=== PATIENT | female | born 1965 | race Caucasian/White ===

== ENCOUNTER → 2017-11-18 14:19 | Outpatient (CLI) | payer OTHER, SELFPAY ==
--- NOTE | 2017-11-18 14:39 | XR_ITS ---
XR chest 2V HISTORY: ITS.REASON: COUGH,PRIOR SMOKER,RECENT BRONCHITIS ORDERING PHYSICIAN: Abigail Zazueta DPM PATIENT AGE: 52 years COMPARISON: None FINDINGS: There is mild cardiomegaly without failure. There are scattered small calcified granulomas. There is mild biapical pleural thickening. No lobar consolidation or collapse. Bone plate is present over the lower cervical spine. There is mild dextrocurvature of the thoracic spine. IMPRESSION: Cardiomegaly with old granulomatous disease. No change with no acute finding
[2017-11-18 15:55] LABS: Basophils % 0.6 % (0.1-2.0); Eosinophils # 0.3 K/mm3 (0.0-0.4); Eosinophils % 3.9 % (0.1-12.0); Hematocrit 43.8 % (37.0-47.0); Hemoglobin 14.4 g/dL (12.2-16.2); Lymphocytes % 30.2 K/mm3 (10-50); Mean Corpuscular HGB Conc 32.9 g/dL (31.8-35.4); Mean Corpuscular Hemoglobin 29.8 pg (27.0-31.2); Mean Corpuscular Volume 90.7 fl (81-99); Mean Platelet Volume 7.6 fl (7.4-10.4); Monocytes # 0.4 K/mm3 (0.1-1.0); Monocytes % 5.3 % (1.7-9.3); Neutrophils % 59.9 % (37.0-80.0); Platelet Count 288 K/mm3 (142-424); Red Blood Count 4.83 M/mm3 (4.20-5.40); Red Cell Distribution Width 12.9 % (11.5-17.5); White Blood Count 6.7 K/mm3 (4.8-10.8)
[2017-11-18 16:35] LABS: Alanine Aminotransferase 35 U/L (12-78); Albumin Level 3.7 gm/dL (3.4-5.0); Albumin/Globulin Ratio 1.2 (1.1-1.8); Alkaline Phosphatase 97 U/L (46-116); Anion Gap 12.3 mEq/L (5-15); Aspartate Amino Transferase 26 U/L (15-37); Bilirubin,Total 0.4 mg/dL (0.2-1.0); Blood Urea Nitrogen 11 mg/dL (7-18); Calcium 9.3 mg/dL (8.5-10.1); Carbon Dioxide 31 mmol/L (21.0-32.0); Chloride 103 mmol/L (98-107); Creatinine,Serum 0.79 mg/dL (0.55-1.02); Estimated Glomerular Filt Rate 76 ml/min (>60); GFR (African American) 92 ML/MIN (>60); Glucose 96 mg/dL (74-106); Potassium 4.3 mmoL/L (3.5-5.1); Sodium 142 mmol/L (136-145); Total Protein,Serum 6.7 gm/dL (6.4-8.2)
[2017-11-21 12:57] LABS: Vitamin D 25 Hydroxy 25.6 ng/mL (30.0-100.0)
== END ==
PROVIDERS: PCP Family Medicine; Visit Provider Podiatrist
DX: Z01.818 Encounter for other preprocedural examination (principal); S82.832A Other fracture of upper and lower end of left fibula, initial encounter for closed fracture
CPT/HCPCS: 36415; 71046; 80053; 82652; 85025; 93005

== ENCOUNTER → 2017-12-07 13:53 | Outpatient (CLI) | payer OTHER, SELFPAY ==
[2017-12-07 14:00] VITALS: PULSE 73; PULSE 77
== END ==
PROVIDERS: PCP Family Medicine; Visit Provider Family Medicine
DX: R06.2 Wheezing (principal); R06.02 Shortness of breath
CPT/HCPCS: 94060; 94640

== ENCOUNTER → 2017-12-08 10:01 | Outpatient (CLI) | payer OTHER, SELFPAY ==
--- NOTE | 2017-12-08 10:02 | XR_ITS ---
XR ankle wt bearing LT min 3V HISTORY: Follow-up surgery ITS.REASON: post-op ORDERING PHYSICIAN: Abigail Zazueta DPM PATIENT AGE: 52 years Comparison: 11/23/2017 FINDINGS: There is a bone plate present along the distal fibula with good alignment. Fracture line is obscured by overlying splint. Ankle mortise does not appear widened. IMPRESSION: Good alignment status post ORIF distal fibula.
== END ==
PROVIDERS: PCP Family Medicine; Visit Provider Podiatrist
DX: Z98.890 Other specified postprocedural states (principal)
CPT/HCPCS: 73610

== ENCOUNTER → 2018-01-05 09:35 | Outpatient (CLI) | payer OTHER, SELFPAY ==
--- NOTE | 2018-01-05 09:37 | XR_ITS ---
XR ankle wt bearing LT min 3V Ordering Physician: Abigail Zazueta DPM Patient Age: 52 years: Female HISTORY: ITS.REASON: postoperative views TECHNIQUE: 3 view left ankle weightbearing COMPARISON :12/09/1979 left ankle series FINDINGS Lung bone plate is been secured to the lateral aspect of the distal fibula is secured by 6 screws 2 small screws distally towards the tip of the lateral malleolus. There is progressive healing at the fracture at the lateral malleolus. Good alignment. Stable position of fracture and fixation elements Medial malleolus and posterior malleolus intact ankle mortise and dome of talus intact. IMPRESSION: Progressive healing of the lateral malleolar fracture. ORIF with Stable position of fracture & fixation elements at the lateral malleolus
== END ==
PROVIDERS: PCP Family Medicine; Visit Provider Podiatrist
DX: Z98.890 Other specified postprocedural states (principal)
CPT/HCPCS: 73610

== ENCOUNTER → 2018-01-24 10:01 | Outpatient (CLI) | payer OTHER, SELFPAY ==
--- NOTE | 2018-01-24 10:02 | XR_ITS ---
XR ankle wt bearing LT min 3V HISTORY: Follow-up fracture/ORIF ITS.REASON: Post-op views ORDERING PHYSICIAN: Marin Weaver PATIENT AGE: 52 years Comparison: 01/05/2018 FINDINGS: Lateral bone plate once again noted at the distal fibula stabilizing a nondisplaced distal fibular fracture which is in good alignment. Fracture line is barely visible. IMPRESSION: Overall no change status post ORIF nondisplaced distal fibular fracture with good alignment
--- NOTE | 2018-01-24 15:24 | MM_ITS ---
MM Dig screening mamm BI w/CAD ORDERING PHYSICIAN : Marin Weaver PATIENT AGE: 52 years GENDER: Female COMPARISON: July 2012, & 08 November 2014 INDICATION: ITS.REASON: SCREENING no hormones. No new complaints. Family history. Paternal grandmother and paternal great aunt with breast cancer TECHNIQUE: Standard CC and MLO images were obtained. R2 CAD reviewed. FINDINGS: Moderate to slight increased density breast bilaterally. Areas of density breast slightly limit mammography but prior films are helpful and supportive overall stable mild asymmetry Overall similar, Stable mild asymmetry. Follow-up in one year bilateral RIGHT BREAST:Stable right breast. LEFT BREAST: No significant new findings Mild asymmetry of the left breast on MLO view is similar to 2015 IMPRESSION: No new areas of significant concern. . Moderate heterogeneous breast density Bilateral follow-up one year should be emphasized and encouraged BI-RADS Category: 2 Benign Finding(s) RECOMMENDED FOLLOW-UP: 1YR 1 YEAR FOLLOW-UP (A letter has been sent to the patient regarding results of the study.)
== END ==
PROVIDERS: PCP Family Medicine; Referring Provider Podiatrist; Visit Provider Obstetrics & Gynecology Gynecology
DX: Z12.31 Encounter for screening mammogram for malignant neoplasm of breast (principal); Z98.890 Other specified postprocedural states; S82.832A Other fracture of upper and lower end of left fibula, initial encounter for closed fracture
CPT/HCPCS: 73610; 77067

== ENCOUNTER 2018-02-07 08:30 | Outpatient (RCR) | payer OTHER, SELFPAY ==
--- NOTE | 2018-01-18 14:36 | HMH.PTOPEV ---
PT Outpatient Evaluation Rehab PT Outpatient Evaluation Start: 01/18/18 14:21 Freq: Status: Active Protocol: Document 01/18/18 14:23 DAVIDDIEUDONNE (Rec: 01/18/18 14:36 DAVIDSAULRAMÍREZ [id number]) Electronically Signed By Olivier Barney, PT 01/18/18 14:23 Outpatient Therapy Subjective History Subjective History Pt is a 52 year old female presenting to outpatient PT with reports of L ankle pain S /P ORIF for L lateral malleolus fracture on 11/18/17. Pt reports initial injury came as a result of fall while walking down stairs at home. Sx performed on 11/23/17 . Pt reports that she was initially NWB until 2 weeks ago. She ambulated into clinic today in tall CAM walker. Chief Complaint Pain Stiff Swelling Symptom Type Ache Symptoms Relieved By Rest/Positioning Ice Symptoms Aggravated By Standing Physical Activity Walking Prior Functional Limitations None Current Functional Limitations Housework Standing Squatting Recreation Activity Walking Stairs Balance Symptom Description Intermittent Level of pain today (0-10) 1 Pain scale - at its best (0-10) 0 Pain scale - at its worst (0-10) 5 Ankle/Foot Eval Gait Observation General Gait Pattern Observation Antalgic Gait Palpation Tenderness left Ankle/Foot Palpation Findings Tenderness Ankle/Foot Palpation Overall Comment achilles ATF TTP positive ROM right Ankle/Foot ROM Reason Not Measured Within Functional Limits Great Toe ROM Reason Not Measured Within Functional Limits left Ankle/Foot Dorsiflexion w/Knee Extended 3 Active Range Motion (degrees) Ankle/Foot Dorsiflexion w/Knee Extended 11 Passive Range (degrees) Ankle/Foot Plantar Flexion Active Range 60 of Motion (degrees) Ankle/Foot Eversion Active Range of 22 Motion (degrees) Ankle/Foot Eversion Passive Range of 25 Motion (degrees) Ankle/Foot Inversion Active Range of 28 Motion (degrees) Ankle/Foot Inversion Passive Range of 32 Motion (degrees)
== END 2018-02-07 08:35 | disposition home or self-care (01) ==
LOC: PT 08:30
PROVIDERS: Family Provider Emergency Medicine; PCP Family Medicine; Visit Provider Podiatrist
DX: Z98.890 Other specified postprocedural states (principal); S82.63XA Displaced fracture of lateral malleolus of unspecified fibula, initial encounter for closed fracture
CPT/HCPCS: 97010; 97014; 97016; 97035; 97110; 97112; 97116; 97140; 97163; G0283

== ENCOUNTER → 2018-02-08 12:26 | Outpatient (CLI) | payer OTHER, SELFPAY ==
--- NOTE | 2018-02-08 12:27 | XR_ITS ---
XR ankle wt bearing LT min 3V HISTORY: ITS.REASON: pain ORDERING PHYSICIAN: Abigail Zazueta DPM PATIENT AGE: 52 years Comparison: 01/24/2018 FINDINGS: No change status post ORIF fibular fracture with bone plate in place with good alignment. No evidence of orthopedic hardware malfunction. Faint lucency once again noted fracture site unchanged. Ankle mortise appears intact. IMPRESSION: No change status post ORIF nondisplaced fracture distal fibula
--- NOTE | 2018-02-08 16:42 | MR_ITS ---
MR ankle LT wo/w con CLINICAL INDICATION: Left ankle pain, recent surgery, medial and posterior pain ITS.REASON: pain in achilles tendon ORDERING PHYSICIAN: Abigail Zazueta DPM PATIENT AGE: 52 years Comparison: 11/18/2017, 11/23/2017, 05/19/2012 TECHNIQUE: Routine pre and post enhancement multiplanar multiecho sequences FINDINGS: The Achilles tendon is intact. No muscular tear evident of the posterior lower calf. Kager's fat pad is preserved. Artifact is present from the bone-plate of the distal fibula stabilizing the avulsion fracture of the lateral malleolus. Soft tissue edema is present along the anterior lateral aspect of the ankle. The anterior talofibular ligament is identified and has some slight increase in T2 signal. The anterior tibiofibular ligament is smaller than expected . The posterior tibiofibular ligament is intact. Posterior talofibular ligament also appears intact. Fibers of the deltoid ligament are somewhat sparse and could be due to partial tear. There is increased T2 signal involving the central and medial aspect of the talus consistent with bone contusion. The peroneal tendons, posterior tibialis, flexor hallucis longus, and flexor digitorum longus tendons appear intact. There is a small amount of fluid along the anterior aspect of the ankle joint. There is soft tissue swelling with enhancement of the soft tissues along the lateral aspect and anterior aspect of the ankle which may be related to patient's recent postoperative state. IMPRESSION: 1. No evidence of Achilles tendon tear. 2. Postoperative changes of the lateral malleolus with some soft tissue edema and mild enhancement laterally likely related to the recent postoperative state. 3. Bone bruise/contusion of the talus medially. 4. Slight increased T2 signal of the ATFL nonspecific with focal increased signal is sterilely which could be due to a sprain or partial tear. 5. Anterior tibiofibular ligament is smaller than expected and could be due to chronic or partial tear
--- NOTE | 2018-02-08 18:11 | HMH.ITSHM ---
Current Home Medications as stated by this patient Meenu Hernandez or open claims representative. []LEXAPRO
== END ==
PROVIDERS: PCP Family Medicine; Visit Provider Podiatrist
DX: S86.012A Strain of left Achilles tendon, initial encounter (principal); T14.8XXA Other injury of unspecified body region, initial encounter
CPT/HCPCS: 73223; 73610; A9576

== ENCOUNTER 2018-04-11 09:30 | Outpatient (RCR) | payer OTHER, SELFPAY ==
--- NOTE | 2018-03-14 13:45 | HMH.PTOPEV ---
PT Outpatient Evaluation Rehab PT Outpatient Evaluation Start: 03/14/18 13:30 Freq: Status: Active Protocol: Document 03/14/18 13:30 KRYSTALRAMÍREZ (Rec: 03/14/18 13:43 KRISTI [id number]) Electronically Signed By Olivier Barney, PT 03/14/18 13:30 Outpatient Therapy Subjective History Subjective History Pt is a 52 year old female presenting to outpatient PT with reports of L foot/ankle pain starting approximately 1. 5 months ago. Initial injury occurred 11/18/17 when she took a misstep out of her RV resulting in a distal fibular fracture. ORIF performed 11/23. She initially had 6 PT visits with no problems progressing to full weight bearing out of AD. She returned to work part time upon clearance from MD. she felt a pop while walking at work resulting in return of mild pain. Signs and symptoms consistent with achilles tendonitis and possible ATFL tear. Chief Complaint Pain Swelling Symptom Type Ache Symptoms Relieved By OTC Meds Symptoms Aggravated By Standing Physical Activity Walking Prior Functional Limitations None Current Functional Limitations Standing Recreation Activity Walking Stairs Balance Symptom Description Intermittent Level of pain today (0-10) 0 Pain scale - at its best (0-10) 0 Pain scale - at its worst (0-10) 2 Ankle/Foot Eval Gait Observation General Gait Pattern Observation Antalgic Gait Decrease Weight Bear (L) Palpation Tenderness left Ankle/Foot Palpation Findings Tenderness Ankle/Foot Palpation Overall Comment achilles ATF TTP positive ROM Ankle/Foot Dorsiflexion w/Knee Extended 12 Active Range Motion (degrees) Ankle/Foot Plantar Flexion Active Range 60 of Motion (degrees) Ankle/Foot Eversion Active Range of 20 Motion (degrees) Ankle/Foot Inversion Active Range of 30 Motion (degrees) Ankle/Foot ROM Limitations Soft Tissue Tightness
== END 2018-04-11 09:35 | disposition home or self-care (01) ==
LOC: PT 09:30
PROVIDERS: Visit Provider Podiatrist
DX: S93.492D Sprain of other ligament of left ankle, subsequent encounter (principal); S86.012D Strain of left Achilles tendon, subsequent encounter
CPT/HCPCS: 97010; 97014; 97016; 97033; 97035; 97110; 97112; 97140; 97163; G0283

== ENCOUNTER → 2019-05-29 07:08 | Outpatient (CLI) | payer OTHER, SELFPAY ==
[2019-05-29 08:23] LABS: Chloride 101 mmol/L (98-107); Sodium 138 mmol/L (136-145)
[2019-05-29 08:24] LABS: Potassium 4.2 mmoL/L (3.5-5.1)
[2019-05-29 08:26] LABS: Alanine Aminotransferase 46 U/L (12-78); Albumin/Globulin Ratio 1.6 (1.1-1.8); Alkaline Phosphatase 81 U/L (38-126); Anion Gap 12.2 mEq/L (5-15); Aspartate Amino Transferase 41 U/L (14-36); Bilirubin,Total 0.4 mg/dl (0.2-1.3); Blood Urea Nitrogen 14 mg/dl (7-17); Carbon Dioxide 29 mmol/L (22.0-30.0); Estimated Glomerular Filt Rate 87 ml/min (>60); GFR (African American) 105 ML/MIN (>60); Globulin 2.5 g/dL (1.3-3.2); Total Protein,Serum 6.5 g/dl (6.3-8.2); Uric Acid 6.5 mg/dl (2.5-6.2)
[2019-05-29 08:27] LABS: Calcium 9.8 mg/dl (8.4-10.2); Glucose 92 mg/dl (74-100)
[2019-05-29 08:29] LABS: Basophils # 0.1 K/mm3 (0-0.2); Basophils % 0.9 % (0.1-2.0); Eosinophils # 0.8 K/mm3 (0.0-0.4); Eosinophils % 14.1 % (0.1-12.0); Hematocrit 43.7 % (37.0-47.0); Hemoglobin 14.2 g/dL (12.2-16.2); Lymphocytes # 2.3 K/mm3 (0.7-4.5); Lymphocytes % 42.6 % (10-50); Mean Corpuscular HGB Conc 32.5 g/dL (31.8-35.4); Mean Corpuscular Hemoglobin 29.7 pg (27.0-31.2); Mean Corpuscular Volume 91.4 fl (81-99); Mean Platelet Volume 7.7 fl (7.4-10.4); Monocytes # 0.4 K/mm3 (0.1-1.0); Neutrophils % 35.4 % (37.0-80.0); Platelet Count 271 K/mm3 (142-424); Red Blood Count 4.79 M/mm3 (4.20-5.40); Red Cell Distribution Width 12.9 % (11.5-17.5); White Blood Count 5.5 K/mm3 (4.8-10.8)
[2019-05-29 08:33] LABS: C-Reactive Protein 1.9 mg/L (0-4)
[2019-05-29 08:57] LABS: Thyroid Stimulating Hormone 1.99 uIU/mL (0.465-4.68)
[2019-05-29 09:55] LABS: Erythrocyte Sedimentation Rate 15 mm/hr (0-30)
[2019-05-30 16:16] LABS: Vitamin B12 488 pg/mL (232-1245)
[2019-06-22 18:12] LABS: RA Latex Turbid. <10.0
[2019-06-22 18:13] LABS: Antinuclear Antibodies (ANA) NEGATIVE
== END ==
PROVIDERS: Visit Provider Nurse Practitioner Family
DX: M62.838 Other muscle spasm (principal); M25.50 Pain in unspecified joint; R60.9 Edema, unspecified; Z13.820 Encounter for screening for osteoporosis
CPT/HCPCS: 36415; 80053; 82607; 84443; 84550; 85025; 85651; 86038; 86140; 86431

== ENCOUNTER → 2019-07-27 09:58 | Outpatient (CLI) | payer OTHER, SELFPAY ==
--- NOTE | 2019-07-27 10:04 | MM_ITS ---
PROCEDURE: MM DIG SCREENING MAMM BI W/CAD DIGITAL BREAST TOMOSYNTHESIS INCLUDED Patient Age:53Y CLINICAL INDICATION: SCREENING-no hormones, no new complaints.. Family history. Paternal grandmother. 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 R2 CAD reviewed. Bilateral digital breast tomosynthesis included. FINDINGS: There are moderate residual scattered fibroglandular elements both breast but however there has been slowly progressive fatty change both breasts since studies dating back to 2006. No dominant nor developing suspicious mass evident. No suspicious calcifications Left breast: Stable with. No new areas of significant concern . Stable mild asymmetry. Right breast. No significant new areas of concern Bilateral follow-up 1 year recommended IMPRESSION: Stable bilateral mammogram. No new areas Of significant concern either breast Bilateral follow-up 1 year recommended BI-RAD Category: 2 Benign Finding(s) FOLLOW-UP: 1YR 1 Year Follow-up (A letter has been sent to the patient regarding results of the study.) Dictated by: Sam Viera MD 08/01/2019 12:49 Electronically signed by Sam Viera MD in [place] 08/01/2019 12:49
== END ==
PROVIDERS: PCP Family Medicine; Visit Provider Obstetrics & Gynecology Gynecology
DX: Z12.31 Encounter for screening mammogram for malignant neoplasm of breast (principal)
CPT/HCPCS: 77063; 77067

== ENCOUNTER 2019-09-09 16:44 | Observation (INO) | payer OTHER, SELFPAY ==
[2019-09-09] VITALS (9 sets, daily range): BP systolic 107–137; BP diastolic 45–81; PULSE 48–95; RESP 16–24; TEMP 36.6–36.8; O2SAT 94–100; BMI 24.0; BMI 32.2
--- NOTE | 2019-09-09 16:59 | HMH.EDGENADL ---
ED Disposition Clinical Impression: Tibia/fibula fracture Qualifiers: Encounter type: initial encounter Fracture type: closed Laterality: right Qualified Code(s): S82.201A - Unspecified fracture of shaft of right tibia, initial encounter for closed fracture Disposition: Admitted As Inpatient Condition on Discharge: Fair Time of Disposition: 19:20 - Critical Care Critical Care Time: No Attestation: On 09/09/19, the high probability of a clinically significant, sudden or life threatening deterioration of the following system(s) required my full and direct attention, intervention and personal management. The time I documented below is in addition to time spent performing reported procedures but includes the following listed in this critical care notation. Medical Decision Making - Dinesh Inquiry Pt receiving controlled substance: Yes Dinesh was queried for this patient: No (emergent reduction) Risks and benefits of using a controlled substance: were discussed with pt by me Vital Signs: 09/09/19 16:45 09/09/19 17:34 09/09/19 17:37 Temperature 98 F Temperature Source Oral Pulse Rate [Left Radial] 48 L 60 60 Respiratory Rate 18 18 Blood Pressure [Right Arm] 107/45 L 128/73 123/78 Blood Pressure Mean [Right Arm] 65 91 93 Blood Pressure Source [Right Arm] Automatic Cuff Blood Pressure Position [Right Arm] Sitting Supine 02 Sat by Pulse Oximetry 98 100 98 Oxygen Delivery Method Room Air Nasal Cannula Oxygen Flow Rate (LPM) 3 09/09/19 18:55 09/09/19 19:00 09/09/19 19:29 Temperature Temperature Source Pulse Rate [Left Radial] 59 L 62 59 L Respiratory Rate Blood Pressure [Right Arm] 131/81 133/77 126/68 Blood Pressure Mean [Right Arm] 97 95 87 Blood Pressure Source [Right Arm] Blood Pressure Position [Right Arm] Sitting Sitting Sitting 02 Sat by Pulse Oximetry 99 97 99 Oxygen Delivery Method Nasal Cannula Nasal Cannula Nasal Cannula Oxygen Flow Rate (LPM) 3 3 - Lab Data Lab Results 09/09/19 14:40: Sodium 137, Potassium 3.5, Chloride 105, Carbon Dioxide 25, Anion Gap 10.5, BUN 7, Creatinine 0.70, Estimated GFR 87, Est GFR ( Amer) 105, Glucose 137 H, Calcium 8.8, Total Bilirubin 0.5, AST 35, ALT 35, Alkaline Phosphatase 85, Total Protein 6.4, Albumin 3.9, Globulin 2.5, Albumin/Globulin Ratio 1.6 09/09/19 15:24: WBC 10.9 H, RBC 4.50, Hgb 14.1, Hct 40.6, MCV 90.1, MCH 31.4 H, MCHC 34.8, RDW 12.9, Plt Count 312, MPV 8.0, Neut % (Auto) 32.9 L, Lymph % (Auto) 49.2, [place] % (Auto) 5.3, Eos % (Auto) 9.4, Baso % (Auto) 0.9, Neut # (Auto) 3.6, Lymph # (Auto) 5.4 H, [place] # (Auto) 0.6, Eos # (Auto) 1.0 H, Baso # (Auto) 0.9 H Result diagrams: 09/09/19 15:24 09/09/19 14:40 Orders (Tests/Meds): ED MEDICATIONS Generic Name Dose Route Start Last Admin Trade Name Freq PRN Reason Stop Dose Admin Sodium Chloride 1,000 mls @ 999 mls/hr 09/09/19 19:15 09/09/19 17:00 Sod Chlor 0.9% 1000ml Bag IV 09/09/19 20:15 999 mls/hr .Q1H1M ROSALINDA Administration Sodium Chloride 1,000 mls @ 999 mls/hr 09/09/19 19:15 09/09/19 18:30 Sod Chlor 0.9% 1000ml Bag IV 09/09/19 20:15 999 mls/hr .Q1H1M ROSALINDA Administration Discontinued Medications Generic Name Dose Route Start Last Admin Trade Name Freq PRN Reason Stop Dose Admin Fentanyl Citrate 50 mcg 09/09/19 17:24 09/09/19 17:26 Fentanyl 100mcg/2ml Vial IV 09/09/19 17:25 50 mcg ONCE ONE Administration Fentanyl Citrate 50 mcg 09/09/19 18:33 09/09/19 18:34 Fentanyl 100mcg/2ml Vial IV 09/09/19 18:34 50 mcg ONCE ONE Administration Hydromorphone HCl 1 mg 09/09/19 17:22 09/09/19 16:45 Dilaudid 2mg/Ml Syringe IV 09/09/19 17:23 1 mg ONCE ONE Administration Hydromorphone HCl 1 mg 09/09/19 19:09 09/09/19 17:45 Dilaudid 2mg/Ml Syringe IV 09/09/19 19:10 1 mg ONCE ONE Administration Ketamine HCl 25 mg 09/09/19 19:08 09/09/19 18:46 Ketamine 500mg/10ml Vial IV 09/09/19 19:09 25 mg ONCE ONE Admini
[2019-09-09 17:36] LABS: Albumin Level 3.9 g/dl (3.5-5.0); Albumin/Globulin Ratio 1.6 (1.1-1.8); Alkaline Phosphatase 85 U/L (38-126); Anion Gap 10.5 mEq/L (5-15); Aspartate Amino Transferase 35 U/L (14-36); Bilirubin,Total 0.5 mg/dl (0.2-1.3); Blood Urea Nitrogen 7 mg/dl (7-17); Calcium 8.8 mg/dl (8.4-10.2); Carbon Dioxide 25 mmol/L (22.0-30.0); Chloride 105 mmol/L (98-107); Estimated Glomerular Filt Rate 87 ml/min (>60); GFR (African American) 105 ML/MIN (>60); Globulin 2.5 g/dL (1.3-3.2); Glucose 137 mg/dl (74-100); Potassium 3.5 mmoL/L (3.5-5.1); Sodium 137 mmol/L (136-145); Total Protein,Serum 6.4 g/dl (6.3-8.2)
--- NOTE | 2019-09-09 17:48 | XR_ITS ---
PROCEDURE: XR ANKLE RT MIN 3V CLINICAL INDICATION: INJURY Posttraumatic pain COMPARISON: ANKWBL3 XR ankle wt bearing LT min 3V from 12/08/2017 ANKWBL3 XR ankle wt bearing LT min 3V from 01/05/2018 ANKWBL3 XR ankle wt bearing LT min 3V from 01/24/2018 XR TIBIA FIBULA RT 2V from 09/09/2019 FINDINGS: There is a severely comminuted fracture involving the distal aspect of the tibia at the metaphyseal diaphyseal junction with mild lateral and dorsal angulation of the distal fracture fragments. There is a longitudinal an intra-articular component extending into the tibial plafond. The ankle mortise appears widened. Severely comminuted and mildly impacted fracture involves the distal fibula shaft with butterfly fragments medially and laterally with mild lateral angulation and dorsal displacement of the distal fracture fragment by approximately 1 cm. There is dorsal subluxation of the talus. A true lateral is not obtained. CT may provide further evaluation. There also appears to be a small avulsion injury at the tip of the lateral malleolus which could be old. There is a nondisplaced fracture involving the proximal neck of the fibula. The mid and proximal aspect of the tibia has an unremarkable appearance. IMPRESSION: The severely comminuted fracture of the distal tibia and fibula with intra-articular component of the tibial fracture and mild lateral and posterior displacement of the fibular fracture with widening of the ankle mortise with an associated nondisplaced fracture of the fibular neck. There is mild posterior subluxation of the talus Dictated by: Kendrick Mayfield MD 09/09/2019 18:42 Electronically signed by Kendrick Mayfield MD in [place] 09/09/2019 18:42
[2019-09-09 17:50] LABS: Basophils % 0.9 % (0.1-2.0); Eosinophils % 9.4 % (0.1-12.0); Hematocrit 40.6 % (37.0-47.0); Hemoglobin 14.1 g/dL (12.2-16.2); Lymphocytes # 5.4 K/mm3 (0.7-4.5); Lymphocytes % 49.2 % (10-50); Mean Corpuscular HGB Conc 34.8 g/dL (31.8-35.4); Mean Corpuscular Hemoglobin 31.4 pg (27.0-31.2); Mean Corpuscular Volume 90.1 fl (81-99); Monocytes # 0.6 K/mm3 (0.1-1.0); Monocytes % 5.3 % (1.7-9.3); Neutrophils # 3.6 K/mm3 (1.8-7.8); Neutrophils % 32.9 % (37.0-80.0); Platelet Count 312 K/mm3 (142-424); Red Cell Distribution Width 12.9 % (11.5-17.5); White Blood Count 10.9 K/mm3 (4.8-10.8)
[2019-09-09 17:51] LABS: Basophils # 0.9 K/mm3 (0-0.2)
[2019-09-09 18:04] LABS: Alanine Aminotransferase 35 U/L (12-78)
--- NOTE | 2019-09-09 18:06 | PC.NURSE ---
UPDATED ON PLAN OF CARE
--- NOTE | 2019-09-09 18:11 | PC.NURSE ---
PATIENT AND FAMILY WITH NO NEEDS AT THIS TIME
--- NOTE | 2019-09-09 18:50 | XR_ITS ---
PROCEDURE: XR ANKLE RT 2V CLINICAL INDICATION: POST REDUCTION COMPARISON: ANKWBL3 XR ankle wt bearing LT min 3V from 01/05/2018 ANKWBL3 XR ankle wt bearing LT min 3V from 01/24/2018 ANKWBL3 XR ankle wt bearing LT min 3V from 02/08/2018 CT LOWER LEG RT WO CON from 09/09/2019 XR ANKLE RT MIN 3V from 09/09/2019 FINDINGS: There is now posterior splint in place. There has been closed reduction of the severely comminuted distal tibial and fibular fracture with improvement in the posterior displacement, posterior angulation, and lateral angulation of the distal fracture fragments. There is an intra-articular component of the distal tibial fracture longitudinal in nature at the base of the medial malleolus IMPRESSION: Improved alignment and displacement in the severely comminuted distal tibial and fibular fracture Dictated by: Kendrick Mayfield MD 09/09/2019 20:45 Electronically signed by Kendrick Mayfield MD in [place] 09/09/2019 20:45
--- NOTE | 2019-09-09 18:55 | PC.NURSE ---
rt ankle reduced per dr anderson.
--- NOTE | 2019-09-09 19:00 | PC.NURSE ---
posterior splint applied per dr anderson
--- NOTE | 2019-09-09 19:22 | PC.NURSE ---
speaking with Dr. Rubio
--- NOTE | 2019-09-09 19:24 | CT_ITS ---
PROCEDURE: CT LOWER LEG RT WO CON CLINICAL HISTORY: right ankle pain Posttraumatic pain, pain and swelling with deformity COMPARISON: No exams were available for comparison TECHNIQUE: Axial images obtained with sagittal and coronal reformats. All CT scans at the facility use one or more dose reduction, viz: automated exposure control, ma/kV adjustment per patient size (including targeted exams where dose is matched to indication, i.e. head), or iterative reconstruction technique. FINDINGS: Nondisplaced comminuted fracture at the neck and head of the fibula with fracture extending into the tibiofibular joint space. Severely comminuted and impacted fracture of the distal shaft of the fibula. The fracture is 5 cm proximal to the tip of the fibula. There is mild impaction of the fracture fragments. There is shattered bony cortex both medially and laterally. There is mild lateral and anterior angulation of the distal fracture fragment without significant displacement. Comminuted distal tibial fracture at the diaphyseal metaphyseal junction extending into the epiphysis and the articular surface of the distal tibia. There is displaced lateral fragment of the distal tibia displaced laterally. Posterior distal tibial fracture also noted not significantly displaced. A fracture line extends into the medial malleolus. The talar dome is unremarkable. There is a small bony fragment anterior to the tip of the fibula and could be due to an avulsion fracture from either the talus or the distal fibula. An avulsion fracture fragment is present also at the distal and lateral aspect of the calcaneus lateral to the calcaneocuboid joint. Well-circumscribed calcific densities are present at the medial navicular region. There is diffuse soft tissue swelling at the ankle and lower leg. There is widening of the ankle mortise. There is lateral tilt of the talus. IMPRESSION: Severely comminuted fracture of the distal tibia and fibula as well as a nondisplaced comminuted fracture of the proximal fibula as detailed above. There is widening of the ankle mortise with intra-articular involvement of the distal tibial fracture also with suspected avulsion of the anterior and distal aspect of the calcaneus and tip of the fibula versus talus laterally. Dictated by: Kendrick Mayfield MD 09/10/2019 10:37 Electronically signed by Kendrick Mayfield MD in [place] 09/10/2019 10:37
--- NOTE | 2019-09-09 19:28 | PC.NURSE ---
pt awake alert skin warm and dry. rt foot with cap refill 3secs.
--- NOTE | 2019-09-09 21:12 | PC.NURSE ---
PT ARRIVED TO THE FLOOR VIA STRETCHER FROM ED 2 [id number]
[2019-09-10] VITALS (19 sets, daily range): BP systolic 90–131; BP diastolic 48–71; PULSE 50–85; RESP 16–20; TEMP 36.4–43; O2SAT 91–98; BMI 32.4
--- NOTE | 2019-09-10 01:32 | PC.NURSE ---
Gave pt Morphine 4 mg IV PRN at 2350, followup pt reported pain going down and tolerable. Ran out 10 minutes later c/o more pain than before the Morphine was given. Suddenly pt reports just at the bend of her ankle intense pain. Loosened the outer TONY bandage and pulled slightly on splint to see if pt was experiencing compartment syndrome and pt reported no difference in pain level, no better, no worse - rewrapped TONY bandage. Took blankets out from under leg and replaced with pillows. Again pt reported no difference in pain level. VS - 90/48, HR 50, 92% room air, 16 respirations, 99.8 temp. All comfort measures exhausted, pt reported she would try to tolerate pain, dimmed the lights, advised to alert staff as needed, pt and daughter agreed, monitoring continues.
--- NOTE | 2019-09-10 04:14 | PC.NURSE ---
After 0200 pt began to settle down with intermittent sleep. Pain medication just given again, pt reported she was able to get some rest and pain was manageable. This administration pt reported pain as a 4, blood pressure continues to run low but acceptable at 94/55, hr 73, temp 99, resp 16, 91 on room air. Med followup and monitoring continues.
[2019-09-10 06:41] LABS: Basophils % 0.5 % (0.1-2.0); Eosinophils % 0.3 % (0.1-12.0); Lymphocytes # 1.2 K/mm3 (0.7-4.5); Mean Corpuscular HGB Conc 33.6 g/dL (31.8-35.4); Mean Corpuscular Hemoglobin 30.9 pg (27.0-31.2); Mean Corpuscular Volume 91.9 fl (81-99); Mean Platelet Volume 8.1 fl (7.4-10.4); Monocytes # 0.5 K/mm3 (0.1-1.0); Monocytes % 6.5 % (1.7-9.3); Neutrophils # 5.5 K/mm3 (1.8-7.8); Neutrophils % 75.6 % (37.0-80.0); Platelet Count 220 K/mm3 (142-424); Red Blood Count 3.92 M/mm3 (4.20-5.40); Red Cell Distribution Width 12.9 % (11.5-17.5); White Blood Count 7.3 K/mm3 (4.8-10.8)
[2019-09-10 06:48] LABS: Hemoglobin 12.4 g/dL (12.2-16.2)
[2019-09-10 06:52] LABS: Chloride 108 mmol/L (98-107); Potassium 3.8 mmoL/L (3.5-5.1); Sodium 137 mmol/L (136-145)
[2019-09-10 06:55] LABS: Alanine Aminotransferase 27 U/L (12-78); Albumin Level 3.2 g/dl (3.5-5.0); Albumin/Globulin Ratio 1.5 (1.1-1.8); Alkaline Phosphatase 76 U/L (38-126); Anion Gap 6.8 mEq/L (5-15); Aspartate Amino Transferase 30 U/L (14-36); Bilirubin,Total 0.5 mg/dl (0.2-1.3); Blood Urea Nitrogen 5 mg/dl (7-17); Carbon Dioxide 26 mmol/L (22.0-30.0); Creatinine Clearance Estimated 132 mL/min (50-200); Estimated Glomerular Filt Rate 103 ml/min (>60); GFR (African American) 125 ML/MIN (>60); Globulin 2.2 g/dL (1.3-3.2); Glucose 123 mg/dl (74-100); Magnesium 1.7 mg/dl (1.6-2.3); Phosphorous 2.3 mg/dl (2.5-4.5); Total Protein,Serum 5.4 g/dl (6.3-8.2)
--- NOTE | 2019-09-10 07:44 | HMH.HP ---
*Admission Date: 09/09/19 *Chief complaint: Fall with right ankle pain *History of present illness: 54-year-old female with history of obstructive airway disease presented to the emergency department yesterday afternoon after a fall. Patient is not quite sure how she injured herself. She was on a trampoline watching her grandchildren and was climbing down on a ladder when her rung broke. This resulted in a right tib-fib fracture. She presented to the emergency department where the fracture/dislocation was reduced and she was placed in a posterior splint and admitted for orthopedic consultation [facility] History I have reviewed the patient's past medical history: Yes Medical History: Reports:: Chronic Obstructive Pulmonary Disease (COPD), Depression, Lung Disease Denies:: Cancer, Diabetes Mellitus Type 1, Diabetes Mellitus Type 2, Internal Pacemaker, MRSA, Seizures *Have you ever received a pneumonia vaccine?: No *Have you received a flu vaccine this season?: Yes Other Medical History: Reports: Other. Denies: Blood Transfusion Reaction Other Surgeries: Yes: No Previous Surgery, Colonoscopy, Other. No: Pacemaker Amputation: No Fractures: Yes - *Social History Educational Level: Completed High School Smoking Status: Former smoker Tobacco Type: cigarettes # Packs/Day (cigarettes): 1 #Yrs smoked (if former smoker): 30 Smoking End Date: 2009 Alcohol Intake: never Alcohol Intake Frequency:: other Substance Use Type: denies use *Occupational Status:: employed Housing: house Household Members: other *Travel in the last 8 weeks: None - Psychiatric History Pschychiatric History:: Reports:: Depression Family Hx:: Hypertension, Mental illness Review of Systems - Review of Systems Review of systems:: pertinent systems reviewed and negative unless documented below - *Neurologic Reports abnormal walking, Denies loss of vision Meds Home Medications Medication Instructions Recorded Confirmed Type Budesonide/Formoterol Fumarate 2 puffs IH BID 09/09/19 09/09/19 History [Symbicort 80-4.5 Mcg Inhaler] Allergies Allergy/AdvReac Type Severity Reaction Status Date / Time Sulfa (Sulfonamide Allergy Verified 11/09/18 16:12 Antibiotics) Exam Vital signs and Labs for Last 24 Hours: Temp Pulse Resp BP Pulse Ox 99 F 73 16 94/55 L 91 L 09/10/19 04:00 09/10/19 04:00 09/10/19 04:00 09/10/19 04:00 09/10/19 04:00 Laboratory Results - last 24 hr 09/09/19 14:40: Sodium 137, Potassium 3.5, Chloride 105, Carbon Dioxide 25, Anion Gap 10.5, BUN 7, Creatinine 0.70, Estimated GFR 87, Est GFR ( Amer) 105, Glucose 137 H, Calcium 8.8, Total Bilirubin 0.5, AST 35, ALT 35, Alkaline Phosphatase 85, Total Protein 6.4, Albumin 3.9, Globulin 2.5, Albumin/Globulin Ratio 1.6 09/09/19 15:24: WBC 10.9 H, RBC 4.50, Hgb 14.1, Hct 40.6, MCV 90.1, MCH 31.4 H, MCHC 34.8, RDW 12.9, Plt Count 312, MPV 8.0, Neut % (Auto) 32.9 L, Lymph % (Auto) 49.2, [place] % (Auto) 5.3, Eos % (Auto) 9.4, Baso % (Auto) 0.9, Neut # (Auto) 3.6, Lymph # (Auto) 5.4 H, [place] # (Auto) 0.6, Eos # (Auto) 1.0 H, Baso # (Auto) 0.9 H 09/10/19 05:55: WBC 7.3 D, RBC 3.92 L, Hgb 12.4 D, Hct 36.0 L, MCV 91.9, MCH 30.9, MCHC 33.6, RDW 12.9, Plt Count 220 D, MPV 8.1, Neut % (Auto) 75.6, Lymph % (Auto) 17.0, [place] % (Auto) 6.5, Eos % (Auto) 0.3, Baso % (Auto) 0.5, Neut # (Auto) 5.5, Lymph # (Auto) 1.2, [place] # (Auto) 0.5, Eos # (Auto) 0.0, Baso # (Auto) 0.0 09/10/19 05:55: Sodium 137, Potassium 3.8, Chloride 108 H, Carbon Dioxide 26, Anion Gap 6.8, BUN 5 L D, Creatinine 0.60, Estimated Creat Clear 132, Estimated GFR 103, Est GFR ( Amer) 125, Glucose 123 H, Calcium 8.0 L, Phosphorus 2.3 L, Magnesium 1.7, Total Bilirubin 0.5, AST 30, ALT 27, Alkaline Phosphatase 76, Total Protein 5.4 L, Albumin 3.2 L D, Globulin 2.2, Albumin/Globulin Ratio 1.5 I & O for Last 24 hours: Intake & Output 09/07/19 09/08/19 09/09/19 09/10/19 11:59 11:59 11:59 11:59 Intake Total 240
--- NOTE | 2019-09-10 07:48 | HMH.PHAVTE ---
[facility] Pharmacy VTE Monitoring - Patient Demographics Admission date: 09/09/19 Report Date: 09/10/19 Time: 07:48 Allergies/Adverse Reactions: Patient Allergies Sulfa (Sulfonamide Antibiotics) Allergy (Verified 11/09/18 16:12) Height: 1.57 m Weight: 79.946 kg Patient Problems: Current Active Problems Tibia/fibula fracture (Acute) - VTE Risk Labs: VTE Related Lab Results Hgb 12.4 g/dL (12.2-16.2) D 09/10/19 05:55 Hct 36.0 % (37.0-47.0) L 09/10/19 05:55 Plt Count 220 K/mm3 (142-424) D 09/10/19 05:55 BUN 5 mg/dl (7-17) L D 09/10/19 05:55 Creatinine 0.60 mg/dl (0.52-1.04) 09/10/19 05:55 Estimated Creat Clear 132 mL/min (50-200) 09/10/19 05:55 Was VTE Risk Assessment Performed: Yes VTE Score: 4 VTE Risk Level: Low Risk - Prophylaxis VTE Prophylaxis Ordered?: Yes Types of VTE Prophylaxis: TEDS Knee High Location of Applied Device: Left Leg - VTE Diagnosis Confirmed Treatment or plan recommended: Continue Current Treatment
--- NOTE | 2019-09-10 08:05 | HMH.PHAINT ---
MEDICATION RECONCILIATION COMPLETED ON PATIENT VIA EXTERNAL FILL HISTORY FROM PHARMACY AND PATIENT INTERVIEW. -WANDA BRAVO, FLORENCIAD
--- NOTE | 2019-09-10 08:31 | PC.NURSE ---
Dr. Rice at bedside for dressing change.
--- NOTE | 2019-09-10 08:34 | PC.NURSE ---
Dr. Zazueta also present in room at time of dressing change, surgery planned for today, unsure of exact time at this time.
--- NOTE | 2019-09-10 08:50 | HMH.ORTHOCON ---
*Admission Date: 09/09/19 *Reason for consult:: Right pilon ankle fracture *History of present illness: Mrs. Grant is a 54-year-old female who presents for surgical evaluation of a right pilon ankle fracture dislocation. Patient states of injury 09/09/2019. She was on the rung of a ladder, the rung broke and she twisted the ankle and side. She states she did not fall off the ladder per se but her ankle got twisted inside of it. It was dislocated. She presented to the ED directly after the injury and the ankle was nicely reduced and splinted. Patient was admitted overnight for pain control and surgical evaluation. She reports some pain this morning. The splint and use therapy is intact to the right lower extremity. Review of Systems - Review of Systems Review of systems:: pertinent systems reviewed and negative unless documented below - Constitutional Denies anorexia - Eyes Denies blind spots - ENT Denies abnormal hearing - *Cardiovascular Denies chest pain, Denies shortness of breath - *Respiratory Denies chest congestion, Denies shortness of breath - *Gastrointestinal Reports nausea - *Genitourinary Denies abnormal periods - *Musculoskeletal Reports deformity, Reports joint swelling - Integumentary/Breasts Reports unusual bruising (R ankle) - *Neurologic Reports abnormal walking, Denies loss of vision, Denies tingling/numbness/burning sensations - Psychiatric Denies abnormal sleep pattern - Endocrine Denies increased thirst - Allergic/Immunologic Denies GI upset with certain foods [facility] History I have reviewed the patient's past medical history: Yes Medical History: Reports:: Chronic Obstructive Pulmonary Disease (COPD), Depression, Lung Disease Denies:: Cancer, Diabetes Mellitus Type 1, Diabetes Mellitus Type 2, Internal Pacemaker, MRSA, Seizures *Have you ever received a pneumonia vaccine?: No *Have you received a flu vaccine this season?: Yes Other Medical History: Reports: Other. Denies: Blood Transfusion Reaction Other Surgeries: Yes: No Previous Surgery, Colonoscopy, Other. No: Pacemaker Amputation: No Fractures: Yes - *Social History Educational Level: Completed High School Smoking Status: Former smoker Tobacco Type: cigarettes # Packs/Day (cigarettes): 1 #Yrs smoked (if former smoker): 30 Smoking End Date: 2009 Alcohol Intake: never Alcohol Intake Frequency:: other Substance Use Type: denies use *Occupational Status:: employed Housing: house Household Members: other *Travel in the last 8 weeks: None - Psychiatric History Pschychiatric History:: Reports:: Depression Family Hx:: Hypertension, Mental illness Meds Home Medications Medication Instructions Recorded Confirmed Type Budesonide/Formoterol Fumarate 2 puffs IH BID 09/09/19 09/09/19 History [Symbicort 80-4.5 Mcg Inhaler] Allergies Allergy/AdvReac Type Severity Reaction Status Date / Time Sulfa (Sulfonamide Allergy Verified 11/09/18 16:12 Antibiotics) Exam Vital signs and Labs for Last 24 Hours: Temp Pulse Resp BP Pulse Ox 98.8 F 69 16 113/59 L 93 L 09/10/19 08:00 09/10/19 08:00 09/10/19 08:00 09/10/19 08:00 09/10/19 08:00 Laboratory Results - last 24 hr 09/09/19 14:40: Sodium 137, Potassium 3.5, Chloride 105, Carbon Dioxide 25, Anion Gap 10.5, BUN 7, Creatinine 0.70, Estimated GFR 87, Est GFR ( Amer) 105, Glucose 137 H, Calcium 8.8, Total Bilirubin 0.5, AST 35, ALT 35, Alkaline Phosphatase 85, Total Protein 6.4, Albumin 3.9, Globulin 2.5, Albumin/Globulin Ratio 1.6 09/09/19 15:24: WBC 10.9 H, RBC 4.50, Hgb 14.1, Hct 40.6, MCV 90.1, MCH 31.4 H, MCHC 34.8, RDW 12.9, Plt Count 312, MPV 8.0, Neut % (Auto) 32.9 L, Lymph % (Auto) 49.2, [place] % (Auto) 5.3, Eos % (Auto) 9.4, Baso % (Auto) 0.9, Neut # (Auto) 3.6, Lymph # (Auto) 5.4 H, [place] # (Auto) 0.6, Eos # (Auto) 1.0 H, Baso # (Auto) 0.9 H 09/10/19 05:55: WBC 7.3 D, RBC 3.92 L, Hgb 12.4 D, Hct 36.0 L, MCV 91.9, MCH 30.9, M
--- NOTE | 2019-09-10 08:59 | PC.NURSE ---
Pt harleen, visitor remains at bedside. Pt reports that pain has decreased to a 6 which is more tolerable for her. Pt updated of surgery scheduled for today around [id number], V/U.
--- NOTE | 2019-09-10 09:01 | XR_ITS ---
PROCEDURE: XR CHEST PORTABLE CLINICAL HISTORY: Surgery Shortness of breath, former smoker, early signs of COPD COMPARISON: CXR CHEST(2 VIEWS-NOT PORTABLE) from 07/27/2012 CXR2V XR chest 2V from 11/18/2017 FINDINGS: The cardiomediastinal silhouette and pulmonary vascularity are within normal limits. The lungs are clear without infiltrates, suspicious nodules, or pleural effusions. Bone plate is present over the lower cervical spine IMPRESSION: No acute findings. Dictated by: Kendrick Mayfield MD 09/10/2019 09:39 Electronically signed by Kendrick Mayfield MD in [place] 09/10/2019 09:39
[2019-09-10 10:40] LABS: Coronavirus 19 IgG Antibody Negative (Negative); Coronavirus 19 IgM Antibody Negative (Negative)
--- NOTE | 2019-09-10 10:41 | PC.NURSE ---
RT at bedside for EKG per MD order.
--- NOTE | 2019-09-10 10:45 | ECG_ITS ---
APPROVED REPORT Exam: Resting ECG HR:52 bpm ECG Measurements Heart Rate 52 AXES WA 134 P 58 QRSd 82 QRS 59 QT 442 T -8 QTc 411 <Conclusion> Sinus bradycardia Low voltage QRS ST & T wave abnormality, consider anterior ischemia Abnormal ECG Electronically signed by : Genaro Rubio, 09/12/2019 17:10:11
--- NOTE | 2019-09-10 11:09 | PC.NURSE ---
During rounds visit, pt reporting that pain in RLE is a 6 on a 0-10 scale and increasing. Pt unable to have anything for pain at this time per EMAR. Pt notified that preop RN called and reported they will be up to get her in approx. 15 min for surgery, pt v/u and denies any needs at this time.
--- NOTE | 2019-09-10 11:16 | PC.NURSE ---
Pt leaving department at 1115 via bed with preop RN x2 transporting for surgery.
--- NOTE | 2019-09-10 13:24 | PC.NURSE ---
Pt remains off floor at this time for surgery.
[2019-09-10 14:07] LABS: Microscopic,Cath URINE MICROSCOPIC (MICROSCOPIC)
[2019-09-10 14:33] LABS: Appearance,Urine/Cath CLEAR (Clear); Bilirubin,Cath Negative (Negative); Blood, Urine/Cath 1+ (Negative); Color,Urine/Cath YELLOW (Yellow); Glucose,Urine/Cath (UA) Negative (Negative); Ketones,Urine/Cath Negative (Negative); Leukocyte Esterase,Cath 1+ (Negative); Nitrate,Cath POSITIVE (Negative); Protein,Urine/Cath Negative (Negative); Specific Gravity, Urine/Cath 1.025 (1.005-1.030); Urobilinogen,Cath 0.2 EU/dl (0.2)
[2019-09-10 14:41] LABS: Bacteria,Urine/Cath 3+ /lpf; WBC,Urine/Cath 20-50 #/hpf (0-3)
--- NOTE | 2019-09-10 14:54 | P.PN_ITS ---
[facility] Anesthesia Checklist - Patient Identification Patient Identification: Arm Band - Structural Data Admitted From: Inpatient Planned Operative Procedure/s: ORIF right ankle Consent for Planned Operative Procedure(s) Verified: Yes Verified Documents: Surgical Consent, History and Physical - NPO Status Verified Time NPO: 00:00 - Additional verifications Anesthesia Reactions: Yes (PONV) Hx Blood Transfusions: Yes Blood Transfusion Reaction: No - Anesthesia Plan Anesthesia Risk discussed: Yes Anesthesia Plan: Verified ASA Class: II Anesthesia Type: General w/block [facility] History I have reviewed the patient's past medical history: Yes Medical History: Reports:: Chronic Obstructive Pulmonary Disease (COPD), Depression, Lung Disease Denies:: Cancer, Diabetes Mellitus Type 1, Diabetes Mellitus Type 2, Internal Pacemaker, MRSA, Seizures *Have you ever received a pneumonia vaccine?: No *Have you received a flu vaccine this season?: Yes Other Medical History: Reports: Other. Denies: Blood Transfusion Reaction Anesthesia experience/problems:: nac Other Surgeries: Yes: Colonoscopy, Other. No: Pacemaker Amputation: No Fractures: Yes - *Social History Educational Level: Completed High School Smoking Status: Former smoker Tobacco Type: cigarettes # Packs/Day (cigarettes): 1 #Yrs smoked (if former smoker): 30 Smoking End Date: 2009 Alcohol Intake: never Alcohol Intake Frequency:: other Substance Use Type: denies use *Occupational Status:: employed Housing: house Household Members: other *Travel in the last 8 weeks: None - Psychiatric History Pschychiatric History:: Reports:: Depression Family Hx:: Hypertension, Mental illness
--- NOTE | 2019-09-10 15:10 | PC.NURSE ---
Pt remains off floor for surgery.
--- NOTE | 2019-09-10 17:11 | PC.NURSE ---
Pt remains off floor for surgery.
--- NOTE | 2019-09-10 18:00 | SUR.OPER ---
1759-family updated at this time
--- NOTE | 2019-09-10 18:29 | SUR.OPER ---
1829-family updated at this time
--- NOTE | 2019-09-10 18:29 | PC.NURSE ---
Pt remains off floor for surgery.
--- NOTE | 2019-09-10 18:32 | XR_ITS ---
PROCEDURE: XR ANKLE RT 2V CLINICAL INDICATION: ORIF RT ANKLE IN OR COMPARISON: XR ANKLE RT MIN 3V from 09/10/2019 FINDINGS: Fluoro time: 2 minutes and 25 seconds Multiple images are submitted with the C-arm during ORIF of the comminuted distal tib fib fracture with final placement of a lateral bone plate at the fibula common anterior bone plate at the tibia with medial malleolar screw and lateral distal tibial screw with translucent fixators at the syndesmosis and cerclage wires of the fibula. Final images show good alignment. The anterior bone plate is not quite flush with the cortex of the tibia distally IMPRESSION: Good alignment status post ORIF comminuted right tib-fib fracture Dictated by: Kendrick Mayfield MD 09/11/2019 06:51 Electronically signed by Kendrick Mayfield MD in [place] 09/11/2019 06:51
--- NOTE | 2019-09-10 18:46 | XR_ITS ---
PROCEDURE: XR TIBIA FIBULA RT 2V CLINICAL INDICATION: s/p ORIF right ankle fx Follow-up fracture COMPARISON: XR TIBIA FIBULA RT 2V from 09/09/2019 XR FOOT RT 2V from 09/10/2019 XR ANKLE RT MIN 3V from 09/10/2019 FINDINGS: A splint is in place there has been interval ORIF of the comminuted distal fibula and tibia fracture. Lateral fibular bone plate with 2 cerclage wires, anterior tibial bone plate, medial malleolar screw, screw within the lateral aspect of the distal tibia, and lucent fixators of the syndesmosis. There is good alignment. The mortise does not appear widened. No ankle displacement. No acute finding of the foot with good alignment of the bony structures. Nondisplaced fracture involves the fibular neck and is unchanged IMPRESSION: Status post ORIF comminuted distal tib fib fracture with good alignment Dictated by: Kendrick Mayfield MD 09/11/2019 05:48 Electronically signed by Kendrick Mayfield MD in [place] 09/11/2019 05:48
--- NOTE | 2019-09-10 19:11 | PC.NURSE ---
report given to rhett
--- NOTE | 2019-09-10 19:21 | HMH.ANESI ---
[facility] Anesthesia Record Part I Intake, IV Amount: 2,500 Estimated blood loss (mL): 50 Urine output (mL): 1,100 Blood Pressure: 119/64 SaO2: 93 Pulse Rate: 84 Respiratory Rate: 16 Temperature: 98.4 F Patient is:: Drowsy, Stable Stable to PACU at:: 19:15
--- NOTE | 2019-09-10 19:32 | HMH.OPNOTE ---
Date of procedure: 09/10/19 Pre-op Diagnosis:: 1. Right pilon ankle fracture dislocation 2. Right syndesmosis tear 3. Right talus nondisplaced fracture 4. Right calcaneal avulsion fracture 5. Right ankle injury 6. Right deltoid and ATFL tears 7. Right ankle synovitis Post-op Diagnosis:: Same Procedure performed:: 1. Right pilon ankle fracture ORIF 2. Right ORIF syndesmosis 3. Right direct open repair deltoid ligament 4. Right direct open repair ATFL 5. Right ankle synovectomy 6. Right closed reduction talus fracture 7. Right application of injectable Augment (bone graft) 8. Right application of amniotic injectable (Viaflow) 9. Application of posterior U splint Surgeon:: Abigail Zazueta DPM Web Developer(s):: Dr. Ana Pate RESTAURANT SHIFT LEADER:: Rajinder Mon Anesthesia: GETA, regional (R popliteal, ankle block) Estimated blood loss (mL): 50 Clinical Note:: Ms. Alexandra is a 54-year-old female who presented to the ED yesterday after sustaining a fall when the rung of the ladder broke and she twisted her ankle and side. Right Pilon Ankle Fracture Dislocation: X-rays and CT scan right ankle evaluated by myself. 3 views of right ankle pre-and post reduction as well as right CT scan 09/09/2019 evaluated. Reports noted. The severely comminuted fracture of the distal tibia and fibula with intra-articular component of the tibial fracture and mild lateral and posterior displacement of the fibular fracture with widening of the ankle mortise with an associated nondisplaced fracture of the fibular neck. There is mild posterior subluxation of the talus. X-rays reviewed and discussed with the patient and her daughter. Conservative treatment discussed but not recommended. DOI: 09/09/19. We discussed surgery. All risks and benefits were discussed including but not limited to: damage to blood vessels and nerves, bleeding, infection, wound complications, delayed, mal or non-union of bone, post-traumatic arthritis, need for further surgery, need for removal of implant, prolonged swelling of the extremity, prolonged pain, CRPS/RSD, DVT, and anesthetic complications. No guarantees were given. All questions fully answered. The patient verbalized understanding and agreed to proceed with surgery. Consent was obtained. Lab reviewed. Medical clearance per Dr. Smith. Operative findings:: Right tibialis anterior and EHL tendon herniation through the deep fascia anteriorly. There was right comminuted pilon ankle fracture with comminuted displaced distal fibula fracture, anterior lateral malleolus, posterior malleolus, medial malleolus. There is intra-articular extension of the ankle fracture. Comminution and disruption of the tibial plafond. ATF and deltoid ligaments were torn. Syndesmosis disrupted. There was also tearing of the posterior tibial tendon sheath. The PT and peroneal tendons were intact with no tears noted. There was nondisplaced talus fracture noted laterally and medially. Talus fracture laterally extended into the subtalar joint. Avulsion fracture noted off of the calcaneus. Operative note:: On this date and time patient was deemed an appropriate surgical candidate. Pre-op regional popliteal nerve block performed by anesthesia. With informed consent signed, the patient was taken to the operating theater. The patient was positioned supine. General anesthesia was induced. Tourniquet was applied to the right thigh. The lower extremity was prepped and draped in normal sterile fashion. Right pilon ankle fracture ORIF, ORIF syndesmosis, application of injectable Augment (bone graft): Attention was directed to the right ankle where intraoperative fluoroscopy was utilized to emily out anatomic location. Attention was directed to the distal fibula where a posterior lateral incision was mapped out. Dissection carried down to the level of the bone. There was herniation and tearing of the deep fascial layer. Syndesmosis was visible and torn. Peroneal tendon tendons intact. There was
--- NOTE | 2019-09-10 19:51 | PC.NURSE ---
PT RETURNED TO FLOOR PER BED FROM OR DEPARTMENT @ 1950.
--- NOTE | 2019-09-10 20:10 | PC.NURSE ---
1922-radiology at bedside 1934-pt nauseated and vomiting small amount of thick, bile at this time. Medicated per MAR w/Phenergan 6.25mg IVPB. Cool washcloths applied, will continue to monitor. 1941-pt reports nausea is easing, detailed report called to Kori Matta RN 1944-Pt transported to 2nd floor room 207 via hospital bed with alfonzo rails up per STEVAN Alfonso and SOBIA Dia and left in care of STEVAN Martins with bed locked in lowest position, vss, pt stable
--- NOTE | 2019-09-10 20:41 | HMH.ANESII ---
[facility] Anesthesia Record Part II Discharge Time: 19:45 Destination: Medical Surgical Department PACU nurse assessment reviewed?: Yes Patient Condition:: Good Anesthesia Complications:: None Swallowing reflex intact?: Yes Cyanosis?: No Blood Pressure: 125/69 Pulse Rate: 79 Temperature: 98.9 F Mental Status: Alert & Oriented Pain level:: 0 Nausea and/or vomitting:: Nauseated, Vomiting Intake, IV Amount: 0
[2019-09-11] VITALS (7 sets, daily range): BP systolic 105–122; BP diastolic 44–71; PULSE 60–86; RESP 14–20; TEMP 36.6–37.1; O2SAT 93–97; BMI 32.8
--- NOTE | 2019-09-11 04:18 | PC.NURSE ---
A&O X4. PT RESTED WELL THIS SHIFT WITH EYES CLOSED. PT NOTED DROWSY POST ANESTHESIA T/O SHIFT. DENIES PAIN, STATES AT 0245 UPON LAST POST OP V/S CHECK THAT SHE STILL CANNOT FEEL HER LEGS OR WIGGLE HER TOES UPON COMMAND. BILATERAL BREATH SOUNDS NOTED CLEAR T/O UPON AUSCULTATION. PT C/O SORE THROAT POST SX. ATTEMPTED TO WEAN O2 DOWN TO 1LNC, O2 SATS DECREASED TO 91%. INCREASED O2 BACK TO 2LNC AT THIS TIME, O2 SATS INCREASED TO 94% AND REMAIN WNL. DENIES SOA. SITE NOTED C/D/I. URINE NOTED CLEAR AND BRIGHT YELLOW IN COLOR. ENCOURAGED PT TO DRINK PLENTY OF FLUIDS T/O SHIFT WHILE AWAKE. SCUDS TO LLE. RLE REMAINS ELEVATED ON TWO PILLOWS WITH POLAR PACK IN PLACE BEHIND KNEE. DAUGHTER REMAINS AT BEDSIDE. VSS. REMAINS SAFE. CALL LIGHT WITHIN REACH. WILL CONTINUE TO MONITOR.
--- NOTE | 2019-09-11 06:28 | PC.NURSE ---
turned o2 down to 1 lnc at this time. pt's sats noted at 98% on 2 lnc this am. will continue to monitor. goal to wean to ra this am.
[2019-09-11 06:52] LABS: Hematocrit 33.3 % (37.0-47.0); Hemoglobin 11.1 g/dL (12.2-16.2); Lymphocytes # 1.2 K/mm3 (0.7-4.5); Lymphocytes % 11.6 % (10-50); Mean Corpuscular HGB Conc 33.4 g/dL (31.8-35.4); Mean Corpuscular Hemoglobin 30.7 pg (27.0-31.2); Mean Corpuscular Volume 92.1 fl (81-99); Mean Platelet Volume 8.1 fl (7.4-10.4); Monocytes # 0.8 K/mm3 (0.1-1.0); Monocytes % 7.9 % (1.7-9.3); Neutrophils # 8.4 K/mm3 (1.8-7.8); Neutrophils % 80.4 % (37.0-80.0); Platelet Count 196 K/mm3 (142-424); Red Blood Count 3.61 M/mm3 (4.20-5.40); Red Cell Distribution Width 12.9 % (11.5-17.5); White Blood Count 10.4 K/mm3 (4.8-10.8)
[2019-09-11 06:56] LABS: Chloride 111 mmol/L (98-107); Sodium 141 mmol/L (136-145)
[2019-09-11 06:57] LABS: Potassium 3.7 mmoL/L (3.5-5.1)
[2019-09-11 06:59] LABS: Alanine Aminotransferase 22 U/L (12-78); Alkaline Phosphatase 66 U/L (38-126); Aspartate Amino Transferase 34 U/L (14-36); Bilirubin,Total 0.3 mg/dl (0.2-1.3); Blood Urea Nitrogen 7 mg/dl (7-17); Creatinine Clearance Estimated 134 mL/min (50-200); Estimated Glomerular Filt Rate 103 ml/min (>60); GFR (African American) 125 ML/MIN (>60)
[2019-09-11 07:00] LABS: Albumin Level 2.8 g/dl (3.5-5.0); Albumin/Globulin Ratio 1.2 (1.1-1.8); Anion Gap 5.7 mEq/L (5-15); Calcium 8.4 mg/dl (8.4-10.2); Carbon Dioxide 28 mmol/L (22.0-30.0); Globulin 2.3 g/dL (1.3-3.2); Glucose 136 mg/dl (74-100); Total Protein,Serum 5.1 g/dl (6.3-8.2)
--- NOTE | 2019-09-11 07:05 | PC.NURSE ---
pt tolerated 1 lnc well, o2 sats at 96%. weaned pt to ra at this time. o2 sats on ra noted at 94%. will continue to monitor.
--- NOTE | 2019-09-11 07:15 | HMH.ACPN2 ---
Internal Medicine - PN: Subj *Date: 09/11/19 *Time: 07:15 Interval history: Patient does complain of some vertigo postoperatively but otherwise the nerve block is still effective at this time and she has minimal pain. She will be nonweightbearing to the right lower extremity and is to undergo PT eval today prior to discharge Exam Vital signs and Labs for Last 24 Hours: Temp Pulse Resp BP Pulse Ox 98.8 F 60 18 105/63 L 93 L 09/11/19 04:00 09/11/19 04:00 09/11/19 04:00 09/11/19 04:00 09/11/19 04:00 Laboratory Results - last 24 hr 09/10/19 05:55: SARS-CoV-2 IgG Ab (Rapid) Negative, SARS-CoV-2 IgM Ab (Rapid) Negative 09/10/19 13:15: Urine Color Yellow, Urine Appearance Clear, Urine pH 6.0, Ur Specific [place] 1.025, Urine Protein Negative, Urine Glucose (UA) Negative, Urine Ketones Negative, Urine Blood 1+, Urine Nitrate Positive, Urine Bilirubin Negative, Urine Urobilinogen 0.2, Ur Leukocyte Esterase 1+ A, Urine RBC 5-10, Urine WBC 20-50 A, Ur Squamous Epith Cells 3-5, Urine Bacteria 3+ A 09/11/19 06:08: WBC 10.4 D, RBC 3.61 L, Hgb 11.1 L, Hct 33.3 L, MCV 92.1, MCH 30.7, MCHC 33.4, RDW 12.9, Plt Count 196, MPV 8.1, Neut % (Auto) 80.4 H, Lymph % (Auto) 11.6, [place] % (Auto) 7.9, Eos % (Auto) 0.0 L, Baso % (Auto) 0.0 L, Neut # (Auto) 8.4 H, Lymph # (Auto) 1.2, [place] # (Auto) 0.8, Eos # (Auto) 0.0, Baso # (Auto) 0.0 09/11/19 06:08: Sodium 141, Potassium 3.7, Chloride 111 H, Carbon Dioxide 28, Anion Gap 5.7, BUN 7 D, Creatinine 0.60, Estimated Creat Clear 134, Estimated GFR 103, Est GFR ( Amer) 125, Glucose 136 H, Calcium 8.4, Total Bilirubin 0.3, AST 34, ALT 22, Alkaline Phosphatase 66, Total Protein 5.1 L, Albumin 2.8 L D, Globulin 2.3, Albumin/Globulin Ratio 1.2 I & O for Last 24 hours: Intake & Output 09/08/19 09/09/19 09/10/19 09/11/19 11:59 11:59 11:59 11:59 Intake Total 240 / 240 2720 / 2720 Output Total 550 / 550 Balance 240 / 240 2170 / 2170 Weight 176 lb 4.012 oz 178 lb 9 oz Narrative: Patient is in no distress. Lungs are clear. Heart has a regular rate and rhythm. Abdomen is soft. Right lower leg is in a posterior splint Assessment and Plan (1) Tibia/fibula fracture Current visit: Yes Status: Acute Qualifiers: Encounter type: initial encounter Fracture type: closed Laterality: right Qualified Code(s): S82.201A - Unspecified fracture of shaft of right tibia, initial encounter for closed fracture; S82.401A - Unspecified fracture of shaft of right fibula, initial encounter for closed fracture Category: Medical Code(s): S82.209A - Unspecified fracture of shaft of unspecified tibia, initial encounter for closed fracture; S82.409A - Unspecified fracture of shaft of unspecified fibula, initial encounter for closed fracture (2) Fractured lateral malleolus Current visit: No Status: Acute Category: Medical Code(s): S82.63XA - Displaced fracture of lateral malleolus of unspecified fibula, initial encounter for closed fracture (3) Closed right pilon fracture Start date: 09/09/19 Current visit: Yes Status: Acute Category: Medical Code(s): S82.871A - Displaced pilon fracture of right tibia, initial encounter for closed fracture (4) Edema of right ankle Current visit: Yes Status: Acute Category: Medical Code(s): M25.471 - Effusion, right ankle (5) Traumatic ecchymosis of right ankle Current visit: Yes Status: Acute Category: Medical Code(s): S90.01XA - Contusion of right ankle, initial encounter (6) Avulsion fracture of right calcaneus Start date: 09/09/19 Current visit: Yes Status: Acute Qualifiers: Calcaneus location: tuberosity Category: Medical Code(s): S92.001A - Unspecified fracture of right calcaneus, initial encounter for closed fracture - Assessment and plan all Dx Assessment and Plan for all problems:: 1 PT eval today 2. Await orthopedic eval this morning 3. Discharge home today
--- NOTE | 2019-09-11 07:16 | HMH.DCSUM ---
General - General Admission date:: 09/09/19 Discharge date: 09/11/19 HPI HPI: 54-year-old female with history of obstructive airway disease presented to the emergency department yesterday afternoon after a fall. Patient is not quite sure how she injured herself. She was on a trampoline watching her grandchildren and was climbing down on a ladder when her rung broke. This resulted in a right tib-fib fracture. She presented to the emergency department where the fracture/dislocation was reduced and she was placed in a posterior splint and admitted for orthopedic consultation Hospital Course Hospital Course: Patient was admitted and consult was placed to Dr. Zazueta. Patient was taken to the OR on September 09 for the following procedures: Procedure performed:: 1. Right pilon ankle fracture ORIF 2. Right ORIF syndesmosis 3. Right direct open repair deltoid ligament 4. Right direct open repair ATFL 5. Right ankle synovectomy 6. Right closed reduction talus fracture 7. Right application of injectable Augment (bone graft) 8. Right application of amniotic injectable (Viaflow) 9. Application of posterior U splint Postoperatively the patient is going to be nonweightbearing to the right lower extremity. On September 10 after PT eval patient was discharged to home. Patient will follow-up with Dr. Zazueta per Dr. Zazueta's instructions. Objective Vital signs: Temp Pulse Resp BP Pulse Ox 98.8 F 60 18 105/63 L 93 L 09/11/19 04:00 09/11/19 04:00 09/11/19 04:00 09/11/19 04:00 09/11/19 04:00 Results Labs on day of discharge: Labs from last 24 hours 09/11/19 09/11/19 09/10/19 06:08 06:08 13:15 WBC 10.4 D RBC 3.61 L Hgb 11.1 L Hct 33.3 L MCV 92.1 MCH 30.7 MCHC 33.4 RDW 12.9 Plt Count 196 MPV 8.1 Neut % (Auto) 80.4 H Lymph % (Auto) 11.6 [place] % (Auto) 7.9 Eos % (Auto) 0.0 L Baso % (Auto) 0.0 L Neut # (Auto) 8.4 H Lymph # (Auto) 1.2 [place] # (Auto) 0.8 Eos # (Auto) 0.0 Baso # (Auto) 0.0 Sodium 141 Potassium 3.7 Chloride 111 H Carbon Dioxide 28 Anion Gap 5.7 BUN 7 D Creatinine 0.60 Estimated Creat Clear 134 Estimated GFR 103 Est GFR ( Amer) 125 Glucose 136 H Calcium 8.4 Total Bilirubin 0.3 AST 34 ALT 22 Alkaline Phosphatase 66 Total Protein 5.1 L Albumin 2.8 L D Globulin 2.3 Albumin/Globulin Ratio 1.2 Urine Color Yellow Urine Appearance Clear Urine pH 6.0 Ur Specific [place] 1.025 Urine Protein Negative Urine Glucose (UA) Negative Urine Ketones Negative Urine Blood 1+ Urine Nitrate Positive Urine Bilirubin Negative Urine Urobilinogen 0.2 Ur Leukocyte Esterase 1+ A Urine RBC 5-10 Urine WBC 20-50 A Ur Squamous Epith Cells 3-5 Urine Bacteria 3+ A SARS-CoV-2 IgG Ab (Rapid) SARS-CoV-2 IgM Ab (Rapid) 09/10/19 05:55 WBC RBC Hgb Hct MCV MCH MCHC RDW Plt Count MPV Neut % (Auto) Lymph % (Auto) [place] % (Auto) Eos % (Auto) Baso % (Auto) Neut # (Auto) Lymph # (Auto) [place] # (Auto) Eos # (Auto) Baso # (Auto) Sodium Potassium Chloride Carbon Dioxide Anion Gap BUN Creatinine Estimated Creat Clear Estimated GFR Est GFR ( Amer) Glucose Calcium Total Bilirubin AST ALT Alkaline Phosphatase Total Protein Albumin Globulin Albumin/Globulin Ratio Urine Color Urine Appearance Urine pH Ur Specific [place] Urine Protein Urine Glucose (UA) Urine Ketones Urine Blood Urine Nitrate Urine Bilirubin Urine Urobilinogen Ur Leukocyte Esterase Urine RBC Urine WBC Ur Squamous Epith Cells Urine Bacteria SARS-CoV-2 IgG Ab (Rapid) Negative SARS-CoV-2 IgM Ab (Rapid) Negative DS: Diagnosis - Discharge Diagnosis (1) Tibia/fibula fracture Status: Acute (2) Fractured lateral malleolus Status: Acute (3) Closed right pil
--- NOTE | 2019-09-11 08:12 | HMH.ORTHPN ---
Subjective Date: 09/11/19 Time: 07:30 Principal diagnosis: Right ankle pilon ankle fracture Interval history: Patient is resting comfortably. She denies pain to the right lower extremity. She does report some coughing and feeling lightheaded if she sits up too fast. She denies N/V, F/C, CP. PN: Obj Ex Vital signs: Temp Pulse Resp BP Pulse Ox 97.9 F 69 14 121/71 94 L 09/11/19 07:43 09/11/19 07:43 09/11/19 07:43 09/11/19 07:43 09/11/19 07:43 - Constitutional no acute distress - Routine HEENT Exam Head: Present: normocephalic Eye: Present: PERRL - Routine Neck Exam Present: supple - Routine Respiratory Exam Absent: respiratory distress - Routine Cardiovascular Exam Present: RRR - Routine Abdominal Exam Present: soft - Routine Extremities Exam Present: pulses intact, normal capillary refill. Absent: calf tenderness - Detailed Lower Extremity Exam Leg image: 1 - Right LE posterior splint use tear up intact with no strikethrough. Decreased light touch sensation and motor function secondary to nerve block. Capillary fill time within normal limits. Palpable pulses bilaterally. No calf or thigh pain noted bilaterally. - Routine Skin Exam Present: warm, ecchymosis - Urinary Catheter Management Thomason Cath placed during this visit: no Progress Note: A&P (1) Tibia/fibula fracture Status: Acute Current Visit: Yes (2) Fractured lateral malleolus Status: Acute Current Visit: No (3) Closed right pilon fracture Status: Acute Current Visit: Yes (4) Edema of right ankle Status: Acute Current Visit: Yes (5) Traumatic ecchymosis of right ankle Status: Acute Current Visit: Yes (6) Avulsion fracture of right calcaneus Status: Acute Current Visit: Yes (7) Fracture of right talus Status: Acute Current Visit: Yes (8) Tear of deltoid ligament of ankle Status: Acute Current Visit: Yes (9) Sprain of anterior talofibular ligament of right ankle Status: Acute Current Visit: Yes Assessment and Plan for All Diagnoses:: 09/10/19, S/p: Right pilon ankle fracture ORIF, ORIF syndesmosis, direct open repair deltoid ligament, direct open repair ATFL, ankle synovectomy, closed reduction talus fracture, application of injectable Augment (bone graft), application of amniotic injectable (Viaflow), application of posterior U splint POD #1 Incentive spirometer given at bedside this morning and patient educated on usage. We also discussed surgery in detail. 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 She understands that she will be nonweightbearing likely around 8 weeks. We discussed risks of posttraumatic osteoarthritis. We discussed DVT prophylaxis. Discussed plan of care with PCP, Dr. Smith. He will start Eliquis. Patient is to have a session of physical therapy for gait training for the walker today. She has the rolling knee scooter at home which she will primarily use but around the bathroom she is to use either crutches or walker, as she strict nonweightbearing. Continue to use polar pack checking the skin periodically for blistering. Elevate on pillows. Patient is to follow-up with me next week for a splint change. Plan: Education: DVT prophylaxis, incentive spirometer. Patient is to maintain splint clean dry and intact. Polar pack/ice behind the knee and elevate on two pillows. Non weight bearing with RKS and walker. Will need Rx for Percocet 7.5, Zofran and Motrin 800mg. DVT ppx-Eliquis PT in the am for gait training prior to discharge home. Plan for discharge home today. Follow up Tuesday09/17/19 for splint dressing change.
--- NOTE | 2019-09-11 11:34 | HMH.PTEV ---
Physical Therapy Evaluation Rehab PT IP Evaluation Start: 09/10/19 19:28 Freq: ONCE Status: Active Protocol: Document 09/11/19 11:30 PHORNE (Rec: 09/11/19 11:34 PHORNE [id number]) Subjective/History History History 54 yowf adm to [facility] for R tib/ fib fx ORIF. She has knee scooter for home use already and no stairs. Subjective Subjective Pt c/o feeling lightheaded when she is upright. Rehab PT IP Eval Objective Appearance Patient Behavior Appropriate Patient Orientation Person,Place,Time Difficulty following instructions none Speech Pattern Clear Ambulation Patient Able to Ambulate Yes Ambulation Observation IP General Gait Pattern Observation Decrease Weight Bear (R) Ambulation Distance (feet) 3 Ambulation Assistive Device Rolling Walker Ambulation Ability Minimal x 1 (25% assist) Balance Ability to Arise Able, uses arms to help Sitting Balance Steady, safe Standing Balance Steady, wide stance Dynamic Sitting Balance Ability Good Dynamic Standing Balance Ability Fair Transfers Bed Transfer Ability Contact Guard/Hand Hold Chair Transfer Ability Contact Guard/Hand Hold Sit to Stand Bed Transfer Ability Contact Guard/Hand Hold Sit to Stand Chair Transfer Ability Contact Guard/Hand Hold ROM All Extremities PT ROM Status WFL Abnormal ROM Comment except R ankle NT MMT All Extremities PT MMT WFL Abnormal MMT Grade except R ankle NT Rehab PT IP prob,goals,plan Problems Date of Evaluation: 09/11/19 Discharge Plan PT Discharge Plan Pt is appropriate tp return home with family assist once medically stable. She would benefit from BSC for home use. G -code Required No Eval Complexity Eval Charge Codes 39892 - Moderate Complexity PHYSICIAN CERTIFICATION: I certify the specified therapy services for Meenu Alexandra are required, authorized, and reviewed every 30 days.
[2019-09-11 13:02] LABS: 25-OH Vitamin D, Total 25.9 ng/mL (30-100)
--- NOTE | 2019-09-11 13:04 | PC.NURSE ---
Due to inability to walk and NWB to RLE patient will need a wheelchair.
--- NOTE | 2019-09-11 13:14 | SW/DCPLANNER ---
RECEIVED ORDER FOR A LIGHT WEIGHT WHEELCHAIR... I SENT PATIENT INFORMATION AND ORDERS TO [facility] PER PATIENT REQUEST TO HAVE THE WHEELCHAIR DELIVERED TO HER HOME.. SHE IS DISCHARGING HOME TODAY AND WILL FOLLOW UP WITH DR RICKETTS ON TuesdaySEPTEMBER 16........
--- NOTE | 2019-09-11 14:31 | HMH.PHAINT ---
DISCHARGE COUNSELING COMPLETED ON PATIENT. NEW PRESCRIPTIONS INCLUDE MACROBID, ZOFRAN, PERCOCET, IBUPROFEN, AND ELIQUIS. ALL PRESCRIPTIONS WERE SENT TO [facility] IN [place]. PATIENT IS TO CONTINUE ALL OTHER HOME MEDICATIONS. ANSWERED QUESTIONS ABOUT PAIN MEDICATIONS AND ZOFRAN. PATIENT VERBALIZED UNDERSTANDING AND HAD NO OTHER QUESTIONS AT THIS TIME. -WANDA BRAVO, FLORENCIAD
== END 2019-09-11 15:10 | disposition home or self-care (01) ==
LOC: ER 19:20 → 2ND 23:32
PROVIDERS: Podiatrist; Admitting Provider Internal Medicine Adolescent Medicine; Emergency Provider Emergency Medicine; PCP Family Medicine; Visit Provider Family Medicine
PROC: (CPT 27828; principal; 2019-09-10 11:30)
DX: S82.871A Displaced pilon fracture of right tibia, initial encounter for closed fracture (principal); S92.061A Displaced intraarticular fracture of right calcaneus, initial encounter for closed fracture; S92.124A Nondisplaced fracture of body of right talus, initial encounter for closed fracture; S93.491A Sprain of other ligament of right ankle, initial encounter; S93.421A Sprain of deltoid ligament of right ankle, initial encounter; W11.XXXA Fall on and from ladder, initial encounter; Y92.017 Garden or yard in single-family (private) house as the place of occurrence of the external cause
CPT/HCPCS: 27828; 28445; 27696; 29515; 36415; 71045; 73590; 73600; 73610; 73620; 73700; 76000; 80053; 81001; 82306; 83735; 84100; 85025; 86328; 87086; 87088; 87186; 93005; 96365; 96366; 96375; 97162; 99285; C1713; C1734; C1762; C1776; G0378; J2405; J2710; Q4211

== ENCOUNTER → 2019-10-09 14:50 | Outpatient (CLI) | payer OTHER, SELFPAY ==
--- NOTE | 2019-10-09 14:51 | XR_ITS ---
PROCEDURE: XR ANKLE WT BEARING RT MIN 3V CLINICAL INDICATION: postop views, fracture follow up Follow-up fracture/ COMPARISON: [id number] XR ankle wt bearing LT min 3V from 02/08/2018 XR ANKLE RT MIN 3V from 09/09/2019 XR ANKLE RT 2V from 09/09/2019 XR ANKLE RT MIN 3V from 09/10/2019 FINDINGS: Status post ORIF distal tib fib. No change in the surgical hardware. There is some increased density along the dorsal aspect of the distal tibia possibly due to overlying artifact. There remains good alignment. There is mild inversion of the talus. IMPRESSION: No change status post ORIF distal tib fib with posterior splint in place Dictated by: Kendrick Mayfield MD 10/09/2019 15:31 Electronically signed by Kendrick Mayfield MD in [place] 10/09/2019 15:31
== END ==
PROVIDERS: PCP Family Medicine; Visit Provider Podiatrist
DX: Z98.890 Other specified postprocedural states (principal)
CPT/HCPCS: 73610

== ENCOUNTER → 2019-10-29 14:37 | Outpatient (CLI) | payer OTHER, SELFPAY ==
--- NOTE | 2019-10-29 14:40 | XR_ITS ---
PROCEDURE: XR ANKLE WT BEARING RT MIN 3V CLINICAL INDICATION: POST-OP Follow-up surgery COMPARISON: XR ANKLE RT 2V from 09/09/2019 XR ANKLE RT MIN 3V from 09/09/2019 XR ANKLE RT MIN 3V from 09/10/2019 XR ANKLE WT BEARING RT MIN 3V from 10/09/2019 FINDINGS: Status post ORIF distal tibia and fibula. No change in the bone plate of the anterior distal tibia and the lateral distal fibula with good alignment. The posterior splint has been removed. Ankle mortise does not appear widened. There is good alignment of the bony fragments. IMPRESSION: No change status post ORIF distal tib fib Dictated by: Kendrick Mayfield MD 10/29/2019 16:38 Electronically signed by Kendrick Mayfield MD in [place] 10/29/2019 16:38
== END ==
PROVIDERS: PCP Nurse Practitioner Family; Visit Provider Podiatrist
DX: Z98.890 Other specified postprocedural states (principal)
CPT/HCPCS: 73610; 87070; 87077; 87186; 87205

== ENCOUNTER → 2019-10-29 17:55 | Outpatient (CLI) | payer OTHER, SELFPAY | PROVIDERS: Visit Provider Podiatrist | DX: S82.871D Displaced pilon fracture of right tibia, subsequent encounter for closed fracture with routine healing (principal); T81.41XA Infection following a procedure, superficial incisional surgical site, initial encounter | CPT/HCPCS: 87070; 87077; 87186; 87205 ==

== ENCOUNTER → 2019-11-12 15:07 | Outpatient (CLI) | payer OTHER, SELFPAY ==
--- NOTE | 2019-11-12 15:10 | XR_ITS ---
PROCEDURE: XR ANKLE WT BEARING RT MIN 3V CLINICAL INDICATION: pain Follow-up surgery/ COMPARISON: CR XR ANKLE RT 2V from 09/09/2019 CR XR ANKLE RT MIN 3V from 09/10/2019 CR XR ANKLE WT BEARING RT MIN 3V from 10/09/2019 CR XR ANKLE WT BEARING RT MIN 3V from 10/29/2019 FINDINGS: Status post ORIF with a bone plate at the distal fibula in the posterior distal tibia with multiple cortical screws and with translucent fixators at the distal tib fib region from prior syndesmotic repair. There is good alignment. Lucency is noted along the talar dome medially in the subcortical region. IMPRESSION: No change good alignment status post ORIF distal tib fib. Subcortical lucency of the talar dome medially which may represent a subarticular cyst or an area osteochondral defect Dictated by: Kendrick Mayfield MD 11/12/2019 15:43 Kendrick Mayfield MD in [place] 11/12/2019 15:43
== END ==
PROVIDERS: PCP Nurse Practitioner Family; Visit Provider Podiatrist
DX: Z98.890 Other specified postprocedural states (principal)
CPT/HCPCS: 73610

== ENCOUNTER → 2019-12-13 13:09 | Outpatient (CLI) | payer OTHER, SELFPAY ==
--- NOTE | 2019-12-13 13:13 | XR_ITS ---
PROCEDURE: XR ANKLE WT BEARING RT MIN 3V CLINICAL INDICATION: post-op Follow-up ORIF COMPARISON: CR XR ANKLE RT MIN 3V from 09/09/2019 CR XR ANKLE RT MIN 3V from 09/10/2019 CR XR ANKLE WT BEARING RT MIN 3V from 10/09/2019 CR XR ANKLE WT BEARING RT MIN 3V from 10/29/2019 CR XR ANKLE WT BEARING RT MIN 3V from 11/12/2019 FINDINGS: Status post ORIF the distal tibial and fibular fractures with lateral fibular bone plate and anterior tibial bone plate. The anterior tibial bone plate does not appear flush with the bony cortex of the anterior aspect of the tibia not significantly changed. There is good alignment of the fracture fragments. The superior aspect of the cerclage wire in the mid aspect of the fibular bone plate traverses through a fracture line with some minimal medial angulation of the distal fracture fragment. No callus formation is evident at this region. IMPRESSION: Status post ORIF distal tib fib as described above with good alignment. The superior aspect of the cerclage wire at the fibula does traversed through the fracture lines with some minimal medial angulation of the distal fracture fragment and no significant callus formation Dictated by: Kendrick Mayfield MD 12/13/2019 16:02 Kendrick Mayfield MD in [place] 12/13/2019 16:02
== END ==
PROVIDERS: PCP Nurse Practitioner Family; Visit Provider Podiatrist
DX: Z98.890 Other specified postprocedural states (principal); M25.571 Pain in right ankle and joints of right foot
CPT/HCPCS: 73610

== ENCOUNTER → 2020-01-22 15:21 | Outpatient (CLI) | payer OTHER, SELFPAY ==
--- NOTE | 2020-01-22 15:25 | XR_ITS ---
PROCEDURE: XR ANKLE WT BEARING RT MIN 3V CLINICAL INDICATION: post-op Follow-up surgery COMPARISON: CR XR ANKLE WT BEARING RT MIN 3V from 10/09/2019 CR XR ANKLE WT BEARING RT MIN 3V from 10/29/2019 CR XR ANKLE WT BEARING RT MIN 3V from 11/12/2019 DX XR ANKLE WT BEARING RT MIN 3V from 12/13/2019 FINDINGS: Status post ORIF the distal tibial and fibular fractures with lateral fibular bone plate and anterior tibial bone plate. The anterior tibial bone plate does not appear flush with the bony cortex of the anterior aspect of the tibia not significantly changed. There is good alignment of the fracture fragments. The superior aspect of the cerclage wire in the mid aspect of the fibular bone plate traverses through a fracture line with some minimal medial angulation of the distal fracture fragment not significantly changed. No callus formation is evident at this region. There is mild posterior displacement of the posterior distal tibial fragment. IMPRESSION: No significant change status post ORIF distal tib fib as described above. Dictated by: Kendrick Mayfield MD 01/22/2020 15:37 Kendrick Mayfield MD in [place] 01/22/2020 15:37
== END ==
PROVIDERS: PCP Nurse Practitioner Family; Visit Provider Podiatrist
DX: M25.571 Pain in right ankle and joints of right foot (principal); Z98.890 Other specified postprocedural states
CPT/HCPCS: 73610

== ENCOUNTER 2020-02-13 15:30 | Outpatient (RCR) | payer OTHER, SELFPAY ==
--- NOTE | 2019-11-07 17:01 | HMH.PTOPEV ---
PT Outpatient Evaluation Rehab PT Outpatient Evaluation Start: 11/07/19 16:00 Freq: Status: Active Protocol: Document 11/07/19 16:46 ISAAC (Rec: 11/07/19 17:01 [email or web address] [id number]) Electronically Signed By Howie Woodward PT 11/07/19 16:46 Outpatient Therapy Subjective History Subjective History This is the initial Physical Therapy evaluation for Meenu Alexandra Chief Complaint Pain,Stiff,Weakness Symptom Type Ache,Throb,Dull Symptoms Relieved By Rest/Positioning,Ice Symptoms Aggravated By Physical Activity Prior Functional Limitations None Current Functional Limitations Housework,Driving,Standing, Recreation Activity,Walking Symptom Description Constant but Variable Level of pain today (0-10) 2 Pain scale - at its best (0-10) 1 Pain scale - at its worst (0-10) 3 Ankle/Foot Eval Gait Observation General Gait Pattern Observation Antalgic Gait,Decrease Weight Bear (R),Decrease Stride Lngth (L) Assistive Device Ambulation Assistive Device Rolling Walker Palpation Tenderness right Ankle/Foot Palpation Findings Tenderness Ankle/Foot Palpation Overall Comment TTP along Medial Incision ROM Ankle/Foot Dorsiflexion w/Knee Extended 5 Active Range Motion (degrees) Ankle/Foot Plantar Flexion Active Range 30 of Motion (degrees) Ankle/Foot Eversion Active Range of 5 Motion (degrees) Ankle/Foot Inversion Active Range of 10 Motion (degrees) Ankle/Foot ROM Limitations Soft Tissue Tightness,Pain MMT Ankle Dorsiflexion Strength Grade 3- Fair- Ankle Plantarflexion Strength Grade 3- Fair- Foot Eversion Strength Grade 3- Fair- Foot Inversion Strength Grade 3- Fair- Outpatient Therapy Assessment Impairments Problems/Impairmments Palpation Tenderness,Impaired Range of Motion,Impaired Strength,Impaired Gait Pattern ,Impaired Walking,Impaired Household Care,Impaired Stair Climbing,Impaired Incline Stepping,Impaired Stepping on Uneven Surface,Impaired Squatting,Impaired Recreational Activities, Subjective C/O Pain,Impaired Self Care/Self Management Prognosis Rehab Potential Fair Clinical Impression Consistent with Diagnosis Yes Short Term Goals Number of Weeks 4 Decreased Palpation Tenderness Yes: min 1/4 TTP Increase Range of Motion
== END 2020-02-13 16:45 | disposition home or self-care (01) ==
LOC: PT 15:30
PROVIDERS: PCP Nurse Practitioner Family; Visit Provider Podiatrist
DX: S82.871D Displaced pilon fracture of right tibia, subsequent encounter for closed fracture with routine healing; Z98.890 Other specified postprocedural states
CPT/HCPCS: 97010; 97014; 97033; 97110; 97112; 97116; 97140; 97163; 97164; 97760; G0283

== ENCOUNTER → 2020-02-26 14:52 | Outpatient (CLI) | payer OTHER, SELFPAY ==
--- NOTE | 2020-02-26 14:57 | XR_ITS ---
PROCEDURE: XR ANKLE WT BEARING RT MIN 3V CLINICAL INDICATION: post-op Follow-up surgery with pain and swelling COMPARISON: CR XR ANKLE WT BEARING RT MIN 3V from 10/29/2019 CR XR ANKLE WT BEARING RT MIN 3V from 11/12/2019 DX XR ANKLE WT BEARING RT MIN 3V from 12/13/2019 CR XR ANKLE WT BEARING RT MIN 3V from 01/22/2020 FINDINGS: There are postsurgical changes with an anterior bone plate at the distal tibia. There does appear to have been fracture of lateral inferior screw of the anterior bone plate with the shaft of the screw displaced laterally and anteriorly. There also appears to be a nondisplaced fracture of the inferior and medial screw of the anterior bone plate. There remains good alignment. The superior aspect of the cerclage wire at the distal fibula has been placed at a fracture line with persistent lucency noted within the bone at this area. IMPRESSION: Status post ORIF of the distal tib fib with anterior bone plate and lateral fibular bone plate. There is fracture of the inferior and lateral screw within the anterior bone plate of the tibia with displacement of the shaft of the screw in there is also a question of a fracture of the inferior and medial screw at this bone plate. Fracture lines are still visible. Dictated by: Kendrick Mayfield MD 02/26/2020 16:02 Kendrick Mayfield MD in [place] 02/26/2020 16:02
== END ==
PROVIDERS: PCP Nurse Practitioner Family; Visit Provider Podiatrist
DX: Z98.890 Other specified postprocedural states (principal)
CPT/HCPCS: 73610

== ENCOUNTER → 2020-02-27 07:18 | Outpatient (CLI) | payer OTHER, SELFPAY ==
--- NOTE | 2020-02-27 07:54 | CT_ITS ---
PROCEDURE: CT ANKLE RT WO CON CLINICAL HISTORY: fracture evaluation delayed healing swelling possible screw backing outfx 09/08 COMPARISON: CR XR ANKLE WT BEARING RT MIN 3V from 02/26/2020 TECHNIQUE: Axial images obtained with sagittal and coronal reformats. All CT scans at the facility use one or more dose reduction, viz: automated exposure control, ma/kV adjustment per patient size (including targeted exams where dose is matched to indication, i.e. head), or iterative reconstruction technique. FINDINGS: There has been prior ORIF comminuted distal tibial fracture. There is an anterior tibial bone plate with 5 cortical screws. The plate has an upside down Y configuration. The 2 screws within the upper leg of the plate appear intact. Along the lower portion of the bone plate the screw within the lateral and inferior aspect of the bone plate does appear fractured at its base and is slightly displaced laterally by approximately 2 mm. The screw within the medial portion of the bone plate is intact. There is however a zone of lucency around this screw suggesting some loosening. There is a lateral fibular bone plate present with multiple cortical screws. There is cerclage wire in the mid aspect of the bone plate surrounding the fracture of the fibula with incomplete bony healing at this area. The posterior distal tibial fracture fragment is displaced posteriorly by approximately 5 mm with nonunion of this fragment. Comminuted fragment is noted at the medial and anterior aspect of the tibial plafond with no bony union. Comminuted fragment noted at the lateral aspect of the tibial plafond fixated by a cortical screw without bony union. There is diffuse subcutaneous soft tissue swelling greater along the medial aspect. No obvious loculated fluid collection. Soft tissue swelling is also present laterally distal to the lateral malleolar tip. There is diffuse osteopenia. IMPRESSION: 1. Status post ORIF comminuted distal tib fib fracture as described above with nonunion of the fracture fragments. 2. Fracture of a cortical screw within the lower and lateral aspect of the anterior tibial bone plate 3. There is a prominent zone of lucency around the screw within the anterior tibial bone plate medially consistent with loosening 4. Prominent soft tissue swelling along the lower leg. No obvious loculated fluid collection. Abscess evaluation is limited without IV contrast. Dictated by: Kendrick Mayfield MD 02/28/2020 14:40 Kendrick Mayfield MD in [place] 02/28/2020 14:40
== END ==
PROVIDERS: PCP Nurse Practitioner Family; Visit Provider Podiatrist
DX: S82.201A Unspecified fracture of shaft of right tibia, initial encounter for closed fracture (principal); S82.401A Unspecified fracture of shaft of right fibula, initial encounter for closed fracture; S82.61XA Displaced fracture of lateral malleolus of right fibula, initial encounter for closed fracture
CPT/HCPCS: 73700

== ENCOUNTER → 2020-03-31 07:45 | Outpatient (CLI) | payer OTHER, SELFPAY ==
--- NOTE | 2020-03-31 08:13 | XR_ITS ---
PROCEDURE: XR CHEST 2V CLINICAL HISTORY: MILD COPD COMPARISON: CR CXR CHEST(2 VIEWS-NOT PORTABLE) from 07/27/2012 CR CXR2V XR chest 2V from 11/18/2017 CR XR CHEST PORTABLE from 09/10/2019 FINDINGS: There is mild cardiomegaly without failure. The lungs are clear without infiltrates, suspicious nodules, or pleural effusions. There is evidence of old granulomatous disease. No acute bony findings. There is a bone plate along lower cervical spine anteriorly. IMPRESSION: Mild cardiomegaly otherwise negative Dictated by: Kendrick Mayfield MD 03/31/2020 09:49 Kendrick Mayfield MD in [place] 03/31/2020 09:49
[2020-03-31 08:21] LABS: Basophils # 0.1 K/mm3 (0-0.2); Eosinophils # 0.6 K/mm3 (0.0-0.4); Eosinophils % 9.3 % (0.1-12.0); Hematocrit 44.3 % (37.0-47.0); Hemoglobin 14.7 g/dL (12.2-16.2); Lymphocytes # 2.6 K/mm3 (0.7-4.5); Lymphocytes % 42.9 % (10-50); Mean Corpuscular HGB Conc 33.1 g/dL (31.8-35.4); Mean Corpuscular Hemoglobin 29.8 pg (27.0-31.2); Mean Corpuscular Volume 89.8 fl (81-99); Monocytes # 0.4 K/mm3 (0.1-1.0); Monocytes % 6.4 % (1.7-9.3); Neutrophils # 2.4 K/mm3 (1.8-7.8); Neutrophils % 40.4 % (37.0-80.0); Platelet Count 311 K/mm3 (142-424); Red Blood Count 4.93 M/mm3 (4.20-5.40); Red Cell Distribution Width 13.3 % (11.5-17.5)
[2020-03-31 08:52] LABS: Alanine Aminotransferase 36 U/L (12-78); Albumin Level 4.1 g/dl (3.5-5.0); Albumin/Globulin Ratio 1.6 (1.1-1.8); Alkaline Phosphatase 112 U/L (38-126); Anion Gap 12.2 mEq/L (5-15); Aspartate Amino Transferase 34 U/L (14-36); Bilirubin,Total 0.4 mg/dl (0.2-1.3); Blood Urea Nitrogen 14 mg/dl (7-17); Calcium 10.1 mg/dl (8.4-10.2); Carbon Dioxide 30 mmol/L (22.0-30.0); Chloride 101 mmol/L (98-107); Estimated Glomerular Filt Rate 87 ml/min (>60); GFR (African American) 105 ML/MIN (>60); Globulin 2.6 g/dL (1.3-3.2); Glucose 110 mg/dl (74-100); Magnesium 1.8 mg/dl (1.6-2.3); Potassium 4.2 mmoL/L (3.5-5.1); Sodium 139 mmol/L (136-145); Total Protein,Serum 6.7 g/dl (6.3-8.2)
[2020-03-31 09:01] LABS: Coronavirus 19 IgG Antibody Negative (Negative); Coronavirus 19 IgM Antibody Negative (Negative)
[2020-03-31 09:10] LABS: C-Reactive Protein 3.4 mg/L (0-4)
[2020-03-31 09:36] LABS: Thyroid Stimulating Hormone 2.62 uIU/mL (0.465-4.68)
[2020-04-06 01:55] LABS: Antinuclear Antibodies (ANA) NEGATIVE
== END ==
PROVIDERS: Visit Provider Nurse Practitioner Family
DX: Z01.818 Encounter for other preprocedural examination (principal); Z03.818 Encounter for observation for suspected exposure to other biological agents ruled out; S82.871K Displaced pilon fracture of right tibia, subsequent encounter for closed fracture with nonunion; M25.871 Other specified joint disorders, right ankle and foot
CPT/HCPCS: 36415; 71046; 80053; 83735; 84443; 85025; 86038; 86140; 86328

== ENCOUNTER 2020-04-02 06:21 | Observation (INO) | payer OTHER, SELFPAY ==
[2020-03-24 16:52] VITALS: BMI 31.1
[2020-04-02] VITALS (21 sets, daily range): BP systolic 97–126; BP diastolic 56–73; PULSE 56–76; RESP 16–18; TEMP 36.1–43; O2SAT 91–100
--- NOTE | 2020-04-02 07:12 | ECG_ITS ---
APPROVED REPORT Exam: Resting ECG HR:58 bpm ECG Measurements Heart Rate 58 AXES ME 156 P 49 QRSd 80 QRS 52 QT 432 T 14 QTc 424 Conclusion Sinus bradycardia Nonspecific ST and T wave abnormality Abnormal ECG Electronically signed by : Genaro Rubio, 04/02/2020 17:10:50
[2020-04-02 07:16] LABS: POC Glucose,Bedside 107 (70-110)
[2020-04-02 07:36] LABS: Erythrocyte Sedimentation Rate 19 mm/hr (0-30)
[2020-04-02 08:01] LABS: 25-OH Vitamin D, Total 33.1 ng/mL (30-100)
[2020-04-02 08:47] LABS: Hemoglobin A1C 5.4 % (4.0-6.0)
[2020-04-02 10:21] LABS: Microscopic,Cath URINE MICROSCOPIC (MICROSCOPIC)
[2020-04-02 10:27] LABS: Appearance,Urine/Cath CLEAR (Clear); Bilirubin,Cath Negative (Negative); Blood, Urine/Cath 1+ (Negative); Color,Urine/Cath YELLOW (Yellow); Glucose,Urine/Cath (UA) Negative (Negative); Ketones,Urine/Cath Negative (Negative); Leukocyte Esterase,Cath Negative (Negative); Nitrate,Cath Negative (Negative); Protein,Urine/Cath Negative (Negative); Specific Gravity, Urine/Cath >= 1.030 (1.005-1.030); Urobilinogen,Cath 0.2 EU/dl (0.2)
[2020-04-02 10:46] LABS: RBC,Urine/Cath Occasional # /hpf (0-3); Squamous Epithelial Ur./Cath Occasional #/hpf (0-5); WBC,Urine/Cath Occasional #/hpf (0-3)
--- NOTE | 2020-04-02 11:32 | SUR.OPER ---
1130: Update to family per Federico Clinton RN-Patient is stable, all hardware is our, preparing for fusion.
--- NOTE | 2020-04-02 13:25 | XR_ITS ---
PROCEDURE: XR ANKLE RT 2V CLINICAL INDICATION: R ANKLE FUSION IN OR COMPARISON: CR XR ANKLE WT BEARING RT MIN 3V from 11/12/2019 DX XR ANKLE WT BEARING RT MIN 3V from 12/13/2019 CR XR ANKLE WT BEARING RT MIN 3V from 01/22/2020 CR XR ANKLE WT BEARING RT MIN 3V from 02/26/2020 FINDINGS: Fluoro time: 2 minutes and 45 seconds. Two images submitted showing ankle joint fusion with anterior tibial bone plate placed with hardware removal the fibular bone plate and the anterior tibial bone plate. IMPRESSION: Status post ankle joint fusion with hardware removal with C-arm guidance Dictated by: Kendrick Mayfield MD 04/02/2020 18:01 Kendrick Mayfield MD in [place] 04/02/2020 18:01
--- NOTE | 2020-04-02 14:30 | P.PN_ITS ---
[facility] Anesthesia Checklist - Patient Identification Patient Identification: Arm Band, Verbal (Name & ) - Structural Data Admitted From: Home Planned Operative Procedure/s: r ankle fx repair Consent for Planned Operative Procedure(s) Verified: Yes Verified Documents: History and Physical - NPO Status Verified Time NPO: 00:00 - Chart Verification Results Verified: CBC, BMP - Additional verifications Patient : No Anesthesia Reactions: Yes (PONV) Hx Blood Transfusions: Yes Blood Transfusion Reaction: No Cephalosporin Allergy: No Previous Colonoscopy: No - Cardiovascular Assessment Heart Sounds: S1 & S2 Pulse Strength: Baseline Pulse Rhythm: Regular Peripheral Edema: No - Airway Assessment C-Spine Mobility Assessed: Yes TMJ Mobility Assessed: Yes Dentition: Good Dentition - Neurological Assessment Level of Consciousness: Awake, Alert, Appropriate Hx Seizures: No Numbness or tingling in extremities: No - Anesthesia Plan Anesthesia Risk discussed: Yes Anesthesia Plan: Verified ASA Class: III Anesthesia Type: General w/block [facility] History I have reviewed the patient's past medical history: Yes Medical History: Reports:: Chronic Obstructive Pulmonary Disease (COPD), Depression, Lung Disease Denies:: Cancer, Diabetes Mellitus Type 1, Diabetes Mellitus Type 2, Internal Pacemaker, MRSA, Seizures *Have you ever received a pneumonia vaccine?: No *Have you received a flu vaccine this season?: Yes Other Medical History: Reports: Other. Denies: Blood Transfusion Reaction Anesthesia experience/problems:: none Other Surgeries: Yes: No Previous Surgery, Colonoscopy, Other. No: Pacemaker Amputation: No (LEFT ANKLE, TIBIA, FIBULA, RIGHT ANKLE) Fractures: Yes - *Social History Smoking Status: Former smoker Tobacco Type: cigarettes # Packs/Day (cigarettes): 1 #Yrs smoked (if former smoker): 30 Alcohol Intake: never Alcohol Intake Frequency:: other Substance Use Type: denies use *Occupational Status:: employed Housing: house Household Members: other *Travel in the last 8 weeks: None - Psychiatric History Pschychiatric History:: Reports:: Depression Family Hx:: Hypertension, Mental illness
--- NOTE | 2020-04-02 14:31 | P.PN_ITS ---
[facility] Anesthesia Record Part I Intake, IV Amount: 2,300 Estimated blood loss (mL): 20 Urine output (mL): 300 Blood Products used (#): none Blood Pressure: 124/69 SaO2: 92 Pulse Rate: 72 Respiratory Rate: 18 Temperature: 97.0 F Patient is:: Drowsy, Stable Stable to PACU at:: 14:28
--- NOTE | 2020-04-02 14:44 | XR_ITS ---
PROCEDURE: XR ANKLE RT MIN 3V CLINICAL INDICATION: post op Follow-up surgery COMPARISON: DX XR ANKLE WT BEARING RT MIN 3V from 12/13/2019 CR XR ANKLE WT BEARING RT MIN 3V from 01/22/2020 CR XR ANKLE WT BEARING RT MIN 3V from 02/26/2020 CR XR ANKLE RT 2V from 04/02/2020 FINDINGS: Lateral fibular bone plate has been removed with a defect noted in the distal shaft of the fibula. There is a lateral tibial bone plate with anterior extension with cortical screws into the talus with fusion of the talotibial joint. Hyperdensity is present at the joint space and may be related to bone cement. The anterior bone plate has been removed since. Multiple cortical screws have been removed with 2 transverse screws is just to the distal tib fib. Posterior splint is in place IMPRESSION: Postsurgical changes as detailed above. Dictated by: Kendrick Mayfield MD 04/02/2020 17:29 Kendrick Mayfield MD in [place] 04/02/2020 17:29
--- NOTE | 2020-04-02 15:13 | HMH.OPNOTE ---
Date of procedure: 04/02/20 Pre-op Diagnosis:: 1. Right ankle fracture non-union 2. Right ankle post-traumatic osteoarthritis 3. Right ankle synovitis 4. Right PT tendon tear 5. Right ankle impingement 6. Right ankle instability Post-op Diagnosis:: Same Procedure performed:: 1. Right ankle hardware removal 2. Right ankle synovectomy 3. Right ankle arthodesis 4. Right tibial autograft bone harvest 5. Right ankle bone biospy 6. Right posterior tibial tendon debridement, repair 7. Right application of injectionable graft 8. Right application of Prevana incisional wound vac 9. Right application of posterior splint Surgeon:: Abigail Zazueta DPM Interlocking And Signal Mechanic(s):: Dr. Ana Pate MEMBER SERVICES REPRESENTATIVE:: Genaro Montenegro Anesthesia: GETA, regional (Right popliteal, saph nerve block) Estimated blood loss (mL): 20 Clinical Note:: The patient is a 54-year-old female who had surgery for right ankle pilon fracture 09/10/2019. Patient did have a fall and started having new pain several months after surgery. New CT scanner and shows some hardware failure with cortical loosening and nonunion of the fracture. The patient is has completed compression and physical therapy. The skin is fully healed with no signs of infection. Patient reports a feeling of catching to the anterior ankle. I explained this feeling may be scar tissue, impingement or hardware failure. We discussed the feelings of instability. Patient still complains of stiffness and soft tissue swelling which is likely due to posttraumatic arthritis and posttraumatic swelling. We discussed surgery in detail. We discussed that the right ankle fracture has broken hardware which will need to be removed. We discussed that the posterior fracture fragment is not healed and is preventing full range of motion and needs to be addressed. We discussed debridement of scar tissue to help ankle impingement. We discussed revisional fracture surgery with hardware removal, stabilizing the soft tissue ligaments and tendons, synovectomy versus ankle fusion. Pros and cons of each were discussed with the patient. I explained she had a bad comminuted pilon ankle fracture and has posttraumatic symptoms as well as current nonunion fracture. We discussed revising this could better realign the joint but she could still have potential issues with posttraumatic arthritis. We discussed doing an ankle arthrodesis which would address instability as well as posttraumatic arthritis for shoes. We discussed DVT prophylaxis with Lovenox injections. All risks and benefits were discussed including but not limited to: damage to blood vessels and nerves, bleeding, infection, wound complications, delayed, mal or non-union of bone, post-traumatic arthritis, muscle strain/sprain, over lengthening of tendon, need for further surgery, need for removal of implant, prolonged swelling of the extremity, prolonged pain, CRPS/RSD, DVT, and anesthetic complications. No guarantees were given. All questions fully answered. The patient verbalized understanding and agreed to proceed with surgery. Consent was obtained. Necessary labs and pre-op testing ordered: CBC, BMP, EKG, CXR, covid. Pt has [place] 7.5/325 #30, new e-Rx promethazine, Motrin, Lovenox. Patient has fracture boot. Patient has DME at home. She has polar pack. Medical clearance per PCPJose Shah. Plan for 23 hour observation stay: COPD, DVT ppx, pain control. Operative findings:: Severe synovitis and fibrotic scar tissue within the ankle joint as well as over the medial and lateral ankles. Previous hardware noted with broken lateral tibial screws x2. Posterior tibial tendon torn longitudinally. Severe adhesions of the PT tendon. Bone quality poor, osteoporotic, with some fibrous callus noted to the tibia. No purulence or obvious signs of infection noted. The posterior malleolus fracture had no callus and was freely movable. Severe cartilage damage to the ankle joint with soft bone. Deltoid ligament attenuated and torn, medial
--- NOTE | 2020-04-02 15:13 | PC.NURSE ---
Pt arrived to [facility] at 1514
--- NOTE | 2020-04-02 15:52 | HMH.ORTHHP ---
*Admission Date: 04/02/20 <Taniya Arango - 04/02/20 16:27> *Reason for consult:: R A harware removal, RA synovitis,RA arthrodesis, R Tibial autograft bone <Taniya Arango - 04/02/20 16:27> *History of present illness: The patient is a 54-year-old female who had surgery for right ankle pilon fracture 09/10/2019. Patient did have a fall and started having new pain several months after surgery. New CT scanner and shows some hardware failure with cortical loosening and nonunion of the fracture. The patient is has completed compression and physical therapy. The skin is fully healed with no signs of infection. Patient reports a feeling of catching to the anterior ankle. I explained this feeling may be scar tissue, impingement or hardware failure. We discussed the feelings of instability. Patient still complains of stiffness and soft tissue swelling which is likely due to posttraumatic arthritis and posttraumatic swelling. We discussed surgery in detail. We discussed that the right ankle fracture has broken hardware which will need to be removed. We discussed that the posterior fracture fragment is not healed and is preventing full range of motion and needs to be addressed. We discussed debridement of scar tissue to help ankle impingement. We discussed revisional fracture surgery with hardware removal, stabilizing the soft tissue ligaments and tendons, synovectomy versus ankle fusion. Pros and cons of each were discussed with the patient. I explained she had a bad comminuted pilon ankle fracture and has posttraumatic symptoms as well as current nonunion fracture. We discussed revising this could better realign the joint but she could still have potential issues with posttraumatic arthritis. We discussed doing an ankle arthrodesis which would address instability as well as posttraumatic arthritis for shoes. We discussed DVT prophylaxis with Lovenox injections. All risks and benefits were discussed including but not limited to: damage to blood vessels and nerves, bleeding, infection, wound complications, delayed, mal or non-union of bone, post-traumatic arthritis, muscle strain/sprain, over lengthening of tendon, need for further surgery, need for removal of implant, prolonged swelling of the extremity, prolonged pain, CRPS/RSD, DVT, and anesthetic complications. No guarantees were given. All questions fully answered. The patient verbalized understanding and agreed to proceed with surgery. Consent was obtained. Necessary labs and pre-op testing ordered: CBC, BMP, EKG, CXR, covid. Pt has [place] 7.5/325 #30, new e-Rx promethazine, Motrin, Lovenox. Patient has fracture boot. Patient has DME at home. She has polar pack. Medical clearance per PCPJose Shah. Plan for 23 hour observation stay: COPD, DVT ppx, pain control. Operative findings:: Severe synovitis and fibrotic scar tissue within the ankle joint as well as over the medial and lateral ankles. Previous hardware noted with broken lateral tibial screws x2. Posterior tibial tendon torn longitudinally. Severe adhesions of the PT tendon. Bone quality poor with some fibrous callus noted to the tibia. The posterior malleolus fracture had no callus and was freely movable. Severe cartilage damage to the ankle joint with soft bone. Patient will be admitted for 23 hour observation any of her surgical needs may be addressed by and all medical management needs will be covered by Dr. Smith. <Taniya Arango 04/02/20 16:27> [facility] History I have reviewed the patient's past medical history: Yes <Taniya Arango 04/02/20 16:27> Medical History: Reports:: Chronic Obstructive Pulmonary Disease (COPD), Depression, Lung Disease Denies:: Cancer, Diabetes Mellitus Type 1, Diabetes Mellitus Type 2, Internal Pacemaker, MRSA, Seizures <Taniya Arango 04/02/20 16:27> *Have you ever received a pneumonia vaccine?: No <Taniya Arango 04/02/20 16:27> *Have you received a flu vaccine this season?: Yes <Taniya Arango
--- NOTE | 2020-04-02 18:35 | P.PN_ITS ---
[facility] Anesthesia Record Part II Discharge Time: 14:58 Destination: Medical Surgical Department PACU nurse assessment reviewed?: Yes Patient Condition:: Good Anesthesia Complications:: None Swallowing reflex intact?: Yes Cyanosis?: No Blood Pressure: 114/73 Pulse Rate: 66 Temperature: 97.5 F Mental Status: Alert & Oriented Pain level:: 0 Nausea and/or vomitting:: None Intake, IV Amount: 50
--- NOTE | 2020-04-02 19:30 | HMH.DCSUM ---
General - General Admission date:: 04/02/20 Discharge date: 04/03/20 HPI HPI: Patient admitted 04/02/2020 for 23-hour observation for postoperative pain control as well as monitoring due to length of anesthesia time and history of COPD. Hospital Course Hospital Course: Patient had an uneventful postoperative overnight stay. Pain well controlled. She reported a little dizziness when she tried to use the restroom this morning. Denies nausea vomiting, fever chills, shortness of breath and chest pain. Objective Vital signs: Temp Pulse Resp BP Pulse Ox 97.5 F L 66 18 114/73 100 04/02/20 18:40 04/02/20 18:40 04/02/20 14:58 04/02/20 18:40 04/02/20 14:58 no acute distress, obese - *Routine HEENT Exam Head: Present: normocephalic Eye: Present: EOMI, PERRL ENT: Present: mucous membranes moist - *Routine Neck Exam Present: supple - *Routine Respiratory Exam Present: accessory muscle use - *Routine Cardiovascular Exam Present: RRR - *Routine Abdominal Exam Present: soft - *Routine Rectal Exam Patient deferred: visual exam - *Routine Exam Patient deferred: external exam - *Routine Extremities Exam Present: pulses intact, normal capillary refill - *Routine Skin Exam Present: dry, warm - *Routine Neurological Exam Present: alert, oriented X3 - Detailed Lower Extremity Exam Comments: RLE dressing and wound VAC clean dry and intact. Capillary fill time within normal limits. Motor function and light touch sensation decreased secondary to regional nerve block. No calf or thigh pain noted bilaterally. SCDs in place. Ice behind the knee. No pain currently. Results Labs on day of discharge: Labs from last 24 hours 04/02/20 04/02/20 04/02/20 10:10 07:10 07:10 ESR POC Glucose Hemoglobin A1c 5.4 25-OH Vitamin D Total 33.1 Urine Color Yellow Urine Appearance Clear Urine pH 5.0 Ur Specific [place] >= 1.030 Urine Protein Negative Urine Glucose (UA) Negative Urine Ketones Negative Urine Blood 1+ Urine Nitrate Negative Urine Bilirubin Negative Urine Urobilinogen 0.2 Ur Leukocyte Esterase Negative Urine RBC Occasional Urine WBC Occasional Ur Squamous Epith Cells Occasional 04/02/20 04/02/20 07:10 07:08 ESR 19 POC Glucose 107 Hemoglobin A1c 25-OH Vitamin D Total Urine Color Urine Appearance Urine pH Ur Specific [place] Urine Protein Urine Glucose (UA) Urine Ketones Urine Blood Urine Nitrate Urine Bilirubin Urine Urobilinogen Ur Leukocyte Esterase Urine RBC Urine WBC Ur Squamous Epith Cells DS: Diagnosis - Discharge Diagnosis (1) Status post surgery Status: Acute (2) 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 Status: Acute (3) Retained orthopedic hardware Status: Acute (4) Edema of right ankle Status: Acute (5) Post-traumatic osteoarthritis, right ankle and foot Status: Acute (6) Synovitis of right ankle Status: Acute (7) Hardware failure Status: Acute (8) Right ankle instability Status: Acute (9) Equinus contracture of right ankle Status: Acute (10) Overweight (BMI 25.0-29.9) Status: Acute (11) Edema of right ankle Status: Acute (12) Chronic obstructive pulmonary disease Status: Acute Discharge Plan - Patient Discharge Instructions ACTIVITY: Continue current activity, Limited activity DIET: advance to your usual diet Additional Instructions: Maintain dressing and Prevana incisional wound vac clean dry and intact to the right lower extremity. Non weight bearing to the right lower extremity with DME assistance (Patient has fracture boot, DME, polar pack at home). Elevate on 2 pillows or foam ramp. SCD and DVT prophylaxis. Lovenox education. Continue incentive spirometer q1h. Podiatry will round on the patient in the morning and check dressing site prior to discharg
--- NOTE | 2020-04-02 20:19 | PC.NURSE ---
LATE ENTRY. PT WAS VERY DROWSY UPON ARRIVAL TO THE FLOOR AND WAS UNABLE TO COMPLETE ADMISSION INTERVENTIONS THE PT'S MOTHER WAS IN THE ROOM BUT WAS ALSO UNABLE TO COMPLETE THE QUESTIONS.
--- NOTE | 2020-04-02 20:20 | INFXCTL.NOTE ---
SHE IS AOX4 AT TIME OF WRITING. HER VITAL SIGNS HAVE BEEN STABLE T/O SHIFT, SHE WAS VERY DROWSY AND SHIVERING WHEN SHE ARRIVED TO THE FLOOR BUT HAS BECOME MORE ALERT. SHE HAS USED THE BEDPAN AND URINATED A LARGE AMOUNT BUT IT WAS NOT ABLE TO BE MEASURED. SHE HAS NOT C/O PAIN. IS TOLERATING RA WELL WITH NO COMPLAINTS. WOUND VAC APPEARS TO BE FUNCTIONING PROPERLY. SHE DENIES HAVING ANY NEEDS AT THIS TIME.
[2020-04-03] VITALS: BP 92/53; PULSE 82; RESP 18; TEMP 37.1; O2SAT 95
[2020-04-03 04:00] VITALS: BP 90/51; PULSE 79; RESP 16; TEMP 36.9; O2SAT 95
--- NOTE | 2020-04-03 04:36 | PC.NURSE ---
pt is post op. no acute changes. RLE elevated and polar pack is applied. dressing is intact with no drainage note. wound vac in place. pt reports no pain this shift. iv patent. pt voiding per bedpan. pt educated and demonstrated deep breathing and coughing. vss. call light in reach. will continue to monitor pt condition.
[2020-04-03 05:00] VITALS: BMI 35.3
--- NOTE | 2020-04-03 05:23 | PC.NURSE ---
pt was weighed with standing scale yesterday, and a bed scale today.
[2020-04-03 07:21] VITALS: BP 82/45; PULSE 74; RESP 18; TEMP 36.8; O2SAT 90
--- NOTE | 2020-04-03 07:37 | P.CONPHA_ITS ---
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 (Acute) Retained orthopedic hardware (Acute) Edema of right ankle (Acute) Post-traumatic osteoarthritis, right ankle and foot (Acute) Synovitis of right ankle (Acute) Hardware failure (Acute) Right ankle instability (Acute) Equinus contracture of right ankle (Acute) Overweight (BMI 25.0-29.9) (Acute) Chronic obstructive pulmonary disease (Acute) - VTE Risk Was VTE Risk Assessment Performed: Yes VTE Score: 5 VTE Risk Level: Low Risk - Prophylaxis VTE Prophylaxis Ordered?: Yes Types of VTE Prophylaxis: IPCS Thigh High, Pharmacological Location of Applied Device: Bilateral Lower Extremeties Pharmacologic Type: Enoxaparin
[2020-04-03 07:40] LABS: Chloride 105 mmol/L (98-107); Potassium 4.1 mmoL/L (3.5-5.1); Sodium 137 mmol/L (136-145)
[2020-04-03 07:43] LABS: Alanine Aminotransferase 26 U/L (12-78); Albumin Level 2.8 g/dl (3.5-5.0); Albumin/Globulin Ratio 1.2 (1.1-1.8); Alkaline Phosphatase 75 U/L (38-126); Anion Gap 5.1 mEq/L (5-15); Aspartate Amino Transferase 48 U/L (14-36); Basophils % 0.1 % (0.1-2.0); Bilirubin,Total 0.4 mg/dl (0.2-1.3); Blood Urea Nitrogen 16 mg/dl (7-17); Carbon Dioxide 31 mmol/L (22.0-30.0); Creatinine Clearance Estimated 96 mL/min (50-200); Estimated Glomerular Filt Rate 65 ml/min (>60); GFR (African American) 78 ML/MIN (>60); Globulin 2.3 g/dL (1.3-3.2); Hematocrit 30.3 % (37.0-47.0); Hemoglobin 9.6 g/dL (12.2-16.2); Lymphocytes # 1.7 K/mm3 (0.7-4.5); Lymphocytes % 17.4 % (10-50); Mean Corpuscular HGB Conc 31.7 g/dL (31.8-35.4); Mean Corpuscular Volume 91.6 fl (81-99); Mean Platelet Volume 7.6 fl (7.4-10.4); Monocytes # 0.8 K/mm3 (0.1-1.0); Monocytes % 7.9 % (1.7-9.3); Neutrophils # 7.4 K/mm3 (1.8-7.8); Neutrophils % 74.5 % (37.0-80.0); Platelet Count 247 K/mm3 (142-424); Red Blood Count 3.31 M/mm3 (4.20-5.40); Red Cell Distribution Width 13.2 % (11.5-17.5); Total Protein,Serum 5.1 g/dl (6.3-8.2); White Blood Count 9.9 K/mm3 (4.8-10.8)
[2020-04-03 07:44] LABS: Glucose 126 mg/dl (74-100)
--- NOTE | 2020-04-03 11:40 | HMH.PTEV ---
Physical Therapy Evaluation Rehab PT IP Evaluation Start: 04/02/20 15:18 Freq: ONCE Status: Active Protocol: Document 04/03/20 11:00 PHONAILA (Rec: 04/03/20 11:40 PHORNE [id number]) Subjective/History History History 54 yowf adm to [facility] for R ankle surgery, She has all necessary equipment at home currently. Subjective Subjective Pt reports no new c/o this am. Rehab PT IP Eval Objective Appearance Patient Behavior Appropriate Patient Orientation Person,Place,Time Difficulty following instructions none Speech Pattern Clear Ambulation Patient Able to Ambulate No Balance Ability to Arise Able, uses arms to help Sitting Balance Steady, safe Standing Balance Steady, wide stance Dynamic Sitting Balance Ability Good Dynamic Standing Balance Ability Good Transfers Bed Transfer Ability Supervision/Stand by Chair Transfer Ability Supervision/Stand by Sit to Stand Bed Transfer Ability Supervision/Stand by Sit to Stand Chair Transfer Ability Supervision/Stand by ROM All Extremities PT ROM Status WFL Abnormal ROM Comment except R ankle NT MMT All Extremities PT MMT WFL Abnormal MMT Grade except R ankle NT Rehab PT IP prob,goals,plan Problems Date of Evaluation: 04/03/20 Discharge Plan PT Discharge Plan Pt is appropriate to return home once medically stable. G -code Required No Eval Complexity Eval Charge Codes 21139 - Moderate Complexity PHYSICIAN CERTIFICATION: I certify the specified therapy services for Meenu Alexandra are required, authorized, and reviewed every 30 days.
== END 2020-04-03 13:38 | disposition home or self-care (01) ==
LOC: 2ND 06:22
PROVIDERS: Admitting Provider Podiatrist; PCP Nurse Practitioner Family; Visit Provider Podiatrist
PROC: (CPT 27870; principal; 2020-04-02 07:30)
DX: S82.871K Displaced pilon fracture of right tibia, subsequent encounter for closed fracture with nonunion (principal); S92.061K Displaced intraarticular fracture of right calcaneus, subsequent encounter for fracture with nonunion; M19.171 Post-traumatic osteoarthritis, right ankle and foot; M24.571 Contracture, right ankle; M76.821 Posterior tibial tendinitis, right leg; M65.871 Other synovitis and tenosynovitis, right ankle and foot; M25.471 Effusion, right ankle; J44.9 Chronic obstructive pulmonary disease, unspecified; T84.428A Displacement of other internal orthopedic devices, implants and grafts, initial encounter; T84.84XA Pain due to internal orthopedic prosthetic devices, implants and grafts, initial encounter; S96.811A Strain of other specified muscles and tendons at ankle and foot level, right foot, initial encounter
CPT/HCPCS: 27870; 28200; 20680; 15275; 36415; 73600; 73610; 76000; 80053; 81001; 82306; 82962; 83036; 85025; 85651; 87070; 87205; 93005; 96374; 97162; C1713; C1734; C1762; C1776; G0378; J2405; Q4211

== ENCOUNTER 2020-04-12 09:33 | Emergency (ER) | payer OTHER, SELFPAY ==
[2020-04-12 09:35] VITALS: BP 163/85; PULSE 64; RESP 16; TEMP 36.9; O2SAT 98; BMI 32.9
[2020-04-12 10:35] VITALS: BP 108/68; PULSE 92; RESP 20; O2SAT 97
--- NOTE | 2020-04-12 10:53 | PC.NURSE ---
assisted Dr Denny with resplinting of foot and ankle.
--- NOTE | 2020-04-12 11:00 | HMH.EDGENADL ---
ED Disposition Clinical Impression: Serum sickness due to drug Qualifiers: Encounter type: subsequent encounter Qualified Code(s): T80.69XD - Other serum reaction due to other serum, subsequent encounter Disposition: Home, Self-Care Condition on Discharge: Good Additional Instructions: You were seen on an emergency basis. It is very important that you follow up with your primary care provider and/or specialist as we discussed within 2 days. All labs and imaging were obtained and interpreted here to rule out life threatening emergencies, but your final results should be reviewed by your primary doctor at your follow up appointment. Please return to the emergency department if any of your symptoms worsen, or if they do not improve as we discussed. Referrals: Khalida Marion APRN [Primary Care Provider] - - Critical Care Critical Care Time: No Attestation: On 04/12/20, the high probability of a clinically significant, sudden or life threatening deterioration of the following system(s) required my full and direct attention, intervention and personal management. The time I documented below is in addition to time spent performing reported procedures but includes the following listed in this critical care notation. Medical Decision Making - Medical Records Medical records reviewed: Yes: I reviewed the patient's medical records. - Dinesh Inquiry Pt receiving controlled substance: No Vital Signs: 04/12/20 09:35 Temperature 98.5 F Temperature Source Oral Pulse Rate [Right] 64 Respiratory Rate 16 Blood Pressure [Right Arm] 163/85 H Blood Pressure Mean [Right Arm] 111 Blood Pressure Source [Right Arm] Automatic Cuff Blood Pressure Position [Right Arm] Sitting 02 Sat by Pulse Oximetry 98 Oxygen Delivery Method Room Air Orders (Tests/Meds): ED MEDICATIONS Generic Name Dose Route Start Last Admin Trade Name Freq PRN Reason Stop Dose Admin Sodium Chloride 8 ml 04/12/20 10:37 04/12/20 10:52 Sodium Chloride 0.9% 10ml Vial IV 05/12/20 10:36 8 ml NEEDED PRN Administration dilute pepcid Discontinued Medications Generic Name Dose Route Start Last Admin Trade Name Freq PRN Reason Stop Dose Admin Diphenhydramine HCl 50 mg 04/12/20 10:37 04/12/20 10:51 Diphenhydramine 50mg/Ml Vial IV 04/12/20 10:38 50 mg ONCE ONE Administration Famotidine 20 mg 04/12/20 10:37 04/12/20 10:51 Famotidine 20mg/2ml Vial IV 04/12/20 10:38 20 mg ONCE ONE Administration Ketorolac Tromethamine 30 mg 04/12/20 10:37 04/12/20 10:52 Ketorolac 30mg/Ml Vial IV 04/12/20 10:38 30 mg ONCE ONE Administration Medical Decision Narrative: 54-year-old female presenting with rash after starting Keflex. I took down her splint and replaced it and there is no obvious evidence of postsurgical complication including infection although I did leave her wound VAC intact. She is neurovascularly intact. Her rash insistent with serum sickness and she initially presented on day 8 of her antibiotic. No further work-up required here. She received IV Toradol, Benadryl and Pepcid and will continue to take NSAIDs, Benadryl and Pepcid at home. 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 General Adult HPI - General Chief complaint: Skin/Abscess/Foreign Body Stated complaint: allergic reaction Time Seen by Provider: 04/12/20 10:30 Mode of Arrival: Wheelchair Limitations: No Limitations Description of Symptoms (Recalled from ER Triage Doc. by RN): pt had surgery on 04/02 on her on foot and has been taking different medications.On - History of Present Illness HPI narrative: This is a 54-year-old female 1.5 weeks status post right foot fusion and subsequently placed on Keflex who presents with a 3-day history of persistent painful rash to her extremities and buttocks. She saw her PCP 2 days ago for this where she received steroids, Benadryl and Pepcid. She also switched her antibiotic
[2020-04-12 11:21] VITALS: BP 120/72; PULSE 85; RESP 16; TEMP 36.8; O2SAT 98
== END 2020-04-12 11:22 | disposition home or self-care (01) ==
PROVIDERS: Emergency Provider Physician Assistant; PCP Nurse Practitioner Family
DX: L27.0 Generalized skin eruption due to drugs and medicaments taken internally (principal); T36.1X5A Adverse effect of cephalosporins and other beta-lactam antibiotics, initial encounter; J44.9 Chronic obstructive pulmonary disease, unspecified; F33.1 Major depressive disorder, recurrent, moderate; Z87.891 Personal history of nicotine dependence
CPT/HCPCS: 96374; 96375; 99282

== ENCOUNTER → 2020-05-19 08:53 | Outpatient (CLI) | payer OTHER, SELFPAY ==
--- NOTE | 2020-05-19 08:56 | XR_ITS ---
PROCEDURE: XR ANKLE WT BEARING RT MIN 3V CLINICAL INDICATION: post-op Follow-up surgery/ORIF COMPARISON: CR XR ANKLE WT BEARING RT MIN 3V from 01/22/2020 CR XR ANKLE WT BEARING RT MIN 3V from 02/26/2020 CR XR ANKLE RT MIN 3V from 04/02/2020 CR XR ANKLE RT 2V from 04/02/2020 FINDINGS: There is a lateral bone plate at the distal tibia with multiple cortical screws with the bone plate curving anteriorly at the distal tibia with good alignment of the tibial fracture. There are 2 screws from the distal fibula into the distal tibia. There is lateral displacement of the distal fibular fragment which has developed in the interval by approximately 4 mm. The proximal screw that traverses the distal tibia and fibula is distracting laterally and is no longer flush with the fibula. Overall, there is of somewhat granular appearance of the bone within the distal tibia and fibula. There is also a mildly prominent zone of lucency in the 2 screws from the bone plate anteriorly into the talus. IMPRESSION: Revision of the distal tib fib fracture with lateral tibial bone plate and screws from the distal fibula into the tibia. The proximal of these 2 screws appears to be distracting laterally with mild lateral displacement of the distal fibula. Dictated by: Kendrick Mayfield MD 05/19/2020 12:17 Kendrick Mayfield MD in [place] 05/19/2020 12:17
== END ==
PROVIDERS: PCP Nurse Practitioner Family; Visit Provider Podiatrist
DX: M19.171 Post-traumatic osteoarthritis, right ankle and foot (principal); T81.31XA Disruption of external operation (surgical) wound, not elsewhere classified, initial encounter; Z98.890 Other specified postprocedural states
CPT/HCPCS: 73610

== ENCOUNTER → 2020-06-02 16:13 | Outpatient (CLI) | payer OTHER, SELFPAY ==
--- NOTE | 2020-06-02 16:15 | XR_ITS ---
PROCEDURE: XR ANKLE WT BEARING RT MIN 3V CLINICAL INDICATION: POST-OP Follow-up surgery COMPARISON: No exams were available for comparison FINDINGS: Extensive postsurgical changes of the ankle with anterior bone plate at the tibia and talus with ankle joint effusion. Two cortical screws are present from the fibula laterally into the distal tibia. The most superior of the 2 screws has distracted slightly but is not significantly changed from 05/19/2020. There is mild lateral displacement of the distal fragment of the fibula by approximately 5 mm not significantly changed there is a mildly prominent zone of lucency at the screws within the bone plate into the talus not significantly changed. IMPRESSION: Postsurgical changes as described above which are stable Dictated by: Kendrick Mayfield MD 06/03/2020 17:54 Kendrick Mayfield MD in [place] 06/03/2020 17:54
== END ==
PROVIDERS: PCP Nurse Practitioner Family; Visit Provider Podiatrist
DX: Z98.890 Other specified postprocedural states (principal); B35.1 Tinea unguium; M79.675 Pain in left toe(s); M79.674 Pain in right toe(s)
CPT/HCPCS: 73610; 87102; 87206; 87220

== ENCOUNTER → 2020-06-19 13:57 | Outpatient (CLI) | payer OTHER, SELFPAY ==
--- NOTE | 2020-06-19 14:03 | XR_ITS ---
PROCEDURE: XR ANKLE WT BEARING RT MIN 3V CLINICAL INDICATION: post op Follow-up surgery COMPARISON: CR XR ANKLE RT MIN 3V from 04/02/2020 CR XR ANKLE RT 2V from 04/02/2020 CR XR ANKLE WT BEARING RT MIN 3V from 05/19/2020 CR XR ANKLE WT BEARING RT MIN 3V from 06/02/2020 FINDINGS: Status post ORIF distal tibia and fibula. There remains good alignment. There remains mild lateral displacement of the distal fibula not significantly changed. The 2nd from bottom tib fib screw appears slightly distracted but not significantly changed. Prominent zone of lucency around the screws within the talus is unchanged. IMPRESSION: Postsurgical changes with good alignment with overall no significant change from the previous exam. Dictated by: Kendrick Mayfield MD 06/19/2020 14:49 Kendrick Mayfield MD in [place] 06/19/2020 14:49
== END ==
PROVIDERS: PCP Nurse Practitioner Family; Visit Provider Podiatrist
DX: Z98.890 Other specified postprocedural states (principal)
CPT/HCPCS: 73610

== ENCOUNTER → 2020-07-22 16:09 | Outpatient (CLI) | payer OTHER, SELFPAY ==
--- NOTE | 2020-07-22 16:13 | XR_ITS ---
PROCEDURE: XR ANKLE WT BEARING RT MIN 3V CLINICAL INDICATION: postop views Follow-up surgery COMPARISON: CR XR ANKLE RT MIN 3V from 04/02/2020 CR XR ANKLE WT BEARING RT MIN 3V from 05/19/2020 CR XR ANKLE WT BEARING RT MIN 3V from 06/02/2020 CR XR ANKLE WT BEARING RT MIN 3V from 06/19/2020 FINDINGS: Status post ORIF. Lateral tibial bone plate is present curving around the neck of the talus. There multiple cortical screws present. There are 2 screws present along the distal fibula into the tibia. The most proximal of these screws is backing out withdrawn approximately 7 mm from the previous exam. Nonunion noted of the fibular fracture with mild lateral displacement of the distal fracture fragment by 4 mm. Status post ankle fusion. Lucency also noted around the screws at the talus probably not significantly changed. IMPRESSION: Postsurgical changes as described above. The most proximal screw in the fibular tibial region is distracting. Dictated by: Kendrick Mayfield MD 07/22/2020 16:36 Kendrick Mayfield MD in [place] 07/22/2020 16:36
== END ==
PROVIDERS: PCP Nurse Practitioner Family; Visit Provider Podiatrist
DX: Z98.890 Other specified postprocedural states (principal); M19.171 Post-traumatic osteoarthritis, right ankle and foot
CPT/HCPCS: 73610

== ENCOUNTER 2020-07-24 15:00 | Outpatient (RCR) | payer OTHER, SELFPAY ==
--- NOTE | 2020-07-02 18:10 | HMH.PTOPEV ---
PT Outpatient Evaluation Rehab PT Outpatient Evaluation Start: 07/02/20 15:09 Freq: Status: Active Protocol: Document 07/02/20 15:40 SAMEERAMIRANDA (Rec: 07/02/20 16:28 ISAAC [id number]) Electronically Signed By Howie Woodward PT 07/02/20 15:40 Outpatient Therapy Subjective History Subjective History This is the initial Physical Therapy evaluation for Meenu Alexandra. Pt is a 54 y/o female referred to Physical Therapy s/p R ankle fusion. Pt original had fall in August of 2019 and suffered a R ankle Pilon fracture. Pt had ORIF of injury. Pt had physical therapy for several months w/ improvement but after dc from PT began having significant pain. Pt returned to [facility] and radiographs showed broken hardware and new fracture. Pt opted for fusion of ankle joint and underwent joint fusion on 04/02/20. Pt now reports to PT for ROM, strengthening and endurance improvements. Chief Complaint Pain,Stiff,Swelling,Weakness Symptom Type Ache,Throb,Sharp,Stabbing Symptoms Relieved By Rest/Positioning Symptoms Aggravated By Standing,Walking Prior Functional Limitations Stairs Current Functional Limitations Standing,Squatting,Recreation Activity,Walking,Stairs, Balance,Bending/Stooping Symptom Description Intermittent Level of pain today (0-10) 5 Pain scale - at its best (0-10) 0 Pain scale - at its worst (0-10) 8 Ankle/Foot Eval Gait Observation General Gait Pattern Observation Antalgic Gait,Decrease Weight Bear (R) Assistive Device Ambulation Assistive Device Small Base Quad Cane ROM right Ankle/Foot Dorsiflexion w/Knee Extended 0 Active Range Motion (degrees) Ankle/Foot Plantar Flexion Active Range 15 of Motion (degrees) Ankle/Foot Eversion Active Range of 25 Motion (degrees) Ankle/Foot Inversion Active Range of 15 Motion (degrees) Ankle/Foot ROM Limitations Bony Restriction Outpatient Therapy Assessment Impairments Problems/Impairmments Palpation Tenderness,Impaired Range of Motion,Impaired Strength,Impaired Gait Pattern
== END 2020-07-24 15:05 | disposition home or self-care (01) ==
LOC: PT 15:00
PROVIDERS: PCP Nurse Practitioner Family; Visit Provider Podiatrist
DX: Z98.890 Other specified postprocedural states (principal); M19.171 Post-traumatic osteoarthritis, right ankle and foot; S82.871K Displaced pilon fracture of right tibia, subsequent encounter for closed fracture with nonunion; M25.871 Other specified joint disorders, right ankle and foot; M25.471 Effusion, right ankle; Z96.9 Presence of functional implant, unspecified
CPT/HCPCS: 97010; 97014; 97110; 97163; G0283

== ENCOUNTER → 2020-07-31 05:55 | Outpatient (CLI) | payer OTHER, SELFPAY ==
--- NOTE | 2020-07-31 06:01 | CT_ITS ---
PROCEDURE INFORMATION: Exam: CT Right Lower Extremity Without Contrast, Ankle Exam date and time: 07/31/2020 6:01 AM Age: 54 years old Clinical indication: Pain; Right; Prior surgery; Surgery date: 6+ months; Surgery type: RT ankle FX orif 09/09/2019; Patient HX: PT has retained hardware in RT ankle with impingment; Additional info: Retained hardware, ankle impingement TECHNIQUE: Imaging protocol: CT of the Right lower extremity without contrast was performed. Exam focused on the ankle. Radiation optimization: All CT scans at this facility use at least one of these dose optimization techniques: automated exposure control; mA and/or kV adjustment per patient size (includes targeted exams where dose is matched to clinical indication); or iterative reconstruction. COMPARISON: CT ANKLE RT WO CON 02/27/2020 7:56 AM FINDINGS: Bones/joints: Two screws extend from the distal fibula into the distal tibia and talus. Long plate and screws in the distal tibia.. Unhealed discontinuity in the distal fibula. Distal fibular fracture fragment is displaced posteriorly. Unhealed comminuted minimally displaced fractures in the distal tibia. Incomplete fusion of the tibiotalar joint.. Lucencies around screws in the talus may indicate loosening. Soft tissues: Soft tissue swelling the ankle IMPRESSION: 1. Two screws extend from the distal fibula into the distal tibia and talus. Long plate and screws in the distal tibia.. 2. Unhealed discontinuity in the distal fibula. Distal fibular fracture fragment is displaced posteriorly. 3. Unhealed comminuted minimally displaced fractures in the distal tibia. Incomplete fusion of the tibiotalar joint.. 4. Lucencies around screws in the talus may indicate loosening.
== END ==
PROVIDERS: PCP Nurse Practitioner Family; Visit Provider Podiatrist
DX: M25.871 Other specified joint disorders, right ankle and foot (principal); Z96.9 Presence of functional implant, unspecified
CPT/HCPCS: 73700

== ENCOUNTER → 2020-08-08 07:09 | Outpatient (CLI) | payer OTHER, SELFPAY ==
[2020-08-08 07:46] LABS: Basophils # 0.1 K/mm3 (0-0.2); Basophils % 1.2 % (0.1-2.0); Eosinophils # 0.4 K/mm3 (0.0-0.4); Eosinophils % 6.4 % (0.1-12.0); Hematocrit 38.2 % (37.0-47.0); Hemoglobin 11.9 g/dL (12.2-16.2); Lymphocytes # 2.6 K/mm3 (0.7-4.5); Lymphocytes % 44.7 % (10-50); Mean Corpuscular HGB Conc 31.1 g/dL (31.8-35.4); Mean Corpuscular Hemoglobin 24.4 pg (27.0-31.2); Mean Corpuscular Volume 78.5 fl (81-99); Mean Platelet Volume 7.7 fl (7.4-10.4); Monocytes # 0.4 K/mm3 (0.1-1.0); Monocytes % 7.1 % (1.7-9.3); Neutrophils # 2.3 K/mm3 (1.8-7.8); Neutrophils % 40.5 % (37.0-80.0); Platelet Count 345 K/mm3 (142-424); Red Blood Count 4.87 M/mm3 (4.20-5.40); Red Cell Distribution Width 15.5 % (11.5-17.5); White Blood Count 5.7 K/mm3 (4.8-10.8)
[2020-08-08 08:11] LABS: Hemoglobin A1C 5.6 % (4.0-6.0)
[2020-08-08 08:46] LABS: Alanine Aminotransferase 31 U/L (12-78); Albumin Level 4.3 g/dl (3.5-5.0); Albumin/Globulin Ratio 1.6 (1.1-1.8); Alkaline Phosphatase 110 U/L (38-126); Anion Gap 9.5 mEq/L (5-15); Aspartate Amino Transferase 30 U/L (14-36); Bilirubin,Total 0.6 mg/dl (0.2-1.3); Blood Urea Nitrogen 18 mg/dl (7-17); Calcium 9.7 mg/dl (8.4-10.2); Carbon Dioxide 29 mmol/L (22.0-30.0); Chloride 103 mmol/L (98-107); Estimated Glomerular Filt Rate 103 ml/min (>60); GFR (African American) 125 ML/MIN (>60); Globulin 2.7 g/dL (1.3-3.2); Glucose 96 mg/dl (74-100); Potassium 4.5 mmoL/L (3.5-5.1); Sodium 137 mmol/L (136-145); Uric Acid 5.5 mg/dl (2.5-6.2)
[2020-08-08 08:52] LABS: C-Reactive Protein 2.6 mg/L (0-4)
[2020-08-08 09:51] LABS: Vitamin B12 369 pg/mL (239-931)
[2020-08-08 09:52] LABS: Folate 5.35 ng/mL
[2020-08-08 09:56] LABS: Erythrocyte Sedimentation Rate 122 mm/hr (0-30)
[2020-08-09 05:15] LABS: RA Latex Turbid. <10.0 IU/mL (0.0-13.9)
[2020-08-10 10:42] LABS: Prealbumin 20 mg/dL (10-36)
[2020-08-12 10:36] LABS: Antinuclear Antibodies, IFA Negative (.)
[2020-08-15 13:44] LABS: 1,25 Dihydroxy Vitamin D 87 pg/mL (.); 1,25-Dihydroxy, Vitamin D-2 39 pg/mL (.); 1,25-Dihydroxy, Vitamin D-3 48 pg/mL (.)
== END ==
PROVIDERS: Visit Provider Podiatrist
DX: Z98.890 Other specified postprocedural states (principal); M19.171 Post-traumatic osteoarthritis, right ankle and foot; M25.471 Effusion, right ankle; Z68.32 Body mass index [BMI] 32.0-32.9, adult
CPT/HCPCS: 36415; 80053; 82607; 82652; 82746; 83036; 84134; 84443; 84550; 85025; 85651; 86038; 86140; 86431

== ENCOUNTER → 2020-09-02 15:08 | Outpatient (CLI) | payer OTHER, SELFPAY ==
--- NOTE | 2020-09-02 15:12 | XR_ITS ---
PROCEDURE: XR ANKLE WT BEARING RT MIN 3V CLINICAL INDICATION: postop Follow-up surgery COMPARISON: CR XR ANKLE WT BEARING RT MIN 3V from 05/19/2020 CR XR ANKLE WT BEARING RT MIN 3V from 06/02/2020 CR XR ANKLE WT BEARING RT MIN 3V from 06/19/2020 CR XR ANKLE WT BEARING RT MIN 3V from 07/22/2020 FINDINGS: Status post ankle joint fusion. There is a bone plate along the lateral aspect of the distal tibia which wraps anteriorly distally. The distal aspect of the plate is slightly more distracted from the talus with prominent zone of lucency around the 2 screws within the talus. 2 screws have been placed from the lateral aspect of the distal fibula one into the talus someone into the tibia. The 2nd from distal screw shows increased distraction with the head of the screw projecting lateral to the fibula by 12 mm previously 7 mm. There is mild lateral displacement of the distal fibular fragment which appears slightly increasingly displaced. Ununited posterior distal tibial fracture is also noted. IMPRESSION: Status post ankle joint fusion. The distal aspect of the lateral tibial bone plate appears slightly more displaced from the bone and the 2nd from distal fibular screw also shows some increased distraction. Please see above for detail. Dictated by: Kendrick Mayfield MD 09/02/2020 16:02 Kendrick Mayfield MD in [place] 09/02/2020 16:02
== END ==
PROVIDERS: PCP Nurse Practitioner Family; Visit Provider Podiatrist
DX: Z98.890 Other specified postprocedural states (principal); M19.171 Post-traumatic osteoarthritis, right ankle and foot
CPT/HCPCS: 73610

== ENCOUNTER → 2020-09-15 15:01 | Outpatient (CLI) | payer OTHER, SELFPAY ==
--- NOTE | 2020-09-15 15:03 | XR_ITS ---
PROCEDURE: XR DEXA AXIAL SKELETON CLINICAL HISTORY: CLOSED FRACTURE OF ANKLE LT W/ DELAYED HEALING COMPARISON: No exams were available for comparison FINDINGS: The right hip BMD is 0.543 with a T-score of -2.8. The left hip BMD is 0.664 with a T-score of -1.7. The lumbar spine BMD is 0.837 with a T-score of -1.9. IMPRESSION: This patient is considered osteoporotic according to the World Health Organization criteria. Fracture risk is high. Treatment is advised. Based on these results a follow-up exam is recommended in 1 year. Dictated by: Kendrick Mayfield MD 09/16/2020 08:07 Kendrick Mayfield MD in [place] 09/16/2020 08:07
== END ==
PROVIDERS: PCP Nurse Practitioner Family; Visit Provider Family Medicine
DX: Z13.820 Encounter for screening for osteoporosis (principal); S82.892G Other fracture of left lower leg, subsequent encounter for closed fracture with delayed healing
CPT/HCPCS: 77080

== ENCOUNTER → 2020-09-22 16:25 | Outpatient (CLI) | payer OTHER, SELFPAY ==
--- NOTE | 2020-09-22 16:56 | XR_ITS ---
PROCEDURE: XR CHEST 2V CLINICAL HISTORY: FORMER SMOKER, PRE-OP COMPARISON: CR CXR2V XR chest 2V from 11/18/2017 CR XR CHEST PORTABLE from 09/10/2019 CR XR CHEST 2V from 03/31/2020 FINDINGS: The cardiomediastinal silhouette and pulmonary vascularity are within normal limits. The lungs are clear without infiltrates, suspicious nodules, or pleural effusions. Bone plate is present along lower cervical spine. No acute bony findings. IMPRESSION: No acute findings. Dictated by: Kendrick Mayfield MD 09/22/2020 17:13 Kendrick Mayfield MD in [place] 09/22/2020 17:13
[2020-09-22 17:02] LABS: Basophils # 0.1 K/mm3 (0-0.2); Basophils % 0.8 % (0.1-2.0); Eosinophils # 0.5 K/mm3 (0.0-0.4); Eosinophils % 5.1 % (0.1-12.0); Hematocrit 35.5 % (37.0-47.0); Hemoglobin 11.6 g/dL (12.2-16.2); Lymphocytes # 3.3 K/mm3 (0.7-4.5); Lymphocytes % 33.2 % (10-50); Mean Corpuscular HGB Conc 32.5 g/dL (31.8-35.4); Mean Corpuscular Hemoglobin 25.5 pg (27.0-31.2); Mean Corpuscular Volume 78.5 fl (81-99); Monocytes # 0.6 K/mm3 (0.1-1.0); Monocytes % 5.8 % (1.7-9.3); Neutrophils # 5.4 K/mm3 (1.8-7.8); Neutrophils % 55.1 % (37.0-80.0); Platelet Count 302 K/mm3 (142-424); Red Blood Count 4.53 M/mm3 (4.20-5.40); Red Cell Distribution Width 16.9 % (11.5-17.5); White Blood Count 9.8 K/mm3 (4.8-10.8)
--- NOTE | 2020-09-22 17:09 | ECG_ITS ---
APPROVED REPORT Exam: Resting ECG HR:54 bpm ECG Measurements Heart Rate 54 AXES WI 154 P 60 QRSd 74 QRS 74 QT 454 T 31 QTc 430 Conclusion Sinus bradycardia Nonspecific ST and T wave abnormality Abnormal ECG Electronically signed by : Genaro Rubio, 09/22/2020 17:31:04
[2020-09-22 18:06] LABS: Erythrocyte Sedimentation Rate 24 mm/hr (0-30)
[2020-09-22 18:12] LABS: Alanine Aminotransferase 23 U/L (12-78); Albumin Level 4.2 g/dl (3.5-5.0); Albumin/Globulin Ratio 1.7 (1.1-1.8); Alkaline Phosphatase 123 U/L (38-126); Anion Gap 11.5 mEq/L (5-15); Aspartate Amino Transferase 27 U/L (14-36); Bilirubin,Total 0.4 mg/dl (0.2-1.3); Blood Urea Nitrogen 17 mg/dl (7-17); Calcium 9.5 mg/dl (8.4-10.2); Carbon Dioxide 27 mmol/L (22.0-30.0); Chloride 105 mmol/L (98-107); Estimated Glomerular Filt Rate 86 ml/min (>60); GFR (African American) 104 ML/MIN (>60); Globulin 2.5 g/dL (1.3-3.2); Glucose 91 mg/dl (74-100); Potassium 4.5 mmoL/L (3.5-5.1); Sodium 139 mmol/L (136-145); Total Protein,Serum 6.7 g/dl (6.3-8.2)
[2020-09-22 19:03] LABS: C-Reactive Protein 1.9 mg/L (0-4)
== END ==
PROVIDERS: PCP Nurse Practitioner Family; Visit Provider Podiatrist
DX: S82.871K Displaced pilon fracture of right tibia, subsequent encounter for closed fracture with nonunion (principal); M25.471 Effusion, right ankle; R70.0 Elevated erythrocyte sedimentation rate
CPT/HCPCS: 36415; 71046; 80053; 85025; 85651; 86140; 93005

== ENCOUNTER → 2020-10-13 17:18 | Outpatient (CLI) | payer OTHER, SELFPAY ==
[2020-10-13 17:23] LABS: Coronavirus 19, PCR Not Detected (NotDetected); Influenza A, PCR Not Detected (NotDetected); Influenza B, PCR Not Detected (NotDetected)
[2020-10-13 18:55] LABS: 25-OH Vitamin D, Total 41.4 ng/mL (30-100)
[2020-10-13 19:27] LABS: Albumin Level 4.4 g/dl (3.5-5.0)
== END ==
PROVIDERS: Nurse Practitioner Family; Visit Provider Podiatrist
DX: Z01.812 Encounter for preprocedural laboratory examination (principal); Z11.52 Encounter for screening for COVID-19; M19.171 Post-traumatic osteoarthritis, right ankle and foot; M25.471 Effusion, right ankle
CPT/HCPCS: 36415; 82040; 82306; U0003

== ENCOUNTER 2020-10-15 06:21 | Day surgery (SDC) | payer OTHER, SELFPAY ==
[2020-10-13 15:02] VITALS: BMI 31.1
[2020-10-15] VITALS (13 sets, daily range): BP systolic 114–145; BP diastolic 69–92; PULSE 58–80; RESP 16–18; TEMP 36.2–43; O2SAT 92–99
--- NOTE | 2020-10-15 07:59 | P.PN_ITS ---
[facility] Anesthesia Checklist - Patient Identification Patient Identification: Arm Band - Structural Data Admitted From: Home Planned Operative Procedure/s: Right Ankle Arthroscopy, Hardware Removal Consent for Planned Operative Procedure(s) Verified: Yes Verified Documents: Surgical Consent, History and Physical - NPO Status Verified Time NPO: 00:00 - Additional verifications Anesthesia Reactions: Yes (PONV) Hx Blood Transfusions: Yes Blood Transfusion Reaction: No - Airway Assessment C-Spine Mobility Assessed: Yes (mp2) TMJ Mobility Assessed: Yes Dentition: Good Dentition - Neurological Assessment Level of Consciousness: Awake, Alert - Anesthesia Plan Anesthesia Risk discussed: Yes Anesthesia Plan: Verified ASA Class: II Anesthesia Type: General w/block (Popliteal/saphenous. Risks/benefits of block explained. Pt verblaized understanding) [facility] History I have reviewed the patient's past medical history: Yes Medical History: Reports:: Chronic Obstructive Pulmonary Disease (COPD), Depression, Lung Disease Denies:: Cancer, Diabetes Mellitus Type 1, Diabetes Mellitus Type 2, Internal Pacemaker, MRSA, Seizures *Have you ever received a pneumonia vaccine?: No *Have you received a flu vaccine this season?: Yes (2019) Other Medical History: Reports: Other. Denies: Blood Transfusion Reaction Anesthesia experience/problems:: nac Other Surgeries: Yes: Colonoscopy, Other. No: Pacemaker Amputation: No (LEFT ANKLE, TIBIA, FIBULA, RIGHT ANKLE) Fractures: Yes - *Social History Last grade of school completed: High school graduate Smoking Status: Never smoker Tobacco Type: cigarettes # Packs/Day (cigarettes): 1 #Yrs smoked (if former smoker): 30 Alcohol Intake: never Alcohol Intake Frequency:: other Substance Use Type: denies use *Occupational Status:: employed Housing: house Household Members: none *Travel in the last 8 weeks: None - Psychiatric History Pschychiatric History:: Reports:: Depression Family Hx:: Hypertension, Mental illness
--- NOTE | 2020-10-15 10:28 | SUR.OPER ---
1028- family updated of patients status at this time via Abhinav Madison rn
--- NOTE | 2020-10-15 11:07 | XR_ITS ---
PROCEDURE: XR ANKLE RT 2V CLINICAL INDICATION: HARDWARE FAILURE,NON UNION FX COMPARISON: CR XR ANKLE WT BEARING RT MIN 3V from 09/02/2020 CR XR ANKLE RT MIN 3V from 10/15/2020 FINDINGS: Fluoroscopic spot in surgery show stump the distal fibula with resection of the distal unfused fracture fragment of fibula the distal tibial bone plate is noted fixated by multiple transversely oriented threaded screws to the distal tibia. Additional screws are seen of the distal extent of the bone plate fusing the tibia and talus. IMPRESSION: Postsurgical changes as noted Dictated by: Dr. Grant Cameron MD 10/15/2020 15:16 Dr. Grant Cameron MD in [place] 10/15/2020 15:16
--- NOTE | 2020-10-15 11:08 | SUR.OPER ---
1110- family updated again of the pt's status via collin mustafa.
--- NOTE | 2020-10-15 11:20 | XR_ITS ---
PROCEDURE: XR ANKLE RT MIN 3V CLINICAL INDICATION: s/p right ankle surgery COMPARISON: CR XR ANKLE WT BEARING RT MIN 3V from 09/02/2020 FINDINGS: Multiple views were obtained with the posterior splint in place. There has been surgical resection and removal of the distal unfused fibular fragment seen on the most recent study 09/02/2020. The L-shaped distal tibial bone plate is again noted fixated by multiple transversely oriented threaded screws for fusion of the distal tibia and talus. There is overall less soft tissue swelling of the lower leg and ankle than seen on the previous ankle films 09/02/2020 IMPRESSION: Postsurgical resection of the unfused distal fibular fragment stable long metallic tibial bone plate and as noted Dictated by: Dr. Grant Cameron MD 10/15/2020 12:14 Dr. Grant Cameron MD in [place] 10/15/2020 12:14
--- NOTE | 2020-10-15 11:33 | HMH.ANESI ---
[facility] Anesthesia Record Part I Intake, IV Amount: 2,000 Estimated blood loss (mL): 20 Urine output (mL): 400 Blood Products used (#): none Blood Pressure: 142/88 SaO2: 92 Pulse Rate: 75 Respiratory Rate: 16 Temperature: 97.7 F Patient is:: Drowsy, Stable Stable to PACU at:: 11:30
[2020-10-15 11:36] LABS: Microscopic,Cath URINE MICROSCOPIC (MICROSCOPIC)
--- NOTE | 2020-10-15 11:43 | HMH.OPNOTE ---
Date of procedure: 10/15/20 Pre-op Diagnosis:: 1. Right ankle arthrodesis non-union 2. Right ankle fracture non-union 3. Hardware failure 4. Right ankle synovitis 5. Right ankle pain 6. Right peroneal tenosynovitis Post-op Diagnosis:: Same Procedure performed:: 1. Right revision ankle arthrodesis non-union (ankle non-union resection with bone graft) 2. Right fracture fragment excision 3. Right ankle arthroscopy 4. Right ankle synovectomy 5. Right ankle hardware removal 6. Right fibula osteotomy 7. Right autograft bone harvest 8. Right peroneal tenosynovectomy 9. Application of graft 10. Application of posterior splint Surgeon:: Abigail Zazueta DPM [employer] OPERATOR:: Rajinder Mon Anesthesia: GETA, regional (R popliteal, saph nerve block) Estimated blood loss (mL): 20 Clinical Note:: Patient is a 55 y/o female who had a right pilon ankle fracture dislocation with ORIF 09/10/19. She did not heal the fracture and subsequently underwent an ankle fusion 04/02/2020. Patient then had a nonunion with a fracture nonunion and hardware failure. The patient has tried modification of shoe gear, taping, strapping, inserts, ice, elevation, NSAIDs, ankle bracing, injections and physical therapy. She has had multiple right ankle surgeries. The DEXA scan on 09/15/2020 reveals osteoporosis and a high fracture risk. After a long discussion with the patient in regards to the conservative versus surgical treatment for the fracture non-union, hardware failure (screw backing out), osteoporosis, the patient has elected to proceed with surgery because they have failed conservative treatment and continue to have pain and worsening symptoms affecting daily activities. The patient has been instructed on the planned procedure, all risk versus benefits of the procedure discussed. These include but are not limited to: bleeding, infection, nerve and blood vessel damage, need for further surgery, delay in healing of soft tissue or bone, failure of bones to heal, non-union, mal-union, failure of the implant, prolonged pain and recovery, CRPS/RSD, DVT/PE and anesthetic complications. No guarantees were given. All questions fully answered. The patient verbalized understanding and agreed to proceed with surgery. Written consent was obtained. Necessary labs and pre-op testing ordered: CBC, CMP, ESR, CRP, CXR, EKG, covid. Labs, 09/22/20: wbc 9.8, esr 24, crp 1.9, glucose 91, gfr 86. Patient has DME. She has narcotics, Avant 7.5mg from last surgery. e-Rx given for Zofran 4mg # 30. Continue vitamin D. PCP start Boniva. Operative findings:: Prior right ankle surgery. Via the scope the anterior ankle appeared to be fused. Posterior medial ankle there was a fracture fragment noted. Some micromotion noted at the prior fusion site posteriorly. Distal fibula and tibia bone soft and mushy. No purulence, malodor or drainage noted. No signs of infection. Severe osteoporotic bone noted. Scar tissue and some impingement noted medially. Peroneal tenosynovitis noted. Operative note:: On this date and time patient was deemed an appropriate surgical candidate. With informed consent signed, the patient was given a pre-op right leg regional block by anesthesia. Patient was taken to the operating theater. Positioned supine. General anesthesia induced. Tourniquet was applied to the right thigh. IV Clinda given. Right lower extremity prepped draped in normal sterile fashion. Right ankle arthroscopy, synovectomy: Attention was directed to the anterior ankle where 2 incisions were made, one over the anterior medial and another over lateral ankle in standard technique. Blunt distraction to bone. [employer] ankle distractor utilized. Camera inserted, scope performed in standard technique. Scar tissue and synovitis noted to the ankle joint. Scar tissue was debrided. Anterior ankle appeared fused. Scope was then inserted to the medial posterior ankle. Fracture fragment visualized, no callus noted consistent with fracture nonunion. The posterior
[2020-10-15 12:04] LABS: Appearance,Urine/Cath CLEAR (Clear); Blood, Urine/Cath TRACE-I (Negative); Color,Urine/Cath YELLOW (Yellow); Glucose,Urine/Cath (UA) Negative (Negative); Ketones,Urine/Cath 3+ (Negative); Leukocyte Esterase,Cath Negative (Negative); Nitrate,Cath Negative (Negative); Protein,Urine/Cath Negative (Negative); Urobilinogen,Cath 0.2 EU/dl (0.2)
[2020-10-15 12:08] LABS: Bilirubin,Cath 1+ (Negative)
--- NOTE | 2020-10-15 12:57 | SUR.PHASEII ---
Pt stated to Dr Zazueta that her right eye is bothering her. States she scratched it with her face mask in preop while getting changed into gown. Cold compress applied.
--- NOTE | 2020-10-15 13:28 | P.PN_ITS ---
[facility] Anesthesia Record Part II Discharge Time: 12:20 Destination: Surgical Day Care (OP Surgery) PACU nurse assessment reviewed?: Yes Patient Condition:: Good Anesthesia Complications:: None Swallowing reflex intact?: Yes Cyanosis?: No Blood Pressure: 138/86 Pulse Rate: 64 Temperature: 97.2 F Mental Status: Alert & Oriented Pain level:: 0 Nausea and/or vomitting:: None Intake, IV Amount: 0
== END 2020-10-15 13:10 | disposition home or self-care (01) ==
LOC: OR 06:24
PROVIDERS: PCP Nurse Practitioner Family; Visit Provider Podiatrist
PROC: (CPT 27870; principal; 2020-10-15 07:30)
DX: S82.871K Displaced pilon fracture of right tibia, subsequent encounter for closed fracture with nonunion (principal); T84.84XA Pain due to internal orthopedic prosthetic devices, implants and grafts, initial encounter; M65.871 Other synovitis and tenosynovitis, right ankle and foot; M81.0 Age-related osteoporosis without current pathological fracture
CPT/HCPCS: 27870; 20680; 27626; 73600; 73610; 81001; 96374; C1713; C1734; J2405; J2710

== ENCOUNTER → 2020-11-03 10:55 | Outpatient (CLI) | payer OTHER, SELFPAY ==
--- NOTE | 2020-11-03 11:00 | XR_ITS ---
PROCEDURE: XR ANKLE WT BEARING RT MIN 3V CLINICAL INDICATION: postop Follow-up surgery COMPARISON: CR XR ANKLE WT BEARING RT MIN 3V from 07/22/2020 CR XR ANKLE WT BEARING RT MIN 3V from 09/02/2020 CR XR ANKLE RT MIN 3V from 10/15/2020 CR XR ANKLE RT 2V from 10/15/2020 FINDINGS: Posterior splint is in place. Status post resection of distal fibular segment and removal posterior distal tibial segment with bone plate present laterally along the distal tibia with multiple cortical screws and fusion at the tibial talar joint. There does appear to be good alignment. No significant change. IMPRESSION: Postsurgical changes as described above which appear stable Dictated by: Kendrick Mayfield MD 11/03/2020 12:15 Kendrick Mayfield MD in [place] 11/03/2020 12:15
== END ==
PROVIDERS: PCP Nurse Practitioner Family; Visit Provider Podiatrist
DX: Z98.890 Other specified postprocedural states (principal)
CPT/HCPCS: 73610

== ENCOUNTER → 2020-11-24 08:01 | Outpatient (CLI) | payer OTHER, SELFPAY ==
--- NOTE | 2020-11-24 08:05 | XR_ITS ---
PROCEDURE: XR ANKLE WT BEARING RT MIN 3V CLINICAL INDICATION: POST-OP COMPARISON: CR XR ANKLE WT BEARING RT MIN 3V from 09/02/2020 CR XR ANKLE RT MIN 3V from 10/15/2020 CR XR ANKLE RT 2V from 10/15/2020 CR XR ANKLE WT BEARING RT MIN 3V from 11/03/2020 FINDINGS: The splint has been removed. Tibial bone plate with multiple screws. Status post fusion at the tibial talar joint. Good alignment. Persistent lucency along the 2 screws within the distal aspect of the bone plate into the neck of the talus. S/p amputation of the distal fibula. Heterotopic ossification noted along the medial and lateral aspect of the distal tibia. IMPRESSION: Postsurgical changes as described above with good alignment Dictated by: Kendrick Mayfield MD 11/24/2020 11:05 Kendrick Mayfield MD in [place] 11/24/2020 11:05
== END ==
PROVIDERS: PCP Nurse Practitioner Family; Visit Provider Orthopaedic Surgery
DX: Z98.890 Other specified postprocedural states (principal)
CPT/HCPCS: 73610

== ENCOUNTER → 2020-12-22 10:30 | Outpatient (CLI) | payer OTHER, SELFPAY ==
--- NOTE | 2020-12-22 10:36 | XR_ITS ---
PROCEDURE: XR ANKLE WT BEARING RT MIN 3V CLINICAL INDICATION: post-op COMPARISON: CR XR ANKLE RT MIN 3V from 10/15/2020 CR XR ANKLE RT 2V from 10/15/2020 CR XR ANKLE WT BEARING RT MIN 3V from 11/03/2020 CR XR ANKLE WT BEARING RT MIN 3V from 11/24/2020 FINDINGS: Tibial bone plate with multiple screws. Status post fusion at the tibial talar joint. Good alignment. Persistent lucency along the 2 screws within the distal aspect of the bone plate into the neck of the talus. S/p amputation of the distal fibula. Heterotopic ossification noted along the medial and lateral aspect of the distal tibia. IMPRESSION: No change status post ankle joint fusion and amputation of the distal fibula with good alignment. Persistent lucency at the talus screws at the bone plate Dictated by: Kendrick Mayfield MD 12/22/2020 11:19 Kendrick Mayfield MD in [place] 12/22/2020 11:19
== END ==
PROVIDERS: PCP Nurse Practitioner Family; Visit Provider Podiatrist
DX: M25.871 Other specified joint disorders, right ankle and foot (principal); Z98.890 Other specified postprocedural states
CPT/HCPCS: 73610

== ENCOUNTER → 2020-12-28 08:58 | Outpatient (CLI) | payer OTHER, SELFPAY ==
[2020-12-28 09:27] LABS: Influenza A, PCR Not Detected (NotDetected); Influenza B, PCR Not Detected (NotDetected)
[2020-12-28 09:51] LABS: Coronavirus 19, PCR Detected (NotDetected)
== END ==
PROVIDERS: PCP Nurse Practitioner Family; Visit Provider Nurse Practitioner Family
DX: Z20.822 Contact with and (suspected) exposure to COVID-19 (principal); U07.1 COVID-19
CPT/HCPCS: C9803; U0003; U0005

== ENCOUNTER → 2021-02-02 15:21 | Outpatient (CLI) | payer OTHER, SELFPAY ==
--- NOTE | 2021-02-02 15:29 | XR_ITS ---
PROCEDURE: XR ANKLE WT BEARING RT MIN 3V CLINICAL INDICATION: postop views COMPARISON: CR XR ANKLE RT MIN 3V from 10/15/2020 CR XR ANKLE WT BEARING RT MIN 3V from 11/03/2020 CR XR ANKLE WT BEARING RT MIN 3V from 11/24/2020 CR XR ANKLE WT BEARING RT MIN 3V from 12/22/2020 FINDINGS: There are extensive postsurgical changes from prior ankle joint effusion at the tibial talar region with lateral tibial bone plate along with multiple cortical screws. Heterotopic ossification noted about the ankle. Status post amputation of the distal aspect of the fibula. There is good alignment. IMPRESSION: No change status post tibial talar fusion as described above. Dictated by: Kendrick Mayfield MD 02/02/2021 16:23 Kendrick Mayfield MD in [place] 02/02/2021 16:23
== END ==
PROVIDERS: PCP Nurse Practitioner Family; Visit Provider Podiatrist
DX: S82.891K Other fracture of right lower leg, subsequent encounter for closed fracture with nonunion (principal); M25.871 Other specified joint disorders, right ankle and foot; Z96.9 Presence of functional implant, unspecified; Z98.890 Other specified postprocedural states
CPT/HCPCS: 73610

== ENCOUNTER → 2021-03-02 15:24 | Outpatient (CLI) | payer OTHER, SELFPAY ==
--- NOTE | 2021-03-02 15:26 | MM_ITS ---
PROCEDURE INFORMATION: Exam: MG Bilateral Screening 3D Mammography Exam date and time: 03/02/2021 3:26 PM Age: 55 years old Clinical indication: Encounter for screening mammogram for malignant neoplasm of breast . Family history of breast carcinoma. TECHNIQUE: Imaging protocol: Bilateral screening tomosynthesis and 2D mammography including computer-aided detection (CAD) when performed. COMPARISON: 1. MG MM DIG SCREENING MAMM BI W/CAD 07/27/2019 10:08 AM 2. MG SCBI MM Dig screening mamm BI w/CAD 01/24/2018 3:48 PM 3. MG DMSB DIG MAMM-SCREEN QUIRINO 11/13/2014 4:41 PM FINDINGS: MAMMOGRAPHY: Breast composition: The breasts are heterogeneously dense, which may obscure small masses. Mass: No suspicious masses. Architectural distortion: No suspicious distortion. Calcifications: No suspicious calcifications. Asymmetric density: None. Skin thickening: None. Axillary adenopathy: None. IMPRESSION: No mammographic evidence of malignancy. Annual screening is recommended unless otherwise clinically indicated. ASSESSMENT: BI-RADS Category 1: Negative
== END ==
PROVIDERS: PCP Nurse Practitioner Family; Visit Provider Obstetrics & Gynecology Gynecology
DX: Z12.31 Encounter for screening mammogram for malignant neoplasm of breast (principal)
CPT/HCPCS: 77063; 77067

== ENCOUNTER 2021-03-11 15:00 | Outpatient (RCR) | payer OTHER, SELFPAY | END 2021-03-11 15:05 | disposition home or self-care (01) | LOC: PT 15:00 | PROVIDERS: PCP Nurse Practitioner Family; Visit Provider Podiatrist | DX: S82.891K Other fracture of right lower leg, subsequent encounter for closed fracture with nonunion (principal); Z98.890 Other specified postprocedural states | CPT/HCPCS: 97010; 97110; 97140; 97163; 97164; 97530; 97760 ==

== ENCOUNTER → 2021-03-31 08:06 | Outpatient (CLI) | payer OTHER, SELFPAY ==
--- NOTE | 2021-03-31 08:11 | XR_ITS ---
FINAL REPORT CLINICAL HISTORY: fracture evaluation, c/o right lateral ankle pain FINDINGS: RIGHT ANKLE 3 views of the right ankle were obtained. There is a side plate and screws securing the distal tibia to the talus. There has been resection of the distal fibula. There is bone graft material at the site of the tibiotalar fusion. There is some diffuse soft tissue swelling about the ankle. IMPRESSION: Swelling and postoperative changes as described. Reviewed, Interpreted and Dictated by Norbert Eugene MD Transcribed by Aspen Juarez Authenticated by Norbert Eugene MD on 03/31/2021 12:13:33 PM [facility]
== END ==
PROVIDERS: PCP Nurse Practitioner Family; Visit Provider Podiatrist
DX: M25.871 Other specified joint disorders, right ankle and foot (principal); S82.891K Other fracture of right lower leg, subsequent encounter for closed fracture with nonunion; Z98.890 Other specified postprocedural states
CPT/HCPCS: 73610

== ENCOUNTER → 2021-04-02 08:00 | Outpatient (CLI) | payer OTHER, SELFPAY ==
[2021-04-02 08:36] LABS: Coronavirus 19, PCR Not Detected (NotDetected); Influenza A, PCR Not Detected (NotDetected); Influenza B, PCR Not Detected (NotDetected)
== END ==
PROVIDERS: PCP Nurse Practitioner Family; Visit Provider Nurse Practitioner
DX: Z20.822 Contact with and (suspected) exposure to COVID-19 (principal)
CPT/HCPCS: C9803; U0003; U0005

== ENCOUNTER 2021-04-03 08:56 | Emergency (ER) | payer OTHER, SELFPAY ==
[2021-04-03 09:00] VITALS: BP 120/70; PULSE 70; RESP 19; TEMP 36.9; O2SAT 96; BMI 43.7
--- NOTE | 2021-04-03 09:24 | HMH.EDUTC ---
[facility] Disposition Clinical Impression: URI (upper respiratory infection) Qualifiers: URI type: unspecified URI Qualified Code(s): J06.9 - Acute upper respiratory infection, unspecified Disposition: Home, Self-Care Condition on Discharge: Good Instructions: Sinusitis (Alternative Therapy), Sinusitis, Prednisone, Azithromycin Additional Instructions: *Monitor Temp, Over the counter Motrin or Tylenol as directed/as needed Tylenol every 4 hours and Motrin every 6 hours (as long as your family doctor has told you that you can take it) for fever or pain. and straight to ER if unable to lower temp less than 101.0 after medication given *Warm salt water gargles may help to soothe the throat *Throat Lozenges *Warm fluids like tea with honey may help to soothe the throat *Sleep elevated *Humidifier/Vaporizer Take medication as prescribed Return if needed Follow up IMMEDIATELY for new or worsening symptoms or no Noticeable improvement over the next 48-72 hours. 911 for difficulty breathing or swallowing Prescriptions: predniSONE [Deltasone 10mg tablet] 10 mg PO BID 5 Days #10 tab Transmission Status: Received by [id number] Azithromycin [Z-Andres 250mg Tab] 250 mg PO DIRECTED #6 tab Transmission Status: Received by [id number] Referrals: Khalida Marion APRN [Primary Care Provider] - As needed Time of Disposition: 09:28 Medical Decision Making - Dinesh Inquiry Pt receiving controlled substance: No Dinesh was queried for this patient: No Vital Signs: 04/03/21 09:00 04/03/21 09:30 Temperature 98.5 F 98.5 F Temperature Source Oral Pulse Rate 70 Pulse Rate [Right Brachial] 70 Respiratory Rate 19 19 Blood Pressure 120/70 Blood Pressure [Right Arm] 120/70 Blood Pressure Mean [Right Arm] 86 Blood Pressure Source [Right Arm] Automatic Cuff Blood Pressure Position [Right Arm] Sitting 02 Sat by Pulse Oximetry 96 Oxygen Delivery Method Room Air [facility] HPI - General Stated complaint: congestion, sore throat Time Seen by Provider: 04/03/21 09:24 Mode of Arrival: Ambulatory Source of Information: Patient Limitations: No Limitations Description of Symptoms (Recalled from Triage Doc. by RN): PATIENT C/O SINUS PRESSURE, SORE THROAT AND EAR PAIN X 3 DAYS HEENT Symptoms (Recalled from RN notes): Yes Resp Symptoms (Recalled from RN notes): No Skin Symptoms (Recalled from RN notes): No MS Symptoms (Recalled from RN notes): No Functional Status (Recalled from RN notes): WNL - History of Present Illness Provider Complaint: Patient states that she has been having sinus congesition and pressure on and off for over a week States that for the last few days it has got worse States that she is having pressure in her sinuses behind her eyes and feels pressure in her ears States that this morning she was still not feeling well so she came in - Related Data Home Medications Medication Instructions Recorded Confirmed escitalopram oxalate 10 mg tablet 10 mg PO DAILY tab 09/17/19 03/31/21 budesonide-formoterol HFA 160 1 puff INHALATION BID 01/22/20 03/31/21 mcg-4.5 mcg/actuation aerosol inhaler Ergocalciferol (Vitamin D2) 50,000 unit PO QWEEK 04/02/20 03/31/21 [Drisdol] Rutin/Hesp/Bioflav/C/[id number] 1 each PO DAILY 10/15/20 03/31/21 [Bioflex Tablet] ibandronate 150 mg tablet 150 mg PO tab 10/20/20 03/31/21 clotrimazole 1 % topical cream 1 applic TOPICAL g 11/24/20 03/31/21 Previous Rx's Medication Instructions Recorded mupirocin 2 % topical ointment 1 applic TOPICAL BID 30 Days #22 g 11/24/20 ibuprofen 800 mg tablet 800 mg PO BID 90 Days #180 tab 03/04/21 Azithromycin [Z-Andres 250mg Tab] 250 mg PO DIRECTED #6 tab 04/03/21 predniSONE [Deltasone 10mg tablet] 10 mg PO BID 5 Days #10 tab 04/03/21 Allergies Allergy/AdvReac Type Severity Reaction Status Date / Time cephalexin Allergy Severe Swelling Verified 03/31/21 08:31 of the Eye Sulfa (Sulfonamide Allergy Verif
[2021-04-03 09:30] VITALS: BP 120/70; PULSE 70; RESP 19; TEMP 36.9; O2SAT 96
== END 2021-04-03 09:37 | disposition home or self-care (01) ==
PROVIDERS: Emergency Provider Nurse Practitioner; PCP Nurse Practitioner Family
DX: J06.9 Acute upper respiratory infection, unspecified (principal); J44.9 Chronic obstructive pulmonary disease, unspecified; F33.1 Major depressive disorder, recurrent, moderate; Z88.2 Allergy status to sulfonamides
CPT/HCPCS: 99202; G0463

== ENCOUNTER 2021-04-08 16:00 | Outpatient (RCR) | payer OTHER, SELFPAY ==
--- NOTE | 2021-02-10 15:38 | HMH.PTOPWND ---
Rehab Outpt Wound Evaluation Rehab OP Wound Evaluation Start: 02/10/21 15:01 Freq: Status: Active Protocol: Document 02/10/21 15:27 JEFF (Rec: 02/10/21 15:38 PHORNE [id number]) Electronically Signed By Maikel Hogan, PT 02/10/21 15:27 Subjective/History History History Pt is 55 yowf who presents with increased R LE edema since R ankle fx repair non- union with reconstruction performed 10/15/20. This is her 3rd R ankle surgery after initial injury ~ 1 yr ago. She reports osteoporosis has resulted in poor healing after her previous surgeries. She reports continued stiffness in the R ankle and recent onset of plantar fasciitis. She also reports, I felt something earlier in my ankle on the outside and it almost feels like when my other screw was backing out and it scares me. PMH: osteoporosis and COPD. Subjective Subjective Pain at rest 0/10, with walking 5/10 today. Lymphedema Eval Classification of Lymphedema Secondary Lymphedema Yes Post-Surgical Lymphedema Yes Stemmer's sign Stemmer's Sign no Stage of Lymphedema Lymphedema stages Stage II (Pitting edema, increased fibrosis w/ decreased pitting) Skin Changes Dry Skin Yes Skin Folds Yes Redness Yes Other Changes Yes Pain Scale Pain Scale (0-10) 5 Affected Extremities Areas Affected by Lymphedema/Edema Right Lower Extremity Manual Lymphatic Drainage Treatment Area MLD Treatment Area Right Lower Extremity Wound Problems/Impairments Impairments Problems/Impairmments Palpation Tenderness,Impaired Range of Motion,Impaired Endurance,Impaired Gait Pattern,Impaired Walking, Impaired Standing,Impaired Recreational Activities, Increased Edema,Lymphedema Present,Subjective C/O Pain, Impaired Self Care/Self Management Prognosis Rehab Potential Good Clinical Impressi
== END 2021-04-08 16:05 | disposition home or self-care (01) ==
LOC: PT 16:00
PROVIDERS: PCP Nurse Practitioner Family; Visit Provider Podiatrist
DX: I89.0 Lymphedema, not elsewhere classified (principal); M25.471 Effusion, right ankle
CPT/HCPCS: 97140; 97162; 97760

== ENCOUNTER → 2021-04-24 14:15 | Outpatient (CLI) | payer OTHER, SELFPAY ==
--- NOTE | 2021-04-24 14:15 | CT_ITS ---
FINAL REPORT CLINICAL HISTORY: lung cancer screening/ copd quit smoker 15 years ago when she was a smoker she smoked 1.5 ppd x 25 years. FINDINGS: Low-Dose Chest CT CTDI vol (mGy): 2.90 DLP (mGy-cm): 90.12 Axial images were obtained from the lung apex to the mid abdomen by computed tomography. Low-dose protocol was utilized. FINDINGS: CHEST: There is no axillary adenopathy. There is no hilar or mediastinal adenopathy. The heart is proper size. There is no pericardial or pleural effusion. Limited images of the upper abdomen are unremarkable. Lung window images demonstrate several small noncalcified pulmonary nodules in the upper lobes. There is a 3 mm nodule in the anterior right upper lobe on image 71 of series 2. There are multiple scattered calcified granulomas in both lungs. IMPRESSION: Lung RADS category 2. Recommend 12 month follow-up low-dose chest CT. Reviewed, Interpreted and Dictated by Norbert Eugene MD Transcribed by Aspen Juarez Authenticated by Norbert Eugene MD on 04/24/2021 04:00:30 PM [facility]
[2021-04-24 15:15] VITALS: PULSE 51; PULSE 55
== END ==
PROVIDERS: PCP Nurse Practitioner Family; Visit Provider Internal Medicine Pulmonary Disease
DX: Z87.891 Personal history of nicotine dependence (principal); Z12.2 Encounter for screening for malignant neoplasm of respiratory organs; R06.09 Other forms of dyspnea
CPT/HCPCS: 71271; 94060; 94640; 94727; 94729

== ENCOUNTER → 2021-05-14 10:27 | Outpatient (CLI) | payer OTHER, SELFPAY ==
[2021-05-14 10:53] LABS: Basophils # 0.1 K/mm3 (0-0.2); Basophils % 0.8 % (0.1-2.0); Eosinophils # 0.2 K/mm3 (0.0-0.4); Eosinophils % 3.2 % (0.1-12.0); Hematocrit 43.4 % (37.0-47.0); Hemoglobin 14.5 g/dL (12.2-16.2); Lymphocytes # 2.2 K/mm3 (0.7-4.5); Lymphocytes % 33.5 % (10-50); Mean Corpuscular HGB Conc 33.5 g/dL (31.8-35.4); Mean Corpuscular Hemoglobin 29.3 pg (27.0-31.2); Mean Corpuscular Volume 87.6 fl (81-99); Mean Platelet Volume 7.3 fl (7.4-10.4); Monocytes # 0.4 K/mm3 (0.1-1.0); Monocytes % 6.6 % (1.7-9.3); Neutrophils # 3.6 K/mm3 (1.8-7.8); Neutrophils % 55.8 % (37.0-80.0); Platelet Count 341 K/mm3 (142-424); Red Blood Count 4.96 M/mm3 (4.20-5.40); Red Cell Distribution Width 12.9 % (11.5-17.5); White Blood Count 6.4 K/mm3 (4.8-10.8)
[2021-05-19 05:11] LABS: D001-IgE D pteronyssinus <0.10 kU/L (Class 0); D002-IgE D farinae <0.10 kU/L (Class 0); E001-IgE Cat Dander <0.10 kU/L (Class 0); E005-IgE Dog Dander <0.10 kU/L (Class 0); E072-IgE Mouse Urine <0.10 kU/L (Class 0); G002-IgE Bermuda Grass <0.10 kU/L (Class 0); G006-IgE Timothy Grass <0.10 kU/L (Class 0); I006-IgE Cockroach, German <0.10 kU/L (Class 0); Immunoglobulin E, Total 37 IU/mL (6-495); M001-IgE Penicillium chrysogen <0.10 kU/L (Class 0); M002-IgE Cladosporium herbarum <0.10 kU/L (Class 0); M003-IgE Aspergillus fumigatus <0.10 kU/L (Class 0); M006-IgE Alternaria alternata <0.10 kU/L (Class 0); T001-IgE Maple/Box Elder <0.10 kU/L (Class 0); T003-IgE Common Silver Birch <0.10 kU/L (Class 0); T006-IgE Cedar, Mountain <0.10 kU/L (Class 0); T007-IgE Oak, White <0.10 kU/L (Class 0); T008-IgE Elm, American <0.10 kU/L (Class 0); T010-IgE Walnut <0.10 kU/L (Class 0); T011-IgE Maple Leaf Sycamore <0.10 kU/L (Class 0); T014-IgE Cottonwood <0.10 kU/L (Class 0); T015-IgE Ash, White <0.10 kU/L (Class 0); T022-IgE Pecan, Hickory <0.10 kU/L (Class 0); T070-IgE White Mulberry <0.10 kU/L (Class 0); W001-IgE Ragweed, Short <0.10 kU/L (Class 0); W011-IgE Thistle, Russian <0.10 kU/L (Class 0); W014-IgE Pigweed, Common <0.10 kU/L (Class 0); W018-IgE Sheep Sorrel <0.10 kU/L (Class 0)
== END ==
PROVIDERS: Visit Provider Internal Medicine Pulmonary Disease
DX: J45.909 Unspecified asthma, uncomplicated (principal)
CPT/HCPCS: 36415; 82785; 85025; 86003

== ENCOUNTER → 2021-06-25 15:04 | Outpatient (CLI) | payer OTHER, SELFPAY ==
--- NOTE | 2021-06-25 15:11 | XR_ITS ---
FINAL REPORT CLINICAL HISTORY: f/u rt ankle fracture evaluation COMPARISON: March 31, 2021 FINDINGS: RIGHT ANKLE: Three views of the right ankle were obtained. Again seen is postoperative change of fusion of the tibiotalar joint. There is a screw plate with multiple screws. There has been resection of the distal fibula. There are medial and lateral soft tissue calcifications. There is soft tissue swelling. Findings are similar to the prior exam. IMPRESSION: Postoperative changes as described. Reviewed, Interpreted and Dictated by Abram Canas III, MD Transcribed by Will Orantes Authenticated by Abram Canas III, MD on 06/25/2021 04:42:31 PM [facility]
== END ==
PROVIDERS: PCP Nurse Practitioner Family; Visit Provider Podiatrist
DX: M25.871 Other specified joint disorders, right ankle and foot (principal); M25.371 Other instability, right ankle; Z98.890 Other specified postprocedural states
CPT/HCPCS: 73610

== ENCOUNTER 2021-07-18 12:19 | Emergency (ER) | payer OTHER, SELFPAY ==
[2021-07-18 13:50] VITALS: BP 111/81; PULSE 77; RESP 19; TEMP 36.9; O2SAT 98; BMI 30.7
--- NOTE | 2021-07-18 14:07 | HMH.EDUTC ---
[facility] [place] Clinical Impression: Sinusitis Qualifiers: Sinusitis location: unspecified location Chronicity: acute Recurrence: non-recurrent Qualified Code(s): J01.90 - Acute sinusitis, unspecified Acute bronchitis Qualifiers: Bronchitis organism: unspecified organism Qualified Code(s): J20.9 - Acute bronchitis, unspecified Disposition: Home, Self-Care Condition on Discharge: Good Instructions: DI for Sinusitis, DI for Acute Bronchitis Additional Instructions: Drink plenty of fluids. Take tylenol or ibuprofen for pain or fever. Take the medications as directed. Follow up with your regular doctor. GO TO THE ER FOR ANY WORSENING SYMPTOMS Don't start the oral steroids until tomorrow, since you had the shot here today. The cough medication (promethazine dm) will make you drowsy, so don't drive or operate heavy machinery after taking it. Prescriptions: Promethazine/Dextromethorphan [Promethazine-Dm Syrup] 5 ml PO Q6HP PRN #240 ml PRN Reason: Cough Transmission Status: Received by [id number] Benzonatate [Benzonatate 100mg cap] 100 mg PO TIDP PRN #30 cap PRN Reason: Cough Transmission Status: Received by [id number] methylPREDNISolone [Medrol] 4 mg PO DIRECTED 6 Days #21 packet Transmission Status: Received by [id number] Azithromycin [Z-Andres 250mg Tab*] 250 mg PO UD DOSE PK #6 tab Transmission Status: Received by [id number] Referrals: Khalida Marion APRN [Primary Care Provider] - Time of Disposition: 14:35 Medical Decision Making - Medical Records Medical records reviewed: No: I reviewed the patient's medical records. - Dinesh Inquiry Pt receiving controlled substance: No Vital Signs: 07/18/21 13:50 07/18/21 14:44 Temperature 98.4 F 98.4 F Temperature Source Oral Pulse Rate 77 Pulse Rate [Left] 77 Respiratory Rate 19 19 Blood Pressure 111/81 Blood Pressure [Right Arm] 111/81 Blood Pressure Mean [Right Arm] 91 02 Sat by Pulse Oximetry 98 - Lab Data Lab results reviewed: Yes: I reviewed the patient's lab results. Lab Results 07/18/21 14:26: Influenza Type A Ag Negative, Influenza Type B Ag Negative Orders (Tests/Meds): ED MEDICATIONS Discontinued Medications Generic Name Dose Route Start Last Admin Trade Name Rachell PRN Reason Stop Dose Admin Methylprednisolone Sodium Succinate 125 mg 07/18/21 14:25 07/18/21 14:33 Methylprednisolone Sod Succ 125mg Vial IM 07/18/21 14:26 125 mg ONCE ONE [place] [facility] [place] - General Stated complaint: congestion Time Seen by Provider: 07/18/21 14:07 Mode of Arrival: Ambulatory Source of Information: Patient Limitations: No Limitations Description of Symptoms (Recalled from Triage Doc. by RN): pt c/o allergy symptoms. pt c/o sinus congestion, cough and drainage. ongoing x2 wks. HEENT Symptoms (Recalled from RN notes): Yes Resp Symptoms (Recalled from RN notes): Yes Skin Symptoms (Recalled from RN notes): No MS Symptoms (Recalled from RN notes): No Functional Status (Recalled from RN notes): wnl - History of Present Illness Provider Complaint: She states that for the past 2 weeks she has had sinus congestion, cough, chest congestion, watery eyes, and she has felt bad. She denies fever, but she has had chilling. - Related Data Home Medications Medication Instructions Recorded Confirmed escitalopram oxalate 10 mg tablet 10 mg PO DAILY tab 09/17/19 06/29/21 Rutin/Hesp/Bioflav/C/[id number] 1 each PO DAILY 10/15/20 06/29/21 [Bioflex Tablet] ibandronate 150 mg tablet 150 mg PO tab 10/20/20 06/29/21 clotrimazole 1 % topical cream 1 applic TOPICAL g 11/24/20 06/29/21 Previous Rx's Medication Instructions Recorded mupirocin 2 % topical ointment 1 applic TOPICAL BID 30 Days #22 g 11/24/20 ibuprofen 800 mg tablet 800 mg PO BID 90 Days #180 tab 03/04/21 Azithromycin [Z-Andres 250mg Tab] 250 mg PO DIRECTED #6 tab 04/03/21 predniSONE [D
[2021-07-18 14:43] LABS: UTC Influenza A Antigen Negative (Negative)
[2021-07-18 14:44] VITALS: BP 111/81; PULSE 77; RESP 19; TEMP 36.9
[2021-07-18 14:44] LABS: UTC Influenza B Antigen Negative (Negative)
== END 2021-07-18 14:47 | disposition home or self-care (01) ==
PROVIDERS: Emergency Provider Nurse Practitioner Family; PCP Nurse Practitioner Family
DX: J01.90 Acute sinusitis, unspecified (principal); J02.9 Acute pharyngitis, unspecified; J98.4 Other disorders of lung; J44.9 Chronic obstructive pulmonary disease, unspecified; F32.A Depression, unspecified; Z79.51 Long term (current) use of inhaled steroids; Z79.52 Long term (current) use of systemic steroids; Z79.1 Long term (current) use of non-steroidal anti-inflammatories (NSAID); Z79.899 Other long term (current) drug therapy; Z88.2 Allergy status to sulfonamides; Z88.8 Allergy status to other drugs, medicaments and biological substances; Z87.891 Personal history of nicotine dependence; Z82.49 Family history of ischemic heart disease and other diseases of the circulatory system; Z81.8 Family history of other mental and behavioral disorders
CPT/HCPCS: 87804; 96372; 99213; G0463

== ENCOUNTER → 2021-10-19 12:28 | Outpatient (CLI) | payer OTHER, SELFPAY ==
[2021-10-19 12:51] LABS: Influenza A, PCR Not Detected (NotDetected); Influenza B, PCR Not Detected (NotDetected)
[2021-10-19 13:54] LABS: Coronavirus 19, PCR Detected (NotDetected)
== END ==
PROVIDERS: PCP Nurse Practitioner Family; Visit Provider Nurse Practitioner
DX: U07.1 COVID-19 (principal)
CPT/HCPCS: C9803; U0003; U0005

== ENCOUNTER 2021-12-29 16:00 | Outpatient (RCR) | payer OTHER, SELFPAY ==
--- NOTE | 2021-11-02 14:55 | HMH.PTOPWND ---
Rehab Outpt Wound Evaluation Rehab OP Wound Evaluation Start: 11/02/21 14:09 Freq: Status: Active Protocol: Document 11/02/21 14:45 JEFF (Rec: 11/02/21 14:54 PHONAILA [id number]) Electronically Signed By Maikel Hogan, PT 11/02/21 14:45 Subjective/History History History Pt is 56 yowf who presents with c/o R anterior lower leg edema x~ 2 yrs overall after multiple R ankle surgeries. She reports feeling more heaviness and pressure in the R lower leg recently. She reports mild pain and no tenderness to palpation at this time. No significant PMH per her report. Subjective Subjective Pain 3/10 currently. Palpation tenderness 0/4. Numbness to dorsum of R foot since surgery . Lymphedema Eval Classification of Lymphedema Secondary Lymphedema Yes Stemmer's sign Stemmer's Sign no Stage of Lymphedema Lymphedema stages Stage 0 (subjective c/o heaviness and aching) Skin Changes Dry Skin Yes Other Changes Yes Pain Scale Pain Scale (0-10) 3 Affected Extremities Areas Affected by Lymphedema/Edema Right Lower Extremity Manual Lymphatic Drainage Treatment Area MLD Treatment Area Right Lower Extremity Wound Problems/Impairments Impairments Problems/Impairmments Impaired Gait Pattern,Impaired Walking,Impaired Standing, Impaired Recreational Activities,Increased Edema, Lymphedema Present,Subjective C/O Pain,Impaired Self Care/ Self Management Prognosis Rehab Potential Good Clinical Impression Consistent with Diagnosis Yes Short Term Goals Number of Weeks 2 Decrease Edema Yes Decrease Subjective C/O Pain Yes: 2/10 Patient to Understand Lymphedema Yes Treatment and Exercises Network Associate Goals Number of Weeks 4 Decrease Lymphedema Yes Decrease Subjective C/O Pain Yes: 0/10 Patient to be Ind w/ HEP Yes Patient to Adhere Lymphedema Precautions Yes Outpatient Therapy Plan of Care Treatment Plan May Include Therapeutic Exercise Including Home Yes Exercise Program Manual Therapy Techniques Yes Neuromuscular Re-education Yes Therapeutic Ac
--- NOTE | 2021-12-10 16:11 | HMH.RHREAS ---
Rehab Reassessment Rehab OP Re-assessment Start: 12/10/21 16:03 Freq: Status: Active Protocol: Document 12/10/21 16:07 JEFF (Rec: 12/10/21 16:10 PHONAILA [id number]) E-signed By Maikel Hogan, PT Rehab Re-assessment Subjective Subjective Pt reports less pain overall, now only mild at 1/10 in B LE. She does reports tenderness to palpation in B lower legs and certain areas of the thighs. Objective Objective Notes B LE with multiple areas of Lipidema nodules that are tender to palpation 2/4. R foot with continued edema as well, especially toes, non- pitting in nature. Assessment Progress Assessment Progressing as Expected Assessment Notes Pt has shown improvement in pain and edema overall, but remains very tender to palpation. She needs to further pursue compression therapy to the entire LE for more relief of nodule tenderness. Patient goals met ST,2,3 Goals Not Met LT,2,3,4 Revised Goals none Plan Plan Continue per initial POC. Frequency of Therapy 2 x/wk Duration of therapy 4 wks Time and Billing Re-Eval Time 14 Re-Eval Billing Units 1 PHYSICIAN CERTIFICATION: I certify the specified therapy services for Meenu Alexandra are required, authorized, and reviewed every 30 days.
== END 2021-12-29 17:00 | disposition home or self-care (01) ==
LOC: PT 16:00
PROVIDERS: PCP Nurse Practitioner Family; Visit Provider Podiatrist
DX: I89.0 Lymphedema, not elsewhere classified (principal)
CPT/HCPCS: 97113; 97140; 97162; 97164; 97760

== ENCOUNTER 2022-01-12 10:37 | Emergency (ER) | payer OTHER, SELFPAY ==
[2022-01-12 11:11] VITALS: BP 122/62; PULSE 62; RESP 18; TEMP 36.6; O2SAT 96; BMI 31.8
[2022-01-12 11:21] LABS: UTC Strep Screen (Rapid) Negative (Negative)
--- NOTE | 2022-01-12 11:21 | EXP.UTC ---
Discharge Plan Disposition Patient Disposition: Home, Self-Care Condition: Good Prescriptions Prescriptions: New amoxicillin [amoxicillin] 875 mg tablet 875 mg PO Q12H Qty: 20 0RF benzonatate [benzonatate] 100 mg capsule 100 mg PO TIDP PRN (Reason: Cough) Qty: 30 0RF methylprednisolone 4 mg Tablets,Dose Pack 4 mg PO DIRECTED Qty: 21 0RF No Action escitalopram oxalate 10 mg tablet 10 mg PO DAILY ibandronate 150 mg tablet 150 mg PO Label Comments: TAKE 1 TABLET BY MOUTH ONCE EVERY MONTH clotrimazole 1 % cream 1 applic TOPICAL mupirocin 2 % ointment 1 applic TOPICAL BID 30 Days Qty: 22 1RF Rx Instructions: Apply to affected area up to twice daily fluticasone propionate 50 mcg/actuation spray,suspension 2 spray INTRANASAL DAILY 90 Days Qty: 15.8 3RF Rx Instructions: administer into each nostril albuterol sulfate 90 mcg/actuation HFA aerosol inhaler 1 inh INHALATION Q6H PRN (Reason: shortness of breath or wheezing) 90 Days Qty: 8.5 3RF fluticasone furoate-vilanterol [Breo Ellipta] 100-25 mcg/dose blister with device 1 inh inhalation DAILY Qty: 90 3RF ibuprofen 800 mg tablet 800 mg PO BID 90 Days Qty: 180 0RF ergocalciferol (vitamin D2) 1,250 mcg (50,000 unit) capsule 50,000 unit PO QWEEK 90 Days Qty: 12 4RF promethazine-DM 120 ML syrup 5 ml PO Q6HP PRN (Reason: Cough) Qty: 240 0RF azithromycin 250 MG tablet 250 mg PO UD DOSE PK Qty: 6 0RF Rx Instructions: Take two (2) tablets today, then one (1) tablet days #2 thru #5 benzonatate 100 MG capsule 100 mg PO TIDP PRN (Reason: Cough) Qty: 30 0RF methylprednisolone 4 MG tablets,dose pack 4 mg PO DIRECTED 6 Days Qty: 21 0RF vit [id number] 1 EACH tablet 1 each PO DAILY prednisone 10 MG tablet 10 mg PO BID 5 Days Qty: 10 0RF azithromycin 250 MG tablet 250 mg PO DIRECTED Qty: 6 0RF Rx Instructions: Take two (2) tablets on day #1, then one (1) tablet day #2 thru #5 Referrals Follow up/Referrals: Khalida Marion APRN [Primary Care Provider] - See instructions Clinical Impressions Clinical Impression: Sinusitis, Otitis media Instructions Patient Instructions: Sinusitis, DI for Sinusitis Discharge ED Provider: Shahbaz Strong [facility] [place] General Stated complaint: head congestion, sore throat Mode of Arrival: Ambulatory Source of Information: Patient Limitations: No Limitations Time Seen by Provider: 01/12/22 11:20 Description of Symptoms (Recalled from Triage Doc. by RN): pt comes in with c/o sore throat, head congestion. pt went camping over the weekend, states the cold air may have messed with her head and throat. HEENT Symptoms (Recalled from RN notes): Yes Resp Symptoms (Recalled from RN notes): Yes Skin Symptoms (Recalled from RN notes): No MS Symptoms (Recalled from RN notes): No Functional Status (Recalled from RN notes): n/a History of Present Illness Provider Complaint: She states that for the past 3 days she has had sinus congestion, sore throat and left ear pain. Related Data Home Medications Medication Instructions Recorded Confirmed escitalopram oxalate 10 mg tablet 10 mg PO DAILY Depression 09/17/19 12/15/21 vit 1 each PO DAILY Supplement 10/15/20 12/15/21 [id number] 500 mg-50 mg-25 mg-40 mg tablet ibandronate 150 mg tablet 150 mg PO 10/20/20 12/15/21 clotrimazole 1 % topical cream 1 applic topical 11/24/20 12/15/21 Previous Rx's Medication Instructions Recorded mupirocin 2 % topical ointment 1 applic topical BID cellulitis 30 11/24/20 days #22 grams ibuprofen 800 mg tablet 800 mg PO BID pain, mild 3 months 03/04/21 #180 tabs azithromycin 250 mg tablet 250 mg PO DIRECTED #6 tabs 04/03/21 prednisone 10 mg tablet 10 mg PO BID 5 days #10 tabs 04/03/21 ergocalciferol (vitamin D2) 1,250 50,000 unit PO QWEEK Supplement 3 05/13/21 mcg (50,000 unit) capsu
[2022-01-12 11:58] VITALS: BP 122/62; PULSE 62; RESP 18; TEMP 36.6
== END 2022-01-12 12:01 | disposition home or self-care (01) ==
PROVIDERS: Emergency Provider Nurse Practitioner Family; PCP Nurse Practitioner Family
DX: H66.92 Otitis media, unspecified, left ear (principal); J02.9 Acute pharyngitis, unspecified; R06.02 Shortness of breath; J45.30 Mild persistent asthma, uncomplicated; J30.2 Other seasonal allergic rhinitis; J32.9 Chronic sinusitis, unspecified; Z79.1 Long term (current) use of non-steroidal anti-inflammatories (NSAID); Z79.51 Long term (current) use of inhaled steroids; Z79.899 Other long term (current) drug therapy; Z88.2 Allergy status to sulfonamides; Z88.8 Allergy status to other drugs, medicaments and biological substances; Z79.52 Long term (current) use of systemic steroids; Z87.891 Personal history of nicotine dependence; Z82.49 Family history of ischemic heart disease and other diseases of the circulatory system; Z81.8 Family history of other mental and behavioral disorders
CPT/HCPCS: 87880; 99213; G0463

== ENCOUNTER → 2022-02-22 09:38 | Outpatient (CLI) | payer OTHER, SELFPAY ==
--- NOTE | 2022-02-22 09:38 | CT_ITS ---
FINAL REPORT TECHNIQUE: Thin section axial CT images of the facial bones and sinuses were obtained without contrast. Coronal reformatted images were also obtained. This study was performed with techniques to keep radiation doses as low as reasonably achievable, (ALARA). Individualized dose reduction techniques using automated exposure control or adjustment of mA and/or kV according to the patient's size were employed. CLINICAL HISTORY: Sinusitis FINDINGS: CT SINUSES There is opacification of all paranasal sinuses, most significantly involving the ethmoid and left frontal sinuses compatible with pansinusitis. No fluid levels are identified. There is opacification of the ostiomeatal complexes suggestive of obstruction. The nasal septum is minimally deviated to the left. No fracture or acute bony abnormality is identified. IMPRESSION: Severe pansinusitis. Reviewed, Interpreted and Dictated by Steffi Mantilla MD Transcribed by Aspen Juarez Authenticated and [facility]
== END ==
PROVIDERS: PCP Nurse Practitioner Family; Visit Provider Otolaryngology
DX: J30.2 Other seasonal allergic rhinitis (principal); J30.9 Allergic rhinitis, unspecified
CPT/HCPCS: 70486

== ENCOUNTER → 2022-04-07 06:52 | Outpatient (CLI) | payer OTHER, SELFPAY ==
--- NOTE | 2022-04-07 06:12 | ECG_ITS ---
APPROVED REPORT Exam: Resting ECG HR:55 bpm ECG Measurements Heart Rate 55 AXES MO 168 P 47 QRSd 83 QRS 36 QT 431 T 27 QTc 419 Conclusion SINUS BRADYCARDIA LOW QRS VOLTAGE IN PRECORDIAL LEADS [QRS DEFLECTION < 1.0 mV IN CHEST LEADS] MINIMAL ST DEPRESSION [0.025+ mV ST DEPRESSION] BORDERLINE ECG UNCONFIRMED REPORT Electronically signed by : Genaro Rubio MD 04/07/2022 21:44:16
[2022-04-07 09:37] LABS: Chol/HDL Ratio 3.8 (1-3.5); Cholesterol 226 mg/dl (140-200); HDL Cholesterol 59 mg/dl (40-60); Triglycerides 69 mg/dl (30-150); VLDL Cholesterol 14 mg/dL (0-40)
[2022-04-07 09:48] LABS: Direct LDL Cholesterol 133.44 mg/dL (100-129)
[2022-04-07 09:54] LABS: 25-OH Vitamin D, Total 22.3 ng/mL (30-100)
[2022-04-07 10:08] LABS: Thyroid Stimulating Hormone 2.43 uIU/mL (0.465-4.68)
== END ==
PROVIDERS: PCP Nurse Practitioner Family; Visit Provider Otolaryngology
DX: Z01.818 Encounter for other preprocedural examination (principal); J30.89 Other allergic rhinitis; J32.8 Other chronic sinusitis; E55.9 Vitamin D deficiency, unspecified; R79.89 Other specified abnormal findings of blood chemistry; Z13.220 Encounter for screening for lipoid disorders; Z13.29 Encounter for screening for other suspected endocrine disorder; Z79.899 Other long term (current) drug therapy
CPT/HCPCS: 36415; 80061; 82306; 84443; 93005

== ENCOUNTER 2022-04-13 06:45 | Day surgery (SDC) | payer OTHER, SELFPAY ==
[2022-04-09 09:23] VITALS: BMI 28.3
[2022-04-13] VITALS (12 sets, daily range): BP systolic 108–136; BP diastolic 59–81; PULSE 60–76; RESP 16–18; TEMP 36.1–36.9; O2SAT 88–97
[2022-04-13 07:26] LABS: Alanine Aminotransferase 28 U/L (12-78); Albumin Level 4.2 g/dl (3.5-5.0); Albumin/Globulin Ratio 1.6 (1.1-1.8); Alkaline Phosphatase 103 U/L (38-126); Anion Gap 10.8 mEq/L (5-15); Aspartate Amino Transferase 34 U/L (14-36); Bilirubin,Total 0.3 mg/dl (0.2-1.3); Blood Urea Nitrogen 14 mg/dl (7-17); Calcium 9.1 mg/dl (8.4-10.2); Carbon Dioxide 29 mmol/L (22.0-30.0); Chloride 104 mmol/L (98-107); Creatinine Clearance Estimated 113 mL/min (50-200); Estimated Glomerular Filt Rate 103 ml/min (>60); GFR (African American) 124 ML/MIN (>60); Globulin 2.6 g/dL (1.3-3.2); Glucose 103 mg/dl (74-100); Potassium 3.8 mmoL/L (3.5-5.1); Sodium 140 mmol/L (136-145); Total Protein,Serum 6.8 g/dl (6.3-8.2)
[2022-04-13 07:27] LABS: Basophils # 0.1 K/mm3 (0-0.2); Basophils % 1.8 % (0.1-2.0); Eosinophils # 0.9 K/mm3 (0.0-0.4); Eosinophils % 14.8 % (0.1-12.0); Hematocrit 43.3 % (37.0-47.0); Hemoglobin 14.2 g/dL (12.2-16.2); Lymphocytes # 2.7 K/mm3 (0.7-4.5); Lymphocytes % 43.1 % (10-50); Mean Corpuscular HGB Conc 32.8 g/dL (31.8-35.4); Mean Corpuscular Hemoglobin 29.9 pg (27.0-31.2); Mean Corpuscular Volume 91.2 fl (81-99); Mean Platelet Volume 7.7 fl (7.4-10.4); Monocytes # 0.5 K/mm3 (0.1-1.0); Monocytes % 7.6 % (1.7-9.3); Neutrophils # 2.1 K/mm3 (1.8-7.8); Neutrophils % 32.9 % (37.0-80.0); Platelet Count 275 K/mm3 (142-424); Red Blood Count 4.75 M/mm3 (4.20-5.40); White Blood Count 6.2 K/mm3 (4.8-10.8)
--- NOTE | 2022-04-13 07:29 | EXP.ANES.CKL ---
[facility] Disclaimer: The information contained in this section may have been updated after the patient was seen, as this information can be updated by other users. Medical History Allergic rhinitis, unspecified Chronic sinusitis Dyspnea on exertion Encounter for screening for malignant neoplasm of lung in former smoker who quit in past 15 years with 30 pack year history or greater Ex-cigarette smoker History of COVID-19 History of herniated intervertebral disc Hx of osteoporosis Moderate persistent asthma Seasonal allergic rhinitis Shortness of breath Surgical History History of arthroplasty of right ankle Status post left foot surgery Family History Other FHx: mental illness Hypertension Social History Smoking Status: Never smoker second hand exposure: Yes alcohol intake: never substance use type: denies use current occupational status: employed Travel in the last 8 weeks: None household members: none housing: house current occupation: [employer] current occupational exposures/hazards: No caffeine: Yes [employer] Anesthesia Checklist Patient Identification Patient Identification: Arm Band Structural Data Admitted From: Home Planned Operative Procedure/s: Functional Endoscopic Sinus Surger Consent for Planned Operative Procedure(s) Verified: Yes Verified Documents: Surgical Consent and History and Physical NPO Status Verified Time NPO: 00:00 Additional verifications Anesthesia Reactions: Yes (PONV) Hx Blood Transfusions: Yes Blood Transfusion Reaction: No Airway Assessment C-Spine Mobility Assessed: Yes TMJ Mobility Assessed: Yes Dentition: Good Dentition Neurological Assessment Level of Consciousness: Awake and Alert Anesthesia Plan Anesthesia Risk discussed: Yes Anesthesia Plan: Verified ASA Class: II Anesthesia Type: General
--- NOTE | 2022-04-13 09:38 | EXP.OP.NOTE ---
Date of procedure: 04/13/22 Pre-op Diagnosis:: Chronic pansinusitis Post-op Diagnosis:: Neck pain sinusitis, deviated septum left Procedure performed:: Functional endoscopic sinus surgery with nasal endoscopy and bilateral complete ethmoidectomy, nasal endoscopy and bilateral maxillary antrostomies and removal of mucosal disease, nasal endoscopy and bilateral frontal sinusotomies, nasal endoscopy and bilateral sphenoidotomies, limited septoplasty Surgeon:: Jonathan Moser MD [employer]ECUTIVE:: Rajinder Mon Anesthesia: GETA Estimated blood loss (mL): 100 Operative findings:: Severe chronic pansinusitis bilaterally with polyp disease causing OMC obstruction and obstruction of the nasofrontal tract and sphenoid recesses bilaterally. Deviated septum to the left causing obstruction of the left middle meatus Operative note:: The patient was brought to the operating room and after adequate general anesthesia the nose was draped in the usual sterile fashion and 1% lidocaine with epinephrine used to locally infiltrate the septum and middle meatuses using a surgery sinus endoscope the right middle meatus is visualized and the middle turbinate medialized and then uncinectomy performed with a pediatric backbiter and microdebrider clearing the nasofrontal tract and infundibulum the natural ostium the maxillary sinus was then enlarged and cleared of obstructing polyp disease to the maxillary sinus well aerated mucoid material from within the maxillary sinus was irrigated clear with saline. Complete ethmoidectomy was then performed working through the ethmoid bulla to clear disease polypoid mucosa in the anterior and posterior ethmoid while sparing nor mucosa at the margins this was done with a microdebrider and straight and up-biting Blakesley forceps. The nasofrontal tract was then cleared of obstructing polyp disease till the nasofrontal tract was easily cannulated and the frontal sinus well aerated. The sphenoid recess was then explored and cleared of obstructing polyp disease using a microdebrider and then the sphenoid sinus ostium enlarged and cleared of obstructing polyp disease to the sphenoid sinuses well aerated. Nova pack was placed in the right middle meatus and attention drawn to the left side. A mildly deviated septum superiorly was nevertheless causing obstruction of the left middle meatus and therefore endoscopic septoplasty was performed by making a mucosal incision at the bony and cartilaginous junction and then mucosal flaps elevated off the deviated portion of the vomer and perpendicular plate the ethmoid and the deviated portion of the bony septum was resected and the mucosal flaps returned to anatomic position. Using a 0 degree sinus endoscope the left middle meatus was then visualized the middle turbinate medialized and then uncinectomy again performed with a pediatric backbiter and microdebrider clearing the nasofrontal tract and infundibulum. The natural ostium maxillary sinus was then enlarged and cleared observed of obstructing polyp disease to the maxillary sinus was well aerated. Purulent material from within the maxillary sinus was collected and sent for culture. The maxillary sinus was then irrigated with saline. Complete ethmoidectomy was again performed working through the ethmoid bulla to clear disease polypoid mucosa in the anterior and posterior ethmoid while sparing nor mucosa at the margins. The nasofrontal tract was cleared of obstructing polyp disease till the frontal sinus was well aerated and then again the sphenoid recess explored and cleared of obstructing polyp disease and then the sphenoid ostium enlarged until the sphenoid sinus was well aerated. Nova pack was placed in the left middle meatus and the procedure concluded. All counts correct. Blood loss was approximately 100 mL and patient was sent to recovery in stable condition. Condition: stable Disposition: PACU Complications:: None
--- NOTE | 2022-04-13 09:46 | EXP.ANES.I ---
[facility] Anesthesia Record Part I Anesthesia Record I Intake, IV Amount: 1,100 Estimated blood loss (mL): 10 Urine output (mL): 0 Blood Products used (#): none Blood Pressure: 108/69 SaO2: 93 Pulse Rate: 76 Respiratory Rate: 16 Temperature: 97 F Patient is:: Drowsy and Stable Stable to PACU at:: 09:40
--- NOTE | 2022-04-13 10:25 | SUR.PHASEI ---
Pt has C/O nausea since woke up. Has had Phenergan 6.25mg and Zofran 4mg most recently. VSS. Medication improves nausea slightly. Pain went anthony to a 5 from 7/10 after morphine.
== END 2022-04-13 11:30 | disposition home or self-care (01) ==
PROVIDERS: PCP Nurse Practitioner Family; Visit Provider Otolaryngology
PROC: (CPT 31267; principal; 2022-04-13 07:30)
DX: J32.4 Chronic pansinusitis (principal); M54.2 Cervicalgia; J34.2 Deviated nasal septum; Z79.899 Other long term (current) drug therapy
CPT/HCPCS: 31267; 31253; 31287; 30520; 80053; 85025; 87070; 87077; 87102; 87206; 96374; J2405

== ENCOUNTER → 2022-05-05 15:10 | Outpatient (CLI) | payer OTHER, SELFPAY ==
--- NOTE | 2022-05-05 15:18 | MM_ITS ---
PROCEDURE INFORMATION: Exam: MG Bilateral Screening 3D Mammography Exam date and time: 05/05/2022 3:10 PM Age: 56 years old Clinical indication: Screening examination. Her paternal grandmother and paternal great aunt had breast cancer. TECHNIQUE: Imaging protocol: Bilateral Screening tomosynthesis and 2D mammography including computer-aided detection (CAD) when performed. COMPARISON: 1. MG MM DIG SCREENING MAMM BI W/CAD 03/02/2021 3:25 PM 2. MG MM DIG SCREENING MAMM BI W/CAD 07/27/2019 10:08 AM 3. MG SCBI MM Dig screening mamm BI w/CAD 01/24/2018 3:48 PM 4. MG DMSB DIG MAMM-SCREEN QUIRINO 11/13/2014 4:41 PM FINDINGS: MAMMOGRAPHY: Breast composition: The breasts are heterogeneously dense, which may obscure small masses. Mass: None. Architectural distortion: None. Calcifications: No suspicious calcifications. Asymmetric density: None. Skin thickening: None. Axillary adenopathy: None. IMPRESSION: No mammographic evidence of malignancy. Annual screening is recommended unless otherwise clinically indicated. ASSESSMENT: BI-RADS Category 1: Negative
== END ==
PROVIDERS: PCP Nurse Practitioner Family; Visit Provider Nurse Practitioner Family
DX: Z12.31 Encounter for screening mammogram for malignant neoplasm of breast (principal)
CPT/HCPCS: 77063; 77067

== ENCOUNTER → 2022-05-19 08:55 | Outpatient (CLI) | payer OTHER, SELFPAY ==
--- NOTE | 2022-05-19 09:12 | XR_ITS ---
FINAL REPORT TECHNIQUE: Bone densitometry calculations of the lumbar spine and right hip were obtained. CLINICAL HISTORY: . osteoporosis FINDINGS: DEXA BONE DENSITY AXIAL SKELETON Using L1-4, the bone mineral density of the spine is 0.798 g/cm2, corresponding to T-score of -2.3. Using the right hip, the bone mineral density of the femoral neck is 0.623 g/cm2, corresponding to a T-score of -2.0. NOTE: T-score: Standard deviation compared with peak bone mass of young adult mean. *Following the recommendations of the International Society of Bone densitometry, classification of hip BMD is based on the lower of two T-scores; total hip or femoral neck. IMPRESSION: Diminished bone mineral density of the lumbar spine and right hip consistent with osteopenia. FRAX not reported because: Treated for osteoporosis. Reviewed, Interpreted and Dictated by Abram Canas III, MD Transcribed by Aspen Juarez Authenticated and [facility][1]
== END ==
PROVIDERS: PCP Nurse Practitioner Family; Visit Provider Nurse Practitioner Family
DX: M81.0 Age-related osteoporosis without current pathological fracture (principal)
CPT/HCPCS: 77080

== ENCOUNTER → 2022-06-30 06:54 | Outpatient (CLI) | payer OTHER, SELFPAY ==
--- NOTE | 2022-06-30 06:54 | CT_ITS ---
FINAL REPORT TECHNIQUE: Axial CT images of the chest were obtained without contrast. Low-dose protocol was utilized. This study was performed with techniques to keep radiation doses as low as reasonably achievable (ALARA). Individualized dose reduction techniques using automated exposure control or adjustment of mA and/or kV according to the patient's size were employed. CLINICAL HISTORY: lung cancer screening former smoker quit 11 years ago 1.5ppd x 25 years COMPARISON: 04/24/2021 FINDINGS: CT CHEST WITHOUT, LOW DOSE SCREENING CT Di Vol: 2.90 mGy DLP: 96.38 mGy*cm There is no axillary or hilar adenopathy. There are small stable mediastinal lymph nodes. The heart size is normal. There is no pleural or pericardial effusion. The lung windows show a stable small nodule anterior right upper lobe seen on image 21 series 4. There are calcified granulomas at the right lung base. There is a small sliding-type hiatal hernia. Limited images of the upper abdomen are unremarkable. IMPRESSION: Stable right upper lobe nodule. LR Category 2S: 12 month follow-up low-dose chest CT is recommended. Modifier S: Hiatal hernia. Reviewed, Interpreted and Dictated by Norbert Eugene MD Transcribed by Marisol Vera Authenticated and [facility]
== END ==
PROVIDERS: PCP Nurse Practitioner Family; Visit Provider Internal Medicine Pulmonary Disease
DX: Z87.891 Personal history of nicotine dependence (principal); Z12.2 Encounter for screening for malignant neoplasm of respiratory organs
CPT/HCPCS: 71271

== ENCOUNTER → 2022-08-09 06:44 | Outpatient (CLI) | payer OTHER, SELFPAY ==
--- NOTE | 2022-08-09 | CA_ITS ---
FINAL REPORT TECHNIQUE: Color Doppler, duplex Doppler and compression sonography of the right and left lower extremity venous system was performed. CLINICAL HISTORY: Lymphedema, Pain, varicose veins FINDINGS: There is no evidence of deep venous thrombosis from the level of the groin to the calf of the right or left lower extremity. The veins are patent and compressible. IMPRESSION: No evidence of deep venous thrombosis right or left lower extremity. Reviewed, Interpreted and Dictated by Abram Canas III, MD Transcribed by Nancy Clark Authenticated and . [facility]
--- NOTE | 2022-08-09 | CT_ITS ---
FINAL REPORT TECHNIQUE: After the administration of intravenous contrast, axial images were obtained through the abdomen and pelvis by computed tomography. Oral contrast was also administered. This study was performed with technique to keep radiation doses as low as reasonably achievable, (ALARA). Individualized dose reduction techniques using automated exposure control or adjustment of the MA and/or KV according to the patient's size were employed. CLINICAL HISTORY: LLQ PAIN FINDINGS: Abdomen: The lung bases are clear. There is a focus of contrast enhancement in the posterior aspect of the medial left hepatic lobe favored to represent CASSANDRA. There is also a less than 1 cm cyst in the liver dome. The spleen is unremarkable. The adrenals are normal. The pancreas is unremarkable. The kidneys enhance appropriately. The aorta is normal in caliber. There is a small umbilical hernia. There is no free fluid or adenopathy. Pelvis: The appendix is normal. A 5 mm stone is seen in the urinary bladder which may represent recently passed stone versus bladder stone. There is no free fluid or adenopathy. IMPRESSION: 5 mm stone in the urinary bladder which may represent recently passed stone versus bladder stone. Focus of contrast enhancement in the medial left hepatic lobe which may represent CASSANDRA. Reviewed, Interpreted and Dictated by Abram Canas III, MD Transcribed by Nancy Clark Authenticated and [facility]
== END ==
PROVIDERS: PCP Nurse Practitioner Family; Visit Provider Nurse Practitioner Family
DX: R19.04 Left lower quadrant abdominal swelling, mass and lump (principal); I83.899 Varicose veins of unspecified lower extremity with other complications
CPT/HCPCS: 74177; 93970; Q9967

== ENCOUNTER 2022-10-05 15:30 | Outpatient (RCR) | payer OTHER, SELFPAY | END 2022-10-05 15:35 | disposition home or self-care (01) | LOC: PT 15:30 | PROVIDERS: PCP Nurse Practitioner Family; Visit Provider Nurse Practitioner Family | DX: I89.0 Lymphedema, not elsewhere classified (principal) | CPT/HCPCS: 97140; 97162 ==

== ENCOUNTER → 2022-11-22 07:44 | Outpatient (CLI) | payer OTHER, SELFPAY ==
--- NOTE | 2022-11-22 07:49 | XR_ITS ---
FINAL REPORT CLINICAL HISTORY: Right ankle pain COMPARISON: 06/25/2021 FINDINGS: RIGHT ANKLE 3 views of the right ankle were obtained. There are side plates and screws securing the distal fibula and fusing the mortise. There is prior resection of the distal fibula. No acute bony abnormality. Soft tissues are unremarkable. IMPRESSION: Stable appearing postsurgical changes. No acute bony abnormality. Reviewed, Interpreted and Dictated by Norbert Eugene MD Transcribed by Marisol Vera Authenticated and [facility]
--- NOTE | 2022-11-22 07:49 | XR_ITS ---
FINAL REPORT CLINICAL HISTORY: Right tib fib/ankle pain COMPARISON: None FINDINGS: 2 views of the right tibia/fibula were obtained. There are side plates and screws securing the distal fibula and fusing the mortise. There is prior resection of the distal fibula. No acute bony abnormality. Soft tissues are unremarkable. There is no soft tissue abnormality. IMPRESSION: Stable postsurgical changes as above. No acute bony abnormality. Reviewed, Interpreted and Dictated by Norbert Eugene MD Transcribed by Marisol Vera Authenticated and [facility]
== END ==
PROVIDERS: PCP Nurse Practitioner Family; Visit Provider Podiatrist
DX: M19.171 Post-traumatic osteoarthritis, right ankle and foot (principal); M25.371 Other instability, right ankle; M25.471 Effusion, right ankle; Z96.9 Presence of functional implant, unspecified; Z98.890 Other specified postprocedural states
CPT/HCPCS: 73590; 73610

== ENCOUNTER 2022-12-16 15:57 | Emergency (ER) | payer OTHER, SELFPAY ==
[2022-12-16] VITALS (8 sets, daily range): BP systolic 112–129; BP diastolic 65–79; PULSE 71–80; RESP 18–20; TEMP 36.7–37.8; O2SAT 90–96; BMI 29.2
--- NOTE | 2022-12-16 | ECG_ITS ---
APPROVED REPORT Exam: Resting ECG HR:77 bpm ECG Measurements Heart Rate 77 AXES TN 144 P 58 QRSd 82 QRS 59 QT 360 T 51 QTc 391 Conclusion SINUS RHYTHM Low QRS voltage with poor r wave progression - consider anteroseptal injury ABNORMAL ECG UNCONFIRMED REPORT Electronically signed by : Genaro Rubio MD 12/17/2022 09:52:40
--- NOTE | 2022-12-16 16:22 | PC.NURSE ---
PT PLACED ON 2L/NC FOR O2 SAT 91% ON ROOM AIR
--- NOTE | 2022-12-16 16:43 | XR_ITS ---
PROCEDURE INFORMATION: Exam: XR Chest Exam date and time: 12/16/2022 4:54 PM Age: 57 years old Clinical indication: Pain; Cough and shortness of breath; Chest pressure; Additional info: Cough, SOA TECHNIQUE: Imaging protocol: Radiologic exam of the chest. Views: 2 views. COMPARISON: CT LUNG SCREENING 06/30/2022 7:01 AM FINDINGS: Lungs: There is coarsening of the bronchovascular markings. Pleural spaces: Unremarkable. No pleural effusion. No pneumothorax. Heart/Mediastinum: Unremarkable. No cardiomegaly. Bones/joints: There is partially visualized cervical spine surgical hardware. There are degenerative changes of the thoracic spine. Other findings: There is partially visualized dental amalgam. IMPRESSION: No dense parenchymal consolidation, pleural effusion, or pneumothorax.
--- NOTE | 2022-12-16 16:45 | PC.NURSE ---
DR PELAEZ AT BEDSIDE, TURNED PT'S O2 OFF
--- NOTE | 2022-12-16 16:46 | HMH.EDGENADL ---
Discharge Plan Disposition Patient Disposition: Home, Self-Care Prescriptions Prescriptions: New ceuekxczowvoatt-ybscjbksy-WG [Bromfed DM] 2-30-10 mg/5 mL syrup 5 ml PO Q6H PRN (Reason: cold symptoms) Qty: 118 0RF prednisone 50 mg tablet 50 mg PO DAILY 3 Days Qty: 3 0RF No Action escitalopram oxalate 10 mg tablet 10 mg PO DAILY fluticasone furoate-vilanterol [Breo Ellipta] 200-25 mcg/dose blister with device 1 inh inhalation DAILY 90 Days Qty: 90 2RF albuterol sulfate 90 mcg/actuation HFA aerosol inhaler 1 inh INHALATION Q6H PRN (Reason: shortness of breath or wheezing) 90 Days Qty: 8.5 3RF fluticasone propionate 50 mcg/actuation spray,suspension 2 spray INTRANASAL DAILY Qty: 16 3RF Hold Instructions: Resume on 04/20/22. resume 1 week Rx Instructions: administer 2 sprays into each nostril daily ibandronate 150 mg tablet 150 mg PO MONTHLY Patient Comments: TAKE 1 TABLET BY MOUTH ONCE EVERY MONTH ibuprofen 800 mg tablet 800 mg PO BID 90 Days Qty: 180 0RF ergocalciferol (vitamin D2) 1,250 mcg (50,000 unit) capsule 50,000 unit PO QWEEK 90 Days Qty: 12 4RF azithromycin [Zithromax] 250 mg tablet 250 mg PO UD DOSE PK Qty: 6 0RF Rx Instructions: Take two (2) tablets today, then one (1) tablet days #2 thru #5 benzonatate 200 mg capsule 200 mg PO BID PRN (Reason: cough) Qty: 30 0RF methylprednisolone 4 mg Tablets,Dose Pack 4 mg PO DIRECTED Qty: 21 0RF vit S-imjoxvs-mner-rutin-hb196 1 EACH tablet 1 each PO DAILY hydrocodone-acetaminophen 7.5-325 mg tablet 1 tab PO Q6H PRN (Reason: pain) Qty: 14 0RF Referrals Follow up/Referrals: Khalida Marion APRN [Primary Care Provider] - See instructions Activity Restrictions/Add. Instructions Additional Instructions/Restrictions: At this time is felt you are safe to be discharged home. If new or worsening symptoms please do not hesitate to return the emergency department. Please take your medication as prescribed. Clinical Impressions Clinical Impression: Acute bronchitis due to Rhinovirus Discharge ED Provider: Zuhair Berman General Adult HPI General Chief complaint: Shortness of Breath/Dyspnea Stated complaint: SOB Head and chest congestion Time Seen by Provider: 12/16/22 16:30 Mode of Arrival: Ambulatory Source of Information: Patient Limitations: No Limitations Description of Symptoms (Recalled from ER Triage Doc. by RN): PT C/O ONGOING COUGH, CHEST CONGESTION FOR 3 WEEKS. SYMPTOMS WILL IMPROVE THEN RETURN. PT RECENTLY FINISHED STERIODS AND ABX. REPORTS CHILLS, SHORTNESS OF BREATH AND HEADACHE History of Present Illness HPI narrative: Patient is a 57-year-old female with past medical history of COPD versus asthma on daily inhaler at home who presents emergency department for persistent cough. Patient states that she has had waxing waning symptoms for 3 weeks. Due to severity of symptoms today with cough and shortness of breath she presents here for continued evaluation. There is associated nonbloody vomiting. After multiple episodes of vomiting today she developed a generalized headache. No falls. She is status post a course of azithromycin and steroids which she completed approximately 5 days ago. No chest pain. No other acute complaints at this time. Related Data Home Medications Medication Instructions Recorded Confirmed escitalopram oxalate 10 mg tablet 10 mg PO DAILY Depression 09/17/19 07/16/22 vit 1 each PO DAILY Supplement 10/15/20 07/16/22 U-ljlxgzx-ethsqdgpd-rutin-abgz502 500 mg-50 mg-25 mg-40 mg tablet ibandronate 150 mg tablet 150 mg PO MONTHLY Osteoporosis 10/20/20 07/16/22 Previous Rx's Medication Instructions Recorded ibuprofen 800 mg tablet 800 mg PO BID pain, mild 3 months 03/04/21 #180 tabs ergocalciferol (vitamin D2) 1,250 50,000 unit PO QWEEK Supplement 3 05/13/21 mcg (50,000 unit) capsule months #12 caps hydrocodone 7.5 mg-aceta
[2022-12-16 16:53] LABS: Adenovirus,PCR Not Detected (NotDetected); Bordetella Pertussis Not Detected (NotDetected); Chlamydophila Pneumoniae, PCR Not Detected (NotDetected); Coronavirus 19, PCR Not Detected (NotDetected); Coronavirus 229E Not Detected (NotDetected); Coronavirus NL63 Not Detected (NotDetected); Coronavirus OC43 Not Detected (NotDetected); Coronovirus HKU1,PCR Not Detected (NotDetected); Human Metapneumovirus Not Detected (NotDetected); Influenza A, PCR Not Detected (NotDetected); Influenza AH1, 2009 Not Detected (NotDetected); Influenza AH1, PCR Not Detected (NotDetected); Influenza AH3,PCR Not Detected (NotDetected); Influenza B, PCR Not Detected (NotDetected); Mycoplasma Pneumoniae, PCR Not Detected (NotDetected); Parainfluenza 1, PCR Not Detected (NotDetected); Parainfluenza 2, PCR Not Detected (NotDetected); Parainfluenza 3, PCR Not Detected (NotDetected); Parainfluenza 4, PCR Not Detected (NotDetected); Respiratory Syncytial Virus Not Detected (NotDetected)
--- NOTE | 2022-12-16 16:58 | PC.NURSE ---
notified RT of vbg order
[2022-12-16 17:03] LABS: Alanine Aminotransferase 34 U/L (12-78); Albumin Level 4.1 g/dl (3.5-5.0); Albumin/Globulin Ratio 1.2 (1.1-1.8); Alkaline Phosphatase 124 U/L (38-126); Anion Gap 11.8 mEq/L (5-15); Aspartate Amino Transferase 30 U/L (14-36); Bilirubin,Total 1.2 mg/dl (0.2-1.3); Blood Urea Nitrogen 9 mg/dl (7-17); Calcium 9.1 mg/dl (8.4-10.2); Carbon Dioxide 30 mmol/L (22.0-30.0); Chloride 100 mmol/L (98-107); Creatinine Clearance Estimated 99 mL/min (50-200); Estimated Glomerular Filt Rate 86 ml/min (>60); GFR (African American) 104 ML/MIN (>60); Globulin 3.3 g/dL (1.3-3.2); Glucose 108 mg/dl (74-100); Potassium 3.8 mmoL/L (3.5-5.1); Sodium 138 mmol/L (136-145); Total Protein,Serum 7.4 g/dl (6.3-8.2)
[2022-12-16 17:04] LABS: VBG Base Excess 2.7 mmol/L (-2.4-2.3); VBG Oxygen Saturation 67.5 % (50-70); VBG PCO2 49.4 mmol/L (35-51); VBG PH 7.37 mmol/L (7.31-7.41); VBG PO2 34.5 mmol/L (28-40); VBG Total CO2 29.5 mmol/L (23-27)
--- NOTE | 2022-12-16 17:04 | PC.NURSE ---
PT TO CT
[2022-12-16 17:07] LABS: Basophils # 0.1 K/mm3 (0-0.2); Basophils % 0.5 % (0.1-2.0); Eosinophils # 0.1 K/mm3 (0.0-0.4); Eosinophils % 0.6 % (0.1-12.0); Hematocrit 47.9 % (37.0-47.0); Hemoglobin 15.3 g/dL (12.2-16.2); Lymphocytes # 2.8 K/mm3 (0.7-4.5); Lymphocytes % 17.2 % (10-50); Mean Corpuscular Hemoglobin 29.5 pg (27.0-31.2); Mean Corpuscular Volume 92.2 fl (81-99); Mean Platelet Volume 8.1 fl (7.4-10.4); Monocytes # 0.9 K/mm3 (0.1-1.0); Monocytes % 5.8 % (1.7-9.3); Neutrophils # 12.2 K/mm3 (1.8-7.8); Neutrophils % 75.9 % (37.0-80.0); Platelet Count 319 K/mm3 (142-424); Red Blood Count 5.19 M/mm3 (4.20-5.40); Red Cell Distribution Width 13.2 % (11.5-17.5)
[2022-12-16 17:09] LABS: MANUAL DIFFERENTIAL MANUAL DIFFERENTIAL (MANUAL DIFF)
[2022-12-16 17:18] LABS: Troponin I < 0.01 ng/ml (0.00-0.034)
--- NOTE | 2022-12-16 17:21 | PC.NURSE ---
CALL CENTER OPERATOR NOTIFIED OF ADMISSION
--- NOTE | 2022-12-16 17:45 | PC.NURSE ---
ROUNDED ON PT, NO NEEDS AT THIS TIME
--- NOTE | 2022-12-16 18:35 | PC.NURSE ---
rounded on pt, adjusted pt bed for comfort. call light within reach. pt states no further needs at this time
--- NOTE | 2022-12-16 18:35 | PC.NURSE ---
Rounded on pt. Updated on POC. No needs voiced at this time.
[2022-12-16 18:47] LABS: Rhinovirus/Enterovirus Detected (NotDetected)
--- NOTE | 2022-12-16 19:03 | PC.NURSE ---
Dr. Berman at [facility]
[2022-12-16 20:20] LABS: Eosinophils % 1 % (0-3); Lymphocytes % 20 % (10-50); Monocytes % 3 % (2-9); Neutrophils % 76 % (42-76); Platelet Estimate Normal; RBC Morphology Normal; Total Cells Counted 100
== END 2022-12-16 19:31 | disposition home or self-care (01) ==
PROVIDERS: Emergency Provider Emergency Medicine; PCP Nurse Practitioner Family
DX: J20.9 Acute bronchitis, unspecified (principal); J45.40 Moderate persistent asthma, uncomplicated; F41.1 Generalized anxiety disorder; Z87.891 Personal history of nicotine dependence
CPT/HCPCS: 71046; 80053; 82803; 84484; 85007; 85025; 87581; 87632; 87636; 87798; 93005; 96361; 96374; 96375; 99285; J0131

== ENCOUNTER → 2023-02-02 06:51 | Outpatient (CLI) | payer OTHER, SELFPAY ==
[2023-02-02 08:00] LABS: Basophils # 0.1 K/mm3 (0-0.2); Basophils % 0.8 % (0.1-2.0); Eosinophils # 0.9 K/mm3 (0.0-0.4); Eosinophils % 15.4 % (0.1-12.0); Hematocrit 38.8 % (37.0-47.0); Hemoglobin 13.5 g/dL (12.2-16.2); Lymphocytes # 2.1 K/mm3 (0.7-4.5); Mean Corpuscular HGB Conc 34.9 g/dL (31.8-35.4); Mean Corpuscular Hemoglobin 31.8 pg (27.0-31.2); Mean Corpuscular Volume 91.1 fl (81-99); Mean Platelet Volume 8.3 fl (7.4-10.4); Monocytes # 0.4 K/mm3 (0.1-1.0); Monocytes % 7.7 % (1.7-9.3); Neutrophils # 2.2 K/mm3 (1.8-7.8); Neutrophils % 39.1 % (37.0-80.0); Platelet Count 239 K/mm3 (142-424); Red Blood Count 4.25 M/mm3 (4.20-5.40); Red Cell Distribution Width 13.1 % (11.5-17.5); White Blood Count 5.7 K/mm3 (4.8-10.8)
[2023-02-02 08:16] LABS: Alanine Aminotransferase 38 U/L (12-78); Albumin Level 3.7 g/dl (3.5-5.0); Albumin/Globulin Ratio 1.5 (1.1-1.8); Alkaline Phosphatase 101 U/L (38-126); Anion Gap 13.1 mEq/L (5-15); Aspartate Amino Transferase 41 U/L (14-36); Bilirubin,Total 0.4 mg/dl (0.2-1.3); Blood Urea Nitrogen 16 mg/dl (7-17); Calcium 9.2 mg/dl (8.4-10.2); Carbon Dioxide 27 mmol/L (22.0-30.0); Chloride 104 mmol/L (98-107); Chol/HDL Ratio 3.5 (1-3.5); Cholesterol 183 mg/dl (140-200); Estimated Glomerular Filt Rate 73 ml/min (>60); GFR (African American) 89 ML/MIN (>60); Globulin 2.4 g/dL (1.3-3.2); Glucose 102 mg/dl (74-100); HDL Cholesterol 52 mg/dl (40-60); Potassium 4.1 mmoL/L (3.5-5.1); Sodium 140 mmol/L (136-145); Total Protein,Serum 6.1 g/dl (6.3-8.2); Triglycerides 88 mg/dl (30-150); VLDL Cholesterol 18 mg/dL (0-40)
[2023-02-02 08:27] LABS: C-Reactive Protein 2.5 mg/L (0-4); Direct LDL Cholesterol 109.98 mg/dL (100-129); NT Pro Brain Natriuretic Pep. 40.6 pg/mL (0-125)
[2023-02-02 08:48] LABS: Thyroid Stimulating Hormone 3.25 uIU/mL (0.465-4.68)
[2023-02-02 08:53] LABS: Ferritin 17.2 ng/ml (11.1-264)
[2023-02-12 22:44] LABS: Magnesium,RBC 5.6 mg/dL (3.7-7.0)
[2023-02-15 21:34] LABS: Antinuclear Antibodies (ANA) Negative
== END ==
PROVIDERS: PCP Nurse Practitioner Family; Visit Provider Nurse Practitioner Family
DX: R60.9 Edema, unspecified (principal); Z87.2 Personal history of diseases of the skin and subcutaneous tissue; R63.5 Abnormal weight gain; Z68.34 Body mass index [BMI] 34.0-34.9, adult
CPT/HCPCS: 36415; 80053; 80061; 82728; 83735; 83880; 84443; 85025; 86038; 86140; 86225; 86235

== ENCOUNTER → 2023-02-08 14:57 | Outpatient (POV) | payer OTHER, SELFPAY | PROVIDERS: PCP Nurse Practitioner Family; Visit Provider Dermatology | DX: Z00.00 Encounter for general adult medical examination without abnormal findings (principal) ==

== ENCOUNTER → 2023-02-14 15:05 | Outpatient (CLI) | payer OTHER, SELFPAY ==
--- NOTE | 2023-02-14 15:23 | CA_ITS ---
APPROVED REPORT EXAM: Comprehensive 2D, Doppler, and color-flow Echocardiogram Grain Shoveler: Shweta Arzate RT(R) Ht: 5 ft 2 in Wt: 191lbs BSA: 1.87 BP: 130/92 mmHg Indications: edema, HTN, obesity. 2D Dimensions IVSd 0.81 cm F: 0.6-1.0 LVEF (Visual) 57.20 % PWd 0.64 cm F: 0.6 - 1.0 LVEF (García's) 64.40 % F: 54 - 74 LVDd 4.36 cm F: 3.9 - 5.3 LV Volume 89.70 mL F: 46 - 106 LVDs 3.06 cm F: 2.2 - 3.5 LV Volume Index 47.71 mL/m2 F: 29 - 61 LVOT 1.60 cm (M/F) 1.5-2.5 LA Volume 37.30 mL LA Volume Index 19.84 mL/m2 (M/F) 16-34 M-Mode Dimensions LA Diam 3.30 cm (1.9-4.0) Ao Diam 2.22 cm (2.0-3.7) LV Diastology E Decel Time 203.00 (160-240 msec) E/A Ratio 1.5 MED E' 9.70 (< 7 cm/sec) E'/MED E' Ratio 9.92 (>14) LAT E' 11.40 (<10 cm/sec) E/LAT E' Ratio 8.44 (>14) Mitral Valve MV E Max Rajesh. 96.00 (40-130 cm/s) MV A Velocity 64.00 (40-130 cm/s) E/A Ratio 1.50 MV Decel. Time 203.00 (160-240 ms) MV PHT 60.00 ms Left Ventricle The left ventricle is normal size. The left ventricular systolic function is normal. The left ventricular ejection fraction is within the normal range. There is increased LV wall thickness. There is normal LV segmental wall motion. Transmitral Doppler flow pattern suggests impaired LV relaxation. LVEF is 65%. Right Ventricle The right ventricle is normal size. The right ventricular systolic function is normal. Atria The left atrium size is normal. The right atrium size is normal. There is no Doppler evidence of interatrial shunt. Aortic Valve The aortic valve opens well. There is no aortic valvular stenosis. No aortic regurgitation is present. Mitral Valve The mitral valve is normal in structure. No evidence of mitral valve stenosis. Mild mitral regurgitation. Tricuspid Valve The tricuspid valve leaflets are thin and pliable. Trace tricuspid regurgitation. Normal RVSP. Pulmonic Valve The pulmonary valve is normal in structure. Mild pulmonic regurgitation. Great Vessels The aortic root is normal in size. The ascending aorta is normal in size. IVC is normal in size and collapses >50% with inspiration. Pericardium There is no pericardial effusion. Other Information Study Quality: Fair Conclusion Normal biventricular systolic function. Mild MR. Electronically signed by : Patsy Arango MD 02/24/2023 23:52:15
== END ==
PROVIDERS: PCP Nurse Practitioner Family; Visit Provider Nurse Practitioner Family
DX: R60.9 Edema, unspecified (principal)
CPT/HCPCS: 93306

== ENCOUNTER → 2023-03-14 07:02 | Outpatient (CLI) | payer OTHER, SELFPAY ==
--- NOTE | 2023-03-14 07:03 | US_ITS ---
FINAL REPORT TECHNIQUE: Ultrasound images through the abdomen were obtained. CLINICAL HISTORY: CASSANDRA lesions, dyspepsia FINDINGS: There is fatty infiltration of the liver. Trace sludge is seen in the gallbladder. Portal vein is normal. No gallstones are identified. Common duct is normal in caliber. The pancreas is obscured by overlying bowel gas. Right kidney measures 9 cm in length. Left kidney measures 10 cm in length. Spleen is within normal limits. There is no fluid collection identified. The visualized portions of the aorta and the IVC are normal. IMPRESSION: Unremarkable ultrasound of the abdomen. Reviewed, Interpreted and Dictated by Norbert Eugene MD Transcribed by Nancy Clark Authenticated and [facility]
== END ==
PROVIDERS: PCP Nurse Practitioner Family; Visit Provider Nurse Practitioner Family
DX: R10.13 Epigastric pain (principal); R93.2 Abnormal findings on diagnostic imaging of liver and biliary tract
CPT/HCPCS: 76700

== ENCOUNTER 2023-04-05 10:25 | Outpatient (CLI) | payer OTHER, SELFPAY ==
--- NOTE | 2023-04-05 10:26 | NM_ITS ---
FINAL REPORT CLINICAL HISTORY: Upper abdominal pain, dyspepsia gallbladder sludge 10:35AM 8.20 MCI TC CHOLETEC 1.5 MCG CCK NO PAIN WITH CCK FINDINGS: HEPATOBILIARY SCAN WITH CCK INJECTION Following intravenous administration of approximately 8.2 of technetium Choletec, multiple scintigraphic images were obtained. The hepatic parenchymal phase shows homogeneous distribution of the tracer throughout the liver. Prompt appearance of tracer is noted in the intrahepatic and extrahepatic biliary systems. The bile ducts and gallbladder are visualized by 10 minutes. The bowel is visualized by 25 minutes. Following intravenous injection of the 1.5 mcg of CCK, gallbladder ejection fraction is estimated to be 86%. IMPRESSION: Normal gallbladder ejection fraction of 86%. Reviewed, Interpreted and Dictated by Abram Canas III, MD Transcribed by Will Orantes Authenticated and [facility]
[2023-04-05] MEDS: ISOTOPE CHOLETECH;1 DOSE (UP TO 15 MCI) IV (12:22)
[2023-04-05] MEDS: SODIUM CHLORIDE 0.9% 10ML SYR (RAD ONLY) 10 ML IV (12:22)
[2023-04-05] MEDS: SINCALIDE 1.5 MCG in 0.9 % SODIUM CHLORIDE 50 ML 100 MCG IV (12:22)
== END 2023-04-05 23:59 ==
LOC: RAD 10:26
PROVIDERS: PCP Nurse Practitioner Family; Visit Provider Nurse Practitioner Family
DX: R10.11 Right upper quadrant pain (principal); R10.13 Epigastric pain
CPT/HCPCS: 78227; A9537; J2805

== ENCOUNTER 2023-04-13 16:00 | Outpatient (RCR) | payer OTHER, SELFPAY ==
--- NOTE | 2023-02-15 15:49 | HMH.PTOPWND ---
Rehab Outpt Wound Evaluation Rehab OP Wound Evaluation Start: 02/15/23 15:36 Freq: Status: Active Protocol: Document 02/15/23 15:36 JEFF (Rec: 02/15/23 15:49 PHORNE [id number]) E-signed By Maikel Hogan, PT Subjective/History History History This is the initial PT evaluation for Meenu Alexandra, 57 yoef who presents with c/o increased edmes and pain in B LE. She reports pain and stiffness are worse in B knee, especially medially. She reports her problems have been worsening x 1-2 mos with insidious onset. She did have increased back pain and a trip to [place] which required significantly increased walking over this time-frame, but she does not believe them to be the main culprits. She has hx of lipolymphedema with prior successful treatment. Subjective Subjective Currently no c/o numbness or tingling in B LE. Pain at rest 0/10, with walking 4/10, at worst 8/0. TTP 2/4 noted to L knee at pes anserine bursae, 1 /4 on R knee at pes anserine bursae. No pitting edema in B LE noted at this time. New diagnosis of cancer in past 12 No months? Lymphedema Eval Classification of Lymphedema Secondary Lymphedema Yes Stemmer's sign Stemmer's Sign no Stage of Lymphedema Lymphedema stages Stage 0 (subjective c/o heaviness and aching) Skin Changes Dry Skin Yes Skin Folds Yes Other Changes Yes Pain Scale Pain Scale (0-10) 8 Affected Extremities Areas Affected by Lymphedema/Edema Right Lower Extremity,Left Lower Extremity Manual Lymphatic Drainage Treatment Area MLD Treatment Area Right Lower Extremity,Left Lower Extremity Wound Problems/Impairments Impairments Problems/Impairmments Palpation Tenderness,Impaired Endurance,Impaired Walking, Impaired Standing,Impaired Household Care,Impaired Recreational Activities, Increased Edema,Lymphedema Present,Subjective C/O Pain, Impaired Self Care/Self Management Prognosis Rehab Potential Good Clinical Impression Consistent with Diagnosis Yes Short Term Goals Number of Weeks 2 Decreased Palpation Tenderness Yes: 1/4 B knees Increase Ability to Walk Yes: > 15 min without pain Decrease Edema Yes Decrease Subjective C/O Pain Yes: 3/10 with walking Patient to Understand Lymphedema Yes Treatment and Exercises Decrease Girth Measurments by (cm) Yes: B LE total by 5 cm ea. Judicial Law Clerk Goals Number of Weeks 4 Decreased Palpation Tenderness Yes: 0/4 B knees Increase Ability to Walk Yes: > 30 min wihtout pain Decrease Lymphedema Yes Decrease Subjective C/O Pain Yes: 0/10 with walking Patient to be Ind w/ HEP Yes Patient to Adhere Lymphedema Precautions Yes Decrease Girth Measurments by (cm) Yes: B LE total by 15 cm ea Outpatient Therapy Plan of Care Treatment Plan May Include Therapeutic Exercise Including Home Yes Exercise Program Manual Therapy Techniques Yes Neuromuscular Re-education Yes Therapeutic Activities to Return to Yes Previous Functional/Work Level ADL/Self Care Education Yes Thermal Modalities Yes Electrical Stimulation Yes Ultrasound/Phonophoresis Yes Iontophoresis Yes Orthotics/Bracing/Splinting Yes Vasopneumatic Compression Pump Yes Massage Yes Manual Lymphatic Drainage Yes Eval/Re-Eval Yes Frequency Times per week 2 Duration Number of Weeks 4 Addendums This patient is a candidate for social No or vocational rehab? Patient/Guardian verbally acknowledges Yes understanding of treatment program and consents to further treatment? Patient/Guardian verbally acknowledges Yes understanding of diagnosis, prognosis and goals for treatment? Eval Complexity PT Charges 07803 - High Complexity PHYSICIAN CERTIFICATION: I certify the specified therapy services for Meenu Alexandra are required, authorized, and reviewed every 30 days.
--- NOTE | 2023-03-17 16:12 | HMH.RHREAS ---
Rehab Reassessment Rehab OP Re-assessment Start: 02/15/23 15:36 Freq: Status: Active Protocol: Document 03/17/23 16:07 JEFF (Rec: 03/17/23 16:11 PHORJENNA [id number]) E-signed By Maikel Hogan, PT Rehab Re-assessment Subjective Subjective Pt reports less pain overall and improved feelings of B LE tightness. L medial knee remains mildly uncomfortable. Objective Objective Notes Circumferential Measurements: R LE total 317.4 cm which is - 16.5 cm since IE. L LE total is 305.9 cm which is -12.5 cm since IE. 1+ pitting edema to B LE. 1/4 TTP to B LE. Assessment Progress Assessment Progressing as Expected Assessment Notes Significant overall reduction in edema and imporved ADLs with less pain. She continues to need skilled intervention to return to prior level of function. Patient goals met ST,2,3,4,5,6 Goals Not Met LT,2,3,4,5,6,7 Plan Plan Continue per initial POC. Frequency of Therapy 1-2 x/wk Duration of therapy 4 wks Time and Billing Re-Eval Time 13 Re-Eval Billing Units 1 PHYSICIAN CERTIFICATION: I certify the specified therapy services for Meenu Alexandra are required, authorized, and reviewed every 30 days.
== END 2023-04-13 17:45 | disposition home or self-care (01) ==
LOC: PT 16:00
PROVIDERS: PCP Nurse Practitioner Family; Visit Provider Nurse Practitioner Family
DX: I89.0 Lymphedema, not elsewhere classified (principal)
CPT/HCPCS: 97140; 97163; 97164

== ENCOUNTER 2023-06-15 16:14 | Outpatient (CLI) | payer OTHER, SELFPAY ==
--- NOTE | 2023-06-15 16:15 | MM_ITS ---
PROCEDURE INFORMATION: Exam: MG Bilateral Screening 3D Mammography Exam date and time: 06/15/2023 4:02 PM Age: 57 years old Clinical indication: Screening mammographic TECHNIQUE: Imaging protocol: Bilateral Screening tomosynthesis and 2D mammography including computer-aided detection (CAD) when performed. COMPARISON: 1. MG MM DIG SCREENING MAMM BI W/CAD 05/05/2022 3:10 PM 2. MG MM DIG SCREENING MAMM BI W/CAD 03/02/2021 3:25 PM 3. MG MM DIG SCREENING MAMM BI W/CAD 07/27/2019 10:08 AM 4. MG SCBI MM Dig screening mamm BI w/CAD 01/24/2018 3:48 PM FINDINGS: MAMMOGRAPHY: Breast composition: Breast composition: The breast is heterogeneously dense, which may obscure small masses. Mass: None. Architectural distortion: No new or suspicious architectural distortion. Calcifications: No new or suspicious calcifications are present Asymmetric density: No new or suspicious asymmetric density is present Skin thickening: None. Axillary adenopathy: None. IMPRESSION: No mammographic evidence of malignancy. Recommend annual screening mammography unless otherwise clinically indicated. ASSESSMENT: BI-RADS category 1: Negative.
== END 2023-06-15 23:59 ==
LOC: RAD 16:15
PROVIDERS: PCP Nurse Practitioner Family; Visit Provider Nurse Practitioner Family
DX: Z12.31 Encounter for screening mammogram for malignant neoplasm of breast (principal)
CPT/HCPCS: 77063; 77067

== ENCOUNTER 2023-07-13 15:12 | Outpatient (CLI) | payer OTHER, SELFPAY ==
--- NOTE | 2023-07-13 15:17 | CT_ITS ---
FINAL REPORT CLINICAL HISTORY: lung cancer screening former smoker x 12 yrs 1.5 ppd x 25 yrs COMPARISON: 06/30/2022 FINDINGS: CHEST CT LOW DOSE 57-year-old female, former smoker for 12 years, 56-vwmo-gccb history. CTDI vol (mGy): 2.9 DLP (mGy-cm): 98.47 There is no axillary adenopathy. There is no mediastinal or hilar mass or adenopathy. The heart is normal in size. There is no pericardial or pleural effusion. Lung window images demonstrate that the previously noted nodule in the anterior right upper lobe is stable. There is a 3 to 4 mm nodule in the peripheral left upper lobe, best seen on image 21 of series 4, stable. There is a peripheral nodule seen on image #42 of series 4, also stable. There are unchanged calcified granulomas.. Limited images of the upper abdomen reveal a small hiatal hernia, stable.. IMPRESSION: Lung-RADS category 2. Recommend 12 month follow up low dose chest CT. Reviewed, Interpreted and Dictated by Norbert Eugene MD Transcribed by Ava Perez Authenticated and [facility]
== END 2023-07-13 23:59 ==
LOC: RAD 15:12
PROVIDERS: PCP Nurse Practitioner Family; Visit Provider Internal Medicine Pulmonary Disease
DX: F17.210 Nicotine dependence, cigarettes, uncomplicated (principal); Z12.2 Encounter for screening for malignant neoplasm of respiratory organs
CPT/HCPCS: 71271

== ENCOUNTER 2023-07-19 14:42 | Outpatient (POV) | payer OTHER, SELFPAY | END 2023-07-19 23:59 | disposition home or self-care (01) | LOC: SC 14:42 | PROVIDERS: PCP Nurse Practitioner Family; Visit Provider Dermatology | DX: Z00.00 Encounter for general adult medical examination without abnormal findings (principal) ==

== ENCOUNTER 2023-08-13 17:28 | Emergency (ER) | payer OTHER, SELFPAY ==
[2023-08-13 17:28] VITALS: BP 125/83; PULSE 67; RESP 18; TEMP 36.7; O2SAT 98; BMI 31.1
--- NOTE | 2023-08-13 17:54 | ED_ITS ---
Discharge Plan Disposition Patient Disposition: Home, Self-Care Condition: Good Prescriptions Prescriptions: New azithromycin [Zithromax] 250 mg tablet 250 mg PO UD DOSE PK Qty: 6 0RF Rx Instructions: Take two (2) tablets today, then one (1) tablet days #2 thru #5 benzonatate 100 mg capsule 100 mg PO TIDP PRN (Reason: Cough) Qty: 30 0RF methylprednisolone 4 mg Tablets,Dose Pack 4 mg PO DIRECTED 6 Days Qty: 21 0RF Rx Instructions: Take 1 pack as directed for 6 days No Action albuterol sulfate 90 mcg/actuation HFA aerosol inhaler 1 inh INHALATION Q6H PRN (Reason: shortness of breath or wheezing) 90 Days Qty: 8.5 3RF ibandronate 150 mg tablet 150 mg PO MONTHLY Patient Comments: TAKE 1 TABLET BY MOUTH ONCE EVERY MONTH fluticasone furoate-vilanterol [Breo Ellipta] 200-25 mcg/dose blister with device 1 inh inhalation DAILY PRN fluticasone propionate 50 mcg/actuation spray,suspension 2 spray intranasal DAILY Hold Instructions: Resume on 04/20/22. resume 1 week ibuprofen 800 mg tablet 800 mg PO BID Rx Instructions: with food escitalopram oxalate 10 mg tablet 10 mg PO DAILY PRN phentermine 15 mg capsule 15 mg PO DAILY 30 Days Qty: 30 0RF Rx Instructions: must administer 2 hours after breakfast tramadol 50 mg tablet 50 mg PO Q4-6H PRN (Reason: pain) Qty: 30 0RF ergocalciferol (vitamin D2) 1,250 mcg (50,000 unit) capsule 50,000 unit PO QWEEK 90 Days Qty: 12 4RF Referrals Follow up/Referrals: Khalida Marion APRN [Primary Care Provider] - See instructions Activity Restrictions/Add. Instructions Additional Instructions/Restrictions: Drink plenty of fluids. Take tylenol or ibuprofen for pain or fever. Take the medications as directed. Follow up with your regular doctor. GO TO THE ER FOR ANY WORSENING SYMPTOMS Don't start the oral steroids until tomorrow since you had the steroid shot here today. Clinical Impressions Clinical Impression: Sinusitis Instructions Patient Instructions: Sinusitis, DI for Sinusitis, Dexamethasone Injection Discharge ED Provider: Shahbaz Strong [facility] [place] Stated complaint: congestion, cough, sore throat Time Seen by Provider: 08/13/23 17:53 Related Data Home Medications Medication Instructions Recorded Confirmed ibandronate 150 mg tablet 150 mg PO MONTHLY Osteoporosis 10/20/20 08/12/23 fluticasone furoate 200 1 inh inhalation DAILY PRN 05/18/23 08/12/23 mcg-vilanterol 25 mcg/dose inhalation powder (Breo Ellipta) fluticasone propionate 50 2 spray intranasal DAILY 05/18/23 08/12/23 mcg/actuation nasal spray,suspension escitalopram oxalate 10 mg tablet 10 mg PO DAILY PRN 08/12/23 08/12/23 ibuprofen 800 mg tablet 800 mg PO BID 08/12/23 08/12/23 Previous Rx's Medication Instructions Recorded ergocalciferol (vitamin D2) 1,250 50,000 unit PO QWEEK Supplement 3 05/13/21 mcg (50,000 unit) capsule months #12 caps albuterol sulfate 90 mcg/actuation 1 inh inhalation Q6H PRN shortness 07/01/22 aerosol inhaler of breath or wheezing 90 days #8.5 grams phentermine 15 mg capsule 15 mg PO DAILY 30 days #30 caps 08/12/23 tramadol 50 mg tablet 50 mg PO Q4-6H PRN pain #30 tabs 08/12/23 azithromycin 250 mg tablet 250 mg PO UD DOSE PK #6 tabs 08/13/23 (Zithromax) benzonatate 100 mg capsule 100 mg PO TIDP PRN Cough #30 caps 08/13/23 methylprednisolone 4 mg tablets in 4 mg PO DIRECTED 6 days #21 tabs 08/13/23 a dose pack Allergies Allergy/AdvReac Type Severity Reaction Status Date / Time cephalexin Allergy Severe Swelling Verified 08/13/23 18:02 of the Eye Sulfa (Sulfonamide Allergy Unknown Verified 08/13/23 18:02 Antibiotics) allergy reaction [facility] Disclaimer: The information contained in this section may have been updated after the patient was seen, as this information can be updated by other users. Medical History Allergic rhinitis, unspecified Chronic sinusitis Dyspnea on exertion Encounter for screening for malignant neoplasm of lung in former smoker who quit in past 15 years with 30 pack year history or greater Ex-cigarette smoker Generalized anxiety disorder History of COVID-19 History of herniated intervertebral disc Hx of osteoporosis Moderate persistent asthma Seasonal allergic rhinitis Shortness of breath Stopped smoking with greater than 30 pack year history Surgical History History of arthroplasty of right ankle History of sinus surgery Status post functional endoscopic sinus surgery Status post left foot surgery Family History Other FHx: mental illness Hypertension Social History Smoking Status: Former smoker tobacco type: cigarettes packs per day: 1 second hand exposure: Yes alcohol intake: never substance use type: denies use counseling given: No current occupational status: employed Travel in the last 8 weeks: None adopted: No caregiver/support person: No foster care: No household members: none housing: house lives independently: Yes marital status: number of children: 2 number of grandchildren: 4 education level: high school service: No current occupation: [employer] current occupational exposures/hazards: No Hx Recent Travel: No sexually active: No caffeine: Yes physical activity: none sheri/yazdanism: Jew special sheri needs: No working smoke detector in home: Yes fire extinguisher in home: Yes carbon monox detector in home: Yes firearms in home: Yes firearms unloaded and locked: Yes do you feel safe at home: Yes victim of physical abuse: No victim of emotional abuse: No victim of sexual abuse: No would you like helpful sources: No ROS Obtained: Yes All systems reviewed & no additional complaints except as documented Constitutional Constitutional: Reports poor appetite Eyes Eyes: Reports system reviewed and no additional complaints, except as documented ENT Ears, Nose, Mouth, and Throat: Reports as per HPI Cardiovascular Cardiovascular: Reports system reviewed and no additional complaints, except as documented and Denies chest pain Respiratory Respiratory: Denies shortness of breath, Denies chest congestion, Reports cough, Denies stridor and Denies wheezing Gastrointestinal Gastrointestingal: Reports system reviewed and no additional complaints, except as documented; Denies abdominal pain, diarrhea or vomiting Musculoskeletal Musculoskeletal: Reports system reviewed and no additional complaints, except as documented and Denies arthralgias Integumentary/Breasts Skin/Breast: Reports system reviewed and no additional complaints, except as documented and Denies rash Neurologic Neurologic: Denies paresthesias Allergic/Immunologic Allergic/Immunologic: Denies wheezing Physical Exam General General appearance: alert and in no apparent distress Eye Eye exam: Present normal appearance, PERRL and EOMI ENT ENT exam: Present mucous membranes moist and normal external ear exam Expanded ENT Exam External ear exam: Present normal external inspection TM/Canal exam: Bilateral TM: erythema and bulging Nose exam: Absent sinus tenderness Nasal speculum exam: Bilateral: normal Mouth exam: Present normal external inspection; Absent drooling Teeth exam: Present normal inspection Throat exam: Present tonsillar erythema and tonsillomegaly Neck Neck exam: Present normal inspection, full ROM and trachea midline; Absent tenderness, lymphadenopathy or thyromegaly Chest Chest inspection: Present normal inspection and symmetric chest wall rise; Absent tenderness or rash Respiratory Respiratory exam: Present normal lung sounds bilaterally; Absent respiratory distress, wheezes, stridor or accessory muscle use Cardiovascular Cardiovascular exam: Present regular rate, normal rhythm and normal heart sounds Abdominal Exam Abdominal exam: Present soft; Absent distention, tenderness, guarding, rebound or rigidity Extremities Exam Extremities exam: Present normal inspection, full ROM and normal capillary refill; Absent tenderness or calf tenderness Back Exam Back exam: Present normal inspection and full ROM; Absent tenderness Neurological Exam Neurological exam: Present alert and oriented X3 Psychiatric Psychiatric exam: Present normal affect and normal mood Skin Skin exam: Present warm, dry, intact and normal color Lymphatic Lymphatic Findings: no adenopathy Medical Decision Making Medical Records Medical records reviewed: No I reviewed the patient's medical records. Dinesh Inquiry Pt receiving controlled substance: No Lab Data Lab results reviewed: Yes I reviewed the patient's lab results.
[2023-08-13] MEDS: DEXAMETHASONE 4MG/ML 1ML VIAL 8 MG IM (18:06)
[2023-08-13 18:21] VITALS: BP 125/83; PULSE 67; RESP 18; TEMP 36.7; O2SAT 98
== END 2023-08-13 18:21 | disposition home or self-care (01) ==
PROVIDERS: Emergency Provider Nurse Practitioner Family; PCP Nurse Practitioner Family
DX: J01.90 Acute sinusitis, unspecified (principal); R05.9 Cough, unspecified; R07.0 Pain in throat; R09.81 Nasal congestion
CPT/HCPCS: 96372; 99212; 99214; G0463

== ENCOUNTER 2023-10-19 16:10 | Outpatient (CLI) | payer OTHER, SELFPAY ==
[2023-10-24 00:03] LABS: D001-IgE D pteronyssinus <0.10 kU/L (Class 0); D002-IgE D farinae <0.10 kU/L (Class 0); E001-IgE Cat Dander <0.10 kU/L (Class 0); E005-IgE Dog Dander <0.10 kU/L (Class 0); E072-IgE Mouse Urine <0.10 kU/L (Class 0); G002-IgE Bermuda Grass <0.10 kU/L (Class 0); G006-IgE Timothy Grass <0.10 kU/L (Class 0); I006-IgE Cockroach, German <0.10 kU/L (Class 0); Immunoglobulin E, Total 42 IU/mL (6-495); M001-IgE Penicillium chrysogen <0.10 kU/L (Class 0); M002-IgE Cladosporium herbarum <0.10 kU/L (Class 0); M003-IgE Aspergillus fumigatus <0.10 kU/L (Class 0); M006-IgE Alternaria alternata <0.10 kU/L (Class 0); T001-IgE Maple/Box Elder <0.10 kU/L (Class 0); T003-IgE Common Silver Birch <0.10 kU/L (Class 0); T006-IgE Cedar, Mountain <0.10 kU/L (Class 0); T007-IgE Oak, White <0.10 kU/L (Class 0); T008-IgE Elm, American <0.10 kU/L (Class 0); T010-IgE Walnut <0.10 kU/L (Class 0); T011-IgE Maple Leaf Sycamore <0.10 kU/L (Class 0); T014-IgE Cottonwood <0.10 kU/L (Class 0); T015-IgE Ash, White <0.10 kU/L (Class 0); T022-IgE Pecan, Hickory <0.10 kU/L (Class 0); T070-IgE White Mulberry <0.10 kU/L (Class 0); W001-IgE Ragweed, Short <0.10 kU/L (Class 0); W011-IgE Thistle, Russian <0.10 kU/L (Class 0); W014-IgE Pigweed, Common <0.10 kU/L (Class 0); W018-IgE Sheep Sorrel <0.10 kU/L (Class 0)
== END 2023-10-19 23:59 | disposition home or self-care (01) ==
LOC: LAB 16:11
PROVIDERS: PCP Nurse Practitioner Family; Visit Provider Otolaryngology
DX: J30.9 Allergic rhinitis, unspecified (principal)
CPT/HCPCS: 36415; 82785; 86003

== ENCOUNTER 2023-11-02 11:33 | Emergency (ER) | payer OTHER, SELFPAY ==
[2023-11-02 11:40] VITALS: BP 127/94; PULSE 71; RESP 19; TEMP 36.6; O2SAT 96; BMI 30.3
--- NOTE | 2023-11-02 11:48 | EXP.UTC ---
Discharge Plan Disposition Patient Disposition: Home, Self-Care Condition: Good Prescriptions Prescriptions: New azithromycin [Zithromax Z-Andres] 250 mg tablet See Rx Instructions .ROUTE .COMPLEX 5 Days Qty: 6 0RF Rx Instructions: For 250 mg dose pack: take 500 mg today (day 1), then 250 mg for 4 days (days 2-5) methylprednisolone [Medrol (Andrse)] 4 mg tablets,dose pack See Rx Instructions .Route .COMPLEX 6 Days Qty: 21 0RF Rx Instructions: taper pack; No Action ergocalciferol (vitamin D2) 1,250 mcg (50,000 unit) capsule 50,000 unit PO QWEEK 90 Days Qty: 12 4RF Referrals Follow up/Referrals: Khalida Marion APRN [Primary Care Provider] - See instructions Activity Restrictions/Add. Instructions Additional Instructions/Restrictions: *Monitor Temp, Over the counter Motrin or Tylenol as directed/as needed Tylenol every 4 hours and Motrin every 6 hours (as long as your family doctor has told you that you can take it) for fever or pain. and straight to ER if unable to lower temp less than 101.0 after medication given *Warm salt water gargles may help to soothe the throat *Throat Lozenges? *Warm fluids like tea with honey may help to soothe the throat? *Sleep elevated *Humidifier/Vaporizer Take medication as prescribed Your throat swab was sent for culture. Those results are typically sent to your primary care. Be sure to follow up in 2-3 days with your family doctor/primary care physician if no improvement so they can review those result and treat if necessary. If you don?t have a primary care doctor, I recommend you get one but in the mean time, you will have to return to a walk in clinic Follow up IMMEDIATELY for new or worsening symptoms or no Noticeable improvement over the next 48-72 hours. 911 for difficulty breathing or swallowing Clinical Impressions Clinical Impression: Sinusitis Qualifiers: Sinusitis location: unspecified location Chronicity: unspecified Qualified Code(s): J32.9 - Chronic sinusitis, unspecified Instructions Patient Instructions: Sinusitis, DI for Sinusitis Print Language Print Language: Libyan Discharge ED [place] Radha [place] [facility] [place] General Stated complaint: congestion, headache Mode of Arrival: Ambulatory Source of Information: Patient Limitations: No Limitations Time Seen by Provider: 11/02/23 11:49 Description of Symptoms (Recalled from Triage Doc. by RN): PATIENT C/O NASAL CONGESTION AND DRAINAGE THAT HAS BEEN GOING ON FOR A WHILE, BUT IS WORSE TODAY HEENT Symptoms (Recalled from RN notes): Yes Resp Symptoms (Recalled from RN notes): No Skin Symptoms (Recalled from RN notes): No MS Symptoms (Recalled from RN notes): No Functional Status (Recalled from RN notes): WNL History of Present Illness Provider Complaint: Patient states that she has been having sinus pain and pressure, feeling like she is having pressure behind her eyes, States that it has been going on for awhile and they thought it may be allergies but now feels like it has moved into a sinus infection so she came in to get checked Related Data Previous Rx's ?Medication ?Instructions ?Recorded ergocalciferol (vitamin D2) 1,250 50,000 unit PO QWEEK Supplement 3 05/13/21 mcg (50,000 unit) capsule months #12 caps azithromycin 250 mg tablet See Rx Instructions PO .COMPLEX 5 11/02/23 (Zithromax Z-Andres) days #6 tabs methylprednisolone 4 mg tablets in See Rx Instructions .Route 11/02/23 a dose pack (Medrol (Andres)) .COMPLEX 6 days #21 tabs Allergies Allergy/AdvReac Type Severity Reaction Status Date / Time cephalexin Allergy Severe Swelling Verified 10/19/23 15:26 of the Eye Sulfa (Sulfonamide Allergy Unknown Verified 10/19/23 15:26 Antibiotics) allergy reaction Worker's Comp Is this a Worker's Comp case?: No [facility] Disclaimer: The information contained in this section may have been updated after the patient was seen, as this information can be updated by other users. Medical History (Updated 11/02/23 @ 11:53 by Radha Pitt APRN) Asthma Generalized anxiety disorder Stopped smoking with greater than 30 pack year history History of herniated intervertebral disc Hx of osteoporosis History of COVID-19 Seasonal allergic rhinitis Dyspnea on exertion Ex-cigarette smoker Encounter for screening for malignant neoplasm of lung in former smoker who quit in past 15 years with 30 pack year history or greater Shortness of breath Moderate persistent asthma Surgical History History of sinus surgery Status post functional endoscopic sinus surgery History of arthroplasty of right ankle Status post left foot surgery Family History Other FHx: mental illness Hypertension Social History Smoking Status: Former smoker tobacco type: cigarettes packs per day: 1 second hand exposure: Yes alcohol intake: never substance use type: denies use counseling given: No current occupational status: employed Travel in the last 8 weeks: Inside the [place] States adopted: No caregiver/support person: No foster care: No household members: none housing: house lives independently: Yes marital status: number of children: 2 number of grandchildren: 4 education level: high school service: No current occupation: [employer] current occupational exposures/hazards: No Hx Recent Travel: No sexually active: No caffeine: Yes physical activity: none sheri/congregational: [employer]ism special sheri needs: No working smoke detector in home: Yes fire extinguisher in home: Yes carbon monox detector in home: Yes firearms in home: Yes firearms unloaded and locked: Yes do you feel safe at home: Yes victim of physical abuse: No victim of emotional abuse: No victim of sexual abuse: No would you like helpful sources: No ROS Obtained: Yes All systems reviewed & no additional complaints except as documented and Yes Systems reviewed as appropriate & no additional complaints except as documented Constitutional Constitutional: Reports system reviewed and no additional complaints, except as documented, Reports as per HPI and Reports headache(s) ENT Ears, Nose, Mouth, and Throat: Reports system reviewed and no additional complaints, except as documented, Reports as per HPI, Reports headache(s), Reports sinus pain, Reports sinus pressure and Reports sore throat Cardiovascular Cardiovascular: Reports system reviewed and no additional complaints, except as documented and Reports as per HPI Respiratory Respiratory: Reports system reviewed and no additional complaints, except as documented and Reports as per HPI Gastrointestinal Gastrointestingal: Reports system reviewed and no additional complaints, except as documented and as per HPI Musculoskeletal Musculoskeletal: Reports system reviewed and no additional complaints, except as documented and Reports as per HPI Neurologic Neurologic: Reports headache(s) Physical Exam General General appearance: alert and in no apparent distress ENT ENT exam: Present mucous membranes moist Expanded ENT Exam Nose exam: Present sinus tenderness Throat exam: Present other (Pharyngeal erythema noted with PND) Respiratory Respiratory exam: Present normal lung sounds bilaterally; Absent respiratory distress or wheezes Cardiovascular Cardiovascular exam: Present regular rate, normal rhythm and normal heart sounds Abdominal Exam Abdominal exam: Present soft and normal bowel sounds; Absent distention or tenderness Neurological Exam Neurological exam: Present alert, oriented X3 and normal gait Medical Decision Making Dinesh Inquiry Pt receiving controlled substance: No Dinesh was queried for this patient: No Vital Signs: 11/02/23 11:40 Temperature 97.9 F Temperature Source Oral Pulse Rate [Left Brachial] 71 Respiratory Rate 19 Blood Pressure [Left Arm] 127/94 H Blood Pressure Mean [Left Arm] 105 Blood Pressure Source [Left Arm] Automatic Cuff Blood Pressure Position [Left Arm] Sitting 02 Sat by Pulse Oximetry 96 Oxygen Delivery Method Room Air Lab Data Lab results reviewed: Yes I reviewed the patient's lab results. Medical Decision Narrative: Patient states that she has taken Medrol in the past without complication or reactions
[2023-11-02] MEDS: METHYLPREDNISOLONE SOD SUCC 125MG VIAL 125 MG IM (11:55)
[2023-11-02 12:07] VITALS: BP 127/94; PULSE 71; RESP 19; TEMP 36.6; O2SAT 96
[2023-11-02 12:09] LABS: UTC Strep Screen (Rapid) Negative (Negative)
== END 2023-11-02 12:10 | disposition home or self-care (01) ==
PROVIDERS: Emergency Provider Nurse Practitioner; PCP Nurse Practitioner Family
DX: J01.90 Acute sinusitis, unspecified (principal)
CPT/HCPCS: 87880; 96372; 99212; 99214; G0463; J2919

== ENCOUNTER 2023-11-15 07:37 | Outpatient (CLI) | payer OTHER, SELFPAY ==
--- NOTE | 2023-11-15 11:45 | XR_ITS ---
FINAL REPORT CLINICAL HISTORY: pain , no injury COMPARISON: 11/22/2022 FINDINGS: RIGHT ANKLE 3 views of the right ankle were obtained. There is a sideplate and multiple loose talus. The distal fibula has been previously resected. There are hypertrophic changes of the posterior tibiotalar and posterior talocalcaneal articulations. The overall appearance of the right ankle is not significantly changed since the prior examination of 2022. IMPRESSION: Postoperative changes as described above, without significant change since the prior exam of 2022. Reviewed, Interpreted and Dictated by Norbert Eugene MD Transcribed by Ava Perez Authenticated and [facility]
== END 2023-11-15 23:59 | disposition home or self-care (01) ==
LOC: RAD 07:38
PROVIDERS: PCP Nurse Practitioner Family; Visit Provider Podiatrist
DX: S82.871K Displaced pilon fracture of right tibia, subsequent encounter for closed fracture with nonunion (principal); Z98.890 Other specified postprocedural states
CPT/HCPCS: 73610

== ENCOUNTER 2023-11-17 13:48 | Outpatient (CLI) | payer OTHER, SELFPAY ==
--- NOTE | 2023-11-17 15:10 | US_ITS ---
FINAL REPORT CLINICAL HISTORY: Right Ankle Edema FINDINGS: Limited sonographic images of the right ankle were obtained. There is subcutaneous soft tissue edema at the region of the clinical abnormality. No mass is identified. IMPRESSION: No abnormality identified at the area of interest. Reviewed, Interpreted and Dictated by Norbert Eugene MD Transcribed by Anu Ghotra Authenticated and [facility]
[2023-11-17 16:27] LABS: Basophils # 0.1 K/mm3 (0-0.2); Basophils % 1.2 % (0.1-2.0); Eosinophils # 0.5 K/mm3 (0.0-0.4); Eosinophils % 6.3 % (0.1-12.0); Hematocrit 44.7 % (37.0-47.0); Hemoglobin 14.2 g/dL (12.2-16.2); Lymphocytes # 2.1 K/mm3 (0.7-4.5); Lymphocytes % 28.6 % (10-50); Mean Corpuscular HGB Conc 31.8 g/dL (31.8-35.4); Mean Corpuscular Hemoglobin 30.2 pg (27.0-31.2); Mean Corpuscular Volume 95.2 fl (81-99); Mean Platelet Volume 8.3 fl (7.4-10.4); Monocytes # 0.5 K/mm3 (0.1-1.0); Monocytes % 6.3 % (1.7-9.3); Neutrophils # 4.1 K/mm3 (1.8-7.8); Neutrophils % 57.6 % (37.0-80.0); Platelet Count 255 K/mm3 (142-424); Red Cell Distribution Width 13.2 % (11.5-17.5); White Blood Count 7.2 K/mm3 (4.8-10.8)
[2023-11-17 17:08] LABS: Anion Gap 8.2 mEq/L (5-15); Blood Urea Nitrogen 14 mg/dl (7-17); Carbon Dioxide 27 mmol/L (22.0-30.0); Chloride 107 mmol/L (98-107); Potassium 4.2 mmoL/L (3.5-5.1); Sodium 138 mmol/L (136-145)
[2023-11-17 17:09] LABS: Alanine Aminotransferase 48 U/L (12-78); Albumin Level 3.7 g/dl (3.5-5.0); Albumin/Globulin Ratio 1.4 (1.1-1.8); Alkaline Phosphatase 73 U/L (38-126); Aspartate Amino Transferase 39 U/L (14-36); Bilirubin,Total 0.5 mg/dl (0.2-1.3); Calcium 9.5 mg/dl (8.4-10.2); Estimated Glomerular Filt Rate 85 ml/min (>60); GFR (African American) 103 ML/MIN (>60); Globulin 2.7 g/dL (1.3-3.2); Glucose 90 mg/dl (74-100); Total Protein,Serum 6.4 g/dl (6.3-8.2); Vitamin B12 454 pg/mL (239-931)
[2023-11-29 22:12] LABS: 1,25 Dihydroxy Vitamin D 46 pg/mL (.); 1,25-Dihydroxy, Vitamin D-2 19 pg/mL (.); 1,25-Dihydroxy, Vitamin D-3 27 pg/mL (.)
== END 2023-11-17 23:59 | disposition home or self-care (01) ==
PROVIDERS: PCP Nurse Practitioner Family; Visit Provider Podiatrist
DX: M25.471 Effusion, right ankle (principal); Z98.890 Other specified postprocedural states; E66.9 Obesity, unspecified; Z68.31 Body mass index [BMI] 31.0-31.9, adult
CPT/HCPCS: 36415; 76882; 80053; 82607; 82652; 85025

== ENCOUNTER 2023-12-08 14:43 | Outpatient (CLI) | payer OTHER, SELFPAY ==
--- NOTE | 2023-12-08 14:44 | CT_ITS ---
FINAL REPORT TECHNIQUE: Thin section axial CT images of the facial bones and sinuses were obtained without contrast. Coronal and sagittal reformatted images were also obtained.This study was performed with techniques to keep radiation doses as low as reasonably achievable, (ALARA). Individualized dose reduction techniques using automated exposure control or adjustment of mA and/or kV according to the patient's size were employed. CLINICAL HISTORY: chronic sinusitis COMPARISON: 02/22/2022 FINDINGS: There is marked mucosal thickening with total opacification of many of the paranasal sinuses. No fluid levels are identified. There is postoperative change, new since the prior exam of 2021, of resection of the medial maxillary sinus blount. The nasal septum is in the midline. No fracture or acute bony abnormality is identified. IMPRESSION: Interval postoperative change secondary to resection of the medial maxillary sinus blount. Marked mucosal thickening with total opacification of many of the paranasal sinuses, consistent with chronic pansinusitis. Reviewed, Interpreted and Dictated by Abram Canas III, MD Transcribed by Ava Perez Authenticated and . [facility]
--- NOTE | 2023-12-08 14:44 | CT_ITS ---
FINAL REPORT CLINICAL HISTORY: Evaluate for lipoma FINDINGS: Axial CT images of the right ankle were obtained without contrast. Sagittal and coronal reformatted images were also obtained. This study was performed with techniques to keep radiation doses as low as reasonably achievable (ALARA). Individual dose reduction techniques using automated exposure control or adjustment of mA and/or kV according to the patient's size were employed. Extensive postoperative changes are seen in the distal tibia and fibula. Screw plates and multiple screws are present. The no acute fracture is identified. No soft tissue mass or abnormal fluid collection is seen. There is mild edema both medially and laterally. There is no CT evidence of lipoma. IMPRESSION: Extensive postoperative changes in the distal tibia and fibula. No soft tissue mass identified. Authenticated and [facility]
[2023-12-08] MEDS: SODIUM CHLORIDE 0.9% 10ML SYR (RAD ONLY) 10 ML IV (15:09)
[2023-12-08] MEDS: IOPAMIDOL-370 (76%);100ML BOTTLE 75 ML IV (15:09)
== END 2023-12-08 23:59 | disposition home or self-care (01) ==
LOC: RAD 14:44
PROVIDERS: PCP Nurse Practitioner Family; Visit Provider Otolaryngology
DX: J32.9 Chronic sinusitis, unspecified (principal); D17.23 Benign lipomatous neoplasm of skin and subcutaneous tissue of right leg; M25.471 Effusion, right ankle
CPT/HCPCS: 70486; 73702; Q9967

== ENCOUNTER 2024-01-10 11:52 | Emergency (ER) | payer OTHER, SELFPAY ==
[2024-01-10 12:00] VITALS: BP 116/62; PULSE 63; RESP 20; TEMP 36.4; O2SAT 98; BMI 31.2
[2024-01-10 12:02] LABS: Microscopic, Urine URINE MICROSCOPIC (MICROSCOPIC)
--- NOTE | 2024-01-10 12:12 | EXP.UTC ---
Discharge Plan Disposition Patient Disposition: Home, Self-Care Condition: Good Prescriptions Prescriptions: New phenazopyridine 200 mg Tablet 200 mg PO TID 2 Days Qty: 6 0RF nitrofurantoin monohyd/m-cryst [Macrobid] 100 mg Capsule 100 mg PO BID Qty: 10 0RF Rx Instructions: must administer with a meal/food No Action ergocalciferol (vitamin D2) 1,250 mcg (50,000 unit) capsule 50,000 unit PO QWEEK 90 Days Qty: 12 4RF ibuprofen 800 mg tablet 800 mg PO BID Patient Comments: TAKE ONE TABLET BY MOUTH TWICE DAILY --TAKE WITH FOOD-- escitalopram oxalate [Lexapro] 10 mg Tablet 10 mg PO DAILY Referrals Follow up/Referrals: Khalida Marion APRN [Primary Care Provider] - See instructions Activity Restrictions/Add. Instructions Additional Instructions/Restrictions: Drink plenty of fluids. Take tylenol or ibuprofen for pain or fever. Take the medications as directed. Follow up with your regular doctor. GO TO THE ER FOR ANY WORSENING SYMPTOMS The pyridium will make your urine turn orange, this is an expected side effect. It will stain your clothes if it comes into contact with them. We will culture the urine. That will tell what bacteria is causing your infection and which antibiotics will treat it best.This test takes 3 days to complete. Clinical Impressions Clinical Impression: UTI (urinary tract infection) Instructions Patient Instructions: Urine Culture, DI for Urinary Tract Infection (UTI), Phenazopyridine, Nitrofurantoin Print Language Print Language: Panamanian Discharge ED Provider: Shahbaz Strong [facility] General Stated complaint: uti Mode of Arrival: Ambulatory Source of Information: Patient Limitations: No Limitations Time Seen by Provider: 01/10/24 12:12 Description of Symptoms (Recalled from Triage Doc. by RN): PATIENT C/O BURNING AND FREQUENCY WITH URINATION X 3 DAYS HEENT Symptoms (Recalled from RN notes): No Resp Symptoms (Recalled from RN notes): No Skin Symptoms (Recalled from RN notes): No MS Symptoms (Recalled from RN notes): No Functional Status (Recalled from RN notes): WNL Related Data Home Medications ?Medication ?Instructions ?Recorded ?Confirmed escitalopram oxalate 10 mg tablet 10 mg PO DAILY 01/10/24 01/10/24 (Lexapro) ibuprofen 800 mg tablet 800 mg PO BID 01/10/24 01/10/24 Previous Rx's ?Medication ?Instructions ?Recorded ergocalciferol (vitamin D2) 1,250 50,000 unit PO QWEEK Supplement 3 05/13/21 mcg (50,000 unit) capsule months #12 caps nitrofurantoin 100 mg PO BID #10 caps 01/10/24 monohydrate/macrocrystals 100 mg capsule (Macrobid) phenazopyridine 200 mg tablet 200 mg PO TID 2 days #6 tabs 01/10/24 Allergies Allergy/AdvReac Type Severity Reaction Status Date / Time cephalexin Allergy Severe Hives Verified 01/10/24 12:09 Sulfa (Sulfonamide Allergy Unknown Verified 12/27/23 15:54 Antibiotics) allergy reaction Worker's Comp Is this a Worker's Comp case?: No [facility] Disclaimer: The information contained in this section may have been updated after the patient was seen, as this information can be updated by other users. Medical History Asthma Generalized anxiety disorder Stopped smoking with greater than 30 pack year history History of herniated intervertebral disc Hx of osteoporosis History of COVID-19 Seasonal allergic rhinitis Dyspnea on exertion Ex-cigarette smoker Encounter for screening for malignant neoplasm of lung in former smoker who quit in past 15 years with 30 pack year history or greater Shortness of breath Moderate persistent asthma Surgical History History of sinus surgery Status post functional endoscopic sinus surgery History of arthroplasty of right ankle Status post left foot surgery Family History Other FHx: mental illness Hypertension Social History Smoking Status: Former smoker tobacco type: cigarettes packs per day: 1 second hand exposure: Yes alcohol intake: never substance use type: denies use counseling given: No current occupational status: employed Travel in the last 8 weeks: Inside the [place] adopted: No caregiver/support person: No foster care: No household members: none housing: house lives independently: Yes marital status: number of children: 2 number of grandchildren: 4 education level: high school service: No current occupation: [employer] current occupational exposures/hazards: No Hx Recent Travel: No sexually active: No caffeine: Yes physical activity: none sheri/scientology: Mor[employer] special sheri needs: No working smoke detector in home: Yes fire extinguisher in home: Yes carbon monox detector in home: Yes firearms in home: Yes firearms unloaded and locked: Yes do you feel safe at home: Yes victim of physical abuse: No victim of emotional abuse: No victim of sexual abuse: No would you like helpful sources: No ROS Obtained: Yes All systems reviewed & no additional complaints except as documented Constitutional Constitutional: Reports system reviewed and no additional complaints, except as documented, Denies chills and Denies fever(s) Eyes Eyes: Denies eye discharge ENT Ears, Nose, Mouth, and Throat: Denies dysphagia, Denies sore throat and Denies throat swelling Cardiovascular Cardiovascular: Denies chest pain and Denies dyspnea Respiratory Respiratory: Denies chest congestion, Denies cough and Denies dyspnea Gastrointestinal Gastrointestingal: Denies abdominal pain, constipation, diarrhea, dysphagia, nausea or vomiting Genitourinary Female Genitourinary: Reports as per HPI, Reports dysuria, Reports urinary frequency, Denies urinary incontinence, Reports urinary hesitancy and Reports urinary urgency Musculoskeletal Musculoskeletal: Denies arthralgias and Reports back pain Integumentary/Breasts Skin/Breast: Denies rash Neurologic Neurologic: Denies paresthesias Allergic/Immunologic Allergic/Immunologic: Denies throat swelling Physical Exam General General appearance: alert and in no apparent distress Head Head exam: atraumatic and normocephalic Eye Eye exam: Present normal appearance, PERRL and EOMI ENT ENT exam: Present normal exam, mucous membranes moist, TM's normal bilaterally and normal external ear exam Neck Neck exam: Present normal inspection, full ROM and trachea midline; Absent tenderness, meningismus or lymphadenopathy Chest Chest inspection: Present normal inspection and symmetric chest wall rise; Absent tenderness Respiratory Respiratory exam: Present normal lung sounds bilaterally; Absent respiratory distress, wheezes or stridor Cardiovascular Cardiovascular exam: Present regular rate, normal rhythm and normal heart sounds Abdominal Exam Abdominal exam: Present soft and normal bowel sounds; Absent distention, tenderness, guarding, rebound, rigidity, incision, psoas sign, obturator sign, heel tap sign, Nguyen's sign, Rovsing's sign or tenderness at McBurney's Point Extremities Exam Extremities exam: Present normal inspection, full ROM and normal capillary refill; Absent tenderness, edema, joint swelling, calf tenderness or cyanosis Back Exam Back exam: Present normal inspection and full ROM; Absent tenderness, CVA tenderness (R) or CVA tenderness (L) Neurological Exam Neurological exam: Present alert, oriented X3 and normal gait Psychiatric Psychiatric exam: Present normal affect and normal mood Skin Skin exam: Present warm, dry, intact and normal color Lymphatic Lymphatic Findings: no adenopathy Medical Decision Making Medical Records Medical records reviewed: No I reviewed the patient's medical records. Screening: Per USPSTF and CDC recommendations, given the prevalence of disease in our region, it is our hospital?s policy to screen for HIV and viral Hepatitis for all patients aged 18 and over and those with ongoing risk factors. Dinesh Inquiry Pt receiving controlled substance: No Vital Signs: 01/10/24 12:00 Temperature 97.6 F Temperature Source Oral Pulse Rate [Left Brachial] 63 Respiratory Rate 20 Blood Pressure [Left Arm] 116/62 Blood Pressure Mean [Left Arm] 80 Blood Pressure Source [Left Arm] Automatic Cuff Blood Pressure Position [Left Arm] Sitting 02 Sat by Pulse Oximetry 98 Oxygen Delivery Method Room Air Lab Data Lab results reviewed: Yes I reviewed the patient's lab results. Orders (Tests/Meds): ORDERS Category Date Time Status UA [Urinalysis and Microscopic] Stat Lab 01/10/24 11:55 Received
[2024-01-10 12:22] LABS: Appearance,Urine SL CLOUDY (Clear); Blood, Urine TRACE-I (Negative); Color,Urine YELLOW (Yellow); Glucose,Urine (UA) Negative (Negative); Ketones,Urine TRACE (Negative); Leukocyte Esterase,Urine 1+ (Negative); Nitrate,Urine POSITIVE (Negative); Protein,Urine TRACE (Negative); Specific Gravity, Urine >= 1.030 (1.005-1.030); Urobilinogen,Urine 0.2 EU/dl (0.2)
[2024-01-10 12:29] VITALS: BP 116/62; PULSE 63; RESP 20; TEMP 36.4; O2SAT 98
[2024-01-10 12:39] LABS: Bilirubin,Urine 1+ (Negative)
[2024-01-10 12:56] LABS: Bacteria,Urine 1+ /lpf; Transitional Epi Cells,Urine OCC #/lpf (0-3); WBC,Urine 20-50 #/hpf (0-3)
== END 2024-01-10 12:33 | disposition home or self-care (01) ==
PROVIDERS: Emergency Provider Nurse Practitioner Family; PCP Nurse Practitioner Family
DX: N39.0 Urinary tract infection, site not specified (principal)
CPT/HCPCS: 81001; 87086; 87088; 87186; 99213; G0381

== ENCOUNTER 2024-01-31 16:53 | Outpatient (CLI) | payer OTHER, SELFPAY ==
[2024-01-31 16:45] LABS: Microscopic, Urine URINE MICROSCOPIC (MICROSCOPIC)
[2024-01-31 20:24] LABS: Appearance,Urine Clear (Clear); Color,Urine Yellow (Yellow)
[2024-01-31 20:25] LABS: Glucose,Urine (UA) Negative (Negative); Ketones,Urine Negative (Negative); Protein,Urine Trace (Negative); Specific Gravity, Urine 1.025 (1.005-1.030)
[2024-01-31 20:26] LABS: Bilirubin,Urine Negative (Negative); Blood, Urine 1+ (Negative); Nitrate,Urine Negative (Negative)
[2024-01-31 20:27] LABS: Leukocyte Esterase,Urine 2+ (Negative); Urobilinogen,Urine 0.2 EU/dl (0.2)
[2024-01-31 20:48] LABS: Bacteria,Urine 1+ /lpf
== END 2024-01-31 23:59 | disposition home or self-care (01) ==
LOC: LAB.DROPOF 16:54
PROVIDERS: PCP Nurse Practitioner Family; Visit Provider Nurse Practitioner Family
DX: N39.0 Urinary tract infection, site not specified (principal); R39.15 Urgency of urination; R35.0 Frequency of micturition
CPT/HCPCS: 81001; 87086

== ENCOUNTER 2024-03-13 13:00 | Outpatient (CLI) | payer OTHER, SELFPAY ==
[2024-03-13 16:35] LABS: Microscopic, Urine URINE MICROSCOPIC (MICROSCOPIC)
[2024-03-13 16:41] LABS: Appearance,Urine CLEAR (Clear); Bilirubin,Urine Negative (Negative); Blood, Urine 1+ (Negative); Color,Urine YELLOW (Yellow); Glucose,Urine (UA) Negative (Negative); Ketones,Urine Negative (Negative); Leukocyte Esterase,Urine Negative (Negative); Nitrate,Urine Negative (Negative); Protein,Urine Negative (Negative); Specific Gravity, Urine >= 1.030 (1.005-1.030); Urobilinogen,Urine 0.2 EU/dl (0.2)
[2024-03-13 18:16] LABS: Bacteria,Urine 1+ /lpf; WBC,Urine 20-50 #/hpf (0-3)
== END 2024-03-13 23:59 | disposition home or self-care (01) ==
LOC: LAB.DROPOF 03-14 11:07
PROVIDERS: PCP Nurse Practitioner Family; Visit Provider Nurse Practitioner Family
DX: N39.0 Urinary tract infection, site not specified (principal); R35.0 Frequency of micturition
CPT/HCPCS: 81001; 87086

== ENCOUNTER 2024-03-29 13:57 | Outpatient (CLI) | payer OTHER, SELFPAY ==
--- NOTE | 2024-03-29 14:14 | ECG_ITS ---
APPROVED REPORT Exam: Resting ECG HR:67 bpm ECG Measurements Heart Rate 67 AXES WI 148 P 50 QRSd 82 QRS 50 QT 396 T 32 QTc 412 Conclusion SINUS RHYTHM LOW QRS VOLTAGE IN PRECORDIAL LEADS [QRS DEFLECTION < 1.0 mV IN CHEST LEADS] NONSPECIFIC ST & T-WAVE ABNORMALITY BORDERLINE ECG UNCONFIRMED REPORT Electronically signed by : Genaro Rubio MD 03/31/2024 12:23:18
[2024-03-29 14:23] LABS: Basophils # 0.1 K/mm3 (0-0.2); Basophils % 0.6 % (0.1-2.0); Eosinophils # 0.6 K/mm3 (0.0-0.4); Eosinophils % 7.3 % (0.1-12.0); Hematocrit 40.5 % (37.0-47.0); Hemoglobin 13.7 g/dL (12.2-16.2); Lymphocytes # 3.1 K/mm3 (0.7-4.5); Lymphocytes % 39.4 % (10-50); Mean Corpuscular HGB Conc 33.8 g/dL (31.8-35.4); Mean Corpuscular Volume 88.6 fl (81-99); Mean Platelet Volume 9.8 fl (7.4-10.4); Monocytes # 0.6 K/mm3 (0.1-1.0); Monocytes % 8.1 % (1.7-9.3); Neutrophils # 3.5 K/mm3 (1.8-7.8); Neutrophils % 44.5 % (37.0-80.0); Platelet Count 253 K/mm3 (142-424); Red Blood Count 4.57 M/mm3 (4.20-5.40); Red Cell Distribution Width 12.1 % (11.5-17.5); White Blood Count 7.9 K/mm3 (4.8-10.8)
[2024-03-29 14:44] LABS: Albumin Level 3.9 g/dl (3.5-5.0); Chloride 102 mmol/L (98-107); Sodium 138 mmol/L (136-145)
[2024-03-29 14:45] LABS: Potassium 3.6 mmoL/L (3.5-5.1)
[2024-03-29 14:47] LABS: Alanine Aminotransferase 47 U/L (12-78); Albumin/Globulin Ratio 1.6 (1.1-1.8); Alkaline Phosphatase 96 U/L (38-126); Anion Gap 9.6 mEq/L (5-15); Aspartate Amino Transferase 51 U/L (14-36); Bilirubin,Total 0.5 mg/dl (0.2-1.3); Blood Urea Nitrogen 14 mg/dl (7-17); Carbon Dioxide 30 mmol/L (22.0-30.0); Estimated Glomerular Filt Rate 85 ml/min (>60); GFR (African American) 103 ML/MIN (>60); Globulin 2.4 g/dL (1.3-3.2); Total Protein,Serum 6.3 g/dl (6.3-8.2)
[2024-03-29 14:48] LABS: Calcium 9.5 mg/dl (8.4-10.2); Glucose 94 mg/dl (74-100)
[2024-03-29 15:06] LABS: Magnesium 1.6 mg/dl (1.6-2.3)
== END 2024-03-29 23:59 | disposition home or self-care (01) ==
LOC: LAB 13:58
PROVIDERS: Podiatrist; PCP Nurse Practitioner Family; Visit Provider Otolaryngology
DX: D17.23 Benign lipomatous neoplasm of skin and subcutaneous tissue of right leg (principal); Z98.1 Arthrodesis status; M25.471 Effusion, right ankle
CPT/HCPCS: 36415; 80053; 83735; 85025; 93005

== ENCOUNTER 2024-06-19 14:43 | Outpatient (CLI) | payer OTHER, SELFPAY ==
[2024-06-19 14:18] LABS: Alanine Aminotransferase 40 U/L (12-78); Albumin Level 4.4 g/dl (3.5-5.0); Albumin/Globulin Ratio 1.6 (1.1-1.8); Alkaline Phosphatase 102 U/L (38-126); Anion Gap 9.9 mEq/L (5-15); Aspartate Amino Transferase 36 U/L (14-36); Bilirubin,Total 0.6 mg/dl (0.2-1.3); Blood Urea Nitrogen 11 mg/dl (7-17); Calcium 10.4 mg/dl (8.4-10.2); Carbon Dioxide 28 mmol/L (22.0-30.0); Chloride 104 mmol/L (98-107); Estimated Glomerular Filt Rate 102 ml/min (>60); GFR (African American) 123 ML/MIN (>60); Globulin 2.7 g/dL (1.3-3.2); Glucose 92 mg/dl (74-100); Potassium 3.9 mmoL/L (3.5-5.1); Sodium 138 mmol/L (136-145); Total Protein,Serum 7.1 g/dl (6.3-8.2)
[2024-06-19 15:05] LABS: Hemoglobin A1C 5.3 % (4.0-6.0)
== END 2024-06-19 23:59 | disposition home or self-care (01) ==
LOC: LAB.DROPOF 14:43
PROVIDERS: PCP Nurse Practitioner Family; Visit Provider Nurse Practitioner Family
DX: R82.4 Acetonuria (principal)
CPT/HCPCS: 80053; 83036

== ENCOUNTER 2024-07-25 14:30 | Outpatient (CLI) | payer OTHER, SELFPAY ==
--- NOTE | 2024-07-25 14:31 | CT_ITS ---
FINAL REPORT TECHNIQUE: Axial CT images of the chest were obtained without contrast. Low-dose protocol was utilized. This study was performed with techniques to keep radiation doses as low as reasonably achievable (ALARA). Individualized dose reduction techniques using automated exposure control or adjustment of mA and/or kV according to the patient's size were employed. CLINICAL HISTORY: lung cancer screening former smoker x 15 years 2ppd x 25 years COMPARISON: 07/13/2023 FINDINGS: CT CHEST WITHOUT, LOW DOSE SCREENING CT Di Vol: 2.90 mGy DLP: 107.86 mGy*cm There is no significant mediastinal mass or adenopathy. Small sliding-type hiatal hernia is noted. The heart size is normal. There is no pleural or pericardial effusion. The lung windows show a stable 3 mm nodule in the periphery of the left upper lobe on image 23 of series 3. There is also a stable tiny nodule measuring 2-3 mm in the periphery of the left upper lobe on image 29 of series 3 with a 2nd adjacent nodule on image 32 of series 3. An ill-defined density in the posterior right lower lobe measuring 5 mm on image 47 of series 3 is also stable. Limited images of the upper abdomen demonstrate no acute findings. IMPRESSION: Stable bilateral pulmonary nodules as above. LR Category 2: 12 month follow-up low-dose chest CT is recommended per Fleischner criteria. Reviewed, Interpreted and Dictated by Norbert Eugene MD Transcribed by Marisol Vera Authenticated and [facility]
--- OUTSIDE RECORDS SUMMARY | 2024-07-25 14:32 | XMS_ITS | Data Portability ---
Author Organization [place] - [facility] ISRAEL Stoner ADMIN Address [address] [place] [id number] Care Team Providers Care Country Singer Name Role Phone SHUKLA, DYLON Primary Care Provider Assessment Encounter Date Assessment Date Assessment LastModified by Organization Details LastModified Time 06/28/2024 06/28/2024 ASSESSMENT: Meenu Alexandra is a 58-year-old female with symptoms suggestive of overactive bladder (OAB) and a history of a confirmed UTI in February. PLAN: 1. I prescribed oxybutynin XL 10 mg once daily to manage the urgency and frequency symptoms. It may take two to three weeks to notice a difference. 2. I educated the patient on potential side effects, including dry mouth, constipation, and the rare possibility of weakened urine stream. 3. I advised the patient to avoid caffeine, alcohol, and spicy foods as they may irritate the bladder. 4. I recommended a follow-up appointment in four to six weeks to assess the effectiveness of the medication and determine if further evaluation, such as cystoscopy, is needed. 5. I instructed the patient to use AZO for relief if needed but not to take it for more than three days consecutively. [email or web address] Not available 06/28/2024 11:34:49 Plan of Treatment Reminders Order Date Submit Date Provider Last Modified By Organization Details Last Modified Time Details Appointments PROCEDURE 30 2024 01:00P Junior ADAMS MD Not available Not available Not available Lab urinalysi s, dipstick 2024 04 025 [email or web address] [facility], [address], [place], [address], 06/28/2024 11:34:39 Referral None recorded. Procedures bladder scan (PROC) 2024 025 [email or web address] [place] [address], [address] [facility] [address], [place], [address], 06/28/2024 11:34:39 Surgeries None recorded. Imaging None recorded. Medication Orders oxybutyni n chloride ER 10 mg tablet,ex tended release 24 hr 2024 025 [facility], [address], [place], [address], 06/28/2024 11:35:21 Patient TargetsNo targets recorded. Patient InstructionsNo instructions recorded. Reason for Referral None Reported. Results Created Date Observation Date Name Description Value Unit Range Abnormal Flag Note LastModifiedBy Organization Detail LastModifiedTime 06/29/1906/28/2024 urina lysis , dipst ick Leukocytes (reference range) negati ve Not Available [place] [address] [address] [facility] 100, [place], [address], 06/28/2024 11:15:41 06/29/19 25 06/28/2024 urina lysis , dipst ick Nitrite (reference range:) negati ve Not Available [place] [address] [address] [facility] [address], [place], [address], 06/28/2024 11:15:41 06/29/19 25 06/28/2024 urina lysis , dipst ick Urobilinogen (reference range) 0.2 Not Available [place] [address] [address] [facility] [address], [place], [address], 06/28/2024 11:15:41 06/29/19 25 06/28/2024 urina lysis , dipst ick Protein (reference range) negati ve Not Available [place] [address] [address] [facility] [address], [place], [address], 06/28/2024 11:15:41 06/29/19 25 06/28/2024 urina lysis , dipst ick pH (reference range 5-8.5) 6.0 Not Available [facility] [address] [address] [facility] [address], [place], [address], 06/28/2024 11:15:41 06/29/19 25 06/28/2024 urina lysis , dipst ick Blood (reference range:) negati ve Not Available [place] [address] [address] [facility] [address], [place], [address], 06/28/2024 11:15:41 06/29/19 25 06/28/2024 urina lysis , dipst ick Specific [place] (reference range) 1.015 Not Available [facility] [place] [address] [address] [facility] [address], [place], [address], 06/28/2024 11:15:41 06/29/19 25 06/28/2024 urina lysis , dipst ick Ketone (reference range) negati ve Not Available [place] [address] [address] [facility] [address], [place], [address], 06/28/2024 11:15:41 06/29/19 25 06/28/2024 urina lysis , dipst ick Bilirubin (reference range) negati ve Not Available [place] [address] [address] [facility] [address], [place], [address], 06/28/2024 11:15:41 06/29/19 25 06/28/2024 urina lysis , dipst ick Glucose (reference range) negati ve Not Available [place] [address] [address] [facility] [address], [place], [address], 06/28/2024 11:15:41 06/29/19 25 06/28/2024 urina lysis , dipst ick Color (reference range: yellow-brown ) Yellow Not Available [facility] [address], [place], [address], 06/28/2024 11:15:41 06/29/19 25 06/28/2024 bladd er scan (PROC ) Calculated Residual Urine: 53ml Not Available [facility], [place], [address], 06/28/2024 11:15:31 Result Notes None recorded. Problems Name Problem SNOMED Code Status Onset Date Resolution Date Notes Provider Name and Address Organization Details Recorded Time Asthma - currently active 228645333 Active 025 Anahy Crase null, [place] - [facility] - [place] & [place] 15:11:04 Urgent desire to urinate 71245286 Active 025 Anahy Crase null, [place] - [facility] [place] 15:11:30 Increased frequency of urination 097443076 Active 025 TIM ADAMS MD [address], [facility], [place], [address] , [place] - [facility] - [place] & [place] 11:34:21 Problem Notes None recorded. Procedures Surgical History Date Name Laterality Status Provider Name and Address Organization Details Recorded Time operation on accessory sinus completed Anahy Crase [place] - [facility] - [place] & [place] 06/27/2024 15:12:52 arthroplasty of right ankle completed Anahy Crase [place] - [facility] [place] & [place] 06/27/2024 15:13:29 procedure on foot completed Anahy Crase [place] - [facility] [place] & [place] 06/27/2024 15:13:48 Imaging Results None recorded. Procedure Notes None recorded. Medical Equipment None Reported. Allergies Allergen ID Allergen Name Allergen Category Reaction Reaction Severity Criticality Documentation Date Start Date Code Code System Note Provider Name and Address Organization Details Recorded Time 177805 cephalexi n medicatio n hives Not available Not available 06/27/2024 2231 RxNorm Anahy Crase null, [place] - [facility] [place] 15:10:33 285103 Substance with sulfonami de structure and antibacte rial mechanism of action (substanc e) medicatio n Not available Not available Not available 06/27/2024 46124 8003 SNOMED [facility] [place] 15:10:43 Medications Name Sig Start Date Stop Date Status Note LastModified by Organization Details LastModified Time doxycycline hyclate 100 mg capsule TAKE ONE CAPSULE BY MOUTH TWICE DAILY FOR 10 DAYS -- FINISH ALL MEDICINE -- active Not Available Not Available Not Available oxybutynin chloride ER 10 mg tablet,exten ded release 24 hr TAKE 1 TABLET BY MOUTH ONCE DAILY active Not Available Not Available No t Available azithromycin 250 mg tablet TAKE 2 TABLETS BY MOUTH ON DAY 1, THEN TAKE 1 TABLET DAILY ON DAYS 2-5 active Not Available Not Available No t Available ibuprofen 800 mg tablet TAKE ONE TABLET BY MOUTH TWICE DAILY --TAKE WITH FOOD-- active Not Available Not Available No t Available phenazopyrid ine 200 mg tablet TAKE ONE TABLET BY MOUTH EVERY 8 HOURS FOR 2 DAYS MAY CAUSE DISCOLORATI ON OF URINE active Not Available Not Available Not Available phentermine 15 mg capsule TAKE ONE CAPSULE BY MOUTH EVERY DAY 2 hours AFTER breakfast active Not Available Not Available No t Available ciprofloxaci n 500 mg tablet TAKE ONE TABLET BY MOUTH EVERY TWELVE HOURS -- FINISH ALL MEDICINE -- active Not Available Not Available Not Available tramadol 50 mg tablet TAKE ONE TABLET BY MOUTH EVERY 4 TO 6 HOURS NEEDED FOR PAIN active Not Available Not Available No t Available hydrocodone 7.5 mg-acetamino phen 325 mg tablet TAKE ONE TABLET BY MOUTH EVERY 6 TO 8 HOURS NEEDED FOR PAIN MAY CAUSE DROWSINESS active Not Available Not Available N ot Available neomycin-theodore ymyxin-dexam eth 3.5 mg/mL-10,000 unit/mL-0.1% eye drops INSTILL 1 DROP INTO AFFECTED EYE(S) INTO LEFT EYE 4 TIMES DAILY FOR 5 DAYS active Not Available Not Available N ot Available azelastine 137 mcg (0.1 %) nasal spray INSTILL 2 SPRAYS TWICE DAILY in each nostril active Not Available Not Available No t Available fluticasone 100 mcg-salmeter ol 50 mcg/dose blistr powdr for inhalation INHALE 1 PUFF BY MOUTH TWICE DAILY NEEDED FOR SHORTNESS OF BREATH OR wheezing active Not Available Not Available Not Available levofloxacin 500 mg tablet TAKE ONE TABLET BY MOUTH ONCE DAILY FOR 5 DAYS -- FINISH ALL MEDICINE -- active Not Available Not Available Not Available levofloxacin 750 mg tablet TAKE ONE TABLET BY MOUTH DAILY FOR 10 DAYS -- FINISH ALL MEDICINE -- active Not Available Not Available Not Available methylpredni solone 4 mg tablets in a dose pack TAKE ACCORDING TO PACKAGE INSTRUCTION S --TAKE WITH FOOD-- -- FINISH ALL MEDICINE -- active Not Available Not Available Not Available albuterol sulfate HFA 90 mcg/actuatio n aerosol inhaler INHALE 1 PUFF BY MOUTH EVERY 6 HOURS NEEDED FOR SHORTNESS OF BREATH OR WHEEZING active Not Available Not Available Not Available ondansetron 4 mg disintegrati ng tablet DISSOLVE ONE TABLET UNDER THE TONGUE EVERY 8 HOURS NEEDED FOR NAUSEA active Not Available Not Available No t Available escitalopram 10 mg tablet TAKE ONE TABLET BY MOUTH EVERY DAY FOR depression active Not Available Not Available N ot Available escitalopram 5 mg tablet TAKE ONE TABLET BY MOUTH DAILY active Not Available Not Available Not Available nitrofuranto in monohydrate/ macrocrystal s 100 mg capsule TAKE 1 CAPSULE BY MOUTH TWICE DAILY FOR 5 DAYS active Not Available Not Available No t Available topiramate XR 25 mg capsule,exte nded release 24 hr TAKE ONE CAPSULE BY MOUTH EVERY DAY active Not Available Not Available No t Available Breo Ellipta 200 mcg-25 mcg/dose powder for inhalation INHALE 1 PUFF BY MOUTH EVERY DAY active Not Available Not Available No t Available Vitals Date Recorded Body weight Oxygen saturation Oxygen saturation in Arterial blood by Pulse oximetry Heart rate Systolic blood pressure Diastolic blood pressure Provider Name and Address Organization Details Last Updated DateTime 5 54210.6 4 g 96 % 96 % 59 /min 110 mm[Hg] 78 mm[Hg] [facility] [place] 11:15:13 Social History Question Answer Notes LastModified by Organizat ion Details LastModified Time Tobacco Smoking Status Former Smoker Yary albrecht, [facility]VETTE [facility] [place] 06/28/2024 11:03:07 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 No Information not available 06/28/2024 Has Tobacco Cessation Counseling Been Provided? No Information not available 06/28/2024 Do You Or Have You Ever Used Any Other Forms Of Tobacco Or Nicotine? No Information not available 06/28/2024 Sex: Female Functional Status None recorded. Mental Status None recorded. Family History Nothing Reported. Medical History No medical history recorded. Gynecological HistoryNo gynecological history recorded. Obstetrics History GPAL:G 0 P 0 0 0 0 Past Encounters Encounter ID Performer Location Encounter Start Date Encounter Closed Date Diagnosis/Indication Diagnosis SNOMED-CT Code Diagnosis ICD10 Code Diagnosis Note [id number] TIM ADAMS MD [facility] [facility] [address] [place] [address] 06/28/2024 10:47:52 06/28/2024 11:41:22 Increased frequency of urination 466963795 R35.0 Urgent rossy dewayne to urinate 77873280 R39.15 Health Concerns Section Related Observation LastModified by Organization Detai ls LastModified Time None Recorded Concern Status LastModified by Organization Details LastModified Time None Recorded Advance Directives Directive None Recorded Payers Encounter Date Sequence Insurance Name Policy Number Policy Flores Covered Member ID Flroes Member ID Guarantor Name 06/28/2024 1 [facility] [id number] Meenu Alexandra [id number] Meenu Alexandra Notes Date Note Type Note Provider Name and Address Organization Details Recorded Time 06/28/2024 text/html 06/28/24 [id number] referred to my office for recurrent UTIs and urgency of urination.Meenu Alexandra is a 58-year-old female who presents for a new patient visit. She reports experiencing symptoms that began on 01/18. Initially, she thought she had a urinary tract infection (UTI) due to constant urgency but without burning or pain. She experienced a fever once. At the end of urination, she sometimes feels a sharp pain in the urethra. She has been on various medications, but no bacteria were found in her urine until 03/20, when a UTI was confirmed. Subsequent tests showed no bacterial growth. She has been using AZO [id number], which she believes helps, although it may affect urine test results. Meenu had a sling and ablation procedure performed by Dr. Moore in 04/2008. She gets up three to four times at night to urinate, a symptom that started in December. She has no blood in her urine and has a history of smoking, having quit 15 years ago after smoking for 28 years at a rate of one and a half packs per day. She has no family history of bladder, kidney, ovarian, or uterine cancers. Her bowel movements are normal without chronic constipation. TIM ADAMS MD [address], [place], [address], [facility] - [place] & [place] 06/29/2024 07:45:52 OBGyn Episode No OBEpisode recorded.
--- OUTSIDE RECORDS SUMMARY | 2024-07-25 14:32 | XMS_ITS | Data Portability ---
Author Organization [facility], [facility] Address [address] [place] [address] Care Team Providers Care Welder Tack Name Role Phone SHUKLA DYLON Primary Care Provider [phone] Assessment Encounter Date Assessment Date Assessment LastModified by Organization Details LastModified Time 04/06/2024 04/06/2024 PREOPERATIVE DIAGNOSIS: Chronic pansinusitis. POSTOPERATIVE DIAGNOSIS: Chronic pansinusitis. PROCEDURES: Image-guided functional endoscopic sinus surgery with nasal endoscopy and bilateral total ethmoidectomy, nasal endoscopy and bilateral sphenoidotomies, nasal endoscopy and bilateral frontal sinusotomies, nasal endoscopy and bilateral maxillary antrostomies, and removal of antral mucosal disease with hydrodebridement to the frontal, maxillary, and sphenoid sinuses bilaterally. ANESTHESIA: General. COMPLICATIONS: None. INDICATIONS: The patient is a 58-year-old with chronic sinusitis unresponsive to medical therapy and history of previous endoscopic sinus surgery in the past. The above was recommended, and informed consent obtained. FINDINGS: Inflammatory polyp disease obstructing the nasofrontal tract, maxillary sinus, sphenoid recess, and sphenoid ostium bilaterally. She had purulent material in the left maxillary sinus that was appropriate to culture. OPERATIVE NOTE: The patient was brought to the operating room and after adequate general anesthesia, the nose was prepped and draped in the usual sterile fashion and 1% lidocaine with epinephrine used to locally infiltrate the septum and middle meatuses. Next, the image-guided system was calibrated and then used throughout the case. Using a 0-degree sinus endoscope, the right middle meatus was medialized, middle turbinate was medialized and then revision complete ethmoidectomy performed using image guidance and a microdebrider to clear diseased polypoid mucosa in the anterior and posterior ethmoid. Dissection performed up to the skull base and back to the face of the sphenoid, and laterally to the medial orbital wall. The sphenoid recess was then identified with image guidance and cleared of obstructing polyp disease till the sphenoid sinus was well aerated, the sphenoid ostium was enlarged. A hydrodebrider was employed to irrigate the sphenoid sinus. The nasofrontal tract was then identified with image guidance and cleared of obstructing polyp disease till the frontal sinus was well aerated and then hydrodebridement again performed in the nasofrontal tract and frontal sinus. The natural ostium to the maxillary sinus on the right side was enlarged and cleared of obstructing polyp disease till the maxillary sinus was well aerated and hydrodebridement performed to the right maxillary sinus. Novapak was placed in the right middle meatus and attention drawn to the left side in similar fashion. Image-guided complete ethmoidectomy was performed, clearing the anterior and posterior ethmoid of obstructing polyp disease working back to the face of the sphenoid, superiorly to the skull base, and laterally to the medial orbital wall. The sphenoid recess was explored and cleared of obstructing polyp disease and the sphenoid ostium enlarged with microdebrider and sphenoid punch and then hydrodebridement of the sphenoid sinus on the left side was performed. The nasofrontal tract was then identified with image guidance and cleared of obstructing polyp disease till the frontal sinus was well aerated and then hydrodebridement of the frontal sinus was again performed. Purulent material in the left maxillary sinus was cultured, and the maxillary sinus was cleared of obstructing polyp disease and some of the purulent polyp material from within the left maxillary sinus was also sent for culture. Hydrodebridement of the left maxillary sinus was performed. Novapak was placed in the left middle meatus, and the procedure was concluded. All counts correct, blood loss was less than 100 mL, and the patient was sent to recovery room in stable condition. [email or web address] Not available 04/09/2024 15:18:15 Plan of Treatment Reminders Order Date Submit Date Provider Last Modified By Organization Details Last Modified Time Details Appointments None recorded. Lab None recorded. Referral None recorded. Procedures None recorded. Surgeries None recorded. Imaging None recorded. Medication Orders Compound Gentamicin 80 mg - Mupirocin 20 mg - Budesonide 1 mg capsules #60 2024 025 [facility], [address], [place], [place], [id number], 5 16:51:49 doxycycline hyclate 100 mg capsule 2024 025 [facility], [address] [place] [address] [place], [id number], 5 16:31:41 Medrol (Andres) 4 mg tablets in a dose pack 2024 025 [facility], [address] [place] [address] [address] Pal[place]anie [place], [id number], 5 16:31:44 doxycycline hyclate 100 mg capsule [address], [address] [place] [address] [address] [place], [id number], 5 16:17:17 Medrol (Andres) 4 mg tablets in a dose pack [address], [address] [place] [address] [address] Palomo[place]Dereck [place], [id number], 5 16:17:38 Patient TargetsNo targets recorded. Patient Instructions Encounter Date Encounter Id Patient Instructions Last Modified By Organization Details Last Modified Time 02/15/2024 [id number] 1. Visit today i s being conducted via telehealth using both audio/video. The patient confirms that he/she is physically located in [place] at the time of this visit. Patient expressed understanding of audio/video telehealth as a billable visit and has consented. Patient also expressed understanding that not every condition can be appropriately addressed via telehealth and that this telehealth visit may need to be converted to an in-person visit or may even result in a recommendation to go to the E.R. at the provider? s discretion in order to provide the best possible care. 2. Rx- Doxycycline 100 3. Rx- Medrol pack 4. F/U in 4-5 weeks tele [place] Not available 02/15/2024 08:42:47 She has chronic pansinusitis on recent CT unresponsive to medical therapy and has previous history of endoscopic sinus surgery with recurrence of chronic infection and polyp disease. She may have allergic fungal sinusitis. She is scheduled for revision image guided functional endoscopic sinus surgery to the frontal, ethmoid, maxillary, and sphenoid sinuses in March. I am placing her on doxycycline and a Medrol Dosepak and I will do another telehealth visit in 4 to 5 weeks and repeat her antibiotics and steroids heading into surgery if necessary. We have discussed surgery in detail along with risks benefits and alternatives and she wishes to proceed. Not available 02/15/2024 08:41:45 04/16/2024 [id number] 1. Nasal Endosco py performed in office today. Full risks, complications, and benefits of non-operative intervention have been thoroughly discussed. Understanding was expressed, informed consent given, and we will proceed with the discussed operative treatment plan. There were no questions for me at the end of the office visit. 2. Rx - Compound Gentamicin 80 mg - Mupirocin 20 mg - Budesonide 1 mg capsules #60 3. F/U as directed [place] Not available 04/16/2024 16:47:54 She is doing reasonably well after revision endoscopic sinus surgery and intraoperative cultures are sterile. Nevertheless, I think she had significant chronic sinusitis particularly in the right maxillary sinus. Nasal endoscopic debridement was performed and middle meatuses are healing nicely. I am starting gentamicin mupirocin and budesonide irrigations twice daily and I will see her back in 1 month for repeat nasal endoscopic exam. I still think there is some hope that she will regain her sense of smell Not available 04/16/2024 16:48:14 Reason for Referral None Reported. Results Created Date Observation Date Name Description Value Unit Range Abnormal Flag Note LastModifiedBy Organization Detail LastModifiedTime 04/06/19 25 04/11/2024 AEROB E/MYRNA EROBE CULTU RE routine culture, quest MICRO NUMBE R: [id number] SPECI MEN QUALI TY: Adequ ate SOURC E: TISSU E STATU S: FINAL RESUL T: No Growt h Not Available [facility] [address] [place], [address], 04/14/2024 12:22:15 04/06/19 25 04/14/2024 AEROB E/MYRNA EROBE CULTU RE anaerobe culture MICRO NUMBE R: [id number] SPECI MEN QUALI TY: Adequ ate SOURC E: TISSU E STATU S: FINAL GRAM STAIN : No epith elial cells seen No white blood cells seen No organ isms seen RESUL T: No anaer obes isola amirah. Not Available [facility] [address] [place] [address], [address], 04/14/2024 12:22:15 04/06/19 25 04/11/2024 AEROB E/MYRNA EROBE CULTU RE routine culture, quest MICRO NUMBE R: [id number] SPECI MEN QUALI TY: Adequ ate SOURC E: SW STATU S: FINAL RESUL T: Growt h of skin surya (note : Growt h does not inclu de S. aureu s, beta- hemol ytic Strep tococ ci or P. aerug inosa ). Not Available [facility] [address] [place], [address], 04/14/2024 12:21:58 04/06/19 25 04/14/2024 AEROB E/MYRNA EROBE CULTU RE anaerobe culture MICRO NUMBE R: [id number] SPECI MEN QUALI TY: Adequ ate SOURC E: SW STATU S: FINAL GRAM STAIN : No epith elial cells seen Few Polym orpho nucle ar leuko cytes No organ isms seen RESUL T: No anaer obes isola amirah. Not Available [facility] [address] [place], [address], 04/14/2024 12:21:58 04/06/19 25 04/06/2024 SURGI BIJU surgical SEE BELOW normal Surgi biju Patho logy Repor t NAME: DIANE MORRISSEY SA PATH: [id number] DATE of : 08/15 1 Copy to: Diagn osis: A) Right sinus charlie nts: Chron ic polyp oid sinus itis with mixed infla mmati on (lymp hocyt es, plasm a cells and eosin ophil s). B) Left sinus charlie nts: Chron ic polyp oid sinus itis with mixed infla mmati on (lymp hocyt es, plasm a cells and eosin ophil s). SOURC E OF SPECI MEN: SINUS CHARLIE NTS, RIGHT SINUS CHARLIE NTS, LEFT CLINI BIJU INFOR MATIO N: CHRON IC SINUS ITIS J 32.9 Gross Descr iptio n: A) Patie nt name and date of verif ied. Recei gerald in forma morgan label ed with the patie nt's name and desig nated righ t sinus charlie nts are multi ple pink- zavala tissu e fragm ents admix ed with possi ble carti seferino and bone, which have aggre gate dimen sions of 2.0 x 1.5 x 0.5 cm. Entir xenia submi tted in one casse tte label ed A1 after decal cific ation . B) Patie nt name and date of verif ied. Recei gerald in forma morgan label ed with the patie nt's name and desig nated left sinus charlie nts are multi ple pink- zavala tissu e fragm ents admix ed with possi ble carti seferino and bone, which have aggre gate dimen sions of 1.5 x 1.0 x 0.3 cm. Entir xenia submi tted in one casse tte label ed B1 after decal cific ation . MT 04/06 03:34 PM Micro scopi c Descr iptio n: A micro scopi c exami natio n has been perfo rmed and the resul t(s) are as noted above . YSABEL CONKLIN M.D. Jyotsna pink Out Date: 04/09 15:12 Page 1 of 1 Not Available [facility] [address] [place] [address], [place], [address], 04/09/2024 15:12:46 04/06/1905/07/2024 FUNGA L CULTU RE fungal culture MICRO NUMBE R: [id number] SPECI MEN QUALI TY: Adequ ate SOURC E: TISSU E STATU S: FINAL SMEAR : No funga l eleme nts seen. CULTU RE: No funga l growt h at 4 Weeks Not Available [facility] [address] [facility], [place], [address], 05/07/2024 10:42:37 04/05/1904/06/2024 elect gordon diogr am No observ ation record ed. Not Available 04/05 14:35:15 Result Notes None recorded. Procedures Surgical History Date Name Laterality Status Provider Name and Address Organization Details Recorded Time Endoscopy Nasal; Biospy, Polypectomy or Debridement completed Ragini Pelayo [facility] 04/16/2024 16:46:29 Imaging Results Imaging Date Name Status LastModified by Organization Details LastModified Time 04/06/2024 electrocardiogram completed Informa tion not available 04/05/2024 14:35:15 Procedure Notes None recorded. Medical Equipment None Reported. Allergies Allergen ID Allergen Name Allergen Category Reaction Reaction Severity Criticality Documentation Date Start Date Code Code System Note Provider Name and Address Organization Details Recorded Time 207382 Substance with sulfonami de structure and antibacte rial mechanism of action (substanc e) medicatio n Not available Not available Not available 02/20/20162006 65325 8003 SNOMED Comme nt: Creat ed By: Kd macario Date: 01/11 3:04: 00 PM; Not Available [facility] 6 05:11:17 195865 Medicinal product containin g cephalosp devin and acting as antibacte rial agent (product) medicatio n Not available Not available Not available 04/09/2024 19049 9009 SNOMED patie nt conta cted offic e to corre ct aller gies 04/09 Cara albrecht [facility] 16:16:43 017280 cephalexi n medicatio n Not available Not available Not available 04/16/2024 2231 RxNorm Cara Damico YVETTE albrecht [facility] 16:17:01 Medications Name Sig Start Date Stop Date Status Note LastModified by Organization Details LastModified Time Compound Gentamici n 80 mg - Mupirocin 20 mg - Budesonid e 1 mg capsules #60 Empty contents of 1 capsule into irrigati on device, add distille d water, irrigate twice daily 2024 active Not Available Not Available Not Avai lable gentamici n mupirocin budesonid e (dispersa pro) 80mg 20mg 1mg capsule # Empty contents of 1 capsule into irrigati on device, add distille d water, irrigate twice daily active Not Available Not Available No t Available doxycycli ne hyclate 100 mg capsule Take 1 capsule twice a day by oral route for 10 days. 04/16 completed Not Available Not Available Not Available Neurontin 300 mg capsule Every twelve hours 02/14 completed Frequenc y: q12h;Med ication Descript ion: gabapent in; Dosage:1 ; Route:or al; refills: 5 Not Available Not Available Not Available azithromy cierra 250 mg tablet TAKE 2 TABLETS BY MOUTH ON DAY 1, THEN TAKE 1 TABLET DAILY ON DAYS 2-5 02/14 completed Not Available Not Available Not Available ibuprofen 800 mg tablet TAKE ONE TABLET BY MOUTH TWICE DAILY --TAKE WITH FOOD-- active Not Available Not Available No t Available phenazopy ridine 200 mg tablet TAKE ONE TABLET BY MOUTH EVERY 8 HOURS FOR 2 DAYS MAY CAUSE DISCOLOR ATION OF URINE 04/16 completed Not Available Not Available Not Available Medrol (Andres) 4 mg tablets in a dose pack Take 1 dose pk by oral route. 04/16 completed Not Available Not Available Not Available phentermi ne 15 mg capsule TAKE ONE CAPSULE BY MOUTH EVERY DAY, must take 2 hours AFTER breakfas t active Not Available Not Available No t Available ciproflox acin 500 mg tablet TAKE ONE TABLET BY MOUTH EVERY TWELVE HOURS -- FINISH ALL MEDICINE -- active Not Available Not Available No t Available tramadol 50 mg tablet TAKE ONE TABLET BY MOUTH EVERY 4 TO 6 HOURS NEEDED FOR PAIN 02/14 completed Not Available Not Available Not Available hydrocodo ne 7.5 mg-acetam inophen 325 mg tablet TAKE ONE TABLET BY MOUTH EVERY 6 TO 8 HOURS NEEDED FOR PAIN MAY CAUSE DROWSINE SS 04/16 completed Not Available Not Available Not Available cephalexi n 500 mg capsule Take 1 capsule 3 times a day by oral route for 7 days. 04/16 completed Not Available Not Available Not Available neomycin- polymyxin -dexameth 3.5 mg/mL-10, 000 unit/mL-0 .1% eye drops INSTILL 1 DROP INTO AFFECTED EYE(S) INTO LEFT EYE 4 TIMES DAILY FOR 5 DAYS 02/14 completed Not Available Not Available Not Available Neurontin 100 mg capsule As Directed 02/14 completed Duration : 30 days;Ins truction s: Begin 1 cap bid and 2 caps qhs; q3-5d as tolerate d ^ by 1 cap per dose until taking 3 caps tid;Freq uency: as direct.; Medicati on Descript ion: gabapent in; Dosage:a s directed ; Route:or al; refills: 6; Quantity :270 capsule Not Available Not Available Not Available azelastin e 137 mcg (0.1 %) nasal spray INSTILL 2 SPRAYS TWICE DAILY in each nostril active Not Available Not Available No t Available fluticaso ne 100 mcg-salme terol 50 mcg/dose blistr powdr for inhalatio n INHALE 1 PUFF BY MOUTH TWICE DAILY NEEDED FOR SHORTNES S OF BREATH OR wheezing active Not Available Not Available No t Available levofloxa cierra 500 mg tablet TAKE ONE TABLET BY MOUTH ONCE DAILY FOR 5 DAYS -- FINISH ALL MEDICINE -- 02/14 completed Not Available Not Available Not Available levofloxa cierra 750 mg tablet TAKE ONE TABLET BY MOUTH DAILY FOR 10 DAYS -- FINISH ALL MEDICINE -- 02/14 completed Not Available Not Available Not Available albuterol sulfate HFA 90 mcg/actua tion aerosol inhaler INHALE 1 PUFF BY MOUTH EVERY 6 HOURS NEEDED FOR SHORTNES S OF BREATH OR WHEEZING active Not Available Not Available No t Available ondansetr on 4 mg disintegr ating tablet DISSOLVE ONE TABLET UNDER THE TONGUE EVERY 8 HOURS NEEDED FOR NAUSEA 04/16 completed Not Available Not Available Not Available fluticaso ne propionat e 50 mcg/actua tion nasal spray,lee pension instill 2 SPRAYS IN EACH NOSTRIL EVERY DAY active Not Available Not Available No t Available escitalop rush 10 mg tablet TAKE ONE TABLET BY MOUTH EVERY DAY FOR depressi on 02/14 completed Not Available Not Available Not Available escitalop rush 5 mg tablet TAKE ONE TABLET BY MOUTH DAILY 02/14 completed Not Available Not Available Not Available Capsule #1 capsule active Not Available Not Available Not Available nitrofura ntoin monohydra te/macroc rystals 100 mg capsule TAKE ONE CAPSULE BY MOUTH TWICE DAILY WITH FOOD 04/16 completed Not Available Not Available Not Available ibandrona te 150 mg tablet TAKE ONE TABLET BY MOUTH ONCE EVERY MONTH active Not Available Not Available No t Available hydrochlo rothiazid e 12.5 mg tablet TAKE ONE TABLET BY MOUTH EVERY DAY 02/14 completed Not Available Not Available Not Available Vitamin D2 active Not Available Not Available Not Available topiramat e XR 25 mg capsule,e xtended release 24 hr TAKE ONE CAPSULE BY MOUTH EVERY DAY active Not Available Not Available No t Available Vitals Date Recorded Body height Body mass index (BMI) Body weight Provider Name and Address Organization Details Last Updated DateTime 02/15/2024 157.48 cm 31.1 kg/m2 23859.7 g Hardy Chaparro [facility] 02/15/2024 08:13:18 Date Recorded Body height Body mass index (BMI) Body weight Body temperature Heart rate Systolic blood pressure Diastolic blood pressure Provider Name and Address Organization Details Last Updated DateTime 157.48 cm 32.6 kg/m2 62895.5 4 g 97.6 [degF] 63 /min 128 mm[Hg] 85 mm[Hg] Cara Damico [facility] 16:15:02 Social History None recorded. Functional Status None recorded. Mental Status None recorded. Family History Nothing Reported. Medical History Condition Response Kidney Stones N Hyperthyroidism N Heart Arrhythmia N Emphysema N Esophagus/swallowing troubles N Glaucoma N Lung Disease N Depression N Hypothyroidism N Anesthesia Complications N Anxiety Disorder N Hearing Loss N Arthritis N Acid Reflux (GERD) N Cancer N Stroke N Hoarseness N Alcohol Overuse/Alcohol Abuse N High Cholesterol N Liver Disease N Snoring problems N Headaches N Kidney Disease N Allergies/Hayfever N Heart Problems N Mental handicap N Ear or Hearing Problems N Gallbladder Disease N Migraines N Thyroid Problems N Goiter N Anemia N Immune System Disorder N Chest Pain N Stomach trouble N Heart Attack (IA) N Ulcers N Diabetes N Rheumatic Fever N Bleeding Disorder N Tuberculosis N AIDS/HIV N Hyperlipidemia N Asthma N Epilepsy/Seizures N Sleep Disorder N Hepatitis N Heart Disease N Hypertension N Gynecological HistoryNo gynecological history recorded. Obstetrics History GPAL:G 0 P 0 0 0 0 Past Encounters Encounter ID Performer Location Encounter Start Date Encounter Closed Date Diagnosis/Indication Diagnosis SNOMED-CT Code Diagnosis ICD10 Code Diagnosis Note [id number] MD YVETTE [facility]SA[facility] [address] [place] [address] 02/15/2024 08:10:25 02/15/2024 08:43:37 Chronic sinusitis 87999247 J32.9 Chronic rhinitis 4757841 6 J31.0 [id number] CYNDY HERNANDEZ MD SURGERY SCHEDULE [address] [place] [address] 04/06/2024 08:40:02 04/06/2024 08:40:42 Chronic sinusitis 88962344 J32.9 Chronic rhinitis 4705206 6 J31.0 [id number] CYNDY HERNANDEZ MD [place] [facility] [address] [place] [address] 04/16/2024 14:27:35 04/16/2024 16:54:04 Chronic sinusitis 92341047 J32.9 04/06/24 s/p Image-guid ed functional endoscopic sinus surgery and bilateral total ethmoidect charlie, bilateral sphenoidot omies, bilateral frontal sinusotomi es, bilateral maxillary antrostomi es, and removal of antral mucosal disease with hydrodebri robbin to the frontal, maxillary, and sphenoid sinuses bilaterall y performed by DR. HERNANDEZ 04/16/24 - endo debridemen t of bilateral nasal cavities, healing nicely; Rx - COMPOUND sinus rinse Chronic rhinitis 8509770 6 J31.0 Loss of se nse of smell 15598026 R43.0 Health Concerns Section Related Observation LastModified by Organization Detai ls LastModified Time None Recorded Concern Status LastModified by Organization Details LastModified Time None Recorded Advance Directives Directive None Recorded Payers Encounter Date Sequence Insurance Name Policy Number Policy Flores Covered Member ID Flores Member ID Guarantor Name 02/15/2024 1 [employer] [id number] Meenu Alexandra [id number] Meenu Alexandra 04/06/2024 1 [employer] [id number] Meenu Alexandra [id number] Meenu Alexandra 04/16/2024 1 [employer] [id number] Meenu Alexandra [id number] Meenu Alexandra Notes Date Note Type Note Provider Name and Address Organization Details Recorded Time 02/15/2024 text/html Meenu Visit to day is being conducted via telehealth using both audio/video. The patient confirms that he/she is physically located in [place] at the time of this visit. Patient expressed understanding of audio/video telehealth as a billable visit and has consented. Patient also expressed understanding that not every condition can be appropriately addressed via telehealth and that this telehealth visit may need to be converted to an in-person visit or may even result in a recommendation to go to the E.R. at the provider? s discretion in order to provide the best possible care. Pt states that her last visit was about 6 weeks ago. Pt states that she is not able to breath through her nose daily. Pt states that sometimes when she goes outside she can feel like her sinus open up. CYNDY HERNANDEZ MD [address] [place] [address], [address], [facility] 02/15/2024 12:40:15 04/06/2024 text/html Meenu Visit to day is being conducted via telehealth using both audio/video. The patient confirms that he/she is physically located in [place] at the time of this visit. Patient expressed understanding of audio/video telehealth as a billable visit and has consented. Patient also expressed understanding that not every condition can be appropriately addressed via telehealth and that this telehealth visit may need to be converted to an in-person visit or may even result in a recommendation to go to the E.R. at the provider? s discretion in order to provide the best possible care. Pt states that her last visit was about 6 weeks ago. Pt states that she is not able to breath through her nose daily. Pt states that sometimes when she goes outside she can feel like her sinus open up. MD Tomás TSAI1 [place], [address], [facility] 04/12/2024 15:07:36 04/16/2024 text/html Meenu comes in today for a POFU s/p Image-guided functional endoscopic sinus surgery and bilateral total ethmoidectomy, bilateral sphenoidotomies, bilateral frontal sinusotomies, bilateral maxillary antrostomies, and removal of antral mucosal disease with hydrodebridement to the frontal, maxillary, and sphenoid sinuses bilaterally on 04/06/24. Meenu reports that she is doing fine after surgery. She had a mix-up with her post-op antibiotics, but that has been resolved. Nothing abnormal showed up on the path report. She continues to be unable to smell. MD Tomás TSAI1 [place], [address], [facility] 04/16/2024 16:48:30 OBGyn Episode No OBEpisode recorded.
--- OUTSIDE RECORDS SUMMARY | 2024-07-25 14:32 | XMS_ITS | Continuity of Care Document ---
Author Organization [facility] Address [address] [facility] [address] [place] [address] Care Team Providers Care Technology Sales Specialist Name Role Phone DYLON SHUKLA Primary Care Provider [phone] Assessment Encounter Date Assessment Date Assessment LastModified [...] Time Details Appointments PROCEDURE 30 2024 01:00P M TIM ADAMS MD Not available Not available Not available Lab urinalysi s, dipstick 2024 025 [email or web address] [facility], [address] [facility] [address], [place], [address], 06/28/2024 11:34:39 Referral None recorded. Procedures bladder scan (PROC) 2024 025 [email or web address] [place] [address], [address] [facility] [address], [place], [address], 06/28/2024 11:34:39 Surgeries None recorded. Imaging None recorded. Medication Orders oxybutyni n chloride ER 10 mg tablet,ex tended release 24 hr 2024 025 [facility] 591, [address], [address], 06/28/2024 11:35:21 Patient TargetsNo targets recorded. Patient InstructionsNo instructions recorded. Reason for Referral None Reported. Results Created Date Observation Date Name Description Value Unit Range Abnormal Flag Note LastModifiedBy Organization Detail LastModifiedTime 06/29/19 25 06/28/2024 urina lysis , dipst ick Leukocytes (reference range) negati ve Not Available [place] [address] [address] [facility] 100, [place], [address], 06/28/2024 11:15:41 06/29/19 25 06/28/2024 urina lysis , dipst ick Nitrite (reference range:) negati ve Not Available [place] [address] [address] [facility] [address], [place], [address], 06/28/2024 11:15:41 06/29/19 25 06/28/2024 urina lysis , dipst ick Urobilinogen (reference range) 0.2 Not Available [place] [address] [address] [facility] [address], [place], [address], 06/28/2024 11:15:41 06/29/19 25 06/28/2024 urina lysis , dipst ick Protein (reference range) negati ve Not Available [place] [address] [address] [facility] [address], [place], [address], 06/28/2024 11:15:41 06/29/19 25 06/28/2024 urina lysis , dipst ick pH (reference range 5-8.5) 6.0 Not Available [facility] [place] [address] [address], [place], [address], 06/28/2024 11:15:41 06/29/19 25 06/28/2024 urina lysis , dipst ick Blood (reference range:) negati ve Not Available [place] [address] [address] [facility] [address], [place], [address], 06/28/2024 11:15:41 06/29/19 25 06/28/2024 urina lysis , dipst ick Specific [place] (reference range) 1.015 Not Available [facility] [place] [address] [address] [facility] [address], [place], [address], 06/28/2024 11:15:41 06/29/19 25 06/28/2024 urina lysis , dipst ick Ketone (reference range) negati ve Not Available [place] [address] [address] [facility] [address], [place], [address], 06/28/2024 11:15:41 06/29/19 25 06/28/2024 urina lysis , dipst ick Bilirubin (reference range) negati ve Not Available [place] [address] [address] [facility] [address], [place], [address], 06/28/2024 11:15:41 06/29/19 25 06/28/2024 urina lysis , dipst ick Glucose (reference range) negati ve Not Available [place] [address] [address] [facility] [address], [place], [address], 06/28/2024 11:15:41 06/29/19 25 06/28/2024 urina lysis , dipst ick Color (reference range: yellow-brown ) Yellow Not Available [facility] [address] [facility] [address], [place], [address], 06/28/2024 11:15:41 06/29/19 25 06/28/2024 bladd er scan (PROC ) Calculated Residual Urine: 53ml Not Available [facility] [address], [place], [address], 06/28/2024 11:15:31 Result Notes None recorded. Problems Name Problem SNOMED Code Status Onset Date Resolution Date Notes Provider Name and Address Organization Details Recorded Time Asthma - currently active 921097930 Active 025 Anahy Crase null, [place] - [facility] - [place] & [place] 5 15:11:04 Urgent desire to urinate 82181719 Active 025 Anahy Crase null, [place] [facility] [place] [facility] [place] 15:11:30 Increased frequency of urination 288280495 Active 025 TIM ADAMS MD [address] [facility] [facility], [place], [address] , [place] - [facility] [place] [facility] [place] 5 11:34:21 Problem Notes None recorded. Procedures Surgical History Date Name Laterality Status Provider Name and Address Organization Details Recorded Time operation on accessory sinus completed Anahy Crase [place] [facility] [place] [facility] [place] 06/27/2024 15:12:52 arthroplasty of right ankle completed Anahy Crase [place] [facility] [place] [facility] [place] 06/27/2024 15:13:29 procedure on foot completed Anahy Crase [place] [facility] [place] [facility] [place] 06/27/2024 15:13:48 Imaging Results None recorded. Procedure Notes None recorded. Medical Equipment None Reported. Allergies Allergen ID Allergen Name Allergen Category Reaction Reaction Severity Criticality Documentation Date Start Date Code Code System Note Provider Name and Address Organization Details Recorded Time 661031 cephalexi n medicatio n hives Not available Not available 06/27/2024 2231 RxNorm YVETTE Pick[place] - [facility] & [place] 15:10:33 498616 Substance with sulfonami de structure and antibacte rial mechanism of action (substanc e) medicatio n Not available Not available Not available 06/27/2024 24235 8003 SNOMED YVETTE Pickens [facility] & [place] 15:10:43 Medications Name Sig Start Date Stop [...] Address Organization Details Last Updated DateTime 5 89711.6 4 g 96 % 96 % 59 /min 110 mm[Hg] 78 mm[Hg] 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 No [email or web address] Information not available 06/28/2024 Has Tobacco Cessation Counseling Been Provided? No Information not available 06/28/2024 Do You Or Have You Ever Used Any Other Forms Of Tobacco Or Nicotine? No [email or web address] Information not available 06/28/2024 Sex: Female Functional Status None recorded. Mental Status None recorded. Family History Nothing Reported. Medical History No medical history recorded. Gynecological HistoryNo gynecological history recorded. Obstetrics History GPAL:G 0 P 0 0 0 0 Past Encounters Encounter ID Performer Location Encounter Start Date Encounter Closed Date Diagnosis/Indication Diagnosis SNOMED-CT Code Diagnosis ICD10 Code Diagnosis Note [id number] TIM ADAMS MD [facility] [place] [address] 06/28/2024 10:47:52 06/28/2024 11:41:22 Increased frequency of urination 183387114 R35.0 Urgent rossy dewayne to urinate 24663622 R39.15 Health Concerns Section Related Observation LastModified by Organization Detai ls LastModified Time None Recorded Concern Status LastModified by Organization Details LastModified Time None Recorded Payers Encounter Date Sequence Insurance Name Policy Number Policy Flores Covered Member ID Flores Member ID Guarantor Name 06/28/2024 1 [facility] [id number] Meenu Alexandra [id number] Meenu Alexandra Notes Date Note Type Note Provider Name and Address Organization Details Recorded Time 06/28/2024 text/html 06/28/24 [id number] e referred to my office for recurrent [...] bacterial growth. She has been using AZO [id number], which she believes helps, although it may [...] normal without chronic constipation. TIM ADAMS MD [address] [facility] [facility], [place], [address], [facility] - [place] & [place] 06/29/2024 07:45:52 OBGyn Episode No OBEpisode recorded.
--- NOTE | 2024-07-25 14:46 | MM_ITS ---
PROCEDURE INFORMATION: Exam: MG Bilateral Screening 3D Mammography Exam date and time: 07/25/2024 2:47 PM Age: 58 years old Clinical indication: Screening examination TECHNIQUE: Imaging protocol: Bilateral Screening tomosynthesis and 2D mammography including computer-aided detection (CAD) when performed. COMPARISON: 1. MG MM DIG SCREENING MAMM BI W/CAD 06/15/2023 4:02 PM 2. MG MM DIG SCREENING MAMM BI W/CAD 05/05/2022 3:10 PM FINDINGS: MAMMOGRAPHY: Breast composition: There are scattered areas of fibroglandular density. Mass: None. Architectural distortion: None. Calcifications: No suspicious calcifications. Asymmetric density: None. Skin thickening: None. Axillary adenopathy: None. IMPRESSION: No mammographic evidence of malignancy. Annual screening is recommended unless otherwise clinically indicated. ASSESSMENT: BI-RADS Category 1: Negative.
[2024-07-25] MEDS: ALBUTEROL 0.083% 2.5 MG/3 ML NEB IH (15:30)
--- NOTE | 2024-07-25 15:30 | PC.NURSE ---
Pre and Post Spirometry completed without incident. Albuterol 0.083% given via HHN, per written protocol, Pt tolerated tx well.
== END 2024-07-25 23:59 | disposition home or self-care (01) ==
LOC: RAD 14:31
PROVIDERS: PCP Nurse Practitioner Family; Referring Provider Internal Medicine Pulmonary Disease; Visit Provider Nurse Practitioner
DX: R06.02 Shortness of breath (principal); Z87.891 Personal history of nicotine dependence; Z12.31 Encounter for screening mammogram for malignant neoplasm of breast
CPT/HCPCS: 71271; 77063; 77067; 94060; J7613

== ENCOUNTER 2024-09-04 08:10 | Outpatient (CLI) | payer OTHER, SELFPAY ==
--- NOTE | 2024-09-04 08:14 | CT_ITS ---
FINAL REPORT CLINICAL HISTORY: GROSS HEMATURIA COMPARISON: 08/09/2022 FINDINGS: The lung bases demonstrate calcified granulomas of the left lung base. The liver is normal in size and attenuation. Gallbladder is present. The spleen is unremarkable. The adrenals are normal. The pancreas is unremarkable. The kidneys enhance appropriately. Precontrast images demonstrate no nephrolithiasis. Again seen is a calcification in the urinary bladder measuring 6 mm consistent with bladder stone. Uterus is present. A large amount of stool seen throughout the colon. IMPRESSION: Stable, 6 mm bladder stone. Large amount of stool throughout the colon. No renal or ureteral stones. Reviewed, Interpreted and Dictated by Norbert Eugene MD Transcribed by Nancy Clark Authenticated and [facility]
--- OUTSIDE RECORDS SUMMARY | 2024-09-04 08:18 | XMS_ITS | Data Portability ---
Author Organization [facility] Address [address] [facility] [address] [place] [address] Care Team Providers Care Oven Tender Name Role Phone SHUKLA DYLON Primary Care Provider [phone] Assessment Encounter Date Assessment Date Assessment LastModified [...] Budesonide 1 mg capsules #60 2024 025 [facility], [address], [place], [place], [id number], 5 16:51:49 doxycycline hyclate 100 mg capsule 2024 025 [facility], [address] [place] [address] [address] [place], [id number], 5 16:31:41 Medrol (Andres) 4 mg tablets in a dose pack 2024 025 [facility], [address] [place] [address] [address] [place], [id number], 5 16:31:44 doxycycline hyclate 100 mg capsule [address], [address] [place] [address] [address] [place], [id number], 5 16:17:17 Medrol (Andres) 4 mg tablets in a dose pack [address], [address] [place] [address] [address] [place], [id number], 5 16:17:38 Patient TargetsNo targets recorded. Patient Instructions Encounter Date Encounter Id Patient Instructions Last Modified By Organization Details Last Modified Time 02/15/2024 [id number] 1. Visit today i s being conducted via telehealth using both audio/video. The patient confirms that he/she is physically located in [place] at the time of this visit. Patient expressed understanding of audio/video telehealth as a billable visit and has consented. Patient also expressed understanding that not every condition can be appropriately addressed via telehealth and that this telehealth visit may need to be converted to an in-person visit or may even result in a recommendation to go to the E.R. at the provider s discretion in order to provide the best possible care. 2. Rx- Doxycycline 100 3. Rx- Medrol pack 4. F/U in 4-5 weeks tele [employer] [email or web address] Not available 02/15/2024 08:42:47 She has chronic [...] to proceed. Not available 02/15/2024 08:41:45 04/16/2024 [id number] 1. Nasal Endosco py performed in office [...] RE routine culture, quest MICRO NUMBE R: [id number] SPECI MEN QUALI TY: Adequ ate SOURC E: TISSU E STATU S: FINAL RESUL T: No Growt h Not Available [facility] [address] [place], [address], 04/14/2024 12:22:15 04/06/19 25 04/14/2024 AEROB E/MYRNA EROBE CULTU RE anaerobe culture MICRO NUMBE R: [id number] SPECI MEN QUALI TY: Adequ ate SOURC E: TISSU E STATU S: FINAL GRAM STAIN : No epith elial cells seen No white blood cells seen No organ isms seen RESUL T: No anaer obes isola amirah. Not Available [facility] [address] [place] [address], [address], 04/14/2024 12:22:15 04/06/19 25 04/11/2024 AEROB E/MYRNA EROBE CULTU RE routine culture, quest MICRO NUMBE R: [id number] SPECI MEN QUALI TY: Adequ ate SOURC E: SW STATU S: FINAL RESUL T: Growt h of skin surya (note : Growt h does not inclu de S. aureu s, beta- hemol ytic Strep tococ ci or P. aerug inosa ). Not Available [facility] [address] [place] [address], [address], 04/14/2024 12:21:58 04/06/19 25 04/14/2024 AEROB E/MYRNA EROBE CULTU RE anaerobe culture MICRO NUMBE R: [id number] SPECI MEN QUALI TY: Adequ ate SOURC E: SW STATU S: FINAL GRAM STAIN : No epith elial cells seen Few Polym orpho nucle ar leuko cytes No organ isms seen RESUL T: No anaer obes isola amirah. Not Available [facility] [address] [place], [address], 04/14/2024 12:21:58 04/06/19 25 04/06/2024 SURGI BIJU [...] J 32.9 Gross Descr iptio n: A) Rainae nt name and date of verif ied. [...] 15:12 Page 1 of 1 Not Available [facility] [address] [place] [address], [place], [address], 04/09/2024 15:12:46 04/06/1905/07/2024 FUNGA L CULTU RE fungal culture MICRO NUMBE R: [id number] SPECI MEN QUALI TY: Adequ ate SOURC E: TISSU E STATU S: FINAL SMEAR : No funga l eleme nts seen. CULTU RE: No funga l growt h at 4 Weeks Not Available [facility] [address] [facility], [place], [address], 05/07/2024 10:42:37 04/05/1904/06/2024 elect gordon diogr am No observ ation record ed. Not Available 04/05 14:35:15 Result Notes None recorded. Procedures Surgical History Date Name Laterality Status Provider Name and Address Organization Details Recorded Time Endoscopy Nasal; Biospy, Polypectomy or Debridement completed Ragini [facility] 04/16/2024 16:46:29 Imaging Results None recorded. Procedure Notes None recorded. Medical Equipment None Reported. Allergies Allergen ID Allergen Name Allergen Category Reaction Reaction Severity Criticality Documentation Date Start Date Code Code System Note Provider Name and Address Organization Details Recorded Time 879722 Substance with sulfonami de structure and antibacte rial mechanism of action (substanc e) medicatio n Not available Not available Not available 02/20/20162006 93786 8003 SNOMED Comme nt: Creat ed By: Kd macario Date: 01/11 3:04: 00 PM; Not Available [facility] 6 05:11:17 673288 Medicinal product containin g cephalosp devin and acting as antibacte rial agent (product) medicatio n Not available Not available Not available 04/09/2024 21473 9009 SNOMED patie nt conta cted offic e to corre ct aller gies 04/09 [facility] 5 16:16:43 497197 cephalexi n medicatio n Not available Not available Not available 04/16/2024 2231 RxNorm [facility] 5 16:17:01 Medications Name Sig Start Date Stop Date Status Note LastModified by Organization Details LastModified Time gentamici n mupirocin budesonid e (dispersa pro) 80mg 20mg 1mg capsule # Empty contents of 1 capsule into irrigati on device, add distille d water, irrigate twice daily active Not Available Not Available No t Available Compound Gentamici n 80 mg - Mupirocin 20 mg - Budesonid e 1 mg capsules #60 Empty contents of 1 capsule into irrigati on device, add distille d water, irrigate twice daily 2024 active Not Available Not Available Not Avai lable doxycycli ne hyclate 100 mg capsule Take [...] Last Updated DateTime 157.48 cm 32.6 kg/m2 36485.5 4 g 97.6 [degF] 63 /min 128 mm[Hg] 85 mm[Hg] Cara [facility] 16:15:02 Date Recorded Body height Body mass index (BMI) Body weight Provider Name and Address Organization Details Last Updated DateTime 02/15/2024 157.48 cm 31.1 kg/m2 73581.7 g Geedaisy Chaparro [facility] 02/15/2024 08:13:18 Social History None recorded. Functional Status None [...] Pain N Stomach trouble N Heart Attack (HI) N Ulcers N Diabetes N Rheumatic Fever [...] SNOMED-CT Code Diagnosis ICD10 Code Diagnosis Note [id number] CYNDY HERNANDEZ MD [facility] [address] [place] [address] 02/15/2024 08:10:25 02/15/2024 08:43:37 Chronic sinusitis 82081484 J32.9 Chronic rhinitis 6555011 6 J31.0 [id number] CYNDY HERNANDEZ MD SURGERY SCHEDULE [address] [place] [address] 04/06/2024 08:40:02 04/06/2024 08:40:42 Chronic sinusitis 92545951 J32.9 Chronic rhinitis 1951450 6 J31.0 [id number] CYNDY HERNANDEZ MD [place] [facility] [address] [place] [address] 04/16/2024 14:27:35 04/16/2024 16:54:04 Chronic sinusitis 28914684 J32.9 04/06/24 s/p Image-guid ed functional endoscopic [...] Rx - COMPOUND sinus rinse Chronic rhinitis 8255278 6 J31.0 Loss of se nse of smell 97445968 R43.0 Health Concerns Section Related Observation LastModified by Organization Detai ls LastModified Time None Recorded Concern Status LastModified by Organization Details LastModified Time None Recorded Advance Directives Directive None Recorded Payers Insurance Date Sequence Insurance Name Policy Number Policy Flores Covered Member ID Flores Member ID Guarantor Name 04/13/2024 1 [facility] [id number] Cristobal Alexandra [id number] Cristobal Alexandra Notes Date Note Type Note Provider Name and Address Organization Details Recorded Time 02/15/2024 text/html Cristobal Visit to day is being conducted via telehealth using both audio/video. The patient confirms that he/she is physically located in [place] at the time of this visit. Patient expressed understanding of audio/video telehealth as a billable visit and has consented. Patient also expressed understanding that not every condition can be appropriately addressed via telehealth and that this telehealth visit may need to be converted to an in-person visit or may even result in a recommendation to go to the E.R. at the provider s discretion in order to provide the best possible care. Pt states that her last visit was about 6 weeks ago. Pt states that she is not able to breath through her nose daily. Pt states that sometimes when she goes outside she can feel like her sinus open up. CYNDY HERNANDEZ MD [address] [place] [address], [address], [facility] 02/15/2024 12:40:15 04/06/2024 text/html Cristobal Visit to day is being conducted via telehealth using both audio/video. The patient confirms that he/she is physically located in [place] at the time of this visit. Patient expressed understanding of audio/video telehealth as a billable visit and has consented. Patient also expressed understanding that not every condition can be appropriately addressed via telehealth and that this telehealth visit may need to be converted to an in-person visit or may even result in a recommendation to go to the E.R. at the provider s discretion in order to provide the best possible care. Pt states that her last visit was about 6 weeks ago. Pt states that she is not able to breath through her nose daily. Pt states that sometimes when she goes outside she can feel like her sinus open up. CYNDY HERNANDEZ MD [address] [place] [address], [address], [facility] 04/12/2024 15:07:36 04/16/2024 text/html Cristobal comes in today for a POFU s/p Image-guided functional endoscopic sinus surgery and bilateral total ethmoidectomy, bilateral sphenoidotomies, bilateral frontal sinusotomies, bilateral maxillary antrostomies, and removal of antral mucosal disease with hydrodebridement to the frontal, maxillary, and sphenoid sinuses bilaterally on 04/06/24. Cristobal reports that she is doing fine after surgery. She had a mix-up with her post-op antibiotics, but that has been resolved. Nothing abnormal showed up on the path report. She continues to be unable to smell. CYNDY HERNANDEZ MD [facility] [place], [address], [facility] 04/16/2024 16:48:30 OBGyn Episode No OBEpisode recorded.
--- OUTSIDE RECORDS SUMMARY | 2024-09-04 08:18 | XMS_ITS | Continuity of Care Document ---
Author Organization [facility] Address [address] [facility] [address] [place] [address] Care Team Providers Care Cut File Clerk Name Role Phone DYLON SHUKLA Primary Care Provider [phone] Assessment Encounter Date Assessment Date Assessment LastModified by Organization Details LastModified Time 08/14/2024 08/14/2024 ASSESSMENT: Meenu Alexandra is a 58-year-old female with benign cystitis, possible bladder stone, and calcification in the bladder. PLAN: 1. Ordered a CT scan to evaluate the kidneys for any masses or abnormalities. 2. Discussed the possibility of continuing oxybutynin or trying a different medication. 3. Recommended a biopsy of the reddened area and calcification in the bladder. 4. Scheduled a cystoscopy with bladder biopsy to be performed under anesthesia. 5. Instructed the patient to follow up after the CT scan is completed. 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 [email or web address] Not available 08/14/2024 13:40:29 Plan of Treatment Reminders Order Date Submit Date Provider Last Modified By Organization Details Last Modified Time Details Appointments SURGERY 30 2024 10:30A Junior ADAMS MD Not available Not available Not available FOLLOW UP 15 2024 08:45A Junior ADAMS MD Not available Not available Not available Lab urinalysi s, dipstick 2024 05 025 [email or web address] [facility] Urology-100, [address] [facility] [address], [place], [address], 08/14/2024 13:41:51 Referral None recorded. Procedures bladder scan (PROC) 2024 025 [email or web address] [place] [address], [address] [facility] [address], [place], [address], 08/14/2024 13:41:50 Surgeries cystoscop y with bladder biopsy (SURG) 2024 025 Not available 08/27/2024 08:32:25 Imaging None recorded. Medication Orders None recorded. Patient TargetsNo targets recorded. Patient InstructionsNo instructions recorded. Reason for Referral None Reported. Results Created Date Observation Date Name Description Value Unit Range Abnormal Flag Note LastModifiedBy Organization Detail LastModifiedTime 08/15/1908/14/2024 bladd er scan (PROC ) Calculated Residual Urine: 66 Not Available [place] [address] [address] [facility] [address], [place], [address], 08/14/2024 13:34:58 08/15/19 25 08/14/2024 urina lysis , dipst ick Leukocytes (reference range) negati ve Not Available [place] [address] [address] [facility] [address], [place], [address], 08/14/2024 13:20:23 08/15/19 25 08/14/2024 urina lysis , dipst ick Nitrite (reference range:) negati ve Not Available [place] [address] [address] [facility] [address], [place], [address], 08/14/2024 13:20:23 08/15/19 25 08/14/2024 urina lysis , dipst ick Urobilinogen (reference range) 0.2 Not Available [place] [address] [address] [facility] [address], [place], [address], 08/14/2024 13:20:23 08/15/19 25 08/14/2024 urina lysis , dipst ick Protein (reference range) negati ve Not Available [place] [address] [address] [facility] [address], [place], [address], 08/14/2024 13:20:23 08/15/19 25 08/14/2024 urina lysis , dipst ick pH (reference range 5-8.5) 5.0 Not Available [place] [address] [address] [facility] [address], [place], [address], 08/14/2024 13:20:23 08/15/19 25 08/14/2024 urina lysis , dipst ick Blood (reference range:) large Not Available [place] [address] [address] [facility] [address], [place], [address], 08/14/2024 13:20:23 08/15/19 25 08/14/2024 urina lysis , dipst ick Specific [place] (reference range) 1.030 Not Available [place] [address] [address] [facility] [address], [place], [address], 08/14/2024 13:20:23 08/15/19 25 08/14/2024 urina lysis , dipst ick Ketone (reference range) negati ve Not Available [place] [address] [address] [facility] [address], [place], [address], 08/14/2024 13:20:23 08/15/19 25 08/14/2024 urina lysis , dipst ick Bilirubin (reference range) negati ve Not Available [place] [address] [address] [facility] [address], [place], [address], 08/14/2024 13:20:23 08/15/19 25 08/14/2024 urina lysis , dipst ick Glucose (reference range) negati ve Not Available [place] [address] [address] [facility] [address], [place], [address], 08/14/2024 13:20:23 08/15/19 25 08/14/2024 urina lysis , dipst ick Color (reference range: yellow-brown ) Dark Yellow Not Available [facility] Urology-[address], [place], [address], 08/14/2024 13:20:23 Result Notes None recorded. Problems Name Problem SNOMED Code Status Onset Date Resolution Date Notes Provider Name and Address Organization Details Recorded Time Asthma - currently active 507985662 Active 025 Anahy Crase null, [place] - [facility] - [place] & [place] 15:11:04 Urgent desire to urinate 73928016 Active 025 Anahy Crase null, [place] - [facility] [place] & [place] 15:11:30 Increased frequency of urination 341304615 Active 025 TIM ADAMS MD [address], [place], [address] , [place] - [facility] - [place] & [place] 5 11:34:21 Luis hematuria 192428018 Active 025 TIM ADAMS MD [address] , [place], [address] , [place] - [facility] [place] & [place] 5 13:40:44 Problem Notes None recorded. Procedures Surgical History Date Name Laterality Status Provider Name and Address Organization Details Recorded Time 08/15/19 25 Cystoscopy-Femal e completed TIM ADAMS MD [address] , [place], [address], [place] - [facility] [place] & [place] 08/14/2024 13:41:41 operation on accessory sinus completed Anahy Devinse [place] - [facility] - [place] & [place] 06/27/2024 15:12:52 arthroplasty of right ankle completed Anahy Crase [place] - [facility] [place] & [place] 06/27/2024 15:13:29 procedure on foot completed Anahychristine Beltranse [place] [facility] & [place] 06/27/2024 15:13:48 Imaging Results None recorded. Procedure Notes None recorded. Medical Equipment None Reported. Allergies Allergen ID Allergen Name Allergen Category Reaction Reaction Severity Criticality Documentation Date Start Date Code Code System Note Provider Name and Address Organization Details Recorded Time 180507 cephalexi n medicatio n hives Not available Not available 06/27/2024 2231 RxNorm YVETTE Pickens [facility] & [place] 15:10:33 815172 Substance with sulfonami de structure and antibacte rial mechanism of action (substanc e) medicatio n Not available Not available Not available 06/27/2024 78603 8003 SNOMED YVETTE Pickens [facility] & [place] 15:10:43 Medications Name Sig Start Date Stop [...] Not Available Not Available No t Available budesonide-f ormoterol HFA 160 mcg-4.5 mcg/actuatio n aerosol inhaler INHALE TWO PUFFS BY MOUTH FOUR TIMES DAILY NEEDED SHORTNESS OF BREATH OR WHEEZING active Not Available Not Available Not Available topiramate XR 25 mg capsule,exte nded [...] Address Organization Details Last Updated DateTime 5 23122.9 6 g 96 % 96 % 67 /min 140 mm[Hg] 80 mm[Hg] Erica CRAWFORD [facility] & [place] 13:19:28 Social History Question Answer Notes LastModified by Organizat ion Details LastModified Time Tobacco Smoking Status Former Smoker Yary Nieves null, [facility] & [place] 06/28/2024 11:03:07 Has Tobacco Cessation Counseling Been Provided? No [email or web address] Information not available 06/28/2024 Sex: Female Functional Status Question Answer Note LastModified by Organizat ion Details LastModified Time Do you use any illicit or recreational drugs? No [email or web address] Information not available 06/28/2024 Do you or have you ever used any other forms of tobacco or nicotine? 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 Family History Nothing Reported. Medical History No medical history recorded. Gynecological HistoryNo gynecological history recorded. Obstetrics History GPAL:G 0 P 0 0 0 0 Past Encounters Encounter ID Performer Location Encounter Start Date Encounter Closed Date Diagnosis/Indication Diagnosis SNOMED-CT Code Diagnosis ICD10 Code Diagnosis Note [id number] TIM ADAMS MD [facility] Urology-[address] [place] [address] 08/14/2024 13:04:36 08/14/2024 13:48:17 Luis hematuria 669827754 R31.0 Health Concerns Section Related Observation LastModified by Organization Detai ls LastModified Time None Recorded Concern Status LastModified by Organization Details LastModified Time None Recorded Payers Encounter Date Sequence Insurance Name Policy Number Policy Flores Covered Member ID Flores Member ID Guarantor Name 08/14/2024 1 [facility] [id number] Meenu Alexandra [id number] Meenu Alexandra Notes Date Note Type Note Provider Name and Address Organization Details Recorded Time 08/14/2024 text/html 08/14/24 [id number]-female returns to my office to discuss effectiveness of medication and possible cystoscopy, started on Oxybutynin 10mg. ------ 06/29/25597854-stkt-nyz -female referred to my office for recurrent UTIs [...] bacterial growth. She has been using AZO brow-joq-kfyiosc, which she believes helps, although it may [...] normal without chronic constipation. TIM ADAMS MD [address] [facility], [place], [address], [facility] - [facility] - [place] & [place] 08/15/2024 12:26:10 OBGyn Episode No OBEpisode recorded.
--- OUTSIDE RECORDS SUMMARY | 2024-09-04 08:19 | XMS_ITS | Data Portability ---
Author Organization [place] - [facility] ISRAEL Stoner ADMIN Address [address] [place] [address] Care Team Providers Care Laborer Prestressed Concrete Name Role Phone DYLON SHUKLA Primary Care Provider Assessment Encounter Date Assessment [...] days consecutively. 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 [email or web address] Not available 08/14/2024 13:40:29 Plan of Treatment Reminders Order Date Submit Date Provider Last Modified By Organization Details Last Modified Time Details Appointments SURGERY 30 2024 10:30A Junior ADAMS MD Not available Not available Not available FOLLOW UP 15 2024 08:45A Junior ADAMS MD Not available Not available Not available Lab urinalysi s, dipstick [address] Urology-[address], [address], [place], [address], 08/14/2024 13:41:51 urinalysi s, dipstick [address] [facility], [address], [place], [address], 06/28/2024 11:34:39 Referral None recorded. Procedures bladder scan (PROC) [address] Urology[facility], [address], [place], [address], 08/14/2024 13:41:50 bladder scan (PROC) [address] Urology100, [address], [place], [address], 06/28/2024 11:34:39 Surgeries cystoscop y with bladder biopsy (SURG) 2024 025 [email or web address] Not available 08/27/2024 08:32:25 Imaging None recorded. Medication Orders oxybutyni n chloride ER 10 mg tablet,ex tended release 24 hr 2024 025 [facility], [address], [place], [address], 06/28/2024 11:35:21 Patient TargetsNo targets recorded. Patient InstructionsNo instructions recorded. Reason for Referral None Reported. Results Created Date Observation Date Name Description Value Unit Range Abnormal Flag Note LastModifiedBy Organization Detail LastModifiedTime 06/29/19 25 06/28/2024 urina lysis , dipst ick Leukocytes (reference range) negati ve Not Available [place] [address] [address] [facility] [address], [place], [address], 06/28/2024 11:15:41 06/29/19 25 06/28/2024 urina lysis , dipst ick Nitrite (reference range:) negati ve Not Available [place] [address] [address] [facility] [address], [place], [address], 06/28/2024 11:15:41 06/29/19 25 06/28/2024 urina lysis , dipst ick Urobilinogen (reference range) 0.2 Not Available [place] [address] [address] [facility] [address], [place], [address], 06/28/2024 11:15:41 06/29/19 25 06/28/2024 urina lysis , dipst ick Protein (reference range) negati ve Not Available [place] [address] [address] [facility] [address], [place], [address], 06/28/2024 11:15:41 06/29/19 25 06/28/2024 urina lysis , dipst ick pH (reference range 5-8.5) 6.0 Not Available [place] [address] [address] [facility] [address], [place], [address], 06/28/2024 11:15:41 06/29/19 25 06/28/2024 urina lysis , dipst ick Blood (reference range:) negati ve Not Available [place] [address] [address] [facility] [address], [place], [address], 06/28/2024 11:15:41 06/29/19 25 06/28/2024 urina lysis , dipst ick Specific [place] (reference range) 1.015 Not Available [place] [address] [address] [facility] [address], [place], [address], 06/28/2024 11:15:41 06/29/19 25 06/28/2024 urina lysis , dipst ick Ketone (reference range) negati ve Not Available [place] [address] [address] [facility] [address], [place], [address], 06/28/2024 11:15:41 06/29/19 25 06/28/2024 urina lysis , dipst ick Bilirubin (reference range) negati ve Not Available [place] [address] [address] [facility] [address], [place], [address], 06/28/2024 11:15:41 06/29/19 25 06/28/2024 urina lysis , dipst ick Glucose (reference range) negati ve Not Available [place] [address] [address] [facility] [address], [place], [address], 06/28/2024 11:15:41 06/29/19 25 06/28/2024 urina lysis , dipst ick Color (reference range: yellow-brown ) Yellow Not Available [place] [address] [address] [facility] [address], [place], [address], 06/28/2024 11:15:41 06/29/19 25 06/28/2024 bladd er scan (PROC ) Calculated Residual Urine: 53ml Not Available [place] [address] [address] [facility] [address], [place], [address], 06/28/2024 11:15:31 08/15/19 25 08/14/2024 bladd er scan (PROC ) Calculated Residual Urine: 66 Not Available [place] [address] [address] [facility] [address], [place], [address], 08/14/2024 13:34:58 08/15/19 25 08/14/2024 urina lysis , dipst ick Leukocytes (reference range) negati ve Not Available [place] [address] [address] [facility] [address], [place], [address], 08/14/2024 13:20:23 08/15/19 25 08/14/2024 urina lysis , dipst ick Nitrite (reference range:) negati ve Not Available [place] [address] [address] [facility] [address], [place], [address], 08/14/2024 13:20:23 08/15/19 25 08/14/2024 urina lysis , dipst ick Urobilinogen (reference range) 0.2 Not Available [place] [address] [address] [facility] [address], [place], [address], 08/14/2024 13:20:23 08/15/19 25 08/14/2024 urina lysis , dipst ick Protein (reference range) negati ve Not Available [place] [address] [address] [facility] [address], [place], [address], 08/14/2024 13:20:23 08/15/19 25 08/14/2024 urina lysis , dipst ick pH (reference range 5-8.5) 5.0 Not Available [place] [address] [address] [facility] [address], [place], [address], 08/14/2024 13:20:23 08/15/19 25 08/14/2024 urina lysis , dipst ick Blood (reference range:) large Not Available [place] [address] [address] [facility] [address], [place], [address], 08/14/2024 13:20:23 08/15/19 25 08/14/2024 urina lysis , dipst ick Specific [place] (reference range) 1.030 Not Available [place] [address] [address] [facility] [address], [place], [address], 08/14/2024 13:20:23 08/15/19 25 08/14/2024 urina lysis , dipst ick Ketone (reference range) negati ve Not Available [place] [address] [address] [facility] [address], [place], [address], 08/14/2024 13:20:23 08/15/19 25 08/14/2024 urina lysis , dipst ick Bilirubin (reference range) negati ve Not Available [place] [address] [address] [facility] [address], [place], [address], 08/14/2024 13:20:23 08/15/19 25 08/14/2024 urina lysis , dipst ick Glucose (reference range) negati ve Not Available [place] [address] [address] [facility] [address], [place], [address], 08/14/2024 13:20:23 08/15/19 25 08/14/2024 urina lysis , dipst ick Color (reference range: yellow-brown ) Dark Yellow Not Available [place] [address] [address] [facility] [address], [place], [address], 08/14/2024 13:20:23 Result Notes None recorded. Problems Name Problem SNOMED Code Status Onset Date Resolution Date Notes Provider Name and Address Organization Details Recorded Time Asthma - currently active 387181364 Active 025 Anahy albrecht [place] - [facility] & [place] 15:11:04 Urgent desire to urinate 13602636 Active 025 YVETTE Pickens [facility] & [place] 15:11:30 Increased frequency of urination 324347175 Active 025 TIM ADAMS MD [address], [place], [address] , YVETTE - [facility] & [place] 11:34:21 Luis hematuria 606312980 Active 025 TIM ADAMS MD [address], [facility] [address] , YVETTE - [facility] & [place] 13:40:44 Problem Notes None recorded. Procedures Surgical History Date Name Laterality Status Provider Name and Address Organization Details Recorded Time 08/15/19 25 Cystoscopy-Femal e completed TIM ADAMS MD [address], [place], [address], YVETTE Kiran [facility] & [place] 08/14/2024 13:41:41 operation on accessory sinus completed Anahy Kiran [facility] & [place] 06/27/2024 15:12:52 arthroplasty of right ankle completed Anahy Kiran [facility] & [place] 06/27/2024 15:13:29 procedure on foot completed Anahy Kiran [facility] & [place] 06/27/2024 15:13:48 Imaging Results None recorded. Procedure Notes None recorded. Medical Equipment None Reported. Allergies Allergen ID Allergen Name Allergen Category Reaction Reaction Severity Criticality Documentation Date Start Date Code Code System Note Provider Name and Address Organization Details Recorded Time 477310 cephalexi n medicatio n hives Not available Not available 06/27/2024 2231 RxNorm YVETTE Pickens - [facility] & [place] 15:10:33 909306 Substance with sulfonami de structure and antibacte rial mechanism of action (substanc e) medicatio n Not available Not available Not available 06/27/2024 78143 8003 SNOMED YVETTE Pickens - [facility] - [facility] 5 15:10:43 Medications Name Sig Start Date Stop [...] Address Organization Details Last Updated DateTime 5 29680.6 4 g 96 % 96 % 59 /min 110 mm[Hg] 78 mm[Hg] Yary Lizbeth [place] - [facility] & [place] 5 11:15:13 Date Recorded Body weight Oxygen saturation Oxygen saturation in Arterial blood by Pulse oximetry Heart rate Systolic blood pressure Diastolic blood pressure Provider Name and Address Organization Details Last Updated DateTime 5 73387.9 6 g 96 % 96 % 67 /min 140 mm[Hg] 80 mm[Hg] Erica Pedraza [place] - [facility] & [place] 5 13:19:28 Social History Question Answer Notes LastModified by Organizat ion Details LastModified Time Tobacco Smoking Status Former Smoker Yary Nieves [facility], [place] - [facility] & [place] 06/28/2024 11:03:07 Has Tobacco Cessation Counseling Been Provided? No Information not available 06/28/2024 Sex: Female Functional Status Question Answer Note LastModified by Organizat ion Details LastModified Time Do you use any illicit or recreational drugs? No Information not available 06/28/2024 Do you or have you ever used any other forms of tobacco or nicotine? No Information not available 06/28/2024 What is your [...] SNOMED-CT Code Diagnosis ICD10 Code Diagnosis Note [id number] TIM ADAMS MD [facility]-1 [address] [facility] [address] [place] [address] 06/28/2024 10:47:52 06/28/2024 11:41:22 Increased frequency of urination 967459337 R35.0 Urgent rossy dewayne to urinate 54755052 R39.15 [id number] TIM ADAMS MD [facility] U[facility]-1 00 [address] [facility] [address] [place] [address] 08/14/2024 13:04:36 08/14/2024 13:48:17 Luis hematuria [id number] R31.0 Health Concerns Section Related Observation LastModified by Organization Detai ls LastModified Time None Recorded Concern Status LastModified by Organization Details LastModified Time None Recorded Advance Directives Directive None Recorded Payers Insurance Date Sequence Insurance Name Policy Number Policy Flores Covered Member ID Flores Member ID Guarantor Name 09/02/2024 1 [facility] [id number] Meenu Alexandra [id number] Meenu Alexandra Notes Date Note Type Note Provider Name and Address Organization Details Recorded Time 06/28/2024 text/html 06/28/24 [id number]-qvz-female referred to my office for recurrent UTIs [...] bacterial growth. She has been using AZO bxoj-vhl-jpqwypo, which she believes helps, although it may [...] normal without chronic constipation. TIM ADAMS MD [address] [facility], [place], [address], [place] [facility] [place] 06/29/2024 07:45:52 08/14/2024 text/html 08/14/24 [id number]-female returns to my office to discuss effectiveness of medication and possible cystoscopy, started on Oxybutynin 10mg. ------ 06/29/25592477-zezt-ttk -female referred to my office for recurrent [...] bacterial growth. She has been using AZO subl-iqs-lgjcsfw, which she believes helps, although it may [...] normal without chronic constipation. TIM ADAMS MD [address] [facility], [place], [address], [facility] [place] 08/15/2024 12:26:10 OBGyn Episode No OBEpisode recorded.
[2024-09-04 08:39] LABS: Blood Urea Nitrogen 10 mg/dl (7-17); Estimated Glomerular Filt Rate 85 ml/min (>60); GFR (African American) 103 ML/MIN (>60)
[2024-09-04] MEDS: SODIUM CHLORIDE 0.9% 10ML SYR (RAD ONLY) 10 ML IV (09:07)
[2024-09-04] MEDS: IOPAMIDOL-370 (76%);100ML BOTTLE 75 ML IV (09:07)
== END 2024-09-04 23:59 | disposition home or self-care (01) ==
LOC: RAD 08:12
PROVIDERS: PCP Nurse Practitioner Family; Visit Provider Urology
DX: N21.0 Calculus in bladder (principal); R31.0 Gross hematuria
CPT/HCPCS: 36415; 74178; 82565; 84520; Q9967

== ENCOUNTER 2024-09-10 09:16 | Day surgery (SDC) | payer OTHER, SELFPAY ==
[2024-09-07 10:53] VITALS: BMI 28.9
[2024-09-10 10:09] VITALS: BP 130/74; PULSE 55; RESP 14; TEMP 36.4; O2SAT 95; BMI 28.9
[2024-09-10] MEDS: LACTATED RINGERS 1000ML 1,000 ML 25 ML IV (10:18)
--- NOTE | 2024-09-10 10:37 | EXP.ANES.CKL ---
[facility] Disclaimer: The information contained in this section may have been updated after the patient was seen, as this information can be updated by other users. Medical History Asthma Generalized anxiety disorder Stopped smoking with greater than 30 pack year history History of herniated intervertebral disc Hx of osteoporosis History of COVID-19 Seasonal allergic rhinitis Dyspnea on exertion Ex-cigarette smoker Encounter for screening for malignant neoplasm of lung in former smoker who quit in past 15 years with 30 pack year history or greater Shortness of breath Moderate persistent asthma Surgical History History of biopsy of bladder Status post operation on nasal sinus History of sinus surgery Status post functional endoscopic sinus surgery History of arthroplasty of right ankle Status post left foot surgery Family History Other FHx: mental illness Hypertension Social History (Updated 09/10/24 @ 10:16 by Nan Hernandez RN) Smoking Status: Former smoker tobacco type: cigarettes packs per day: 1 second hand exposure: Yes alcohol intake: never substance use type: denies use counseling given: No current occupational status: employed Travel in the last 8 weeks?: None adopted: No caregiver/support person: No foster care: No household members: none housing: house lives independently: Yes marital status: number of children: 2 number of grandchildren: 4 education level: high school service: No 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 current occupational exposures/hazards: No Hx Recent Travel: No sexually active: No caffeine: Yes physical activity: none sheri/restorationism: Nondenominational special sheri needs: No working smoke detector in home: Yes fire extinguisher in home: Yes carbon monox detector in home: Yes firearms in home: Yes firearms unloaded and locked: Yes do you feel safe at home: Yes victim of physical abuse: No victim of emotional abuse: No victim of sexual abuse: No would you like helpful sources: No Have you lived/traveled outside [place] in past 30 days?: No Contact w/someone who lives/traveled outside US past 30 days?: No Exposure to someone with infectious disease in past 14 days?: No Do you have a fever (greater than 100.4 F or 38 C)?: No Have you tested positive for COVID-19?: No Exposed to someone with COVID-19 in past 14 days?: No Do you have a sore throat?: No Do you have a cough?: No Do you have any weakness?: No Are you experiencing any nausea/vomitting?: No Do you have any diarrhea?: No Are you experiencing any unusual bleeding?: No Do you have any muscle aches/pain?: No Do you have any abdominal pain?: No Are you experiencing loss of taste or smell?: No [facility] Anesthesia Checklist Patient Identification Patient Identification: Arm Band and Verbal (Name & ) Structural Data Admitted From: Home Planned Operative Procedure/s: EGD/colon Consent for Planned Operative Procedure(s) Verified: Yes Verified Documents: Surgical Consent NPO Status Verified Time NPO: 00:00 Chart Verification Results Verified: None Additional verifications Anesthesia Reactions: No (PONV) Hx Blood Transfusions: Yes Blood Transfusion Reaction: No Airway Assessment Mallampati Score:: Class II C-Spine Mobility Assessed: Yes TMJ Mobility Assessed: Yes Dentition: Good Dentition Neurological Assessment Level of Consciousness: Awake, Alert and Appropriate Hx Seizures: No Numbness or tingling in extremities: No Anesthesia Plan Anesthesia Risk discussed: Yes Anesthesia Plan: Verified ASA Class: II Anesthesia Type: MAC
--- NOTE | 2024-09-10 10:48 | P.HP_ITS ---
History of Present Illness *Admission Date: 09/10/24 *Reason for visit:: Choking and surveillance (personal history of adenomatous colon polyps) *History of present illness: Mrs. Alexandra is a 59-year-old female who is here for diagnostic EGD secondary to frequent choking and surveillance/screening colonoscopy secondary to personal history of adenomatous colon polyps. The examination is deemed medically necessary for diagnostic EGD and surveillance/screening colonoscopy. The patient has been seen, interviewed and examined prior to the procedure by both myself and the anesthesia provider. [facility] Disclaimer: The information contained in this section may have been updated after the patient was seen, as this information can be updated by other users. Medical History (Updated 09/10/24 @ 10:56 by Ciro Santillan II, MD) Asthma Generalized anxiety disorder Stopped smoking with greater than 30 pack year history History of herniated intervertebral disc Hx of osteoporosis History of COVID-19 Seasonal allergic rhinitis Dyspnea on exertion Ex-cigarette smoker Encounter for screening for malignant neoplasm of lung in former smoker who quit in past 15 years with 30 pack year history or greater Shortness of breath Moderate persistent asthma Surgical History History of biopsy of bladder Status post operation on nasal sinus History of sinus surgery Status post functional endoscopic sinus surgery History of arthroplasty of right ankle Status post left foot surgery Family History Other FHx: mental illness Hypertension Social History (Updated 09/10/24 @ 10:16 by Nan Hernandez RN) Smoking Status: Former smoker tobacco type: cigarettes packs per day: 1 second hand exposure: Yes alcohol intake: never substance use type: denies use counseling given: No current occupational status: employed Travel in the last 8 weeks?: None adopted: No caregiver/support person: No foster care: No household members: none housing: house lives independently: Yes marital status: number of children: 2 number of grandchildren: 4 education level: high school service: No current occupation: [employer] current occupational exposures/hazards: No Hx Recent Travel: No sexually active: No caffeine: Yes physical activity: none sheri/orthodox: Uatsdin special sheri needs: No working smoke detector in home: Yes fire extinguisher in home: Yes carbon monox detector in home: Yes firearms in home: Yes firearms unloaded and locked: Yes do you feel safe at home: Yes victim of physical abuse: No victim of emotional abuse: No victim of sexual abuse: No would you like helpful sources: No Have you lived/traveled outside US in past 30 days?: No Contact w/someone who lives/traveled outside US past 30 days?: No Exposure to someone with infectious disease in past 14 days?: No Do you have a fever (greater than 100.4 F or 38 C)?: No Have you tested positive for COVID-19?: No Exposed to someone with COVID-19 in past 14 days?: No Do you have a sore throat?: No Do you have a cough?: No Do you have any weakness?: No Are you experiencing any nausea/vomitting?: No Do you have any diarrhea?: No Are you experiencing any unusual bleeding?: No Do you have any muscle aches/pain?: No Do you have any abdominal pain?: No Are you experiencing loss of taste or smell?: No Other Medical History Have you received the Flu Vaccine for this season: Yes (2019) Have you received the Pneumonia Vaccine: No Review of Systems Review of Systems Review of systems (narrative): Negative *Cardiovascular Comments: Negative *Gastrointestinal Comments: Negative *Genitourinary Comments: Negative *Musculoskeletal Comments: Negative *Neurologic Comments: Negative Meds Home Medications and Allergies Home Medications ?Medication ?Instructions ?Recorded ?Confirmed ?Type albuterol sulfate 90 mcg/actuation 1 inh inhalation Q6 H PRN shortness 01/25/24 09/10/24 Rx aerosol inhaler of breath or wheezing 90 day s #8.5 grams ibuprofen 800 mg tablet See Rx Instructions .Route 0 07/09/24 09/10/24 Rx .COMPLEX #180 tabs oxybutynin chloride 10 mg 10 mg PO DAILY 07/30/2408/26 History tablet,extended release 24 hr fluticasone propionate 50 1 spray intranasal BID #16 g emir 08/08/24 09/10/24 Rx mcg/actuation nasal spray,suspension (Flonase Allergy Relief) sodium,potassium,mag sulfates 17.5 See Rx Instructions PO .COMPLEX 08/28/24 09/10/24 Rx gram-3.13 gram-1.6 gram oral soln #354 mL (Suprep Bowel Prep Kit) New Prescriptions to Start Prescriptions: Allergies Allergy/AdvReac Type Severity Reaction Status Date / Time cephalexin Allergy Severe Hives Verified 09/07/24 10:47 Sulfa (Sulfonamide Allergy Unknown Verified 09/07/24 10:47 Antibiotics) allergy reaction Exam Data for Last 24 hours Vital signs and Labs for Last 24 Hours: Temp Pulse Resp BP Pulse Ox 97.6 F 55 L 14 130/74 95 09/10/24 10:09 09/10/24 10:09 09/10/24 10:09 09/10/24 10:09 09/10/24 10:09 I & O for Last 24 hours: Intake & Output 09/07/24 09/08/24 09/09/24 09/10/24 23:59 23:59 23:59 23:59 Weight 158 lb 158 lb *Routine HEENT Exam Head: Present normocephalic Eye: Present EOMI and PERRL ENT: Present mucous membranes moist *Routine Neck Exam Neck: Present supple *Routine Respiratory Exam Respiratory: Present CTA bilaterally *Routine Cardiovascular Exam Cardiovascular: Present RRR *Routine Abdominal Exam Abdominal: Present soft and normoactive bowel sounds; Absent tenderness *Routine Rectal Exam Rectal:: deferred *Routine Genitalia Exam Genitalia:: deferred *Routine Extremities Exam Extremities: Absent cyanosis, clubbing or edema *Routine Skin Exam Skin: Present warm; Absent rash *Routine Neurological Exam Neurological: Present alert and oriented X3 Assessment and Plan *Assessment and plan (1) Personal history of adenomatous and serrated colon polyps: Status: Acute Category: Medical Code(s): Z86.0101 - Personal history of adenomatous and serrated colon polyps (2) Choking: Status: Acute Category: Medical Code(s): T17.308A - Unspecified foreign body in larynx causing other injury, initial encounter (3) Heartburn: Status: Acute Category: Medical Code(s): R12 - Heartburn (4) Belching: Status: Acute Category: Medical Code(s): R14.2 - Eructation Plan A/P: 1. Choking, heartburn and belching for upper endoscopy and personal history of adenomatous colon polyps for colonoscopy screening/surveillance is the preprocedural diagnosis. The patient will be anesthetized/sedated using MAC sedation. The patient has been seen and examined. Cardiac and lung assessment prior to the examination is stable. Proceed with planned diagnostic EGD and screening/surveillance colonoscopy.
--- NOTE | 2024-09-10 10:57 | P.PCN_ITS ---
[facility] Procedure Note Date: 09/10/24 Time: 11:03 Procedure Note:: Upper Endoscopy Procedure Report: Esophagogastroduodenoscopy with cold biopsies and TTS balloon dilation Endoscopost: Ciro Santillan II, MD Referring Physician: RICHAR Rucker Date of Procedure: September 10, 2024 Equipment: Olympus GIF 190 standard upper endoscope Sedation: MAC sedation Indications: Mrs. Alexandra is a 59-year-old female who is here for diagnostic EGD secondary to frequent choking. This has worsened over the last year. She did have anterior cervical herniated disc neck surgery about 15 years ago and feels this may be related. The patient has had heartburn and some reflux. She is not on any PPI therapy. She has had a lot of belching and some bloating. She reports no epigastric discomfort, nausea or early satiety. She does report frequent clearance of the throat. This is her first upper endoscopy. She reports no globus sensation or hard swallowing or dysphagia. Procedure: Prior to the procedure, a history and physical exam was performed, and patient's medications and allergies were reviewed. The risks, benefits and alternatives of the sedation and procedure were discussed with the patient. All questions were answered and informed consent was obtained. The patient was brought to the procedure room. Patient identification and proposed procedure were verified by the physician and the nurse. The patient was placed in a left lateral decubitus position and the scope was passed under direct vision. Throughout the procedure, the patient's blood pressure, pulse, and oxygen saturations were monitored continuously. The upper GI endoscopy was accomplished without difficulty. The patient tolerated the procedure well. Findings: The scope was passed directly into the upper esophagus and advanced to the fourth portion of duodenum and proximal jejunum. A cold biopsy was taken from the proximal jejunum for disaccharidase assay. The proximal jejunum, post bulbar duodenum, ampulla and duodenal bulb were normal with normal mucosa and conniventes. The scope was withdrawn through a normal duodenal bulb and pylorus into the stomach. There was some bile reflux with mild linear reactive gastropathy of the antrum. The body and fundus of the stomach were grossly normal. Upon retroflexion there was a 3 cm hiatal hernia. Cold biopsies were taken from the antrum. The scope was then withdrawn into the esophagus. There was a single erosion in the distal esophagus (grade A reflux esophagitis) and biopsies were taken from the GE junction. There was no corrugation or furrowing or rings. There was no proximal esophageal inlet patch. There were tertiary contractions and evidence of moderate esophageal dysmotility. The entire esophagus was dilated to 60 Citizen [place]/20 mm with a TTS hydrostatic balloon. There was mild resistance at the cricopharyngeus. The remainder of the esophageal mucosa was normal. Impression: 1. Cricopharyngeal spasm status post dilation to 20 mm 2. Grade A reflux esophagitis with medium sized 3 cm hiatal hernia and moderate esophageal dysmotility 3. Mild linear reactive gastropathy of antrum Plan: I will follow-up the biopsies and discussed the findings with the patient and family. I will follow-up the disaccharidase assay. We will discuss treatment options including Iberogast. I will proceed with screening/surveillance colonoscopy.
--- NOTE | 2024-09-10 11:08 | [facility].PROCNOTE ---
[facility] Procedure Note Date: 09/10/24 Time: 11:26 Procedure Note:: Colonoscopy Procedure Report: Colonoscopy with cold snare polypectomy Endoscopist: Ciro Santillan II, MD Referring physician: RICHAR Rucker Date of Procedure: September 10, 2024 Equipment: Olympus 190 variable stiffness pediatric colonoscope Sedation: MAC sedation Indication: Mrs. Dias is a 59-year-old female who is here for follow-up screening/surveillance colonoscopy. The patient did have a colonoscopy in February 2018 and had a single polyp (tubular adenoma) removed. She reports no abdominal pain, weight loss, change in her bowel habits or rectal bleeding. She reports no family history of colon cancer. Procedure: Prior to the procedure, a history and physical exam was performed, and patient's medications and allergies were reviewed. The risks, benefits and alternatives of the sedation and procedure were discussed with the patient. All questions were answered and informed consent was obtained. The patient was brought to the procedure room. Patient identification and proposed procedure were verified by the physician and the nurse. The patient was placed in a left lateral decubitus position and the scope was passed under direct vision. Throughout the procedure, the patient's blood pressure, pulse, and oxygen saturations were monitored continuously. The colonoscopy was accomplished without difficulty. The patient tolerated the procedure well. Findings: On digital rectal examination there was normal rectal tone. There were no external hemorrhoids. The colonoscope was introduced through the anal canal to the rectum and advanced to the cecum. The ileocecal valve and appendiceal orifice were identified. The scope was advanced a short distance into the ileum which appeared grossly normal. The scope was then withdrawn into the colon. There was a single 3 to 4 mm polyp in the ascending colon removed via cold snare polypectomy. The remaining cecum, ascending, transverse, descending, sigmoid and rectum were grossly normal. There were no mucosal abnormalities identified. Upon retroflexion within the rectum there were grade 1 internal hemorrhoids. The preparation was excellent throughout with [place] Preparation Score of 9. The cecal time was 10 minutes. Impression: 1. Diminutive 3 to 4 mm ascending colon polyp Plan: I will follow-up the polyp histology and recommend repeat surveillance colonoscopy again in 7 to 10 years based upon the pathology.
[2024-09-10 11:30] VITALS: BP 119/79; PULSE 93; RESP 18; TEMP 36.6; O2SAT 95
[2024-09-10 11:40] VITALS: BP 112/76; PULSE 89; RESP 18; O2SAT 98
[2024-09-10 11:50] VITALS: BP 124/74; PULSE 90; RESP 18; O2SAT 97
[2024-09-10 12:00] VITALS: BP 123/76; PULSE 95; RESP 18; O2SAT 95
[2024-09-14 14:11] LABS: Disclaimer Notes (.); Interpretation Notes (.); Lactase 33.43 (>/= 14.0); Palatinase 15.75 (>/= 8.5); Reference Notes (.); Sucrase 69.55 (>/= 25.0)
== END 2024-09-10 12:00 | disposition home or self-care (01) ==
PROVIDERS: PCP Nurse Practitioner Family; Visit Provider Internal Medicine Gastroenterology
PROC: 0DJ08ZZ Inspection of Upper Intestinal Tract, Via Natural or Artificial Opening Endoscopic (ICD-10-PCS; CPT 45378; principal; 2024-09-10 11:00)
DX: Z12.11 Encounter for screening for malignant neoplasm of colon (principal); D12.2 Benign neoplasm of ascending colon; K20.80 Other esophagitis without bleeding; K64.0 First degree hemorrhoids; K31.A0 Gastric intestinal metaplasia, unspecified; J39.2 Other diseases of pharynx; K31.9 Disease of stomach and duodenum, unspecified; K44.9 Diaphragmatic hernia without obstruction or gangrene; F41.1 Generalized anxiety disorder; M81.0 Age-related osteoporosis without current pathological fracture; J45.40 Moderate persistent asthma, uncomplicated; Z88.2 Allergy status to sulfonamides; Z88.1 Allergy status to other antibiotic agents; Z87.891 Personal history of nicotine dependence; Z86.16 Personal history of COVID-19; Z79.899 Other long term (current) drug therapy; Z86.0101 Personal history of adenomatous and serrated colon polyps
CPT/HCPCS: 43239; 43249; 45385; 82657; C1726; J2003; J2704; J7120

== ENCOUNTER 2024-09-13 09:21 | Outpatient (CLI) | payer OTHER, SELFPAY ==
--- OUTSIDE RECORDS SUMMARY | 2024-09-17 09:33 | XMS_ITS | Continuity of Care Document ---
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 [email or web address] Not available 08/14/2024 13:40:29 Plan of Treatment Reminders Order Date Submit Date Provider Last Modified By Organization Details Last Modified Time Details Appointments FOLLOW UP 15 2024 08:45A Junior ADAMS MD Not available Not available Not available Lab urinalysi s, dipstick 2024 025 [email or web address] [facility], [address] [facility] [address], [place], [address], 08/14/2024 13:41:51 Referral None recorded. Procedures bladder scan (PROC) 2024 025 [email or web address] [place] [address], [address] [facility] [address], [place], [address], 08/14/2024 13:41:50 Surgeries cystoscop y with bladder biopsy (SURG) 2024 025 Not available 09/10/2024 11:39:03 Imaging None recorded. Medication Orders None recorded. Patient TargetsNo targets recorded. Patient InstructionsNo instructions recorded. Reason for Referral None Reported. Results Created Date Observation Date Name Description Value Unit Range Abnormal Flag Note LastModifiedBy Organization Detail LastModifiedTime 08/15/1908/14/2024 bladd er scan (PROC ) Calculated Residual Urine: 66 Not Available [place] [place] [address] [address] [facility] [address], [place], [address], 08/14/2024 13:34:58 08/15/19 25 08/14/2024 urina lysis , dipst ick Leukocytes (reference range) negati ve Not Available [place] [address] [address] [facility] [address], [place], [address], 08/14/2024 13:20:23 08/15/19 25 08/14/2024 urina lysis , dipst ick Nitrite (reference range:) negati ve Not Available [place] [address] [address] [facility] [address], [place], [address], 08/14/2024 13:20:23 08/15/19 25 08/14/2024 urina lysis , dipst ick Urobilinogen (reference range) 0.2 Not Available [place] [address] [address] [facility] [address], [place], [address], 08/14/2024 13:20:23 08/15/19 25 08/14/2024 urina lysis , dipst ick Protein (reference range) negati ve Not Available [place] [address] [address] [facility] [address], [place], [address], 08/14/2024 13:20:23 08/15/19 25 08/14/2024 urina lysis , dipst ick pH (reference range 5-8.5) 5.0 Not Available [place] [address] [address] [facility] [address], [place], [address], 08/14/2024 13:20:23 08/15/19 25 08/14/2024 urina lysis , dipst ick Blood (reference range:) large Not Available [address] [place] [address] [address] [facility] [address], [place], [address], 08/14/2024 13:20:23 08/15/19 25 08/14/2024 urina lysis , dipst ick Specific [place] (reference range) 1.030 Not Available [place] [address] [address] [facility] [address], [place], [address], 08/14/2024 13:20:23 08/15/19 25 08/14/2024 urina lysis , dipst ick Ketone (reference range) negati ve Not Available [place] [address] [address] [facility] [address], [place], [address], 08/14/2024 13:20:23 08/15/19 25 08/14/2024 urina lysis , dipst ick Bilirubin (reference range) negati ve Not Available [place] [address] [address] [facility] [address], [place], [address], 08/14/2024 13:20:23 08/15/19 25 08/14/2024 urina lysis , dipst ick Glucose (reference range) negati ve Not Available [place] [address] [address] [facility] [address], [place], [address], 08/14/2024 13:20:23 08/15/19 25 08/14/2024 urina lysis , dipst ick Color (reference range: yellow-brown ) Dark Yellow Not Available [facility], [place], [address], 08/14/2024 13:20:23 09/05/19 25 09/04/2024 imagi ng/di agnos tic resul t No observ ation record ed. [facility] [address], [place], [address], 09/04/2024 10:23:57 Result Notes None recorded. Problems Name Problem SNOMED Code Status Onset Date Resolution Date Notes Provider Name and Address Organization Details Recorded Time Asthma - currently active 002139468 Active 025 Anahy Bonilla null, [place] - [facility] - [place] & [place] 5 15:11:04 Urgent desire to urinate 83434959 Active 025 Anahy Bonilla null, [place] [facility] [place] 5 15:11:30 Increased frequency of urination 820362345 Active 025 TIM ADAMS MD [address], [place], [address] , [place] - [facility] & [place] 5 11:34:21 Luis hematuria 432218372 Active 025 TIM ADAMS MD [address], [place], [address] , [place] [facility] [place] 5 13:40:44 Problem Notes None recorded. Procedures Surgical History Date Name Laterality Status Provider Name and Address Organization Details Recorded Time 08/15/19 25 Cystoscopy-Femal e completed TIM ADAMS MD [address], [place], [address], [place] [facility] & [place] 08/14/2024 13:41:41 operation on accessory sinus completed Anahy Bonilla [place] - [facility] [place] 06/27/2024 15:12:52 arthroplasty of right ankle completed Anahy WOOD [facility] & [place] 06/27/2024 15:13:29 procedure on foot completed Anahy WOOD [facility] & [place] 06/27/2024 15:13:48 Imaging Results None recorded. Procedure Notes None recorded. Medical Equipment None Reported. Allergies Allergen ID Allergen Name Allergen Category Reaction Reaction Severity Criticality Documentation Date Start Date Code Code System Note Provider Name and Address Organization Details Recorded Time 257957 cephalexi n medicatio n hives Not available Not available 06/27/2024 2231 [facility] [place] 15:10:33 825620 Substance with sulfonami de structure and antibacte rial mechanism of action (substanc e) medicatio n Not available Not available Not available 06/27/2024 64945 8003 SNOMED YVETTE Pickens [facility] & [place] 15:10:43 Medications Name Sig Start Date Stop [...] Available ciprofloxaci n 500 mg tablet TAKE 1 TABLET BY MOUTH TWICE DAILY active Not Available Not Available No t Available omeprazole 40 mg capsule,lore yed release TAKE 1 CAPSULE BY MOUTH ONCE DAILY active Not Available Not Available No t Available tramadol 50 mg tablet TAKE 1 TABLET BY MOUTH EVERY 6 HOURS NEEDED FOR MODERATE PAIN 4-6 HOURS active Not Available Not Available No t [...] Available Not Available No t Available fluticasone propionate 50 mcg/actuatio n nasal spray,suspen traci USE 1 SPRAY(S) IN EACH NOSTRIL TWICE DAILY active Not Available Not Available Not Available escitalopram 10 mg tablet TAKE ONE [...] active Not Available Not Available Not Available sodium,potas sium,mag sulfates 17.5 gram-3.13 gram-1.6 gram oral soln DILUTE, DRINK FULL AMOUNT EARLY EVENING BEFORE AND NEXT MORNING AT LEAST 4-5 HOURS BEFORE PROCEDURE, FOLLOW WITH 960ML OF WATER active Not Available Not Available No t [...] Address Organization Details Last Updated DateTime 5 38922.9 6 g 96 % 96 % 67 /min 140 mm[Hg] 80 mm[Hg] Erica Calabresen [facility] & [place] 5 13:19:28 Social History Question Answer Notes LastModified by [employer] Details LastModified Time Tobacco Smoking Status Former Smoker Yary Nieves trena, [facility] & [place] 06/28/2024 11:03:07 Has Tobacco Cessation Counseling Been Provided? No [email or web address] Information not available 06/28/2024 Sex: Female Functional Status Question Answer Note LastModified by [employer] Details LastModified Time Do you use any illicit or recreational drugs? No [email or web address] Information not available 06/28/2024 Do you or [...] SNOMED-CT Code Diagnosis ICD10 Code Diagnosis Note [id number] TIM ADAMS MD [facility] [address] [place] [address] 08/14/2024 13:04:36 08/14/2024 13:48:17 Luis hematuria 439915306 R31.0 Health Concerns Section Related Observation LastModified by Organization [employer] LastModified Time None Recorded Concern Status LastModified by Organization Details LastModified Time None Recorded Payers Encounter Date Sequence Insurance Name Policy Number Policy Flores Covered Member ID Flores Member ID Guarantor Name 08/14/[address] [facility] [id number] Meenu Alexandra [id number] Meenu Alexandra Notes Date Note Type Note Provider Name and Address Organization Details Recorded Time 08/14/2024 text/html 08/14/24 [id number]-female returns to my office to discuss effectiveness of medication and possible cystoscopy, started on Oxybutynin 10mg. ------ 06/29/25591004-dzyd-yyp -female referred to my office for recurrent [...] bacterial growth. She has been using AZO [id number], which she believes helps, although it may [...] normal without chronic constipation. TIM ADAMS MD [address], [place], [address], [facility] - [place] & [place] 08/15/2024 12:26:10 OBGyn Episode No OBEpisode recorded.
== END 2024-09-13 23:59 | disposition home or self-care (01) ==
LOC: LAB.DROPOF 09-17 09:21
PROVIDERS: PCP Nurse Practitioner Family; Visit Provider Student in an Organized Health Care Education/Training Program
DX: N39.0 Urinary tract infection, site not specified (principal)
CPT/HCPCS: 87086; 87088; 87186

== ENCOUNTER 2025-02-05 19:00 | Outpatient (CLI) | payer OTHER, SELFPAY ==
--- OUTSIDE RECORDS SUMMARY | 2025-02-06 13:27 | XMS_ITS | Clinical Summary ---
Author Organization [facility] Address [address] [place] [address] Care Team Providers Care Talent Management Specialist Name Role Phone Khalida Marion IGNACIA Primary Care Provider + [phone] Allergies Active Allergy Reactions Criticality Noted Date Comments Cephalexin Hives 06/15/2024 Sulfa Antibiotics Other (See Comments) 01/12/20 07 Substance with sulfonamide structure and antibacterial mechanism of action (substance) Told by parents sulfha allergy Medications Breo Ellipta 200-25 MCG/ACT inhaler 06/11/2024 Active escitalopram (Lexapro) 5 MG tablet Active Cholecalciferol (Vitamin D3) 25 MCG (1000 UT) capsule 05/14/2022 Active phentermine 30 MG capsule Take 1 capsule by mouth Every Morning. Active Active Problems Problem Noted Date Diagnosed Date Well woman exam with routine gynecological exam 06/01/2016 Overview (06/01/2016): SCREENING TESTS Year 2011 2013 2014 2015 2016 2017 2018 2019 2019 2020 2021 2022 2023 2024 2025 2026 2027 2028 2029 2030 Age PAP HPV high risk MONTEZ [Birads] SO score Colonoscopy DEXA [T-score] Frax [hip/any] Lipids [LDL / HDL / TG] Vitamin D Ovarian Screen Enter the month test was performed. If month not known, enter X' Black numbers = normal results Red numbers = abnormal results Black X = patient reported normal Red X - patient reported abnormal Referred by: Profession: Other info: Family History Medical History Relation Name Comments Breast cancer Other Relation Name Status Comments Other Social History Tobacco Use Types Packs/Day Years Used Date Smoking Tobacco: Former Smokeless Tobacco: Never Alcohol Use Standard Drinks/Week Comments No 0 (1 standard drink = 0.6 oz pur e alcohol) Comments No Sex and Gender Information Value Date Recorded Sex Assigned at Not on file Legal Sex Female 1:39 PM EDT Gender Identity Not on file Sexual Orientation Not on file Last Filed Vital Signs Vital Sign Reading Time Taken Comments Blood Pressure 112/74 06/15/2024 9:54 AM EDT Pulse - - Temperature - - Respiratory Rate - - Oxygen Saturation - - Inhaled Oxygen Concentration - - Weight 73.9 kg (163 lb) 06/15/2024 9:54 AM EDT Height 157.5 cm (5' 2 ) 06/15/2024 9:54 AM EDT Body Mass Index 29.81 06/15/2024 9:54 AM EDT Plan of Treatment Upcoming Encounters Date Type Department Care Team (Late st Contact Info) Description 06/19/2025 9:40 AM EDT Office Visit [facility] OBGYN [address] [phone] Cher Gold CN [address] [employer] [address] [place] [address] Health Maintenance Due Date Last Done Comments TDAP/TD VACCINES (1 - Tdap) 08/15/1982 PAP SMEAR 08/15/1984 MAMMOGRAM 2003 COLOGUARD 08/15/2008 COLON CANCER SCREENING 5 YEAR SIGMOIDOSCOPY 08/15/2008 COLONOSCOPY 08/15/2008 COLORECTAL CANCER SCREENING 08/15/2008 CT COLONOGRAPHY 08/15/2008 FECAL OCCULT BLOOD TEST 08/15/2008 FIT Testing (1 year) 08/15/2008 Pneumococcal Vaccine 50+ (1 of 1 - PCV) 08/15/2013 ZOSTER VACCINE (1 of 2) 08/15/2013 ANNUAL PHYSICAL 06/11/2024 HEPATITIS C SCREENING 06/11/2024 INFLUENZA VACCINE 10/26/2024 01/24/2024 Annual Gynecologic Pelvic and Breast Exam 06/16/2025 06/15/2024 Insurance [employer] Care Teams Talent Management Specialist Relationship Specialty Start Date End Date Khalida Marion APRN [address] [address] [place] [address] PCP - General Internal Medicine 06/08/24
--- OUTSIDE RECORDS SUMMARY | 2025-02-06 13:27 | XMS_ITS | Data Portability ---
Author Organization [facility] Address [address] [facility] [place] [address] Care Team Providers Care Carpet Finishing Supervisor Name Role Phone DYLON SHUKLA Primary Care Provider [phone] Assessment Encounter Date Assessment Date Assessment LastModified [...] Budesonide 1 mg capsules #60 2024 025 [facility], [address], [place], [place], [id number], 5 16:51:49 doxycycline hyclate 100 mg capsule 2024 025 [facility], [address] [place] [address] [place], [id number], 5 16:31:41 Medrol (Andres) 4 mg tablets in a dose pack 2024 025 [facility], [address] [place] [address] [address], [id number], 5 16:31:44 doxycycline hyclate 100 mg capsule [address], [address] [place] [address] [address] [place], [id number], 5 16:17:17 Medrol (Anrdes) 4 mg tablets in a dose pack [address], [address] [place] [address] [address] [place], [id number], 5 16:17:38 Patient TargetsNo targets recorded. Patient Instructions Encounter Date Encounter Id Patient Instructions Last Modified By Organization Details Last Modified Time 02/15/2024 [id number] 1. Visit today i s being conducted via telehealth using both audio/video. The patient confirms that he/she is physically located in [place] at the time of this visit. Patient [...] pack 4. F/U in 4-5 weeks tele crobo Not available 02/15/2024 08:42:47 She has chronic [...] and alternatives and she wishes to proceed. [email or web address] Not available 02/15/2024 08:41:45 04/16/2024 [id number] 1. Nasal Endosco py performed in office [...] RE routine culture, quest MICRO NUMBE R: [id number] SPECI MEN QUALI TY: Adequ ate SOURC E: TISSU E STATU S: FINAL RESUL T: No Growt h Not Available [facility] [address] [place], [address], 04/14/2024 12:22:15 04/06/19 25 04/14/2024 AEROB E/MYRNA EROBE CULTU RE anaerobe culture MICRO NUMBE R: [id number] SPECI MEN QUALI TY: Adequ ate SOURC E: TISSU E STATU S: FINAL GRAM STAIN : No epith elial cells seen No white blood cells seen No organ isms seen RESUL T: No anaer obes isola amirah. Not Available [facility] [address] [place] [address], [address], 04/14/2024 12:22:15 04/06/19 25 04/11/2024 AEROB E/MYRNA EROBE CULTU RE routine culture, quest MICRO NUMBE R: [id number] SPECI MEN QUALI TY: Adequ ate SOURC E: SW STATU S: FINAL RESUL T: Growt h of skin surya (note : Growt h does not inclu de S. aureu s, beta- hemol ytic Strep tococ ci or P. aerug inosa ). Not Available [facility] [address] [place] [address], [address], 04/14/2024 12:21:58 04/06/19 25 04/14/2024 AEROB E/MYRNA EROBE CULTU RE anaerobe culture MICRO NUMBE R: [id number] SPECI MEN QUALI TY: Adequ ate SOURC E: SW STATU S: FINAL GRAM STAIN : No epith elial cells seen Few Polym orpho nucle ar leuko cytes No organ isms seen RESUL T: No anaer obes isola amirah. Not Available [facility] [address] [place], [address], 04/14/2024 12:21:58 04/06/19 25 04/06/2024 SURGI BIJU [...] noted above . YSABEL CONKLIN M.D. Jyotsna d Out Date: 04/09 15:12 Page 1 of 1 Not Available [facility] [address] [place] [address], [place], [address], 04/09/2024 15:12:46 04/06/1905/07/2024 FUNGA L CULTU RE fungal culture MICRO NUMBE R: [id number] SPECI MEN QUALI TY: Adequ ate SOURC E: TISSU E STATU S: FINAL SMEAR : No funga l eleme nts seen. CULTU RE: No funga l growt h at 4 Weeks Not Available [facility] [address] [facility], [place], [address], 05/07/2024 10:42:37 04/05/1904/06/2024 elect gordon diogr am No observ ation record ed. Not Available 04/05 14:35:15 Result Notes None recorded. Procedures Surgical History Date Name Laterality Status Provider Name and Address Organization Details Recorded Time Endoscopy Nasal; Biospy, Polypectomy or Debridement completed Ragini Pelayo [facility] 04/16/2024 16:46:29 Imaging Results None recorded. Procedure Notes None recorded. Medical Equipment None Reported. Allergies Allergen ID Allergen Name Allergen Category Reaction Reaction Severity Criticality Documentation Date Start Date Code Code System Note Provider Name and Address Organization Details Recorded Time 914864 Substance with sulfonami de structure and antibacte rial mechanism of action (substanc e) medicatio n Not available Not available Not available 02/20/20162006 28314 8003 SNOMED Comme nt: Creat ed By: Kd macario Date: 01/11 3:04: 00 PM; Not Available [facility] 6 05:11:17 297202 Cephalosp devin (substanc e) medicatio n Not available Not available Not available 04/09/2024 55015 7003 SNOMED patie nt conta cted offic e to corre ct aller gies 04/[facility] 16:16:43 678983 cephalexi n medicatio n Not available Not available Not available 04/16/20241 RxNorm [facility] 5 16:17:01 Medications Name Sig Start Date [...] Body weight Body temperature Heart rate Systolic And Diastolic Provider Name and Address Organization Details Last Updated DateTime 157.48 cm 32.6 kg/m2 12681.5 4 g 97.6 [degF] 63 /min 128/85 mm[Hg] Cara Damico [facility] 16:15:02 Date Recorded Body height Body mass index (BMI) Body weight Provider Name and Address Organization Details Last Updated DateTime 02/15/2024 157.48 cm 31.1 kg/m2 08865.7 g Hardy Chaparro [facility] 02/15/2024 08:13:18 Social History None recorded. Functional Status None recorded. Mental Status None recorded. Family History Nothing Reported. Medical History Condition Response Kidney Stones N Hyperthyroidism N Heart Arrhythmia N Emphysema N Esophagus/swallowing troubles N Depression N Lung Disease N Hypothyroidism N Glaucoma N Anesthesia Complications N Anxiety Disorder N Arthritis N Hearing Loss N Acid Reflux (GERD) N Cancer N Stroke N Hoarseness N Alcohol Overuse/Alcohol Abuse N High Cholesterol N Snoring problems N Liver Disease N Headaches N Kidney Disease N Allergies/Hayfever N Heart Problems N Mental handicap N Ear or Hearing Problems N Gallbladder Disease N Migraines N Thyroid Problems N Goiter N Anemia N Immune System Disorder N Chest Pain N Stomach trouble N Ulcers N Heart Attack (NM) N Diabetes N Rheumatic Fever N Bleeding Disorder N Tuberculosis N AIDS/HIV N Hyperlipidemia N Asthma N Epilepsy/Seizures N Sleep Disorder N Hepatitis N Heart Disease N Hypertension N Gynecological HistoryNo gynecological history recorded. Obstetrics History GPAL:G 0 P 0 0 0 0 Past Encounters Encounter ID Performer Location Encounter Start Date Encounter Closed Date Diagnosis/Indication Diagnosis SNOMED-CT Code Diagnosis ICD10 Code Diagnosis IMO Codes Diagnosis Note [id number] CYNDY HERNANDEZ MD [place] [facility] [address] [place] [address] 02/15/2024 08:10:25 02/15/2024 08:43:37 Chronic sinusitis 12763128 J32.9 Chronic rhinitis 5705996 6 J31.0 [id number] CYNDY HERNANDEZ MD SURGERY SCHEDULE [address] [place] [address] 04/06/2024 08:40:02 04/06/2024 08:40:42 Chronic sinusitis 67061904 J32.9 Chronic rhinitis 3030495 6 J31.0 [id number] CYNDY HERNANDEZ MD [place] [address] [place] [address] 04/16/2024 14:27:35 04/16/2024 16:54:04 Chronic sinusitis 92961915 J32.9 04/06/24 s/p Image-guid ed functional endoscopic [...] Rx - COMPOUND sinus rinse Chronic rhinitis 0775355 6 J31.0 Loss of se nse of smell 78428629 R43.0 Health Concerns Section Related Observation LastModified by Organization Detai ls LastModified Time None Recorded Concern Status LastModified by Organization Details LastModified Time None Recorded Advance Directives Directive None Recorded Payers Insurance Date Sequence Insurance Name Policy Number Policy Flores Covered Member ID Flores Member ID Guarantor Name 04/13/2024 1 [employer]) [id number] Meenu Alexandra [id number] Meenu Alexandra Notes Date Note Type Note Provider Name and Address Organization Details Recorded Time 02/15/2024 text/html Meenu Visit today is being conducted via telehealth using both audio/video. The patient confirms that he/she is physically located in [place] at the time of this visit. Patient [...] her sinus open up. CYNDY HERNANDEZ MD [facility] [place], [address], [facility] 02/15/2024 12:40:15 04/06/2024 text/html Meenu Visit today is being conducted via telehealth using both audio/video. The patient confirms that he/she is physically located in [place] at the time of this visit. Patient [...] her sinus open up. CYNDY HERNANDEZ MD [facility] [place], [address], [facility] 04/12/2024 15:07:36 04/16/2024 text/html ROS as noted in the HPI Meenu comes in today for a POFU [...] be unable to smell. CYNDY HERNANDEZ MD [facility] [place], [address], [facility] 04/16/2024 16:48:30 OBGyn Episode No OBEpisode recorded.
== END 2025-02-05 23:59 | disposition home or self-care (01) ==
LOC: LAB.DROPOF 02-06 13:07
PROVIDERS: PCP Nurse Practitioner Family; Visit Provider Student in an Organized Health Care Education/Training Program
DX: N39.0 Urinary tract infection, site not specified (principal)
CPT/HCPCS: 87086; 87088; 87186

== ENCOUNTER 2025-02-26 11:58 | Outpatient (CLI) | payer OTHER, SELFPAY ==
--- OUTSIDE RECORDS SUMMARY | 2025-02-26 12:01 | XMS_ITS | Clinical Summary ---
Author Organization [facility] Address [address] [place] [address] Care Team Providers Care Auditing Manager Name Role Phone Khalida Marion IGNACIA Primary Care Provider + [phone] Allergies Active Allergy Reactions Criticality Noted Date [...] Description 06/19/2025 9:40 AM EDT Office Visit [facility] OBGYN [address] [phone] Cher Gold CN [address] [facility] [address] [place] [address] Health Maintenance Due Date Last Done Comments [...] Exam 06/16/2025 06/15/2024 Insurance [employer] Care Teams Auditing Manager Relationship Specialty Start Date End Date Khaldia Marion APRN [address] [address] [place] [address] PCP - General Internal Medicine 06/08/24
[2025-02-26 12:20] LABS: Hematocrit 46.3 % (37.0-47.0); Hemoglobin 15.2 g/dL (12.2-16.2); Immature Granulocytes % 0.2 %; Mean Corpuscular HGB Conc 32.8 g/dL (31.8-35.4); Mean Corpuscular Hemoglobin 29.2 pg (27.0-31.2); Mean Corpuscular Volume 89.0 fl (81-99); Nucleated Red Blood Cells % 0 %; Platelet Count 264 K/mm3 (142-424); Red Blood Count 5.20 M/mm3 (4.20-5.40); Red Cell Distribution Width-SD 42.1 fL; White Blood Count 5.9 K/mm3 (4.8-10.8)
[2025-02-26 13:04] LABS: Bilirubin,Urine Negative (Negative); Color,Urine YELLOW (Yellow); Glucose,Urine (UA) Negative (Negative); Ketones,Urine Negative (Negative); Leukocyte Esterase,Urine 1+ (Negative); PH,Urine 6.0 (5.0-8.5); Protein,Urine Negative (Negative); Specific Gravity, Urine 1.015 (1.005-1.030); Urobilinogen,Urine 0.2 EU/dl (0.2)
[2025-02-26 13:08] LABS: Hemoglobin A1C 5.3 % (4.0-6.0)
[2025-02-26 13:25] LABS: Alanine Aminotransferase 46 U/L (12-78); Albumin Level 4.8 g/dl (3.5-5.0); Albumin/Globulin Ratio 1.6 (1.1-1.8); Alkaline Phosphatase 117 U/L (38-126); Anion Gap 10.8 mEq/L (5-15); Aspartate Amino Transferase 42 U/L (14-36); Bilirubin,Total 0.9 mg/dl (0.2-1.3); Blood Urea Nitrogen 10 mg/dl (7-17); Calcium 9.9 mg/dl (8.4-10.2); Carbon Dioxide 27 mmol/L (22.0-30.0); Chloride 99 mmol/L (98-107); Creatinine,Serum 0.70 mg/dl (0.52-1.04); Estimated Glomerular Filt Rate 85 ml/min (>60); GFR (African American) 103 ML/MIN (>60); Globulin 3.0 g/dL (1.3-3.2); Glucose 92 mg/dl (74-100); Potassium 3.8 mmoL/L (3.5-5.1); Sodium 133 mmol/L (136-145); Total Protein,Serum 7.8 g/dl (6.3-8.2)
[2025-02-26 13:40] LABS: 25-OH Vitamin D, Total 36.0 ng/mL (30-100)
[2025-02-26 13:45] LABS: Bacteria,Urine 2+ /lpf; Microscopic, Urine URINE MICROSCOPIC (MICROSCOPIC); RBC,Urine Occasional #/hpf (0-3)
[2025-02-26 13:55] LABS: Thyroid Stimulating Hormone 1.57 uIU/mL (0.465-4.68)
[2025-02-26 13:59] LABS: Ferritin 53.8 ng/ml (11.1-264)
[2025-02-26 14:14] LABS: Vitamin B12 419 pg/mL (239-931)
[2025-02-27 16:12] LABS: Antinuclear Antibodies (ANA) Negative (Negative)
== END 2025-02-26 23:59 | disposition home or self-care (01) ==
LOC: LAB 11:58
PROVIDERS: PCP Nurse Practitioner Family; Visit Provider Nurse Practitioner Family
DX: I89.0 Lymphedema, not elsewhere classified (principal); R30.0 Dysuria; E55.9 Vitamin D deficiency, unspecified; K21.00 Gastro-esophageal reflux disease with esophagitis, without bleeding; M81.0 Age-related osteoporosis without current pathological fracture; R74.8 Abnormal levels of other serum enzymes; R63.5 Abnormal weight gain; R53.83 Other fatigue
CPT/HCPCS: 36415; 80053; 81001; 82180; 82306; 82607; 82728; 83036; 84443; 84630; 85025; 86038; 87086; 87088; 87186